=== PATIENT | male | born 1960 | race Two or more races ===

== ENCOUNTER 2024-04-27 11:46 | Outpatient (OUT) | payer SELFPAY ==
[2024-04-28 04:07] LABS: PSA, Free 1.15 ng/mL; Prostate Specific Ag 7.7 ng/mL (0.0-4.0)
== END 2024-04-27 11:47 | disposition home or self-care (01) ==
LOC: LAB 11:46
PROVIDERS: PCP Family Medicine; Visit Provider Urology
DX: Z80.42 Family history of malignant neoplasm of prostate (principal); R97.20 Elevated prostate specific antigen [PSA]
CPT/HCPCS: 36415; 84153; 84154

== ENCOUNTER 2024-08-06 12:58 | Outpatient (OUT) | payer BC, SELFPAY ==
[2024-08-07 08:13] LABS: PSA, Free 1.28 ng/mL; Prostate Specific Ag 9.7 ng/mL (0.0-4.0)
== END 2024-08-06 12:59 | disposition home or self-care (01) ==
PROVIDERS: PCP Family Medicine; Visit Provider Urology
DX: R97.20 Elevated prostate specific antigen [PSA] (principal)
CPT/HCPCS: 36415; 84153; 84154

== ENCOUNTER 2024-11-19 14:27 | Outpatient (OUT) | payer BC, SELFPAY ==
--- OUTSIDE RECORDS SUMMARY | 2024-11-19 14:45 | XMS_ITS | CCD ---
Author Organization [facility] Care Team Providers Care Buyer Grain Name Role Phone Bernardo Torrez Unavailable DO Bernardo Torrez Primary Care Provider ASHLEY Resendiz Emergency Provider DO Jose Carlos Torrez Attending Provider [phone] DO Bernardo Torrez Attending Provider [phone] BERNARDO TORREZ Primary Care Physician [phone] DO Bernardo Torrez Primary Care Provider MD Yousuf Zuñiga Attending Provider [phone] MD Yousuf Zuñiga Attending Provider DO Bernardo Torrez Primary Care Provider [phone] MD Néstor Dai Jr Emergency Provider DO Maikel Palacio Admit Provider DO Maikel Palacio Attending Provider MD Karlos Mauricio Attending Provider RILEY Jhonson Other Provider Unavailable MD Augustine Dias Other Provider MD Kyle Rodriguez Other Provider MD Michelle Pressley Other Provider Yousuf Zuñiga Attending Unavailable Bernardo Torrez Primary Care Unavailable Yousuf Zuñiga Admitting Unavailable Yousuf Zuñiga Attending Unavailable Yousuf Zuñiga Admitting Unavailable Maikel Palacio Admitting Unavailmauro Pepperer, Harini Consulting Unavailable Kuns, Bernardo Primary Care Unavailable Alaozzie, Karlos Attending Unavailable Larissa, Augustine Consulting Unavailable Kyle Rodriguez Consulting Unavai lable Huan, Michelle Consulting Unavailable Kiepert, Veronica A Admitting Unavailable Kiepert, Veronica A Attending Unavailable Kuns, Bernardo Primary Care Unavailable Uhan, Michelle Admitting Unavailable Huan, Michelle Attending Unavailable Kuns, Bernardo Primary Care Unavailable Kuns, Jose Carlos Admitting Unavailable Kuns, Jose Carlos Attending Unavailable Kuns, Bernardo Primary Care Unavailable Kuns, Bernardo Primary Care Unavailable Kuns, Bernardo Attending Unavailable Kuns, Bernardo Admitting Unavailable COOK, Yousuf P Attending Unavailable COOK, Yousuf P Attending Unavailable COOK, Yousuf P Attending Unavailable COOK, Yousuf P Attending Unavailable COOK, Yousuf P Attending Unavailable COOK, Yousuf P Attending Unavailable COOK, Yousuf P Attending Unavailable KUNS, BERNARDO Referring Unavailable COOK, Yousuf P Attending Unavailable Allergies Allergy Classification Reported Allergen(s) Allergy Type Date of Onset Reaction(s) Facility (17 sources) Aspirin; Translations: [aspirin] Drug Allergy 3 Stomach ache (finding) [facility] (1 source) Aspirin Drug Allergy 4 [facility] Repository Medications Current Medications Medication Drug Class(es) Dates Sig (Normalized) Sig (Original) allopurinol 300 mg oral tablet (1 source) Xanthine Oxidase Inhibitor Start: 10-09-2016 take 1 tablet by mouth every twenty-four hours Allopurinol 300 MG 1 tablet Orally Once a day for 90 prn Sep, Active amoxicillin 875 mg / clavulanate 125 mg oral tablet (2 sources) Penicillin-class Antibacterial Start: 07-09-2023 take 1 tablet by mouth every twelve hours Amoxicillin-Pot Clavulanate 875-125 MG 1 tablet Orally every 12 hrs for 10 day(s) Jun, Active Augmentin Tablets 875 MG (3 sources) Start: 07-08-2023 take 1 tablet by mouth every twelve hours Augmentin Tablets 875 MG 1 tablet orally BID for 10 days Jun, Active cephalexin 500 mg oral capsule (5 sources) Cephalosporin Antibacterial Start: 01-28-2024 cephalexin 500 mg Cap Refills(s) 0 Start Date: 01/28/24 Status: Ordered Start: 01-22-2024 take 500 mg by mouth three times daily Cephalexin Active 500 MG PO Three times daily 05 04January 22, 2024 12:00am Nexium (18 sources) Proton Pump Inhibitor Start: 10-01-2023 Nexium O ral, Daily, Refills(s) 0 Start Date: 10/01/23 Status: Ordered Start: 06-23-2023 take 1 capsule by [facility] once daily Esomeprazole Magnesium (Nexium) 40 mg Capsule,Delayed Release(Dr/Ec) Active 40 MG PO Daily June 23, 2023 12:00am Start: 04-05-2015 take 1 capsule by [facility] every twenty-four hours NexIUM 40 MG 1 capsule Orally Once a day OTC Mar, Active take 1 capsule by [facility] every twenty-four hours NexIUM 24HR 20 MG 1 capsule Orally Once a day Active febuxostat 40 mg oral tablet (2 sources) Xanthine Oxidase Inhibitor Start: 07-29-2023 take 1 tablet by mouth every twenty-four hours Febuxostat 40 MG 1 tablet Orally Once a day for 30 days Jul, Active Start: 11-20-2018 take 1 tablet by [facility] every twenty-four hours Uloric 40 MG 1 tablet Orally Once a day for 30 day(s) prn Nov, Active methylPREDNISolone 4 mg oral tablet (3 sources) Corticosteroid Start: 07-08-2023 methylPREDNISolone 4 MG as directed Orally as directed 1 pack Jun, Active 24 hr metoprolol succinate 25 mg extended release oral tablet (5 sources) beta-Adrenergic Zulma Start: 01-28-2024 take 1 mg by mouth once daily metoprolol 25 mg ER Tab mg tab(s), Oral, Daily, Refills(s) 0 Start Date: 01/28/24 Status: Ordered Start: 01-22-2024 take 75 mg by mouth twice rosa y Metoprolol Succinate Active 75 MG PO Twice daily 180 January 22, 2024 12:00am uricel (6 sources) Start: 10-01-2023 uricel uricel Start Date: 10/01/23 Status: Ordered Completed/Discontinued Medications Medication Drug Class(es) Dates Sig (Normalized) Sig (Original) acetaminophen 325 mg oral tablet (7 sources) Start: 07-27-2021 End: 07-31-2021 take 650 mg by mouth every six hours Acetaminophen Discontinued 650 MG PO Q6H 0 July 27, 2021 1:00am July 31, 2021 11:29am acetaminophen 325 mg / HYDROcodone bitartrate 5 mg oral tablet (7 sources) Opioid Agonist Start: 02-13-2018 End: 07-18-2021 take 1 tablet by mouth every four to six hours Hydrocodone-Acetam inophen ([facility]) 5-325 mg Tablet Discontinued 1 TAB PO EVERY 4-6 HOURS February 13, 2018 July 18, 2021 11:55pm [id number] 200 actuat albuterol 0.09 mg/actuat metered dose inhaler (7 sources) beta2-Adrenergic Agonist Start: 07-27-2021 End: 07-31-2021 take 1 puff(s) by inhalation every three hours Albuterol Sulfate (Ventolin Hfa) 90 mcg/actuation Hfa Aerosol Inhaler Discontinued 2 PUFF INHALATION Q3H 0 July 27, 2021 1:00am July 31, 2021 11:29am ALPRAZolam 0.5 mg oral tablet (7 sources) Benzodiazepine Start: 07-27-2021 End: 07-31-2021 take 0.5 mg by mouth every six hours Alprazolam Discontinued 0.5 MG PO Q6H 0 July 27, 2021 1:00am July 31, 2021 11:29am ANORO ELLIPTA 62.5 mcg/25 mcg (5 sources) Start: 09-06-2021 take 1 puff(s) by inhalation once daily ANORO ELLIPTA 62.5 mcg/25 mcg 1 PUFF INHALATION DAILY sample given Aug, Not-Taking Start: 09-06-2021 take 1 puff(s) by in halation once daily ANORO ELLIPTA 62.5 mcg/25 mcg 1 PUFF INHALATION DAILY sample given Aug, Active ascorbic acid 500 mg oral tablet (7 sources) Vitamin C Start: 07-27-2021 End: 07-31-2021 take 1 tablet by mouth once daily Ascorbic Acid (Vitamin C) (Vitamin C) 500 mg Tablet Discontinued 500 MG PO Daily 0 July 27, 2021 1:00am July 31, 2021 11:29am baricitinib 2 mg oral tablet (7 sources) Start: 07-27-2021 End: 07-31-2021 take 1 tablet by mouth once daily Baricitinib (Olumiant) 2 mg Tablet Discontinued 4 MG PO Daily 0 4 July 27, 2021 1:00am July 31, 2021 11:29am benzonatate 200 mg oral capsule (5 sources) Non-narcotic Antitussive Start: 09-06-2021 take 1 capsule by mouth three times daily as needed Benzonatate 200 MG 1 capsule Orally Three times a day PRN Aug, Not-Taking ciprofloxacin 500 mg oral tablet (3 sources) Quinolone Antimicrobial Start: 01-17-2024 End: 01-22-2024 take 500 mg by mouth twice daily Ciprofloxacin Hcl Discontinued 500 MG PO Twice daily January 17, 2024 12:00am January 22, 2024 11:40am Start: 11-15-2023 take 1 tablet by vincenzo th twice daily Cipro 500 mg Tab 500 mg = 1 tab(s), Oral, BID, start 3 days prior to procedure, # 14 tab(s), Refills(s) 0, Pharmacy: [facility], 179, cm, 10/01/23 9:12:00 EST, Height/Length Dosing, 104.1, kg, 10/01/23 9:03:00 EST, Weight Dosing Start Date: 11/15/23 Status: Ordered 0.4 ml enoxaparin sodium 100 mg/ml prefilled syringe (7 sources) Low Molecular Weight Heparin Start: 07-27-2021 End: 07-31-2021 Enoxaparin (Lovenox) 40 mg/0.4 mL Syringe Discontinued 40 MG SUBCUT Daily 0 July 27, 2021 1:00am July 31, 2021 11:29am folic acid 1 mg oral tablet (8 sources) Start: 07-31-2021 End: 06-23-2023 take 1 mg by mouth once daily Folic Acid Discontinued 1 MG PO Daily 0 July 31, 2021 1:00am June 23, 2023 4:02pm Ketorolac (4 sources) Nonsteroidal Anti-inflammatory Drug, Cyclooxygenase Inhibitor Start: 06-10-2018 Toradol per 15 mg 25 May, 2018 2 cc melatonin 3 mg oral tablet (7 sources) Start: 07-27-2021 End: 07-31-2021 take 3 mg by mouth once daily in the evening Melatonin Discontinued 3 MG PO Every evening 0 July 27, 2021 1:00am July 31, 2021 11:29am predniSONE 10 mg oral tablet (14 sources) Start: 06-23-2023 End: 01-17-2024 take 60 mg by mouth once daily Prednisone Discontinued 60 MG PO Daily 30 June 23, 2023 12:00am January 17, 2024 8:53pm Start: 02-13-2018 End: 07-18-2021 take 60 mg by mouth once daily at mealtime, then take 40 mg by mouth once daily, then take 20 mg by mouth once daily, then take 10 mg by mouth once daily Prednisone Discontinued 0 MG PO As Directed February 13, 2018 12:00am July 18, 2021 11:55pm 60mg daily x 3 days, 40 mg daily x 3 days, 20mg daily x 3 days, 10mg daily x 3 days administer with food or milk zinc sulfate 220 mg oral capsule (7 sources) Start: 07-27-2021 End: 07-31-2021 Zinc Sulfate (Orazinc) 50 mg zinc (220 mg) Capsule Discontinued 100 MG PO Daily 0 July 27, 2021 1:00am July 31, 2021 11:29am Problems Active Problems Problem Classification Problem Date Documented Date Episodic/Chronic Abdominal hernia (9 sources) Unilateral inguinal hernia, without obstruction or gangrene, not specified as recurrent; Translations: [Inguinal hernia] Onset: 09-06-2021 Resolved: 09-06-2021 Episodic Administrative/socia l admission (7 sources) Other reduced mobility; Translations: [Impaired mobility and activities of daily living] 07-27-2021 Episodic Aortic; peripheral; and visceral artery aneurysms (12 sources) Aortic aneurysm; Translations: [Aortic aneurysm of unspecified site, without rupture] Onset: 01-18-2024 10-29-2023 Chronic Cardiac dysrhythmias (4 sources) Paroxysmal atrial fibrillation; Translations: [Paroxysmal atrial fibrillation with rapid ventricular response] Onset: 01-18-2024 01-21-2024 Chronic Disorders of lipid metabolism (14 sources) Hyperlipidemia; Translations: [Hyperlipidemia, unspecified] Onset: 09-06-2021 Resolved: 09-06-2021 Chronic Esophageal disorders (13 sources) Gastroesophageal reflux disease; Translations: [Gastro-esophageal reflux disease without esophagitis] Onset: 01-18-2024 10-29-2023 Chronic Essential hypertension (6 sources) Hypertensive disorder 10-01-2023 Chronic Genitourinary congenital anomalies (9 sources) Congenital renal atrophy; Translations: [Renal hypoplasia, unspecified] Onset: 01-18-2024 07-19-2021 Chronic Genitourinary symptoms and ill-defined conditions (4 sources) Microscopic hematuria; Translations: [Other microscopic hematuria] Onset: 04-29-2024 Episodic Gout and other crystal arthropathies (20 sources) Gout; Translations: [Gout, unspecified] Onset: 09-06-2021 Resolved: 10-16-2021 Chronic Immunizations and screening for infectious disease (6 sources) Needs influenza immunization; Translations: [Encounter for immunization] Onset: 09-06-2021 Resolved: 09-06-2021 Episodic Nutritional deficiencies (11 sources) Iron deficiency; Translations: [Iron deficiency] Onset: 09-06-2021 Resolved: 09-06-2021 Episodic Other ear and sense organ disorders (1 source) Other specified disorders of right ear Episodic Other lower respiratory disease (1 source) Shortness of breath; Translations: [Shortness of breath] Onset: 01-18-2024 Episodic Other nutritional; endocrine; and metabolic disorders (1 source) Body mass index (BMI) 31.0-31.9, adult Chronic Other screening for suspected conditions (not mental disorders or infectious disease) (20 sources) Screening status; Translations: [Encounter for screening for malignant neoplasm of prostate] Onset: 09-06-2021 Resolved: 10-16-2021 Episodic Other upper respiratory disease (1 source) Nasal congestion Episodic Residual codes; unclassified (7 sources) Patient encounter status; Translations: [Encounter for prophylactic measures, unspecified] 07-27-2021 Episodic Residual codes; unclassified (1 source) Family history of malignant neoplasm of prostate Episodic Residual codes; unclassified (4 sources) Family history of cancer; Translations: [Family history of malignant neoplasm of prostate] Onset: 10-01-2023 Episodic Residual codes; unclassified (6 sources) Family history of prostate cancer 10-01-2023 Episodic Respiratory failure; insufficiency; arrest (adult) (7 sources) Acute respiratory failure; Translations: [Acute respiratory failure with hypoxia] 07-19-2021 Episodic Septicemia (except in labor) (5 sources) Sepsis; Translations: [Sepsis, unspecified organism] Onset: 01-18-2024 01-18-2024 Episodic Unclassified (7 sources) Lack of stamina; Translations: [Impaired endurance] 07-27-2021 Unclassified (1 source) Idiopathic chronic gout, left knee, without tophus (tophi); Translations: [Idiopathic chronic gout, left knee, without tophus (tophi)] Onset: 06-23-2023 Viral infection (14 sources) COVID-19; Translations: [Pneumonia due to COVID-19 virus] Onset: 06-16-2021 07-19-2021 Episodic Past or Other Problems Problem Classification Problem Date Documented Da te Episodic/Chronic Unclassified (2 sources) History of COVID-19 Z86.16 Onset: 08-07-2021 Resolved: 09-06-2021 Unclassified (1 source) Cough R05.9 Onset: 09-06-2021 Resolved: 09-06-2021 Results Test Name Value Interpretation Reference Range [facility] Patient Letter [facility] August 18, 2024 LARRY MCFARLANE [address] [place] [address] : 1960 Dear Larry Mcfarlane, We have been trying to reach you with no success. It is important that you return our call upon receiving this letter. Also, at the time of your call, please provide us with your current information. Thank you for your prompt attention to this matter. Sincerely, [facility] [address] [place] [address] [facility] Ambulatory Visit Summaryon 1 10-12-2023 Ambulatory Visit Summary Ambulatory Visit Summary LARRY MCFARLANE :1960 Visit Date:08/12/2024 Ambulatory Visit Instructions Your Diagnosis Elevated PSA Family history of prostate cancer Microscopic hematuria Your Care Team Attending Physician - MICHAEL ALFONSO, Yousuf Scott Primary Care Physician - BERNARDO TORREZ DO This Is Your Medications List Contact prescribing physician if questions or concerns Non-Formulary Medication (uricel) cephalexin (cephalexin 500 mg Cap) esomeprazole (Nexium) metoprolol (metoprolol 25 mg ER Tab) Procedures Performed Transrectal biopsy of prostate using ultrasound (US) guidance (01/16/2024), Open fracture of right wrist (2014), Colonoscopy (2013), Hip replacement. Discharge Vitals Heart Rate (Peripheral) 68 Respiratory Rate 19 Blood Pressure 159/97 Height 179 cm Height 70 in Weight 104 kg Weight 229.28 lb BMI 32.46 What to do next Scheduled Follow-Up Appointments Saturday. 2024 8:00 AM EDT With: Yousuf ZUÑIGA MD Where: [facility] [address], [address] [place] [address]- You Need to Schedule the Following Appointments Follow Up with Yousuf ZUÑIGA MD, URL When: Where: [address] [facility] [address] [place] [address]- Medications What How Much When Instructions Unchanged cephalexin (cephalexin 500 mg Cap) Contact prescribing physician if questions or concerns Unchanged esomeprazole (Nexium) Every day Contact prescribing physician if questions or concerns Unchanged metoprolol (metoprolol 25 mg ER Tab) Every day Contact prescribing physician if questions or concerns Unchanged Non-Formulary Medication (uricel) Contact prescribing physician if questions or concerns Medications and Immunizations Administered Given influenza, unspecified formulation, Allergies aspirin (Stomach upset) Problems Ongoing - Any problem that you are currently receiving treatment for. Elevated PSA Family history of prostate cancer Gout Hypertension Left inguinal hernia Microscopic hematuria Patient Survey You may receive a survey via text or e-mail asking about your office visit. Please share your experience with us by completing your survey. We appreciate your feedback and thank you for choosing us for your care. Education Materials Prostate Cancer Screening Prostate cancer screening is testing that is done to check for the presence of prostate cancer in men. The prostate gland is a walnut-sized gland that is located below the bladder and in front of the rectum in males. The function of the prostate is to add fluid to semen during ejaculation. Prostate cancer is one of the most common types of cancer in men. Who should have prostate cancer screening? Screening recommendations vary based on age and other risk factors, as well as between the professional organizations who make the recommendations. In general, screening is recommended if: ??? You are age 50 to 70 and have an average risk for prostate cancer. You should talk with your health care provider about your need for screening and how often screening should be done. Because most prostate cancers are slow growing and will not cause , screening in this age group is generally reserved for men who have a 10- to 15-year life expectancy. ??? You are younger than age 50, and you have these risk factors: ? Having a father, brother, or uncle who has been diagnosed with prostate cancer. The risk is higher if your family member's cancer occurred at an early age or if you have multiple family members with prostate cancer at an early age. ? Being a male who is Black or is of Claus or sub-Saharan descent. In general, screening is not recommended if: ??? You are younger than age 40. ??? You are between the ages of 40 and 49 and you have no risk factors. ??? You are 70 years of age or older. At this age, the risks that screening can cause are greater than the benefits that it may provide. If you are at high risk for prostate cancer, your health care provider may recommend that you have screenings more often or that you start screening at a younger age. How is screening for prostate cancer done? The recommended prostate cancer screening test is a blood test called the prostate-specific antigen (PSA) test. PSA is a protein that is made in the prostate. As you age, your prostate naturally produces more PSA. Abnormally high PSA levels may be caused by: ??? Prostate cancer. ??? An enlarged prostate that is not caused by cancer (benign prostatic hyperplasia, or BPH). This condition is very common in older men. ??? A prostate gland infection (prostatitis) or urinary tract infection. ??? Certain medicines such as male hormones (like testosterone) or other medicines that raise testosterone levels. A rectal exam may be done as part of (more content not included)... Normal [facility] Urology Office/Clinic Noteon 08-12-2024 Urology Office/Clinic Note Urology Office/Clinic Note Chief Complaint F/U with PSA HPI Staff 64 year old male here for 3 month with PSA. Previous DX: elevated PSA, family H/O prostate cancer and micro hematuria Prostate MRI 10/14/23 [facility] and TRUS/bx 01/16/24 PSA 07/15/23 - 7.39 07/16/23 - 7.33 & 16.9% 04/27/24 - 7.7 & 14.9 08/06/24 - 9.7 & 13.2% Dysuria: no Incomplete bladder emptying: no Hematuria: no Frequency: 3 hours or longer Urgency: occasionally Nocturia: no Stream: occasionally weak Post void dripping: no Wearing pads/ Depends: no Urge incontinence: no Stress incontinence: no Incontinence without Sensory Awareness: no Abdominal pain: no Flank pain: no History of Present Illness Tests reviewed: reviewed UA and PSA. I have reviewed the previous health record information and history for this patient from Dr. Zuñiga I have reviewed and verified the staff HPI to be accurate for this encounter. There have been no associated fever, chills, flank pain, or blood in the urine. Denies any urinary infections since last encounter. Review of Systems PHQ Score Initial Depression Screen Score: 0 SCORE ROS - Provider Constitutional: denies weight loss, denies hot flashes. Eyes: denies eye problems. Gastrointestinal: denies nausea, denies vomiting. Cardiovascular: denies chest pain or angina. Integumentary: no dryness Musculoskeletal: denies musculoskeletal symptoms. ENMT: denies otolaryngeal symptoms. Respiratory: no shortness of breath. Heme/Lymph: denies easy bleeding tendency, denies easy bruising tendency. Psychiatric: no confusion, no anxiety. Genitourinary: See HPI. Physical Exam Vitals & Measurements HR: 68(Peripheral) RR: 19 BP: 159/97 HT: 70 in HT: 179 cm WT: 104 kg WT: 229.28 lb BMI: 32.46 General Appearance: alert, no distress, well nourished, well developed male. Assessment/Plan VANDANA 23 Portions of this record may have been created with voice recognition artificial intelligence software, specifically [employer] and or [employer]. Substitutions may have occurred due to the inherent limitations of voice recognition and artificial intelligence software. 1. Elevated PSA (R97.20: Elevated prostate specific antigen [PSA]) PSA 10/11/12 - 1.52 02/21/16 - 1.65 09/04/21 - 4.38 09/27/21 - 5.58 & 34.0% 07/15/23 - 7.39 07/16/23 - 7.33 & 16.9% 04/27/24 - 7.7 & 14.9% 08/06/24 - 9.7 & 13.2% PSAD 0.13 IPSS 6 (7) MRI of prostate 10/14/23 [facility] - prostate volume 81 cc. Negative however limited study due to hip prosthesis. TRUS/bx 01/16/24 - Prostate volume 69.4 mL. BPH with mild atrophic changes. Minute foci of low-grade PIN in left mid medial. ~Pt states he became very sick after bx. states pt was septic. This was despite oral antibiotics leading up to the procedure and also intramuscular gentamicin immediately preoperatively, with continuation of antibiotics orally post op. Confirm MDX - 19% any cancer. 10% [place] 7. Asymptomatic of infection. Increase in PSA is concerning along with a low percent free. Repeating prostate biopsy is strongly recommended. Pt states he is very anxious about having sepsis again. Discussed proceeding with TRUS/bx with a rectal swab prior to ensure he is treated with appropriate ATB to avoid sepsis again. Also discussed transperineal approach which would require consulting with Dr. Saucedo first. We also discussed repeating PSA to confirm rise however this is recommended. -Will discuss case with Dr. Saucedo -F/up in 3 mos with PSAFT barring conversation with Dr. Saucedo 2. Family history of prostate cancer (Z80.42: Family history of malignant neoplasm of prostate) Father. Dx in mid to late 60's, brachytherapy. [1] 3. Microscopic hematuria (R31.29: Other microscopic hematuria) UA today negative for infection or blood. Denies gross hematuria. Pt to call with visible blood in urine. -Cont symptomatic monitoring \ Unfortunately the PSA level is increased by 2 points since last visit. As noted his biopsy was about 6 months ago, negative for malignancy antibiotic 70 g gland. He had a septic episode postoperatively despite antibiotic coverage. In essence his options are to monitor closely and we will schedule him for a 3-month follow-up with a repeat free and total PSA. The other option is to rebiopsy, perhaps in a transperineal approach. Will get Dr Saucedo's opinion on this as well. Follow-up With When Contact Information MICHAEL ALFONSO, Yousuf Scott, URL [address] [place] [id number]- Additional Instructions: 3 mos w/ PSAFT (pending conversation with Dr. Saucedo regarding transperineal prostate biopsy) Patient Education Prostate Cancer Screening IJennifer, personally scribed for Dr. Zuñiga on 08/12/2024 08:08:51. . Documentation recorded by the [email or web address] monson, accurately reflects the services(s) I performed a (more content not included)... Normal [facility] Comment on above: Result Comment: Elec tronically Signed By: Yousuf ZUÑIGA MD\.br\Date and Time Signed: 08/12/24 08:13 EST\.br\Electronically Co-Signed By: Jennifer Roth\.br\Date and Time Co-Signed: 08/12/24 08:09 EST Urology Office/Clinic Noteon 04-29-2024 Urology Office/Clinic Note Urology Office/Clinic Note Chief Complaint 3 month with PSA HPI Staff 64 yo male here for 3-4 mos f/up with PSA. Previous dx: elevated PSA & family hx of prostate CA. Confirm MDX - 19% any cancer. 10% [place] 7. PSA 09/04/21 - 4.38 09/27/21 - 5.58 & 34.0% 07/15/23 - 7.39 07/16/23 - 7.33 & 16.9% 04/27/24 - 7.7 & 14.9% Dysuria: no Incomplete bladder emptying: no Hematuria: no Frequency: 2-3x's a day Urgency: occasionally Nocturia: no Stream: occasionally weak Post void dripping: no Wearing pads/ Depends: no Urge incontinence: no Stress incontinence: no Incontinence without Sensory Awareness: no Abdominal pain: no Flank pain: no History of Present Illness Tests reviewed: reviewed UA and PSA. I have reviewed the previous health record information and history for this patient from Dr. Zuñiga. I have reviewed and verified the staff HPI to be accurate for this encounter. There have been no associated fever, chills, flank pain, or blood in the urine. Denies any urinary infections since last encounter. Review of Systems PHQ Score Initial Depression Screen Score: 0 SCORE ROS - Provider Constitutional: denies weight loss, denies hot flashes. Eyes: denies eye problems. Gastrointestinal: denies nausea, denies vomiting. Cardiovascular: denies chest pain or angina. Integumentary: no dryness Musculoskeletal: denies musculoskeletal symptoms. ENMT: denies otolaryngeal symptoms. Respiratory: no shortness of breath. Heme/Lymph: denies easy bleeding tendency, denies easy bruising tendency. Psychiatric: no confusion, no anxiety. Genitourinary: See HPI. Physical Exam Vitals & Measurements HT: 70 in HT: 179 cm WT: 104 kg WT: 228.8 lb BMI: 32.46 General Appearance: alert, no distress, well nourished, well developed male. Assessment/Plan Portions of this record may have been created with voice recognition artificial intelligence software, specifically [employer], [employer] and or [employer]. Substitutions may have occurred due to the inherent limitations of voice recognition and artificial intelligence software. 1. Elevated PSA (R97.20: Elevated prostate specific antigen [PSA]) PSA 10/11/12 - 1.52 02/21/16 - 1.65 09/04/21 - 4.38 09/27/21 - 5.58 & 34.0% 07/15/23 - 7.39 07/16/23 - 7.33 & 16.9% 04/27/24 - 7.7 & 14.9% I[place] 7. Prostate MRI 10/14/23 [facility] [place] Neg. Limited study due to hip prosthesis. TRUS/bx 01/16/24 - Prostate volume 69.4 mL. BPH with mild atrophic changes. Minute foci of low-grade PIN in left mid medial. ~Pt states he became very sick after bx. states pt was septic. This was despite oral antibiotics leading up to the procedure and also intramuscular gentamicin immediately preoperatively, with continuation of antibiotics orally post op. Confirm MDX - 19% any cancer. 10% [place] 7. 0.4 increase within 10 months. Will have pt repeat PSA in 3-4 mos to confirm rise. Consider cluster biopsy if PSA continues to rise. Consider transperineal given history. -PSA free & total in 3-4 mos -Consider cluster bx in the future if PSA would cont to rise. 2. Family history of prostate cancer (Z80.42: Family history of malignant neoplasm of prostate) Father. Dx in mid to late 60's, brachytherapy. [1] 3. Microscopic hematuria (R31.29: Other microscopic hematuria) UA today shows trace-intact blood. Denies gross hematuria. Pt to call with visible blood in urine. Follow-up With When Contact Information Yousuf ZUÑIGA MD, URL [address] [place] [id number]- Additional Instructions: 3-4 mos w/ PSA free & total Patient Education Prostate Cancer Screening I, Jennifer Roth, personally scribed for Dr. Zuñiga on 04/29/2024 15:55:18. . Documentation recorded by the scribe, Jennifer Roth, accurately reflects the services(s) I performed and decisions made by me. Authenticated by Dr. Zuñiga on 04/29/2024 16:36:14. Problem List/Past Medical History Ongoing Elevated PSA Family history of prostate cancer Gout Hypertension Left inguinal hernia Microscopic hematuria Historical No qualifying data Procedure/Surgical History Transrectal biopsy of prostate using ultrasound (US) guidance (01/16/2024), Open fracture of right wrist (2014), Colonoscopy (2013), Hip replacement. Medications cephalexin 500 mg Cap metoprolol 25 mg ER Tab, Oral, Daily Nexium, Oral, Daily uricel Allergies aspirin (Stomach upset) Social History Tobacco Never (less than 100 in lifetime) Tobacco Use:. Cigarettes, Household tobacco concerns: No., 04/29/2024 Family History Breast cancer: Mother. COPD: Mother. Cardiac pacemaker: Mother. Diabetes mellitus type 2: Mother. Heart disease: Mother and Father. Heart disease: Mother. High cholesterol: Father. Hypertension: Grandparent. Lung cancer: Mother and Father. Primary malignant neoplas (more content not included)... Normal [facility] Comment on above: Result Comment: Elec tronically Signed By: Yousuf ZUÑIGA MD\.br\Date and Time Signed: 04/29/24 16:37 EDT\.br\Electronically Co-Signed By: Jennifer Roth.br\Date and Time Co-Signed: 04/29/24 15:56 EDT Reminderson 02-19-2024 Reminders - From: Sravani Da Silva To: EU - Pending Results; Sent: 01/28/2024 09:41:05 EDT Show up: 02/14/2024 09:40:00 EDT Subject: Confirm MDX order Due Date/Time: 02/14/2024 09:40:00 EDT Reminder/Recall Order for Confirm MDX sent 01/28/24 Results are in chart. Message sent to [employer] pool to review. Normal [facility] Pathology Noteon 02-17-2024 Pathology Note [id number]. 00TIFF [facility] Pathology Noteon 02-13-2024 Pathology Note [id number]#1 .00TIFF [facility] Operative Reporton Operative Report [id number]#1 .00TIFF [facility] Lab Reportson 02-11-2024 Lab Reports [id number] .00TIFF [facility] Pathology Noteon 02-06-2024 Pathology Note [id number]. 00TIFF [facility] Physician Orderon 01-29-2024 Physician Order [id number]. 00TIFF [facility] Physician Order [id number]. 00TIFF [facility] Ambulatory Visit Summaryon 0 01-28-2024 Ambulatory Visit Summary LARRY MCFARLANE :1960 Visit Date:01/28/2024 Ambulatory Visit Instructions Your Diagnosis Elevated PSA Family history of prostate cancer Your Care Team Attending Physician - Yousuf ZUÑIGA MD Primary Care Physician - BERNARDO TORREZ DO This Is Your Medications List Contact prescribing physician if questions or concerns Non-Formulary Medication (uricel) cephalexin (cephalexin 500 mg Cap) esomeprazole (Nexium) metoprolol (metoprolol 25 mg ER Tab) Procedures Performed Transrectal biopsy of prostate using ultrasound (US) guidance (01/16/2024), Open fracture of right wrist (2014), Colonoscopy (2013), Hip replacement. Discharge Vitals Temperature (Temporal Artery) 36.9 ?C Heart Rate (Peripheral) 75 Respiratory Rate 16 Blood Pressure 133/87 Height 179 cm Height 70 in Weight 104 kg Weight 228.8 lb BMI 32.46 What to do next Scheduled Follow-Up Appointments Saturday 9:30 AM EDT With: Yousuf ZUÑIGA MD Where: [facility]PG ECG *OFFICE ONLY*on 01-14 FPG ECG *OFFICE ONLY* [facility] [place] [address] Electrocardiograph Report Signed Patient: Larry Mcfarlane MR#: [id number] : 1960 Acct:[id number] Age/Sex: 63 / M ADM Date: 01/28/24 Loc: [facility]KGCARDIO Room: Type: [facility] Attending Dr: Michelle Pressley MD Ordering Provider: Michelle Pressley MD Date of Service: 01/28/24 ECG/FPG ECG *OFFICE ONLY*: I48.91 - Unspecified atrial fibrillation Copies to: Test Reason : Blood Pressure : / mmHG Vent. Rate : 063 BPM Atrial Rate : 063 BPM P-R Int : 204 ms QRS Dur : 096 ms QT Int : 420 ms P-R-T Axes : 062 014 038 degrees QTc Int : 429 ms Normal sinus rhythm Normal ECG When compared with ECG of 21-JAN-2024 07:28, Sinus rhythm has replaced Atrial fibrillation Confirmed by Michelle Pressley ([id number]) on 02/03/2024 4:38:58 PM Referred By: Electronically Signed By:Michelle Pressley Transcribed By: SHANAE Signed By Michelle Pressley MD 4 [phone] Normal [facility] Patient Educationon 01-28-20 Patient Education Oncology Prostate Cancer Screening Prostate cancer screening is testing that is done to check for the presence of prostate cancer in men. The prostate gland is a walnut-sized gland that is located below the bladder and in front of the rectum in males. The function of the prostate is to add fluid to semen during ejaculation. Prostate cancer is one of the most common types of cancer in men. Who should have prostate cancer screening? Screening recommendations vary based on age and other risk factors, as well as between the professional organizations who make the recommendations. In general, screening is recommended if: ? You are age 50 to 70 and have an average risk for prostate cancer. You should talk with your health care provider about your need for screening and how often screening should be done. Because most prostate cancers are slow growing and will not cause , screening in this age group is generally reserved for men who have a 10- to 15-year life expectancy. ? You are younger than age 50, and you have these risk factors: ? Having a father, brother, or uncle who has been diagnosed with prostate cancer. The risk is higher if your family member's cancer occurred at an early age or if you have multiple family members with prostate cancer at an early age. ? Being a male who is Black or is of [place] or sub-Saharan descent. In general, screening is not recommended if: ? You are younger than age 40. ? You are between the ages of 40 and 49 and you have no risk factors. ? You are 70 years of age or older. At this age, the risks that screening can cause are greater than the benefits that it may provide. If you are at high risk for prostate cancer, your health care provider may recommend that you have screenings more often or that you start screening at a younger age. How is screening for prostate cancer done? The recommended prostate cancer screening test is a blood test called the prostate-specific antigen (PSA) test. PSA is a protein that is made in the prostate. As you age, your prostate naturally produces more PSA. Abnormally high PSA levels may be caused by: ? Prostate cancer. ? An enlarged prostate that is not caused by cancer (benign prostatic hyperplasia, or BPH). This condition is very common in older men. ? A prostate gland infection (prostatitis) or urinary tract infection. ? Certain medicines such as male hormones (like testosterone) or other medicines that raise testosterone levels. A rectal exam may be done as part of prostate cancer screening to help provide information about the size of your prostate gland. When a rectal exam is performed, it should be done after the PSA level is drawn to avoid any effect on the results. Depending on the PSA results, you may need more tests, such as: ? A physical exam to check the size of your prostate gland, if not done as part of screening. ? Blood and imaging tests. ? A procedure to remove tissue samples from your prostate gland for testing (biopsy). This is the only way to know for certain if you have prostate cancer. What are the benefits of prostate cancer screening? ? Screening can help to identify cancer at an early stage, before symptoms start and when the cancer can be treated more easily. ? There is a small chance that screening may lower your risk of dying from prostate cancer. The chance is small because prostate cancer is a slow-growing cancer, and most men with prostate cancer from a different cause. What are the risks of prostate cancer screening? The main risk of prostate cancer screening is diagnosing and treating prostate cancer that would never have caused any symptoms or problems. This is called overdiagnosisand overtreatment. PSA screening cannot tell you if your PSA is high due to cancer or a different cause. A prostate biopsy is the only procedure to diagnose prostate cancer. Even the results of a biopsy may not tell you if your cancer needs to be treated. Slow-growing prostate cancer may not need any treatment other than monitoring, so diagnosing and treating it may cause unnecessary stress or other side effects. Questions to ask your health care provider ? When should I start prostate cancer screening? ? What is my risk for prostate cancer? ? How often do I need screening? ? What type of screening tests do I need? ? How do I get my test results? ? What do my results mean? ? Do I need treatment? Where to find more information ? The [place] [employer]: www.cancer.org ? [place] [employer]: www.auanet.org Contact a health care provider if: ? You have difficulty urinating. ? You have pain when you urinate or ejaculate. ? You have blood in your urine or semen. ? You have pain in your back or in the area of your prostate. Summary ? Prostate cancer is a common type of cancer in men. The prostate gland is located below the bladder and in front of the rectum. This gland adds flu (more content not included)... Normal [facility] Urology Office/Clinic Noteon 01-28-2024 Urology Office/Clinic Note Chief Complaint elevated PSA, family hx of prostate cancer HPI Staff Here to review path report from TRUS/bx done 01/16/24. Previous dx: elevated PSA, fam hx of prostate ca, left inguinal hernia. Prostate MRI done 10/14/23 [facility] [place] neg but poor quality due to hip replacements. Pt was scheduled for a biopsy for better evaluation. Most recent PSA 07/16/23 - 7.33 & 16.9%. Dysuria: no Incomplete bladder emptying: no Hematuria: pt states that it has been a few days since he has seen any Frequency: no Urgency: no Nocturia: 0-1x Stream: no Leaking:no Post void dripping: no Wearing pads/ Depends: no Urge incontinence: no Stress incontinence: no Incontinence without Sensory Awareness: no Abdominal pain: no Flank pain: no Sexual complaints: no History of Present Illness Tests reviewed: reviewed path report I have reviewed the previous health record information and history for this patient from Dr. Zuñiga. I have reviewed and verified the staff HPI to be accurate for this encounter. Review of Systems PHQ Score Initial Depression Screen Score: 0 SCORE ROS - Provider Constitutional: denies weight loss, denies hot flashes. Eyes: denies eye problems. Gastrointestinal: denies nausea, denies vomiting. Cardiovascular: denies chest pain or angina. Integumentary: no dryness Musculoskeletal: denies musculoskeletal symptoms. ENMT: denies otolaryngeal symptoms. Respiratory: no shortness of breath. Heme/Lymph: denies easy bleeding tendency, denies easy bruising tendency. Psychiatric: no confusion, no anxiety. Genitourinary: See HPI. Physical Exam Vitals & Measurements T: 36.9 ?C(Temporal Artery) HR: 75(Peripheral) RR: 16 BP: 133/87 HT: 70 in HT: 179 cm WT: 104 kg WT: 228.8 lb BMI: 32.46 General Appearance: alert, no distress, well nourished, well developed male. Assessment/Plan 1. Elevated PSA (R97.20: Elevated prostate specific antigen [PSA]) PSA 10/11/12 - 1.52 02/21/16 - 1.65 09/04/21 - 4.38 09/27/21 - 5.58 & 34.0% 07/15/23 - 7.39 07/16/23 - 7.33 & 16.9% Prostate MRI 10/14/23 [facility] [place] Neg. S/p TRUS/bx 01/16/24 - Prostate volume 69.4 mL. BPH with mild atrophic changes. Minute foci of low-grade PIN in left mid medial. The pathology report was reviewed with the patient in detail today. There is no evidence of malignancy and no further evaluation of the tissue removed is planned. Discussed genetic testing of tissue to evaluate risk for prostate cancer. Advised pt PSA would be continued to be monitored closely. All questions were answered and the report discussed in terms that the patient could understand. -Pathologic tissue to be sent for Confirm MDX -PSA FT in 3 mos 2. Family history of prostate cancer (Z80.42: Family history of malignant neoplasm of prostate) Father, dx in mid to late 60's, brachytherapy. [1] The patient is quite happy to hear that his prostate biopsy is negative. Putting this all in perspective he has now had a negative MRI of the prostate as well as a -12 biopsy procedure demonstrated no evidence of malignancy or areas of suspicion. He does agree to proceed with a confirm MDX on the tissue obtained. This may help determine the aggressiveness of follow-up. At this point 3 to 4-month follow-up with a repeat free and total PSA. He agrees with the plan Portions of this record may have been created with voice recognition artificial intelligence software, specifically [employer], [employer] and or [employer]. Substitutions may have occurred due to the inherent limitations of voice recognition and artificial intelligence software. Follow-up With When Contact Information MICHAEL ALFONSO, Yousuf Scott, URL [facility] [email or web address] [address] [place] [id number]- Additional Instructions: 3 mos w/ PSA Patient Education Prostate Cancer Screening Beverly Conley, personally scribed for Dr. Zuñiga on 01/28/2024 09:01:16. . Documentation recorded by the Beverly cameron acurately reflects the services(s) I performed and decisions made by me. Authenticated by Dr. Zuñiga on 01/28/2024 09:03:43. Problem List/Past Medical History Ongoing Elevated PSA Family history of prostate cancer Gout Hypertension Left inguinal hernia Historical No qualifying data Procedure/Surgical History Transrectal biopsy of prostate using ultrasound (US) guidance (01/16/2024), Open fracture of right wrist (2015), Colonoscopy (2013), Hip replacement. Medications cephalexin 500 mg Cap metoprolol 25 mg ER Tab, Oral, Daily Nexium, Oral, Daily uricel Allergies aspirin (Stomach upset) Social History Tobacco Never (less than 100 in lifetime) Tobacco Use:. Cigarettes, Household tobacco concerns: No., 01/28/2024 Family History Breast cancer: Mother. COPD: Mother. Cardiac pacemaker: Mother. Diabetes mellitus type 2: Mother. Heart disease: Mother. Heart disease: Mother and Father. (more content not included)... Normal [facility] Comment on above: Result Comment: Elec tronically Signed By: Yousuf ZUÑIGA MD\.br\Date and Time Signed: 01/28/24 09:04 EDT\.br\Electronically Co-Signed By: Beverly Christianson\.br\Date and Time Co-Signed: 01/28/24 09:02 EDT Pathology Noteon 01-27-2024 Pathology Note [id number] .00TIFF Normal [facility] Basic Metabolic Panelon 05-0 Creatinine Clr Calc Pharmacy 66.58 Normal [facility] Comment on above: Result Comment: PERF ORMED BY: [place] [address] PATHOLOGIST CORRECTIONAL PROGRAM SPECIALIST RANDI SANTOS M.D. Performed By: #### B SUCTION DREDGE DUMPING SUPERVISOR #### [address] GFR/1.73 sq M.predicted MDRD (S/P/Bld) [Vol rate/Area] 58.325 mL/min/{1.73_m2} Normal [facility] Comment on above: Performed By: #### B SUCTION DREDGE DUMPING SUPERVISOR #### [address] [place] [address] [place] Calcium [Mass/volume] in Ser um or PlasmaOrdered By: Karlos Mauricio on 01-22-2024 Calcium [Mass/Vol] 9.3 mg/dL Normal 8.6-10.3 [facility] Comment on above: Performed By: #### B SUCTION DREDGE DUMPING SUPERVISOR #### [address] [address] [place] [address] [place] Carbon dioxide, total [Moles /volume] in Serum or PlasmaOrdered By: Karlos Mauricio on 01-22-2024 CO2 [Moles/Vol] 28.2 mmol/L Normal 21.0-31.0 [facility] Comment on above: Performed By: #### B SUCTION DREDGE DUMPING SUPERVISOR #### [place] [address] [place] Chloride [Moles/volume] in S katelyn or PlasmaOrdered By: Karlos Mauricio on 01-22-2024 Chloride [Moles/Vol] 102 mmol/L Normal 98-107 [facility] Comment on above: Performed By: #### B SUCTION DREDGE DUMPING SUPERVISOR #### [address] [place] [address] [place] Creatinine [Mass/volume] in Serum or PlasmaOrdered By: Karlos Mauricio on 01-22-2024 Creatinine [Mass/Vol] 1.37 mg/dL High 0.70-1.30 [facility] Comment on above: Performed By: #### B SUCTION DREDGE DUMPING SUPERVISOR #### [place] [address] [place] Glucose [Mass/volume] in Ser um or PlasmaOrdered By: Karlos Mauricio on 01-22-2024 Glucose [Mass/Vol] 106 mg/dL High 70-100 [facility] Comment on above: ADA recommended refe rence rangeRandom Glucose Reference Range is dependent on time and content of last meal. Glucose of more than 200 mg/dL in a nonstressed, ambulatory subject supports the diagnosis of Diabetes Mellitus. Result Comment: [place] om Glucose Reference Range is dependent on time and content of last meal. Glucose of more than 200 mg/dL in a nonstressed, ambulatory subject supports the diagnosis of Diabetes Mellitus. ADA recommended reference range Performed By: #### B SUCTION DREDGE DUMPING SUPERVISOR #### [address] No Panel InformationOrdered By: Karlos Mauricio on 01-22-2024 Estimated GFR (CKD-EPI) 58.325 mL/Min [facility] Creatinine Clearance (Chem 66.58 [facility] Potassium [Moles/volume] in Serum or PlasmaOrdered By: Karlos Mauricio on 01-22-2024 Potassium [Moles/Vol] 4.1 mmol/L Normal 3.5-5.1 [facility] Comment on above: Performed By: #### B SUCTION DREDGE DUMPING SUPERVISOR #### [address] Serum or plasma anion gap de terminationOrdered By: Karlos Mauricio on 01-22-2024 Anion gap [Moles/Vol] 11.9 mmol/L Normal 6.0-15.0 [facility] Comment on above: Performed By: #### B SUCTION DREDGE DUMPING SUPERVISOR #### [address] Sodium [Moles/volume] in Ser um or PlasmaOrdered By: Karlos Mauricio on 01-22-2024 Sodium [Moles/Vol] 138 mmol/L Normal 136-145 [facility] Comment on above: Performed By: #### B SUCTION DREDGE DUMPING SUPERVISOR #### [address] Urea nitrogen [Mass/volume] in Serum or PlasmaOrdered By: Karlos Mauricio on 01-22-2024 Urea nitrogen [Mass/Vol] 34 mg/dL High 7-25 [facility] Comment on above: Performed By: #### B SUCTION DREDGE DUMPING SUPERVISOR #### [address] Automated basophil %Ordered By: Maikel Palacio on 01-21-2024 Basophils/100 WBC (Bld) 0.9 % Normal . [facility] Comment on above: Performed By: #### B SUCTION DREDGE DUMPING SUPERVISOR #### [address] Automated basophil countOrde red By: Maikel Palacio on 01-21-2024 Basophils (Bld) [#/Vol] 0.0 10*3/uL Normal 0.0-0.2 [facility] Comment on above: Result Comment: PERF ORMED BY: [place] [address] PATHOLOGIST CORRECTIONAL PROGRAM SPECIALIST RANDI SANTOS M.D. Performed By: #### B SUCTION DREDGE DUMPING SUPERVISOR #### [address] Automated blood monocyte cou ntOrdered By: Maikel Palacio on 01-21-2024 Monocytes (Bld) [#/Vol] 1.0 10*3/uL High 0.0-0.8 [facility] Comment on above: Performed By: #### B SUCTION DREDGE DUMPING SUPERVISOR #### [address] Automated eosinophil %Ordere d By: Maikel Palacio on 01-21-2024 Eosinophils/100 WBC (Bld) 4.9 % Normal . [facility] Comment on above: Performed By: #### B SUCTION DREDGE DUMPING SUPERVISOR #### [address] Automated eosinophil countOr dered By: Maikel Palacio on 01-21-2024 Eosinophils (Bld) [#/Vol] 0.2 10*3/uL Normal 0.0-0.45 [facility] Comment on above: Performed By: #### B SUCTION DREDGE DUMPING SUPERVISOR #### [address] Automated monocyte %Ordered By: Maikel Palacio on 01-21-2024 Monocytes/100 WBC (Bld) 18.8 % Normal . [facility] Comment on above: Performed By: #### B SUCTION DREDGE DUMPING SUPERVISOR #### [address] Automated neutrophil %Ordere d By: Maikelamanda Braym on 01-21-2024 Neutrophils/100 WBC (Bld) 51.6 % Normal . [facility] Comment on above: Performed By: #### B SUCTION DREDGE DUMPING SUPERVISOR #### [address] Basic Metabolic Panelon 05-0 Anion gap [Moles/Vol] 17.5 mmol/L High 6.0-15.0 Th e [facility] Comment on above: Performed By: #### B SUCTION DREDGE DUMPING SUPERVISOR #### [address] Calcium [Mass/Vol] 9.0 mg/dL Normal 8.6-10.3 The [facility] Comment on above: Performed By: #### B SUCTION DREDGE DUMPING SUPERVISOR #### [address] Chloride [Moles/Vol] 102 mmol/L Normal 98-107 [facility] Comment on above: Performed By: #### B SUCTION DREDGE DUMPING SUPERVISOR #### [address] CO2 [Moles/Vol] 21.4 mmol/L Normal 21.0-31.0 The [facility] Comment on above: Performed By: #### B SUCTION DREDGE DUMPING SUPERVISOR #### [address] Creatinine [Mass/Vol] 1.19 mg/dL Normal 0.70-1.30 [facility] Comment on above: Performed By: #### B SUCTION DREDGE DUMPING SUPERVISOR #### [address] Creatinine Clr Calc Pharmacy 77.05 Normal [facility] Comment on above: Result Comment: PERF ORMED BY: [place] [address] PATHOLOGIST CORRECTIONAL PROGRAM SPECIALIST RANDI SANTOS M.D. Performed By: #### B SUCTION DREDGE DUMPING SUPERVISOR #### [address] GFR/1.73 sq M.predicted MDRD (S/P/Bld) [Vol rate/Area] mL/min/{1.73_m2} Normal [facility] Comment on above: Performed By: #### B SUCTION DREDGE DUMPING SUPERVISOR #### [place] [address] Glucose [Mass/Vol] 109 mg/dL High 70-100 The [facility] Comment on above: Result Comment: [facility] Glucose Reference Range is dependent on time and content of last meal. Glucose of more than 200 mg/dL in a nonstressed, ambulatory subject supports the diagnosis of Diabetes Mellitus. ADA recommended reference range Performed By: #### B SUCTION DREDGE DUMPING SUPERVISOR #### [address] Potassium [Moles/Vol] 3.9 mmol/L Normal 3.5-5.1 [facility] Comment on above: Performed By: #### B SUCTION DREDGE DUMPING SUPERVISOR #### [address] Sodium [Moles/Vol] 137 mmol/L Normal 136-145 [facility] Comment on above: Performed By: #### B SUCTION DREDGE DUMPING SUPERVISOR #### [address] Urea nitrogen [Mass/Vol] 29 mg/dL High 7-25 [facility] Comment on above: Performed By: #### B SUCTION DREDGE DUMPING SUPERVISOR #### [address] Blood Cultureon 01-21-2024 Bacteria identified Cx Nom (Bld) NO GROWTH 5 DAYS PERFORMED BY: [place] [address] PATHOLOGIST CORRECTIONAL PROGRAM SPECIALIST RANDI SANTOS M.D. Normal [facility] Comment on above: Performed By: #### B SUCTION DREDGE DUMPING SUPERVISOR #### [address] Bacteria identified Cx Nom (Bld) NO GROWTH 5 DAYS PERFORMED BY: [place] [address] PATHOLOGIST CORRECTIONAL PROGRAM SPECIALIST RANDI SANTOS M.D. Normal [facility] Comment on above: Performed By: #### B SUCTION DREDGE DUMPING SUPERVISOR #### [address] Complete Blood Count Auto Di ffon 01-21-2024 Mean Corpuscular HGB Conc 33.6 g/dL Normal 32.5-35.6 [facility] Comment on above: Performed By: #### B SUCTION DREDGE DUMPING SUPERVISOR #### [facility] [address] [place] [address] NRBC% 0.2 /100{WBC} Normal 0-0.[address] [facility] Comment on above: Performed By: #### B SUCTION DREDGE DUMPING SUPERVISOR #### [address] ECG 12 lead ECGon 01-21-2024 ECG 12 lead ECG [facility] [place] [address] Electrocardiograph Report Signed Patient: Larry Mcfarlane MR#: [id number] : 1960 Acct:[id number] Age/Sex: 63 / M ADM Date: 01/18/24 Loc: Room: [address] [place] [address] Type: ADM IN Attending Dr: Karlos Mauricio MD Ordering Provider: Maikel Palacio DO Date of Service: 01/21/2404/08/500 ECG/ECG 12 lead ECG: New A-Fib Copies to: Test Reason : Blood Pressure : / mmHG Vent. Rate : 112 BPM Atrial Rate : 129 BPM P-R Int : 000 ms QRS Dur : 098 ms QT Int : 364 ms P-R-T Axes : 000 -27 067 degrees QTc Int : 496 ms Atrial fibrillation with rapid ventricular response with premature ventricular or aberrantly conducted complexes Abnormal ECG When compared with ECG of 20-JAN-2024 07:51, No significant change was found Confirmed by TERESITA STRONG MD ([id number]) on 01/21/2024 11:43:59 AM Referred By: Electronically Signed By:TERESITA STRONG MD Transcribed By: MUS Signed By Teresita Strong MD 0 01/21/24 1144 Normal [facility] ECH echo transthoracicon [facility] echo transthoracic [facility] [place] [address] Echocardiogram Signed Patient: Larry Mcfarlane MR#: [id number] : 1960 Acct:[id number] Age/Sex: 63 / M ADM Date: 01/18/24 Loc: 4N Room: [id number] Type: ADM IN Attending Dr: Karlos Mauricio MD Ordering Provider: Maikel Palacio DO Date of Service: 01/20/2403/09/500 ECH/ECH echo transthoracic: new-afib Copies to: Darrin Vazquze MD, FACC Maikel Palacio, Height: 70 in Weight: 225 lb Performed By: PEPPER Albright BSA: 2.2 m2 BP: 122/77 mmHg HR: 110 Reason For Study: new-afib History: aorta aneurysm, covid-19 Interpretation Summary Mild concentric left ventricular hypertrophy. Ejection Fraction = 60-65%. The left atrium appears mildly dilated. Borderline aortic root dilatation. The patient was in atrial fibrillation through out the study. There is no prior echocardiogram noted for this patient. Procedure/Quality: A two-dimensional transthoracic echocardiogram with color flow and Doppler was performed. The study was technically good in quality. There is no prior echocardiogram noted for this patient. Left Ventricle: Mild concentric left ventricular hypertrophy. Left ventricular systolic function is normal. Ejection Fraction = 60-65%. Left Atrium: The left atrium appears mildly dilated. The atrial septum appears normal. Right Atrium: The right atrium appears normal in size. Right Ventricle: The right ventricular size, thickness and function are normal. Aortic Valve: The aortic valve is trileaflet. The aortic valve is mildly sclerotic. Trace aortic regurgitation. Mitral Valve: The mitral valve is normal. There is trace mitral regurgitation. Tricuspid Valve: The tricuspid valve is normal in structure. Pulmonic Valve: The pulmonic valve is not well seen, but is grossly normal. Arteries: Borderline aortic root dilatation. Pericardium/Pleura: No pericardial effusion seen. There is no pleural effusion. IVC/Hepatic Veins: The IVC is normal in size with an inspiratory collapse of greater then 50%, suggesting normal right atrial pressure. Miscellaneous: No thrombus, vegetation or mass is seen. The patient was in atrial fibrillation through out the study. Measurements with Normals IVSd: 1.5 cm (0.7-1.1 cm)LVIDd: 4.4 cm (3.7-5.4 cm) LVPWd: 1.3 cm (0.7-1.1 cm)LVIDs: 2.6 cm (2.3-3.6 cm) LA dimension: 4.8 cm (2.3-4.0 cm)Ao root diam: 3.7 cm(2.0-3.6 cm) asc Aorta Diam: 3.9 cm(2.1-3.4cm) Doppler with Normals LV V1 max: 79.9 cm/sec(0.7-1.7m/s)MV E max consuelo: 67.3 cm/sec(0.8-1.3m/s) MMode/2D Measurements Calculations RVDd: 3.2 cm FS: 39.7 % Ao root area: LVOT diam: 2.1 cm TAPSE: 2.4 cm EDV(Teich): 10.9 cm2 LVOT area: 3.5 cm2 86.9 ml ESV(Teich): 25.6 ml EF(Teich): 70.6 % __ LVLd ap4: 6.5 cm SV(MOD-sp4): LAV(MOD-sp4): LA A2 area: 18.3 cm2 EDV(MOD-sp4): 11.0 ml 58.8 ml 50.1 ml LAV(MOD-sp2): LA A4 area: 20.1 cm2 LVLs ap4: 6.5 cm 45.9 ml LA length (vol): ESV(MOD-sp4): 5.4 cm 39.1 ml LA vol: 57.4 ml EF(MOD-sp4): LA vol index: 22.0 % 26.1 ml/m2 Doppler Measurements Calculations MV dec time: MV dec slope: Ao V2 max: LV V1 max P.17 sec 127.6 cm/sec 2.6 mmHg 398.1 cm/sec2 Ao max P.5 mmHg LV V1 mean PG: Ao mean P.4 mmHg 4.2 mmHg LV V1 mean: Ao V2 mean: 56.7 cm/sec 98.5 cm/sec LV V1 VTI: 13.5 cm Ao V2 VTI: 21.9 cm PAMELA(I,D): 2.1 cm2 PAMELA(V,D): 2.2 cm2 Transcribed By: SCV Performed At: 01/21/24 1157 Signed By: Darrin Vazquez MD, [facility] 01/21/24 1434 Normal [facility] Erythrocyte distribution wid th [Ratio] by Automated countOrdered By: Maikel Palacio on 01-21-2024 Erythrocyte distribution width (RBC) [Ratio] 14.1 % Normal 12.0-14.8 [facility] Comment on above: Performed By: #### B SUCTION DREDGE DUMPING SUPERVISOR #### [address] Erythrocytes [#/volume] in B lood by Automated countOrdered By: Maikel Palacio on 01-21-2024 RBC (Bld) [#/Vol] 6.11 10*6/uL High 3.90-5.60 [facility] Comment on above: Performed By: #### B SUCTION DREDGE DUMPING SUPERVISOR #### [address] Hematocrit [Volume Fraction] of Blood by Automated countOrdered By: Maikel Palacio on 01-21-2024 Hematocrit (Bld) [Volume fraction] 46.9 % Normal 38.8-50.0 [facility] Comment on above: Performed By: #### B SUCTION DREDGE DUMPING SUPERVISOR #### [facility] [address] [place] [address] [place] Hemoglobin [Mass/volume] in BloodOrdered By: Maiekl Palacio on 01-21-2024 Hemoglobin (Bld) [Mass/Vol] 15.7 g/dL Normal 13.0-17.0 [facility] Comment on above: Performed By: #### B SUCTION DREDGE DUMPING SUPERVISOR #### [address] Leukocytes [#/volume] correc carmina for nucleated erythrocytes in Blood by Automated counOrdered By: Maikel Palacio on 01-21-2024 WBC corrected for nucl RBC Auto (Bld) [#/Vol] 5.1 10*3/uL 4.1-10.5 [facility] Leukocytes [#/volume] in Blo od by Automated countOrdered By: Maikel Palacio on 01-21-2024 WBC (Bld) [#/Vol] 5.1 10*3/uL Normal 4.1-10.5 [facility] Comment on above: Performed By: #### B SUCTION DREDGE DUMPING SUPERVISOR #### [facility] [address] [place] [address] Lymphocytes [#/volume] in Bl ood by Automated countOrdered By: Maikel Palacio on 01-21-2024 Lymphocytes (Bld) [#/Vol] 1.2 10*3/uL Normal 1.00-4.8 [facility] Comment on above: Performed By: #### B SUCTION DREDGE DUMPING SUPERVISOR #### [facility] [address] [place] [address] Lymphocytes/100 leukocytes i n Blood by Automated countOrdered By: Maikel Palacio on 01-21-2024 Lymphocytes/100 WBC (Bld) 23.8 % Normal . [facility] Comment on above: Performed By: #### B SUCTION DREDGE DUMPING SUPERVISOR #### [facility] [address] [place] [address] MCH [Entitic mass] by Automa carmina countOrdered By: Maikel Palacio on 01-21-2024 MCH (RBC) [Entitic mass] 25.7 pg Low 27.5-35.2 [facility] Comment on above: Performed By: #### B SUCTION DREDGE DUMPING SUPERVISOR #### [facility] [address] [place] [address] MCHC Auto (RBC) [Mass/Vol]Or dered By: Maikel Palacio on 01-21-2024 MCHC (RBC) [Mass/Vol] 33.6 g/dL 32.5-35.6 [facility] MCV [Entitic volume] by Auto mated countOrdered By: Maikel Palacio on 01-21-2024 MCV (RBC) [Entitic vol] 76.7 fL Low 83.5-101 F [facility] Comment on above: Performed By: #### B SUCTION DREDGE DUMPING SUPERVISOR #### [address] Neutrophils [#/volume] in Bl ood by Automated countOrdered By: Maikel Palacio on 01-21-2024 Neutrophils (Bld) [#/Vol] 2.6 10*3/uL Normal 1.8-7.7 [facility] Comment on above: Performed By: #### B SUCTION DREDGE DUMPING SUPERVISOR #### [address] Nucleated erythrocytes [Pres ence] in Blood by Automated countOrdered By: Maikel Palacio on 01-21-2024 Nucleated RBC Auto Ql (Bld) 0.2 /100{WBC} 0-0.5 [facility] Platelet mean volume [Entiti c volume] in Blood by Automated countOrdered By: Maikel Palacio on 01-21-2024 Platelet mean volume (Bld) [Entitic vol] 8.0 fL Normal 6.6-10.1 [facility] Comment on above: Performed By: #### B SUCTION DREDGE DUMPING SUPERVISOR #### [address] Platelets [#/volume] in Bloo d by Automated countOrdered By: Maikel Palacio on 01-21-2024 Platelets (Bld) [#/Vol] 140 10*3/uL Low 150-450 [facility] Comment on above: Performed By: #### B SUCTION DREDGE DUMPING SUPERVISOR #### [address] Basic Metabolic Panelon Anion gap [Moles/Vol] 10.6 mmol/L Normal 6.0-15.0 [facility] Comment on above: Performed By: #### B SUCTION DREDGE DUMPING SUPERVISOR #### [address] Calcium [Mass/Vol] 8.8 mg/dL Normal 8.6-10.3 [facility] Comment on above: Performed By: #### B SUCTION DREDGE DUMPING SUPERVISOR #### [address] Chloride [Moles/Vol] 101 mmol/L Normal 98-107 [facility] Comment on above: Performed By: #### B SUCTION DREDGE DUMPING SUPERVISOR #### [address] CO2 [Moles/Vol] 26.7 mmol/L Normal 21.0-31.0 [facility] Comment on above: Performed By: #### B SUCTION DREDGE DUMPING SUPERVISOR #### [address] Creatinine [Mass/Vol] 1.23 mg/dL Normal 0.70-1.30 [facility] Comment on above: Performed By: #### B SUCTION DREDGE DUMPING SUPERVISOR #### [address] Creatinine Clr Calc Pharmacy 73.74 Normal [facility] Comment on above: Performed By: #### B SUCTION DREDGE DUMPING SUPERVISOR #### [place] [address] [place] GFR/1.73 sq M.predicted MDRD (S/P/Bld) [Vol rate/Area] mL/min/{1.73_m2} Normal [facility] Comment on above: Performed By: #### B SUCTION DREDGE DUMPING SUPERVISOR #### [address] Glucose [Mass/Vol] 107 mg/dL High 70-100 [facility] Comment on above: Result Comment: [place] Glucose Reference Range is dependent on time and content of last meal. Glucose of more than 200 mg/dL in a nonstressed, ambulatory subject supports the diagnosis of Diabetes Mellitus. ADA recommended reference range Performed By: #### B SUCTION DREDGE DUMPING SUPERVISOR #### [address] Potassium [Moles/Vol] 4.3 mmol/L Normal 3.5-5.1 [facility] Comment on above: Performed By: #### B SUCTION DREDGE DUMPING SUPERVISOR #### [facility] [address] Sodium [Moles/Vol] 134 mmol/L Low 136-145 [facility] Comment on above: Performed By: #### B SUCTION DREDGE DUMPING SUPERVISOR #### [facility] [address] Urea nitrogen [Mass/Vol] 18 mg/dL Normal 7-25 [facility] Comment on above: Performed By: #### B SUCTION DREDGE DUMPING SUPERVISOR #### [address] angio chest PE protocolon 01-20-2024 CT angio chest PE protocol [facility] Main [place] [address] [place] [address] CT Scan Report Signed Patient: Larry Mcfarlane MR#: [id number] : 1960 Acct:[id number] Age/Sex: 63 / M ADM Date: 01/18/24 Loc: Room: [address] [place] [address] Type: ADM IN Attending Dr: Karlos Mauricio MD Copies to: MD Maikel Smith DO Ordering Provider: Maikel Palacio DO Date of Service: 01/19/24 CT/CT angio chest PE protocol: Acute dyspnea, hypoxia CTA Chest with PE protocol TECHNIQUE: Axial imaging with 2-D and 3-D reconstruction. 90cc of Isovue-[address] exam was performed using one or more the following dose reduction techniques: Automated exposure control, adjustment of the MA and/or Kv according to patient size, or use of the iterative reconstruction technique. History: Headache. Difficulty breathing. COMPARISON: None THYROID: Unremarkable TRACHEA AND BRONCHI: Patent ESOPHAGUS: Large hiatal hernia. HEART: Within normal limits PERICARDIAL EFFUSION: None CORONARY ARTERY CALCIFICATION: Present MEDIASTINUM: No adenopathy. No pneumoperitoneum. No mediastinal hematoma. PULMONARY LUIS ENRIQUE: No hilar mass or adenopathy is seen. THORACIC AORTA Unremarkable PULMONARY EMBOLUS: None LUNG NODULE None LUNGS: Linear densities identified in the posterior portion of the left upper lobe. This is inside or previous consolidation. Consider scarring or acute process. May represent residual pneumonia. PLEURAL EFFUSION: Trace bilateral pleural effusions PNEUMOTHORAX: No pneumothorax seen. CHEST WALL: No abnormality AXILLA: Unremarkable BONY STRUCTURES old vertebral body compression fractures, unchanged. No acute fracture. UPPER ABDOMEN: Images of the upper abdomen are noncontributory. CT/CT angio chest PE protocol IMPRESSION: No acute pulmonary embolus. Question acute left upper lobe infiltrate versus scarring. Trace bilateral pleural effusions. Large hiatal hernia. Impression dictated by: Nazario Vance M.D.01/20/2024 10:55 AM Dictation Location: [place] [address] Transcribed By: [facility] 01/20/24 1055 Dictated By: Nazario Vance DO 01/20/24 1040 Signed By: 01/20/24 1055 Normal [facility] Complete Blood Count Auto Di ffon 01-20-2024 Basophils (Bld) [#/Vol] 0.0 10*3/uL Normal 0.0-0.2 [facility] Comment on above: Result Comment: PERF ORMED BY: [place] [address] PATHOLOGIST CORRECTIONAL PROGRAM SPECIALIST RANDI SANTOS M.D. Performed By: #### B SUCTION DREDGE DUMPING SUPERVISOR #### [address] Basophils/100 WBC (Bld) 0.7 % Normal . [facility] Comment on above: Performed By: #### B SUCTION DREDGE DUMPING SUPERVISOR #### [place] [address] [place] Eosinophils (Bld) [#/Vol] 0.1 10*3/uL Normal 0.0-0.45 [facility] Comment on above: Performed By: #### B SUCTION DREDGE DUMPING SUPERVISOR #### [place] [address] [place] Eosinophils/100 WBC (Bld) 2.0 % Normal . [facility] Comment on above: Performed By: #### B SUCTION DREDGE DUMPING SUPERVISOR #### [address] Erythrocyte distribution width (RBC) [Ratio] 13.8 % Normal 12.0-14.8 [facility] Comment on above: Performed By: #### B SUCTION DREDGE DUMPING SUPERVISOR #### [address] Hematocrit (Bld) [Volume fraction] 42.2 % Normal 38.8-50.0 [facility] Comment on above: Performed By: #### B SUCTION DREDGE DUMPING SUPERVISOR #### [address] Hemoglobin (Bld) [Mass/Vol] 14.2 g/dL Normal 13.0-17.0 [facility] Comment on above: Performed By: #### B SUCTION DREDGE DUMPING SUPERVISOR #### [address] Lymphocytes (Bld) [#/Vol] 0.7 10*3/uL Low 1.00-4.8 [facility] Comment on above: Performed By: #### B SUCTION DREDGE DUMPING SUPERVISOR #### [address] Lymphocytes/100 WBC (Bld) 13.7 % Normal . [facility] Comment on above: Performed By: #### B SUCTION DREDGE DUMPING SUPERVISOR #### [address] MCH (RBC) [Entitic mass] 26.0 pg Low 27.5-35.2 [facility] Comment on above: Performed By: #### B SUCTION DREDGE DUMPING SUPERVISOR #### [address] MCV (RBC) [Entitic vol] 77.0 fL Low 83.5-101 T he [facility] Comment on above: Performed By: #### B SUCTION DREDGE DUMPING SUPERVISOR #### [address] Mean Corpuscular HGB Conc 33.8 g/dL Normal 32.5-35.6 [facility] Comment on above: Performed By: #### B SUCTION DREDGE DUMPING SUPERVISOR #### [address] Monocytes (Bld) [#/Vol] 0.5 10*3/uL Normal 0.0-0.8 [facility] Comment on above: Performed By: #### B SUCTION DREDGE DUMPING SUPERVISOR #### [address] [place] [address] [place] Monocytes/100 WBC (Bld) 11.3 % Normal . [facility] Comment on above: Performed By: #### B SUCTION DREDGE DUMPING SUPERVISOR #### [address] Neutrophils (Bld) [#/Vol] 3.5 10*3/uL Normal 1.8-7.7 [facility] Comment on above: Performed By: #### B SUCTION DREDGE DUMPING SUPERVISOR #### [address] Neutrophils/100 WBC (Bld) 72.3 % Normal . [facility] Comment on above: Performed By: #### B SUCTION DREDGE DUMPING SUPERVISOR #### [address] NRBC% 0.1 /100{WBC} Normal 0-0.[address] [facility] Comment on above: Performed By: #### B SUCTION DREDGE DUMPING SUPERVISOR #### [address] Platelet mean volume (Bld) [Entitic vol] 7.7 fL Normal 6.6-10.1 The [facility] Comment on above: Performed By: #### B SUCTION DREDGE DUMPING SUPERVISOR #### [address] Platelets (Bld) [#/Vol] 150 10*3/uL Normal 150-450 [facility] Comment on above: Performed By: #### B SUCTION DREDGE DUMPING SUPERVISOR #### [place] [address] [place] RBC (Bld) [#/Vol] 5.47 10*6/uL Normal 3.90-5.60 The [facility] Comment on above: Performed By: #### B SUCTION DREDGE DUMPING SUPERVISOR #### [place] [address] [place] WBC (Bld) [#/Vol] 4.8 10*3/uL Normal 4.1-10.5 [facility] Comment on above: Performed By: #### B SUCTION DREDGE DUMPING SUPERVISOR #### [address] ECG 12 lead ECGon 01-20-2024 ECG 12 lead ECG [facility] [place] [address] Electrocardiograph Report Signed Patient: Larry Mcfarlane MR#: [id number] : 1960 Acct:[id number] Age/Sex: 63 / M ADM Date: 01/18/24 Loc: Room: [address] [place] [address] Type: ADM IN Attending Dr: Karlos Mauricio MD Ordering Provider: Maikel Palacio DO Date of Service: 01/20/2403/09/500 ECG/ECG 12 lead ECG: New A-Fib Copies to: Test Reason : Blood Pressure : / mmHG Vent. Rate : 115 BPM Atrial Rate : 110 BPM P-R Int : 000 ms QRS Dur : 094 ms QT Int : 328 ms P-R-T Axes : 000 -36 057 degrees QTc Int : 453 ms Atrial fibrillation with rapid ventricular response Left axis deviation Abnormal ECG When compared with ECG of 19-JAN-2024 19:48, (Unconfirmed) No significant change was found Confirmed by TERESITA STRONG MD ([id number]) on 01/20/2024 3:46:53 PM Referred By: Electronically Signed By:TERESITA STRONG MD Transcribed By: MUS Signed By Teresita Strong MD 0 01/20/24 1546 Normal [facility] Magnesium [Mass/volume] in S katelyn or PlasmaOrdered By: Maikel Palacio on 01-20-2024 Magnesium [Mass/Vol] 1.9 mg/dL Normal 1.9-2.7 [facility] Comment on above: Result Comment: PERF ORMED BY: [place] [address] PATHOLOGIST CORRECTIONAL PROGRAM SPECIALIST RANDI SANTOS M.D. Performed By: #### B SUCTION DREDGE DUMPING SUPERVISOR #### [place] [address] [place] XR chest 1V portableon 01-19 XR chest 1V portable [facility] [place] [address] XRay Report Signed Patient: Larry Mcfarlane MR#: [id number] : 1960 Acct:[id number] Age/Sex: 63 / M ADM Date: 01/18/24 Loc: Room: [address] [place] [address] Type: ADM IN Attending Dr: Karlos Mauricio MD Copies to: MD Maikel Smith DO Ordering Provider: Maikel Palacio DO Date of Service: 01/19/24 XR/XR chest 1V portable: dyspnea Plain film chest Single view HISTORY: Sudden onset of shortness of breath. COMPARISON: 01/17/2024 FINDINGS: SUPPORT DEVICES: None POSTSURGICAL CHANGES: None HEART: Within normal limits PULMONARY LUIS ENRIQUE: Within normal limits MEDIASTINUM: Unremarkable LUNGS AND PLEURA: No acute lung process, pleural effusion or pneumothorax identified. BONY STRUCTURES: Old right rib fractures ADDITIONAL FINDINGS None XR/XR chest 1V portable IMPRESSION: No acute process. Impression dictated by: Nazario Vance M.D.01/20/2024 8:42 AM Dictation Location: [facility]--12 Transcribed By: [facility] 01/20/24 0842 Dictated By: Nazario Vance DO 01/20/24 0839 Signed By: 01/20/24 0842 Normal [facility] BNP ser/plasOrdered By: Florencio Palacio on 01-19-2024 Natriuretic peptide B (Bld) [Mass/Vol] 116.0 pg/mL High 5-100 [facility] Comment on above: Result Comment: PERF ORMED BY: [place] [address] PATHOLOGIST CORRECTIONAL PROGRAM SPECIALIST RANDI SANTOS M.D. Performed By: #### B SUCTION DREDGE DUMPING SUPERVISOR #### [address] Basic Metabolic Panelon 05-0 Anion gap [Moles/Vol] 9.7 mmol/L Normal 6.0-15.0 [facility] Comment on above: Performed By: #### T SH3, [id number], MG, BMP #### [facility] [address] Calcium [Mass/Vol] 8.2 mg/dL Low 8.6-10.3 [facility] Comment on above: Performed By: #### T SH3, [id number], MG, BMP #### [place] [address] [place] [address] [place] Chloride [Moles/Vol] 104 mmol/L Normal 98-107 [facility] Comment on above: Performed By: #### T SH3, [id number], MG, BMP #### [address] CO2 [Moles/Vol] 20.4 mmol/L Low 21.0-31.0 [facility] Comment on above: Performed By: #### T SH3, [id number], MG, BMP #### [address] Creatinine [Mass/Vol] 1.21 mg/dL Normal 0.70-1.30 [facility] Comment on above: Performed By: #### T SH3, [id number], MG, BMP #### [place] [address] [place] Creatinine Clr Calc Pharmacy 74.96 Normal [facility] Comment on above: Performed By: #### T SH3, [id number], MG, BMP #### [place] [address] [place] GFR/1.73 sq M.predicted MDRD (S/P/Bld) [Vol rate/Area] mL/min/{1.73_m2} Normal [facility] Comment on above: Performed By: #### T SH3, [id number], MG, BMP #### [address] Glucose [Mass/Vol] 115 mg/dL High 70-100 [facility] Comment on above: Result Comment: [place] Glucose Reference Range is dependent on time and content of last meal. Glucose of more than 200 mg/dL in a nonstressed, ambulatory subject supports the diagnosis of Diabetes Mellitus. ADA recommended reference range Performed By: #### T SH3, [id number], MG, BMP #### [address] Potassium [Moles/Vol] 4.1 mmol/L Normal 3.5-5.1 [facility] Comment on above: Performed By: #### T SH3, [id number], MG, BMP #### [address] Sodium [Moles/Vol] 130 mmol/L Low 136-145 [facility] Comment on above: Performed By: #### T SH3, [id number], MG, BMP #### [address] Urea nitrogen [Mass/Vol] 20 mg/dL Normal 7-25 [facility] Comment on above: Performed By: #### T SH3, [id number], MG, BMP #### [address] Anion gap [Moles/Vol] 5.7 mmol/L Low 6.0-15.0 [facility] Comment on above: Performed By: #### T SH3, [id number], MG, BMP #### [address] Calcium [Mass/Vol] 8.5 mg/dL Low 8.6-10.3 [facility] Comment on above: Performed By: #### T SH3, [id number], MG, BMP #### [address] Chloride [Moles/Vol] 105 mmol/L Normal 98-107 [facility] Comment on above: Performed By: #### T SH3, [id number], MG, BMP #### [address] CO2 [Moles/Vol] 25.4 mmol/L Normal 21.0-31.0 [facility] Comment on above: Performed By: #### T SH3, [id number], MG, BMP #### [place] [address] Creatinine [Mass/Vol] 1.31 mg/dL High 0.70-1.30 [facility] Comment on above: Performed By: #### T SH3, [id number], MG, BMP #### [address] Creatinine Clr Calc Pharmacy 69.23 Normal [facility] Comment on above: Result Comment: PERF ORMED BY: [place] [address] PATHOLOGIST CORRECTIONAL PROGRAM SPECIALIST RANDI SANTOS M.D. Performed By: #### T SH3, [id number], MG, BMP #### [address] GFR/1.73 sq M.predicted MDRD (S/P/Bld) [Vol rate/Area] mL/min/{1.73_m2} Normal [facility] Comment on above: Performed By: #### T SH3, [id number], MG, BMP #### [address] Glucose [Mass/Vol] 108 mg/dL High 70-100 [facility] Comment on above: Result Comment: [facility] Glucose Reference Range is dependent on time and content of last meal. Glucose of more than 200 mg/dL in a nonstressed, ambulatory subject supports the diagnosis of Diabetes Mellitus. ADA recommended reference range Performed By: #### T SH3, [id number], MG, BMP #### [address] Potassium [Moles/Vol] 4.1 mmol/L Normal 3.5-5.1 [facility] Comment on above: Performed By: #### T SH3, [id number], MG, BMP #### [address] Sodium [Moles/Vol] 132 mmol/L Low 136-145 [facility] Comment on above: Performed By: #### T SH3, [id number], MG, BMP #### [address] Urea nitrogen [Mass/Vol] 20 mg/dL Normal 7-25 [facility] Comment on above: Performed By: #### T SH3, [id number], MG, BMP #### [address] Complete Blood Count Auto Di ffon 01-19-2024 Basophils (Bld) [#/Vol] 0.0 10*3/uL Normal 0.0-0.2 [facility] Comment on above: Result Comment: PERF ORMED BY: [place] [address] PATHOLOGIST CORRECTIONAL PROGRAM SPECIALIST RANDI SANTOS M.D. Performed By: #### T SH3, [id number], MG, BMP #### [address] Basophils/100 WBC (Bld) 0.4 % Normal . T [facility] Comment on above: Performed By: #### T SH3, [id number], MG, BMP #### [address] Eosinophils (Bld) [#/Vol] 0.0 10*3/uL Normal 0.0-0.45 [facility] Comment on above: Performed By: #### T SH3, [id number], MG, BMP #### [address] Eosinophils/100 WBC (Bld) 0.6 % Normal . [facility] Comment on above: Performed By: #### T SH3, [id number], MG, BMP #### [address] Erythrocyte distribution width (RBC) [Ratio] 13.7 % Normal 12.0-14.8 [facility] Comment on above: Performed By: #### T SH3, [id number], MG, BMP #### [address] Hematocrit (Bld) [Volume fraction] 40.6 % Normal 38.8-50.0 [facility] Comment on above: Performed By: #### T SH3, [id number], MG, BMP #### [address] Hemoglobin (Bld) [Mass/Vol] 13.4 g/dL Normal 13.0-17.0 [facility] Comment on above: Performed By: #### T SH3, [id number], MG, BMP #### [address] Lymphocytes (Bld) [#/Vol] 0.5 10*3/uL Low 1.00-4.8 [facility] Comment on above: Performed By: #### T SH3, [id number], MG, BMP #### [address] Lymphocytes/100 WBC (Bld) 8.7 % Normal . [facility] Comment on above: Performed By: #### T SH3, [id number], MG, BMP #### [address] MCH (RBC) [Entitic mass] 25.9 pg Low 27.5-35.2 [facility] Comment on above: Performed By: #### T SH3, [id number], MG, BMP #### [address] MCV (RBC) [Entitic vol] 78.1 fL Low 83.5-101 [facility] Comment on above: Performed By: #### T SH3, [id number], MG, BMP #### [address] Mean Corpuscular HGB Conc 33.1 g/dL Normal 32.5-35.6 [facility] Comment on above: Performed By: #### T SH3, [id number], MG, BMP #### [address] Monocytes (Bld) [#/Vol] 0.4 10*3/uL Normal 0.0-0.8 [facility] Comment on above: Performed By: #### T SH3, [id number], MG, BMP #### [address] Monocytes/100 WBC (Bld) 7.4 % Normal . T [facility] Comment on above: Performed By: #### T SH3, [id number], MG, BMP #### [address] Neutrophils (Bld) [#/Vol] 4.6 10*3/uL Normal 1.8-7.7 [facility] Comment on above: Performed By: #### T SH3, [id number], MG, BMP #### [address] Neutrophils/100 WBC (Bld) 82.9 % Normal . [facility] Comment on above: Performed By: #### T SH3, [id number], MG, BMP #### [address] NRBC% 0.1 /100{WBC} Normal 0-0.[address] [facility] Comment on above: Performed By: #### T SH3, [id number], MG, BMP #### [address] Platelet mean volume (Bld) [Entitic vol] 7.4 fL Normal 6.6-10.1 [facility] Comment on above: Performed By: #### T SH3, [id number], MG, BMP #### [place] [address] [place] Platelets (Bld) [#/Vol] 112 10*3/uL Signific ant change down 150-450 [facility] Comment on above: Performed By: #### T SH3, [id number], MG, BMP #### [address] RBC (Bld) [#/Vol] 5.20 10*6/uL Normal 3.90-5.60 [facility] Comment on above: Performed By: #### T SH3, [id number], MG, BMP #### [address] WBC (Bld) [#/Vol] 5.6 10*3/uL Normal 4.1-10.5 [facility] Comment on above: Performed By: #### T SH3, [id number], MG, BMP #### [facility] [address] [place] [address] ECG 12 lead ECGon 01-19-2024 ECG 12 lead ECG [facility] Main [place] [address] [place] [address] Electrocardiograph Report Signed Patient: Larry Mcfarlane MR#: [id number] : 1960 Acct:[id number] Age/Sex: 63 / M ADM Date: 01/18/24 Loc: Room: [address] [place] [address] Type: ADM IN Attending Dr: Karlos Mauricio MD Ordering Provider: Maikel Palacio DO Date of Service: 01/19/2402/06/1930 ECG/ECG 12 lead ECG: SOB Copies to: Test Reason : Blood Pressure : / mmHG Vent. Rate : 102 BPM Atrial Rate : 131 BPM P-R Int : 000 ms QRS Dur : 092 ms QT Int : 320 ms P-R-T Axes : 000 -12 039 degrees QTc Int : 417 ms Atrial fibrillation with rapid ventricular response Abnormal ECG When compared with ECG of 17-JAN-2024 20:52, Atrial fibrillation has replaced Sinus rhythm Left anterior fascicular block is no longer present Confirmed by TERESITA STRONG MD ([id number]) on 01/20/2024 3:46:49 PM Referred By: Electronically Signed By:TERESITA STRONG MD Transcribed By: MUS Signed By Teresita Strong MD 0 01/20/24 1546 Normal [facility] Folate [Mass/volume] in Seru m or PlasmaOrdered By: Maikel Palacio on 01-19-2024 Folate [Mass/Vol] 8.6 ng/mL >5.9 [facility] Comment on above: Folate reference ran ge: >5.9 ng/mlThe WHO technical consultation on folate and vitamin [id number] has determined that folate concentrations lessthan 4 ng/ml are considered deficient. Magnesiumon 01-19-2024 Magnesium [Mass/Vol] 1.8 mg/dL Low 1.9-2.7 [facility] Comment on above: Performed By: #### T SH3, [id number], MG, BMP #### [address] Thyrotropin [Units/volume] i n Serum or PlasmaOrdered By: Maikel Palacio on 01-19-2024 TSH Qn 1.97 m[IU]/L Normal 0.45-5.33 [facility] Comment on above: Result Comment: PERF ORMED BY: [place] [address] PATHOLOGIST CORRECTIONAL PROGRAM SPECIALIST RANDI SANTOS M.D. Performed By: #### T SH3, [id number], MG, BMP #### [address] Vit. B12/Folate Profileon Folate 8.6 ng/mL Normal >5.9 [facility] Comment on above: Result Comment: [place] reference range: >5.9 ng/ml The WHO technical consultation on folate and vitamin b12 deficiencies has determined that folate concentrations less than 4 ng/ml are considered deficient. Performed By: #### T SH3, [id number], MG, BMP #### [address] Vitamin B12 ser/plasOrdered By: Maikel Palacio on 01-19-2024 Cobalamin (Vitamin B12) [Mass/Vol] 177 pg/mL Low 180-914 [facility] Comment on above: Performed By: #### T SH3, [id number], MG, BMP #### [address] Automated basophil %Ordered By: Maikel Palacio on 01-18-2024 Basophils/100 WBC (Bld) 0.4 % Normal . F [facility] Comment on above: Performed By: #### M G, URIC, BMP, CBC #### [address] Automated basophil countOrde red By: Maikel Palacio on 01-18-2024 Basophils (Bld) [#/Vol] 0.1 10*3/uL Normal 0.0-0.2 [facility] Comment on above: Result Comment: PERF ORMED BY: [place] [address] PATHOLOGIST CORRECTIONAL PROGRAM SPECIALIST RANDI SANTOS M.D. Performed By: #### M G, URIC, BMP, CBC #### [address] Automated blood monocyte cou ntOrdered By: Maikel Palacio on 01-18-2024 Monocytes (Bld) [#/Vol] 0.7 10*3/uL Normal 0.0-0.8 [facility] Comment on above: Performed By: #### M G, URIC, BMP, CBC #### [address] Automated eosinophil %Ordere d By: Maikel Palacio on 01-18-2024 Eosinophils/100 WBC (Bld) 0.3 % Normal . [facility] Comment on above: Performed By: #### M G, URIC, BMP, CBC #### [address] Automated eosinophil countOr dered By: Maikel Palacio on 01-18-2024 Eosinophils (Bld) [#/Vol] 0.0 10*3/uL Normal 0.0-0.45 [facility] Comment on above: Performed By: #### M G, URIC, BMP, CBC #### [address] Automated monocyte %Ordered By: Maikel Palacio on 01-18-2024 Monocytes/100 WBC (Bld) 5.6 % Normal . [facility] Comment on above: Performed By: #### M G, URIC, BMP, CBC #### [address] Automated neutrophil %Ordere d By: Maikel Palacio on 01-18-2024 Neutrophils/100 WBC (Bld) 88.0 % Normal . [facility] Comment on above: Performed By: #### M G, URIC, BMP, CBC #### [facility] [address] [place] [address] Basic Metabolic Panelon Creatinine Clr Calc Pharmacy 78.18 Normal [facility] Comment on above: Performed By: #### M G, URIC, BMP, CBC #### [address] GFR/1.73 sq M.predicted MDRD (S/P/Bld) [Vol rate/Area] mL/min/{1.73_m2} Normal [facility] Comment on above: Performed By: #### M G, URIC, BMP, CBC #### [facility] [address] [place] [address] CT abdomen pelvis w conon CT abdomen pelvis w con [facility] [place] [address] CT Scan Report Signed Patient: Larry Mcfarlane MR#: [id number] : 1960 Acct:[id number] Age/Sex: 63 / M ADM Date: 01/18/24 Loc: Room: [address] [place] [address] Type: ADM IN Attending Dr: Bhupinder Mcrae MD Copies to: MD Néstor Boyle Jr, MD Ordering Provider: Néstor Dai Jr, MD Date of Service: 01/17/24 CT/CT abdomen pelvis w con: s/p transrectal prost. bx; fever, chills, high wbc CT ABDOMEN AND PELVIS WITH CONTRAST COMPARISON: 09/26/2009 CLINICAL DATA: Low abdominal pain, nausea, vomiting and chills. Prostate biopsy yesterday. Spiral images were obtained through the abdomen and pelvis following 90 mL Isovue-300. This CT exam was performed using one or more following dose reduction techniques: Automated exposure control, adjustment of the mA and/or kV according to patient size, or use of iterative reconstruction technique. Limited cuts through the lung bases show granulomatous changes. There is a small to moderate sized hiatal hernia. No calcified gallstones are identified. A tiny cyst is visualized within the liver near the gallbladder fossa. The spleen, pancreas and adrenal glands show no acute findings. There is a markedly atrophic right kidney with a couple cysts. There is left nephrolithiasis with cortical and parapelvic cysts. No hydronephrosis is identified. No ureteral dilatation or stones are noted. There is mild atherosclerotic plaque at the aorta and iliac arteries. There are a few small lymph nodes. No ascites is identified. No free air is noted. A normal retrocecal appendix is present. The small bowel loops are normal caliber. There is mild stool along the colon. Dextroscoliotic curvature and degenerative changes are present at the spine. There is slight chronic wedge deformity at T10. Images through the pelvis are slightly limited by streak artifact from a left hip prosthesis. The small bowel loops are normal caliber. There is stool at the distal colon. There are several descending and sigmoid diverticula, without associated active inflammation. The prostate is enlarged. The bladder is is not well-distended and the wall appears thickened. Minimal presacral edema is seen. There is no ascites or obvious pelvic hematoma. There are patulous inguinal rings containing fat, larger on the left. Degenerative changes are noted at the right hip. CT/CT abdomen pelvis w con IMPRESSION: HIATAL HERNIA. MARKEDLY ATROPHIC RIGHT KIDNEY. BILATERAL RENAL CYSTS AND LEFT NEPHROLITHIASIS. NO BOWEL OR URINARY TRACT OBSTRUCTION. DIVERTICULOSIS. PROSTATE HYPERTROPHY. Impression dictated by: Lucinda Smart M.D.01/18/2024 9:55 AM Dictation Location: [place] [address] Transcribed By: [facility] 01/18/24 0955 Dictated By: Lucinda Smart MD 01/18/24 0949 Signed By: 01/18/24954 Normal [facility] Calcium [Mass/volume] in Ser um or PlasmaOrdered By: Maikel Palacio on 01-18-2024 Calcium [Mass/Vol] 8.9 mg/dL Normal 8.6-10.3 [facility] Comment on above: Performed By: #### M G, URIC, BMP, CBC #### [address] Carbon dioxide, total [Moles /volume] in Serum or PlasmaOrdered By: Maikel Palacio on 01-18-2024 CO2 [Moles/Vol] 22.7 mmol/L Normal 21.0-31.0 [facility] Comment on above: Performed By: #### M G, URIC, BMP, CBC #### [address] Chloride [Moles/volume] in S katelyn or PlasmaOrdered By: Maikel Palacio on 01-18-2024 Chloride [Moles/Vol] 104 mmol/L Normal 98-107 [facility] Comment on above: Performed By: #### M G, URIC, BMP, CBC #### [address] Complete Blood Count Auto Di ffon 01-18-2024 Mean Corpuscular HGB Conc 33.5 g/dL Normal 32.5-35.6 [facility] Comment on above: Performed By: #### M G, URIC, BMP, CBC #### [address] NRBC% 0.0 /100{WBC} Normal 0-0.[address] [facility] Comment on above: Performed By: #### M G, URIC, BMP, CBC #### [address] Creatinine [Mass/volume] in Serum or PlasmaOrdered By: Maikel Palacio on 01-18-2024 Creatinine [Mass/Vol] 1.16 mg/dL Normal 0.70-1.30 [facility] Comment on above: Performed By: #### M G, URIC, BMP, CBC #### [place] [address] Erythrocyte distribution wid th [Ratio] by Automated countOrdered By: Maikel Palacio on 01-18-2024 Erythrocyte distribution width (RBC) [Ratio] 13.7 % Normal 12.0-14.8 [facility] Comment on above: Performed By: #### M G, URIC, BMP, CBC #### [facility] [address] [place] [address] [place] Erythrocytes [#/volume] in B lood by Automated countOrdered By: Maikel Palacio on 01-18-2024 RBC (Bld) [#/Vol] 5.45 10*6/uL Normal 3.90-5.60 [facility] Comment on above: Performed By: #### M G, URIC, BMP, CBC #### [place] [address] [place] [address] [place] Glucose [Mass/volume] in Ser um or PlasmaOrdered By: Maikel Palacio on 01-18-2024 Glucose [Mass/Vol] 105 mg/dL High 70-100 [facility] Comment on above: ADA recommended refe rence rangeRandom Glucose Reference Range is dependent on time and content of last meal. Glucose of more than 200 mg/dL in a nonstressed, ambulatory subject supports the diagnosis of Diabetes Mellitus. Result Comment: [place] om Glucose Reference Range is dependent on time and content of last meal. Glucose of more than 200 mg/dL in a nonstressed, ambulatory subject supports the diagnosis of Diabetes Mellitus. ADA recommended reference range Performed By: #### M G, URIC, BMP, CBC #### [place] [address] [place] [id number] [place] Hematocrit [Volume Fraction] of Blood by Automated countOrdered By: Maikel Palacio on 01-18-2024 Hematocrit (Bld) [Volume fraction] 41.8 % Normal 38.8-50.0 [facility] Comment on above: Performed By: #### M G, URIC, BMP, CBC #### [place] [address] [place] [address] [place] Hemoglobin [Mass/volume] in BloodOrdered By: Maikel Palacio on 01-18-2024 Hemoglobin (Bld) [Mass/Vol] 14.0 g/dL Normal 13.0-17.0 [facility] Comment on above: Performed By: #### M G, URIC, BMP, CBC #### [place] [address] [place] Lactate [Moles/volume] in Se rum or PlasmaOrdered By: Maikel Palacio on 01-18-2024 Lactate [Moles/Vol] 1.2 mmol/L Normal 0.5-2.2 [facility] Comment on above: Result Comment: PERF ORMED BY: [place] [address] PATHOLOGIST CORRECTIONAL PROGRAM SPECIALIST RANDI SANTOS M.D. Performed By: #### L ACTIC #### [place] [address] [place] Leukocytes [#/volume] correc carmina for nucleated erythrocytes in Blood by Automated counOrdered By: Maikel Palacio on 01-18-2024 WBC corrected for nucl RBC Auto (Bld) [#/Vol] 13.5 10*3/uL 4.1-10.5 [facility] Leukocytes [#/volume] in Blo od by Automated countOrdered By: Maikel Palacio on 01-18-2024 WBC (Bld) [#/Vol] 13.5 10*3/uL High 4.1-10.5 [facility] Comment on above: Performed By: #### M G, URIC, BMP, CBC #### [facility] [address] [place] [address] [place] Lymphocytes [#/volume] in Bl ood by Automated countOrdered By: Maikel Palacio on 01-18-2024 Lymphocytes (Bld) [#/Vol] 0.8 10*3/uL Low 1.00-4.8 [facility] Comment on above: Performed By: #### M G, URIC, BMP, CBC #### [address] [place] [address] [place] Lymphocytes/100 leukocytes i n Blood by Automated countOrdered By: Maikel Palacio on 01-18-2024 Lymphocytes/100 WBC (Bld) 5.7 % Normal . [facility] Comment on above: Performed By: #### M G, URIC, BMP, CBC #### [address] MCH [Entitic mass] by Automa carmina countOrdered By: Maikel Palacio on 01-18-2024 MCH (RBC) [Entitic mass] 25.7 pg Low 27.5-35.2 [facility] Comment on above: Performed By: #### M G, URIC, BMP, CBC #### [address] MCHC Auto (RBC) [Mass/Vol]Or dered By: Maikel Palacio on 01-18-2024 MCHC (RBC) [Mass/Vol] 33.5 g/dL 32.5-35.6 [facility] MCV [Entitic volume] by Auto mated countOrdered By: Maikel Palacio on 01-18-2024 MCV (RBC) [Entitic vol] 76.8 fL Low 83.5-101 F [facility] Comment on above: Performed By: #### M G, URIC, BMP, CBC #### [facility] [address] [place] [address] Magnesium [Mass/volume] in S katelyn or PlasmaOrdered By: Maikel Palacio on 01-18-2024 Magnesium [Mass/Vol] 1.7 mg/dL Low 1.9-2.7 [facility] Comment on above: Performed By: #### M G, URIC, BMP, CBC #### [facility] [address] [place] [address] Neutrophils [#/volume] in Bl ood by Automated countOrdered By: Maikel Palacio on 01-18-2024 Neutrophils (Bld) [#/Vol] 11.9 10*3/uL High 1.8-7.7 [facility] Comment on above: Performed By: #### M G, URIC, BMP, CBC #### [facility] [address] [place] [address] No Panel InformationOrdered By: Maikel Palacio on 01-18-2024 Estimated GFR (CKD-EPI) > 60.0 mL/Min [facility] Creatinine Clearance (Chem 78.18 [facility] Nucleated erythrocytes [Pres ence] in Blood by Automated countOrdered By: Maikel Palacio on 01-18-2024 Nucleated RBC Auto Ql (Bld) 0.0 /100{WBC} 0-0.5 [facility] Platelet mean volume [Entiti c volume] in Blood by Automated countOrdered By: Maikel Palacio on 01-18-2024 Platelet mean volume (Bld) [Entitic vol] 7.2 fL Normal 6.6-10.1 [facility] Comment on above: Performed By: #### M G, URIC, BMP, CBC #### [facility] Ctr [address] [place] [address] Platelets [#/volume] in Bloo d by Automated countOrdered By: Maikel Palacio on 01-18-2024 Platelets (Bld) [#/Vol] 168 10*3/uL Normal 150-450 [facility] Comment on above: Performed By: #### M G, URIC, BMP, CBC #### [facility] [address] [place] [address] Potassium [Moles/volume] in Serum or PlasmaOrdered By: Maikel Palacio on 01-18-2024 Potassium [Moles/Vol] 4.2 mmol/L Normal 3.5-5.1 [facility] Comment on above: Performed By: #### M G, URIC, BMP, CBC #### [address] Serum or plasma anion gap de terminationOrdered By: Maikel Palacio on 01-18-2024 Anion gap [Moles/Vol] 12.5 mmol/L Normal 6.0-15.0 [facility] Comment on above: Performed By: #### M G, URIC, BMP, CBC #### [place] [address] [place] Sodium [Moles/volume] in Ser um or PlasmaOrdered By: Maikel Palacio on 01-18-2024 Sodium [Moles/Vol] 135 mmol/L Low 136-145 [facility] Comment on above: Performed By: #### M G, URIC, BMP, CBC #### [address] Urate [Mass/volume] in Serum or PlasmaOrdered By: Maikel Palacio on 01-18-2024 Urate [Mass/Vol] 9.0 mg/dL High 4.4-7.6 [facility] Comment on above: Result Comment: PERF ORMED BY: [place] [address] PATHOLOGIST CORRECTIONAL PROGRAM SPECIALIST RANDI SANTOS M.D. Performed By: #### M G, URIC, BMP, CBC #### [address] Urea nitrogen [Mass/volume] in Serum or PlasmaOrdered By: Maikel Palacio on 01-18-2024 Urea nitrogen [Mass/Vol] 17 mg/dL Normal 7-25 [facility] Comment on above: Performed By: #### M G, URIC, BMP, CBC #### [place] [address] [place] XR chest 1V portableon 01-17 XR chest 1V portable [facility] Main [place] [address] [place] [address] XRay Report Signed Patient: Larry Mcfarlane MR#: [id number] : 1960 Acct:[id number] Age/Sex: 63 / M ADM Date: 01/18/24 Loc: Room: [address] [place] [address] Type: ADM IN Attending Dr: Bhupinder Mcrae MD Copies to: MD Néstor Boyle Jr, MD Ordering Provider: Néstor Dai Jr, MD Date of Service: 01/17/24 XR/XR chest 1V portable: Nausea/Vomiting/Diarr hea PORTABLE AP ERECT CHEST 2328 hours CLINICAL HISTORY: Chills, body aches and shortness of breath after prostate biopsy yesterday COMPARISON: 08/05/2021 The heart is within normal limits. There is no vascular congestion. No consolidation is seen. There are granulomatous changes. There is no effusion or pneumothorax. There is an old right rib fracture. There is degenerative change at the spine. XR/XR chest 1V portable IMPRESSION: NO ACUTE FINDINGS Impression dictated by: Lucinda Smart M.D.01/18/2024 9:38 AM Dictation Location: [place] [address] Transcribed By: [facility] 01/18/24937 Dictated By: Lucinda Smart MD 01/18/2437 Signed By: 01/18/24937 Normal [facility] Alanine aminotransferase [En zymatic activity/volume] in Serum or PlasmaOrdered By: Néstor Dai on 01-17-2024 ALT [Catalytic activity/Vol] 13 U/L Normal 7-52 [facility] Comment on above: Performed By: #### T SH3, [id number], MG, BMP #### [address] Albumin [Mass/volume] in Ser um or Plasma by Bromocresol green (BCG) dye binding methoOrdered By: Néstor Dai on 01-17-2024 Albumin BCG dye [Mass/Vol] 4.7 g/dL 3.5-5.7 [facility] Alkaline phosphatase [Enzyma tic activity/volume] in Serum or PlasmaOrdered By: Néstor Dai on 01-17-2024 ALP [Catalytic activity/Vol] 62 U/L Normal 34-104 [facility] Comment on above: Performed By: #### T SH3, [id number], MG, BMP #### [facility] [address] [place] [address] Aspartate aminotransferase [ Enzymatic activity/volume] in Serum or PlasmaOrdered By: Néstor Dai on 01-17-2024 AST [Catalytic activity/Vol] 14 U/L Normal 13-39 [facility] Comment on above: Performed By: #### T SH3, [id number], MG, BMP #### [facility] [address] Automated erythrocytes count in urine sediment (number/area)Ordered By: Néstor Dai on 01-17-2024 RBC Auto (Urine sed) [#/Area] Innumerable [HPF] 0-4 [facility] Automated leukocytes count i n urine sediment (number/area)Ordered By: Néstor Dai on 01-17-2024 WBC Auto (Urine sed) [#/Area] 50-100 [HPF] 0-4 [facility] Automated urine color determ inationOrdered By: Néstor Dai on 01-17-2024 Color (U) [place] Critically abnormal Yellow [facility] Comment on above: Order Comment: Name Collection Type:: Voided Performed By: #### T SH3, [id number], MG, BMP #### [facility] [address] Bacterial blood cultureOrder ed By: Néstor Dai on 01-17-2024 Bacteria identified Cx Nom (Bld) Escherichia coli [facility] Bilirubin Test strip Ql (U)O rdered By: Néstor Dai on 01-17-2024 Bilirubin Ql (U) Negative Negative [facility] Bilirubin.total [Mass/volume ] in Serum or PlasmaOrdered By: Néstor Dai on 01-17-2024 Bilirubin [Mass/Vol] 2.2 mg/dL High 0.3-1.0 [facility] Comment on above: Samples from patient s who have taken Naproxen have shown spurious elevation in Total Bilirubin levels. A metabolite of Naproxen, O-desmethylnaproxen, has been shown to interfere with the Jendrassik-Grof method for measuring Total Bilirubin. Result Comment: Samp les from patients who have taken Naproxen have shown spurious elevation in Total Bilirubin levels. A metabolite of Naproxen, O-desmethylnaproxen, has been shown to interfere with the Jendrassik-Grof method for measuring Total Bilirubin. Performed By: #### T SH3, [id number], MG, BMP #### [place] [id number] [facility] Blood Cultureon 01-17-2024 Bacteria identified Cx Nom (Bld) BioFire BCID Panel results called at 1346 on 01/18/24 Gram Stain Gram Negative Bacilli ORGANISM: Escherichia coli (O:ESCCOL) Aerobic DILIP Charge (NMIC56) ---- SUSCEPTIBILITY --- ORGANISM: O:ESCCOL ANTIBIOTIC INTERPRETATION DILIP Amikacin S <16 Amoxacillin/K Clavulanate S <8 Ampicillin R >16 Ampicillin/Sulbactam I 1616/8 Aztreonam S <4 Cefazolin S <2 Cefepime S <2 Ceftazidime S <1 Ceftazidime/Avibactam S <4 Ceftolozane/Tazobacta m S <2 Ceftriaxone S <1 Cefuroxime S <4 Ciprofloxacin R >2 Ertapenem S <0.5 Gentamicin S <2 Levofloxacin R >4 Meropenem S <1 Meropenem/Vaborbactam S <2 Piperacillin/Tazobact am S <8 Tetracycline S <4 Tobramycin S <2 Trimethoprim/Sulfamet hoxazole S <0.5 [employer] BCID Panel results called at 1346 on 01/18/24 Staphylococcus aureus DNA [Presence] by VIJAY with non-probe detection in Positive blood culture Not detected Bacteroides fragilis DNA [Presence] by VIJAY with non-probe detection in Positive blood culture Not detected Ksenia auris DNA [Presence] by VIJAY with non-probe detection in Positive blood culture Not detected Ksenia albicans DNA [Presence] by VIJAY with non-probe detection in Positive blood culture Not detected Acinetobacter calcoaceticus-laureano ii complex DNA [Presence] by VIJAY with non-probe detection in Positive blood culture Not detected Cryptococcus neoformans or gattii 9002 Not detected Cephalosporin resistance blaCTX-M gene [Presence] by Molecular method Not detected Escherichia coli Detected Enterobacterales DNA [Presence] by VIJAY with non-probe detection in Positive blood culture Detected Enterobacter cloacae complex DNA [Presence] by VIJAY with non-probe detection in Positive blood culture Not detected Staphylococcus epidermidis DNA [Presence] by VIJAY with non-probe detection in Positive blood culture Not detected Enterococcus faecalis DNA [Presence] by VIJAY with non-probe detection in Positive blood culture Not detected Enterococcus faecium DNA [Presence] by VIJAY with non-probe detection in Positive blood culture Not detected Ksenia glabrata DNA [Presence] by VIJAY with non-probe detection in Positive blood culture Not detected Haemophilus influenzae (reported as H flu) Not detected Carbapenem resistance blaIMP gene [Presence] by Molecular method Not detected Klebsiella aerogenes DNA [Presence] by VIJAY with non-probe detection in Positive blood culture Not detected Klebsiella pneumoniae+Klebsiella variicola+Klebsiella quasipneumoniae DNA [Presence] by VIJAY with non-probe detection in Positive blood culture Not detected Klebsiella oxytoca DNA [Presence] by VIJAY with non-probe detection in Positive blood culture Not detected Carbapenem resistance blaKPC gene [Presence] by Molecular method Not detected Ksenia krusei DNA [Presence] by VIJAY with non-probe detection in Positive blood culture Not detected Listeria monocytogenes (reported as listeriosis) Not detected Staphylococcus lugdunensis DNA [Presence] by VIJAY with non-probe detection in Positive blood culture Not detected Methicillin resistance mecA+mecC genes+SCCmec+OrfX junction [Presence] by Molecular method Not Applicable Carbapenem resistance blaNDM gene [Presence] by Molecular method Not detected Neisseria meningitidis - reported as meningococcal disease Not detected Carbapenem resistance ilya OXA-48-like gene [Presence] by Molecular method Not detected Ksenia parapsilosis DNA [Presence] by VIJAY with non-probe detection in Positive blood culture Not detected Streptococcus pneumoniae - reported at [facility] Not detected Proteus sp DNA [Presence] by VIJAY with non-probe detection in Positive blood culture Not detected Pseudomonas aeruginosa DNA [Presence] by VIJAY with non-probe detection in Positive blood culture Not detected Salmonella sp DNA [Presence] by VIJAY with non-probe detection in Positive blood culture Not detected Serratia marcescens DNA [Presence] by VIJAY with non-probe detection in Positive blood culture Not detected Staphylococcus sp DNA [Presence] by VIJAY with non-probe detection in Positive blood culture Not detected Stenotrophomonas maltophilia DNA [Presence] by VIJAY with non-probe detection in Positive blood culture Not detected Group A (Streptococcus pyogenes) [id number] Not detected Group B Strep (Streptococcus agalactiae) Not detected Streptococcus sp DNA [Presence] by VIJAY with non-probe detection in Positive blood culture Not detected Ksenia tropicalis DNA [Presence] by VIJAY with non-probe detection in Positive blood culture Not detected Vancomycin resistance Donna + vanB genes [Presence] by Molecular method Not Applicable Carbapenem resistance blaVIM gene [Presence] by Molecular method Not detected Colistin resistance mcr-1 gene [Presence] by Molecular method Not detected Methicillin resistance mecA+mecC genes [Presence] in Isolate or Specimen by Molecular (more content not included)... Normal [facility] Comment on above: Performed By: #### T SH3, [id number], MG, BMP #### [address] Bacteria identified Cx Nom (Bld) BioFire BCID Panel results called at 1346 on 01/18/24 Gram Stain Gram Negative Bacilli ORGANISM: Escherichia coli (O:ESCCOL) Organism Comments For DILIP Refer to Final Report of Blood Culture Collected Date 01/17/24 PERFORMED BY: [place] [address] PATHOLOGIST CORRECTIONAL PROGRAM SPECIALIST RANDI SANTOS M.D. Normal [facility] Comment on above: Performed By: #### T SH3, [id number], MG, BMP #### [address] Complete Blood Count Auto Di ffon 01-17-2024 Basophils (Bld) [#/Vol] 0.0 10*3/uL Normal 0.0-0.2 [facility] Comment on above: Result Comment: PERF ORMED BY: [place] [address] PATHOLOGIST CORRECTIONAL PROGRAM SPECIALIST RANDI SANTOS M.D. Performed By: #### T SH3, [id number], MG, BMP #### [address] Basophils/100 WBC (Bld) 0.3 % Normal . [facility] Comment on above: Performed By: #### T SH3, [id number], MG, BMP #### [address] Eosinophils (Bld) [#/Vol] 0.0 10*3/uL Normal 0.0-0.45 [facility] Comment on above: Performed By: #### T SH3, [id number], MG, BMP #### [address] Eosinophils/100 WBC (Bld) 0.1 % Normal . [facility] Comment on above: Performed By: #### T SH3, [id number], MG, BMP #### [address] Erythrocyte distribution width (RBC) [Ratio] 13.7 % Normal 12.0-14.8 [facility] Comment on above: Performed By: #### T SH3, [id number], MG, BMP #### [address] Hematocrit (Bld) [Volume fraction] 46.8 % Normal 38.8-50.0 [facility] Comment on above: Performed By: #### T SH3, [id number], MG, BMP #### [address] Hemoglobin (Bld) [Mass/Vol] 15.5 g/dL Normal 13.0-17.0 [facility] Comment on above: Performed By: #### T SH3, [id number], MG, BMP #### [address] Lymphocytes (Bld) [#/Vol] 0.6 10*3/uL Low 1.00-4.8 [facility] Comment on above: Performed By: #### T SH3, [id number], MG, BMP #### [address] Lymphocytes/100 WBC (Bld) 3.7 % Normal . [facility] Comment on above: Performed By: #### T SH3, [id number], MG, BMP #### [address] MCH (RBC) [Entitic mass] 25.6 pg Low 27.5-35.2 [facility] Comment on above: Performed By: #### T SH3, [id number], MG, BMP #### [facility] [address] MCV (RBC) [Entitic vol] 77.1 fL Low 83.5-101 [facility] Comment on above: Performed By: #### T SH3, [id number], MG, BMP #### [facility] [address] [place] [address] Mean Corpuscular HGB Conc 33.2 g/dL Normal 32.5-35.6 [facility] Comment on above: Performed By: #### T SH3, [id number], MG, BMP #### [place] [address] [place] Monocytes (Bld) [#/Vol] 1.2 10*3/uL High 0.0-0.8 [facility] Comment on above: Performed By: #### T SH3, [id number], MG, BMP #### [place] [address] [place] Monocytes/100 WBC (Bld) 25.38 % High 0.00-20.00 [facility] Comment on above: Result Comment: For adults in ED, MDW > 20.0 may be associated with a higher risk of sepsis during the first 12 hrs of hospital admission Performed By: #### T SH3, [id number], MG, BMP #### [address] Monocytes/100 WBC (Bld) 7.7 % Normal . [facility] Comment on above: Performed By: #### T SH3, [id number], MG, BMP #### [facility] [address] [place] [address] [place] Neutrophils (Bld) [#/Vol] 13.4 10*3/uL High 1.8-7.7 [facility] Comment on above: Performed By: #### T SH3, [id number], MG, BMP #### [place] [address] [place] Neutrophils/100 WBC (Bld) 88.2 % Normal . [facility] Comment on above: Performed By: #### T SH3, [id number], MG, BMP #### [address] NRBC% 0.0 /100{WBC} Normal 0-0.[address] [facility] Comment on above: Performed By: #### T SH3, [id number], MG, BMP #### [address] Platelet mean volume (Bld) [Entitic vol] 7.4 fL Normal 6.6-10.1 [facility] Comment on above: Performed By: #### T SH3, [id number], MG, BMP #### [address] Platelets (Bld) [#/Vol] 177 10*3/uL Normal 150-450 [facility] Comment on above: Performed By: #### T SH3, [id number], MG, BMP #### [address] RBC (Bld) [#/Vol] 6.07 10*6/uL High 3.90-5.60 [facility] Comment on above: Performed By: #### T SH3, [id number], MG, BMP #### [address] WBC (Bld) [#/Vol] 15.1 10*3/uL High 4.1-10.5 [facility] Comment on above: Performed By: #### T SH3, [id number], MG, BMP #### [address] Comprehensive Metabolic Pane paresh 01-17-2024 Albumin [Mass/Vol] 4.7 g/dL Normal 3.5-5.7 [facility] Comment on above: Performed By: #### T SH3, [id number], MG, BMP #### [address] Anion gap [Moles/Vol] 13.6 mmol/L Normal 6.0-15.0 [facility] Comment on above: Performed By: #### T SH3, [id number], MG, BMP #### [address] Calcium [Mass/Vol] 9.9 mg/dL Normal 8.6-10.3 [facility] Comment on above: Performed By: #### T SH3, [id number], MG, BMP #### [address] Chloride [Moles/Vol] 106 mmol/L Normal 98-107 [facility] Comment on above: Performed By: #### T SH3, [id number], MG, BMP #### [address] CO2 [Moles/Vol] 21.4 mmol/L Normal 21.0-31.0 [facility] Comment on above: Performed By: #### T SH3, [id number], MG, BMP #### [address] Creatinine [Mass/Vol] 1.29 mg/dL Normal 0.70-1.30 [facility] Comment on above: Performed By: #### T SH3, [id number], MG, BMP #### [address] Creatinine Clr Calc Pharmacy 70.30 Normal [facility] Comment on above: Result Comment: PERF ORMED BY: [place] [address] PATHOLOGIST CORRECTIONAL PROGRAM SPECIALIST RANDI SANTOS M.D. Performed By: #### T SH3, [id number], MG, BMP #### [place] [address] [place] GFR/1.73 sq M.predicted MDRD (S/P/Bld) [Vol rate/Area] mL/min/{1.73_m2} Normal [facility] Comment on above: Performed By: #### T SH3, [id number], MG, BMP #### [facility] [address] [place] [address] Glucose [Mass/Vol] 124 mg/dL High 70-100 [facility] Comment on above: Result Comment: [facility] Glucose Reference Range is dependent on time and content of last meal. Glucose of more than 200 mg/dL in a nonstressed, ambulatory subject supports the diagnosis of Diabetes Mellitus. ADA recommended reference range Performed By: #### T SH3, [id number], MG, BMP #### [address] Potassium [Moles/Vol] 4.0 mmol/L Normal 3.5-5.1 [facility] Comment on above: Performed By: #### T SH3, [id number], MG, BMP #### [address] Sodium [Moles/Vol] 137 mmol/L Normal 136-145 [facility] Comment on above: Performed By: #### T SH3, [id number], MG, BMP #### [address] Urea nitrogen [Mass/Vol] 21 mg/dL Normal 7-25 [facility] Comment on above: Performed By: #### T SH3, [id number], MG, BMP #### [address] Dipstick and Microscopicon 0 01-17-2024 Appearance (U) Cloudy Critically abnormal Clear [facility] Comment on above: Order Comment: Name Collection Type:: Voided Performed By: #### T SH3, [id number], MG, BMP #### [address] Bacteria,Urine 4+ High None Seen [facility] Comment on above: Order Comment: Name Collection Type:: Voided Performed By: #### T SH3, [id number], MG, BMP #### [address] Bilirubin,Urine Negative Normal Negative [facility] Comment on above: Order Comment: Name Collection Type:: Voided Performed By: #### T SH3, [id number], MG, BMP #### [address] Glucose Ql (U) Normal Normal Normal [facility] Comment on above: Order Comment: Name Collection Type:: Voided Performed By: #### T SH3, [id number], MG, BMP #### [address] Hyaline Casts,Urine 0-8 Normal 0-8 [facility] Comment on above: Order Comment: Name Collection Type:: Voided Result Comment: PERF ORMED BY: [place] [address] PATHOLOGIST CORRECTIONAL PROGRAM SPECIALIST RANDI SANTOS M.D. Performed By: #### T SH3, [id number], MG, BMP #### [address] Ketones Ql (U) Trace High Negative [facility] Comment on above: Order Comment: Name Collection Type:: Voided Performed By: #### T SH3, [id number], MG, BMP #### [address] Leukocyte esterase Test strip Ql (U) 3+ High Negative [facility] Comment on above: Order Comment: Name Collection Type:: Voided Performed By: #### T SH3, [id number], MG, BMP #### [address] Nitrite,Urine Positive High Negative [facility] Comment on above: Order Comment: Name Collection Type:: Voided Performed By: #### T SH3, [id number], MG, BMP #### [address] Occult Blood,Urine 3+ High Negative [facility] Comment on above: Order Comment: Name Collection Type:: Voided Result Comment: PERF ORMED BY: [place] [address] PATHOLOGIST CORRECTIONAL PROGRAM SPECIALIST RANDI SANTOS M.D. Performed By: #### T SH3, [id number], MG, BMP #### [address] RBC,Urine Innumerable High 0-4 [facility] Comment on above: Order Comment: Name Collection Type:: Voided Performed By: #### T SH3, [id number], MG, BMP #### [address] Specificy [place],Urine 1.024 Normal 1.001-1.030 [facility] Comment on above: Order Comment: Name Collection Type:: Voided Performed By: #### T SH3, [id number], MG, BMP #### [address] Squamous Epithelial Cell,Urine None Seen Normal 0-2 [facility] Comment on above: Order Comment: Name Collection Type:: Voided Performed By: #### T SH3, [id number], MG, BMP #### [address] Urobilinogen,Urine Normal Normal Normal [facility] Comment on above: Order Comment: Name Collection Type:: Voided Performed By: #### T SH3, [id number], MG, BMP #### [address] WBC,Urine 50-100 High 0-4 [facility] Comment on above: Order Comment: Name Collection Type:: Voided Performed By: #### T SH3, [id number], MG, BMP #### [address] ECG 12 lead ECGon 01-17-2024 ECG 12 lead ECG [facility] [place] [address] [place] [address] Electrocardiograph Report Signed Patient: Larry Mcfarlane MR#: [id number] : 1960 Acct:[id number] Age/Sex: 63 / M ADM Date: 01/18/24 Loc: 4N Room: 2I2434-4 Type: ADM IN Attending Dr: Maikel Palacio DO Ordering Provider: Néstor Dai Jr, MD Date of Service: 01/17/2412/08/2223 ECG/ECG 12 lead ECG: Nausea/Vomiting/Diarr hea Copies to: Test Reason : Blood Pressure : 146/086 mmHG Vent. Rate : 136 BPM Atrial Rate : 136 BPM P-R Int : 128 ms QRS Dur : 086 ms QT Int : 312 ms P-R-T Axes : 052 -68 075 degrees QTc Int : 469 ms Sinus tachycardia with premature supraventricular complexes Pulmonary disease pattern Left anterior fascicular block Nonspecific ST abnormality Abnormal ECG When compared with ECG of 19-JUL-2021 08:17, Significant changes have occurred Confirmed by NÉSTOR DAI MD ([id number]) on 01/18/2024 5:30:13 AM Referred By: Electronically Signed By:NÉSTOR DAI MD Transcribed By: MUS Signed By Néstor Dai Jr, MD 0530 Normal [facility] Ketones Auto test strip (U) [Mass/Vol]Ordered By: Néstor Dai on 01-17-2024 Ketones (U) [Mass/Vol] Trace Negative [facility] - UrinalysisOrder ed By: Néstor Dai on 01-17-2024 Hyaline casts LM Ql (Urine sed) 0-8 [LPF] 0-8 [facility] Lactic Acidon 01-17-2024 Lactate [Moles/Vol] 1.6 mmol/L Normal 0.5-2.2 [facility] Comment on above: Result Comment: PERF ORMED BY: [place] [address] PATHOLOGIST CORRECTIONAL PROGRAM SPECIALIST RANDI SANTOS M.D. Performed By: #### T SH3, [id number], MG, BMP #### [address] Monocyte distribution width [Entitic volume] in Blood by AutomatedOrdered By: Néstor Dai on 01-17-2024 Monocyte distribution width Auto (Bld) [Entitic vol] 25.38 % 0.00-20.00 [facility] Comment on above: For adults in ED, MD W > 20.0 may be associated with a higher risk of sepsis during the first 12 hrs of hospital admission Nitrite Test strip Ql (U)Ord ered By: Néstor Dai on 01-17-2024 Nitrite Ql (U) Positive Negative [facility] No Panel InformationOrdered By: Néstor Dai on 01-17-2024 Escherichia coli Escherichia coli [facility] Operative Reporton 4 Operative Report [id number]# 1.00TIFF Normal [facility] Protein [Mass/volume] in Ser um or PlasmaOrdered By: Néstor Dai on 01-17-2024 Protein [Mass/Vol] 7.2 g/dL Normal 6.4-8.9 [facility] Comment on above: Performed By: #### T SH3, [id number], MG, BMP #### [facility] [address] [place] [address] Serum globulin measurement b y calculation (mass/volume)Ordered By: Néstor Dai on 01-17-2024 Globulin (S) [Mass/Vol] 2.5 g/dL Normal F [facility] Comment on above: Performed By: #### T SH3, [id number], MG, BMP #### [facility] [address] [place] [address] Serum or plasma albumin/glob ulin mass ratioOrdered By: Néstor Dai on 01-17-2024 Albumin/Globulin [Mass ratio] 1.9 {ratio} Normal [facility] Comment on above: Performed By: #### T SH3, [id number], MG, BMP #### [facility] [address] [place] [address] Specific gravity Auto test s trip (U) [Rel density]Ordered By: Néstor Dai on 01-17-2024 Specific gravity (U) [Rel density] 1.024 1.001-1.030 [facility] Squamous epithelial cells de tection in urine sediment by light microscopyOrdered By: Néstor Dai on 01-17-2024 Epithelial cells.squamous LM Ql (Urine sed) None seen [HPF] 0-2 [facility] Urine Cultureon 01-17-2024 Bacteria identified Cx Nom (U) ORGANISM: Escherichia coli (O:ESCCOL) [place] Count >100,000 Aerobic DILIP Charge (NMIC56) ---- SUSCEPTIBILITY --- ORGANISM: O:ESCCOL ANTIBIOTIC INTERPRETATION DILIP Amikacin S <16 Amoxacillin/K Clavulanate S <8 Ampicillin R >16 Ampicillin/Sulbactam I 1616/8 Aztreonam S <4 Cefazolin S <2 Cefepime S <2 Ceftazidime S <1 Ceftazidime/Avibactam S <4 Ceftolozane/Tazobacta m S <2 Ceftriaxone S <1 Cefuroxime S <4 Ciprofloxacin R >2 Ertapenem S <0.5 Gentamicin S <2 Levofloxacin R >4 Meropenem S <1 Meropenem/Vaborbactam S <2 Nitrofurantoin S <32 Piperacillin/Tazobact am S <8 Tetracycline S <4 Tigecycline S <2 Tobramycin S <2 Trimethoprim/Sulfamet hoxazole S <0.5 S = SUSCEPTIBLE I = INTERMEDIATE R = RESISTANT BLANK = DATA NOT AVAILABLE, OR DRUG NOT ADVISABLE OR TESTED R* = RESISTANCE DUE TO EXTENDED SPECTRUM BETA-LACTAMASES ESBL = EXTENDED SPECTRUM BETA-LACTAMASE TFG = THYMIDINE-DEPENDENT STRAIN OZ = BETA-LACTAMASE POSITIVE IB = INDUCIBLE BETA-LACTAMASE. APPEARS IN PLACE OF 'S' WITH SPECIES KNOWN TO POSSESS INDUCIBLE BETA-LACTAMASES. POTENTIALLY THEY MAY BECOME RESISTANT TO ALL B-LACTAM DRUGS. PERFORMED BY: [facility] [address] [place] [address] PATHOLOGIST CORRECTIONAL PROGRAM SPECIALIST RANDI SANTOS M.D. Normal [facility] Comment on above: Performed By: #### T SH3, [id number], MG, BMP #### [place] [address] Urine bacteria detection by automated methodOrdered By: Néstor Dai on 01-17-2024 Bacteria Auto Ql (U) 4+ [HPF] None Seen [facility] Urine clarity by refractomet ry automatedOrdered By: Néstor Dai on 01-17-2024 Clarity Refractometry automated (U) Cloudy Clear [facility] Urine culture routineOrdered By: Néstor Dai on 01-17-2024 Bacteria identified Cx Nom (U) Escherichia coli [facility] Urine glucose measurement by automated test strip (mass/volume)Ordered By: Néstor Dai on 01-17-2024 Glucose Auto test strip (U) [Mass/Vol] Normal mg/dL Normal [facility] Urine hemoglobin detection b y automated test stripOrdered By: Néstor Dai on 01-17-2024 Hemoglobin Auto test strip Ql (U) 3+ Negative [facility] Urine leukocyte esterase det ection by automated test stripOrdered By: Néstor Dai on 01-17-2024 Leukocyte esterase Auto test strip Ql (U) 3+ Negative [facility] Urine pH measurement by auto mated test stripOrdered By: Néstor Dai on 01-17-2024 pH (U) 5.0 [pH] Normal 5.0-9.0 [facility] Comment on above: Order Comment: Name Collection Type:: Voided Performed By: #### T SH3, [id number], MG, BMP #### [facility] [address] [place] [address] Urine protein measurement by automated test strip (mass/volume)Ordered By: Néstor Dai on 01-17-2024 Protein (U) [Mass/Vol] 30 mg/dL High Negative [facility] Comment on above: Order Comment: Name Collection Type:: Voided Performed By: #### T SH3, [id number], MG, BMP #### [facility] [address] Urobilinogen Auto test strip (U) [Mass/Vol]Ordered By: Néstor Dai on 01-17-2024 Urobilinogen (U) [Mass/Vol] Normal mg/dL Normal [facility] Paresh 01-16-2024 L Specimen: [id number] Received: 01/16/241235 Status: BHAKTI Dumont Num: [id number] Spec Type: Surgical Subm Dr: Yousuf Zuñiga MD Tissues: A Prostate - Needle Biopsy (LT BASE MEDIAL) B Prostate - Needle Biopsy (LT BASE LATERAL) C Prostate - Needle Biopsy (LT MID MEDIAL) D Prostate - Needle Biopsy (LT MID LATERAL) E Prostate - Needle Biopsy (LT APEX MEDIAL) F Prostate - Needle Biopsy (LT APEX LATERAL) G Prostate - Needle Biopsy (RT BASE MEDIAL) H Prostate - Needle Biopsy (RT BASE LATERAL) I Prostate - Needle Biopsy (RT MID MEDIAL) J Prostate - Needle Biopsy (RT MID LATERAL) K Prostate - Needle Biopsy (RT APEX MEDIAL) L Prostate - Needle Biopsy (RT APEX LATERAL) Procedures: HE/24, Gross/Micro L4/12, PIN Cocktail/4, IHC Multipl/4 Age/ Patient Sex Location Account Attending Physician Larry Mcfarlane 63/M [place] [id number] Yousuf Zuñiga MD SPEC NUM: [id number] RECD: 01/16/24 STATUS: BHAKTI DUMONT NUM: [id number] BAKARI: 01/16/24- SUBM DR: Yousuf Zuñiga MD ENTERED: 01/16/24 [facility] DR: Derrick Mederos [facility] SPEC TYPE: Surgical DEPT: S ORDERED: HE/24, Gross/Micro L4/12, PIN Cocktail/4, IHC Multipl/4 ORDERED: HE/24, Gross/Micro L4/12, PIN Cocktail/4, USS/20, IHC Multipl/4 Supplemental Report Addendum 1 Entered: 02/13/24 Supplemental for findings of Confirm MDX for prostate cancer: Patient result: DNA Methylation positive -Likelihood of prostate cancer on repeat biopsy: 29% -Likelihood of detecting [place] score <= 6 cancer 19% -Likelihood of detecting [place] score >= 7 cancer 10% -------- Specimen: [id number] Received: 01/16/24 Status: BHAKTI Dumont Num: [id number] Spec Type: Surgical Subm Dr: Yousuf Zuñiga MD Tissues: A Prostate - Needle Biopsy (LT BASE MEDIAL) B Prostate - Needle Biopsy (LT BASE LATERAL) C Prostate - Needle Biopsy (LT MID MEDIAL) D Prostate - Needle Biopsy (LT MID LATERAL) E Prostate - Needle Biopsy (LT APEX MEDIAL) F Prostate - Needle Biopsy (LT APEX LATERAL) G Prostate - Needle Biopsy (RT BASE MEDIAL) H Prostate - Needle Biopsy (RT BASE LATERAL) I Prostate - Needle Biopsy (RT MID MEDIAL) J Prostate - Needle Biopsy (RT MID LATERAL) K Prostate - Needle Biopsy (RT APEX MEDIAL) L Prostate - Needle Biopsy (RT APEX LATERAL) Procedures: HE/24, Gross/Micro L4/12, PIN Cocktail/4, IHC Multipl/4 -------- Patient: Larry Mcfarlane [id number] (Continued) -------- Specimen: [id number] Received: 01/16/24-1235 (Continued) Supplemental Report (Continued) Signed (signature on file) Sumaya Roque MD 01/21/24 1840 -------- Specimen: [id number] Received: 01/16/24 Status: BHAKTI Dumont Num: [id number] Spec Type: Surgical Subm Dr: Yousuf Zuñiga MD Tissues: A Prostate - Needle Biopsy (LT BASE MEDIAL) B Prostate - Needle Biopsy (LT BASE LATERAL) C Prostate - Needle Biopsy (LT MID MEDIAL) D Prostate - Needle Biopsy (LT MID LATERAL) E Prostate - Needle Biopsy (LT APEX MEDIAL) F Prostate - Needle Biopsy (LT APEX LATERAL) G Prostate - Needle Biopsy (RT BASE MEDIAL) H Prostate - Needle Biopsy (RT BASE LATERAL) I Prostate - Needle Biopsy (RT MID MEDIAL) J Prostate - Needle Biopsy (RT MID LATERAL) K Prostate - Needle Biopsy (RT APEX MEDIAL) L Prostate - Needle Biopsy (RT APEX LATERAL) Procedures: /, Gross/Micro L4/, PIN Cocktail/, IHC Multipl/4 -------- Patient: Larry Mcfarlane [id number] (Continued) -------- Specimen: [id number] Received: 01/16/24 (Continued) Supplemental Report (Continued) Addendum Signed (signature on file) Sumaya Roque MD 02/13/24 1057 -------- Pathological Diagnosis A, prostate biopsy, left base medial: -Benign prostate tissue with mild atrophic change B, prostate biopsy, left base lateral: -Benign prostate tissue with mild atrophic change C, prostate biopsy, left mid medial: -Benign prostate tissue with mild atrophic change, including partial atrophic pattern, and minute foci of low-grade PIN -PIN cocktail immunostain with provided control also showing findings supporting the above interpretation D, prostate biopsy, left mid lateral: -Benign prostate tissue with small focal partial atrophic pattern -PIN cocktail immunostain with provided control also showing findings (more content not included)... Normal [facility] Provider Letteron 11-11-2023 Provider Letter November 11, 2023 L[address]Y [address] [place] [address] : 1960 Dear Mr Mcfarlane , We have been trying to reach you with no success. Your mailbox is full. It is important that you return our call regarding scheduling your prostate biopsy upon receiving this letter. Also, at the time of your call, please provide us with your current information. Thank you for your prompt attention to this matter. Sincerely, CINDA Lassiter (Dr Zuñiga's technology director) Normal [facility] RAD - MRI Reporton RAD - MRI Report [id number]#1 .00TIFF Normal [facility] MR prostate wo/w conon 10-15 MR prostate wo/w con [facility] [address] [address] MRI Report Signed Patient: Larry Mcfarlane MR#: [id number] : 1960 Acct:[id number] Age/Sex: 63 / M ADM Date: 10/14/23 Loc: MR Room: Type: [facility] Attending Dr: Yousuf Zuñiga MD Copies to: Yousuf Zuñiga MD Ordering Provider: Yousuf Zuñiga MD Date of Service: 10/14/23 MR/MR prostate wo/w con: R97.20 Z80.42 EXAMINATION: MR prostate wo/w con HISTORY: Elevated PSA. COMPARISON: NONE TECHNIQUE: Multiparametric imaging of the prostate gland was performed with IV contrast. 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 Portions of the left aspect of the prostate gland are excluded from today's study. The diffusion- weighted imaging is nondiagnostic. Prostate Dimensions: 5.6 x 4.7 x 5.9 cm Prostate Volume: 81 mL Peripheral Zone: Heterogenous inT2 signal suggestive of prior prostatitis. No suspicious T2 or ADC map abnormality is identified to suggest prostate malignancy. Central/Transitional Zone: BPH changes. Seminal Vesicles: Unremarkable Neurovascular bundles: Unremarkable. Lymphadenopathy: No evidence of lymphadenopathy. Bladder: No focal lesion. Bowel: Diverticulosis. Peritoneal Cavity: Left-sided inguinal hernia containing presumed sigmoid colon. Bones: Heterogenous bone marrow signal without focal lesion. MR/MR prostate wo/w con IMPRESSION: Suboptimal evaluation due to blooming artifact from the patient's left hip prosthesis. No definitive MRI evidence of clinically significant prostate cancer. Impression dictated by: Mateo Guaman Jr., D.O.10/15/2023 2:06 PM Dictation Location: [place] [address] Transcribed By: [facility] 10/15/23 1406 Dictated By: Mateo Guaman Jr, DO 10/15/23 1401 Signed By: 10/15/23 1406 Normal [facility] ISTAT XRay CREon 10-14-2023 Creatinine [Mass/Vol] 1.3 mg/dL Normal 0.6-1.3 [facility] Comment on above: Result Comment: ER/E SD physician is notified/shown all ISTAT results. Critical values may be confirmed by laboratory testing if deemed necessary by ER attending doctor. Performed By: #### T SH3, [id number], MG, BMP #### [address] ISTAT GFR > 60.0 Normal [facility] Comment on above: Result Comment: PERF ORMED BY: [place] [address] PATHOLOGIST CORRECTIONAL PROGRAM SPECIALIST RANDI SANTOS M.D. Performed By: #### T SH3, [id number], MG, BMP #### [place] [address] [place] [id number] [facility] Pre-Certification Formon Pre-Certification Form [id number]#1. 00TIFF Normal [facility] Formson 10-02-2023 Forms [id number]#1 .00TIFF Normal [facility] Physician Referralon 024 Physician Referral [id number] #1.00TIFF Normal [facility] Screenson 10-02-2023 Screens [id number] #1.00TIFF [facility] Ambulatory Visit Summaryon 0 10-01-2023 Ambulatory Visit Summary LARRY MCFARLANE :1960 Visit Date:10/01/2023 Ambulatory Visit Instructions Your Diagnosis Elevated PSA Family history of prostate cancer Left inguinal hernia Tests Performed Urnls Dip Stick Auto w/o Microscopy POC 96488 MRI Pelvis (Soft Tissue) w/ + w/o contrast -- Results Pending -- Please visit your patient portal for your results or contact your primary care physician. Your Care Team Attending Physician - Yousuf ZUÑIGA MD Primary Care Physician - BERNARDO TORREZ DO Referring Physician - BERNARDO TORREZ DO This Is Your Medications List Contact prescribing physician if questions or concerns Non-Formulary Medication (uricel) esomeprazole (Nexium) Procedures Performed Open fracture of right wrist (2014), Colonoscopy (2013), Hip replacement. Discharge Vitals Heart Rate (Peripheral) 82 Blood Pressure 132/84 Height 179 cm Height 70 in Weight 104.1 kg Weight 229.02 lb BMI 32.49 What to do next You Need to Schedule the Following Appointments Follow Up with Yousuf ZUÑIGA MD, URL When: Comments: f/u pending MRI of prostate results Where: [address] [address]- Medications What How Much When Instructions Unchanged esomeprazole (Nexium) Every day Contact prescribing physician if questions or concerns Unchanged Non-Formulary Medication (uricel) Contact prescribing physician if questions or concerns Test Results Urnls Dip Stick Auto w/o Microscopy POC 39208 (10/01/2023) Bilirubin Urine Dipstick - Negative Blood Urine Dipstick - Negative Glucose Urine Dipstick - Negative Ketones Urine Dipstick - Negative Leukocytes Urine Dipstick - Negative Nitrite Urine Dipstick - Negative Protein Urine Dipstick - Negative Specific Apex Urine Dipstick - 1.020 Urine Appearance Urine Dipstick - Clear Urine Color Urine Dipstick - Light yellow Urobilinogen Urine Dipstick - Normal 0.2-1 EU/dl pH Urine Dipstick - 5.5 Allergies aspirin (Stomach upset) Problems Ongoing - Any problem that you are currently receiving treatment for. Elevated PSA Family history of prostate cancer Gout Hypertension Left inguinal hernia Patient Survey You may receive a survey via text or e-mail asking about your office visit. Please share your experience with us by completing your survey. We appreciate your feedback and thank you for choosing us for your care. Education Materials Prostate Cancer Screening Prostate cancer screening is testing that is done to check for the presence of prostate cancer in men. The prostate gland is a walnut-sized gland that is located below the bladder and in front of the rectum in males. The function of the prostate is to add fluid to semen during ejaculation. Prostate cancer is one of the most common types of cancer in men. Who should have prostate cancer screening? Screening recommendations vary based on age and other risk factors, as well as between the professional organizations who make the recommendations. In general, screening is recommended if: ? You are age 50 to 70 and have an average risk for prostate cancer. You should talk with your health care provider about your need for screening and how often screening should be done. Because most prostate cancers are slow growing and will not cause , screening in this age group is generally reserved for men who have a 10- to 15-year life expectancy. ? You are younger than age 50, and you have these risk factors: ? Having a father, brother, or uncle who has been diagnosed with prostate cancer. The risk is higher if your family member's cancer occurred at an early age or if you have multiple family members with prostate cancer at an early age. ? Being a male who is Black or is of [place] or sub-Saharan descent. In general, screening is not recommended if: ? You are younger than age 40. ? You are between the ages of 40 and 49 and you have no risk factors. ? You are 70 years of age or older. At this age, the risks that screening can cause are greater than the benefits that it may provide. If you are at high risk for prostate cancer, your health care provider may recommend that you have screenings more often or that you start screening at a younger age. How is screening for prostate cancer done? The recommended prostate cancer screening test is a blood test called the prostate-specific antigen (PSA) test. PSA is a protein that is made in the prostate. As you age, your prostate naturally produces more PSA. Abnormally high PSA levels may be caused by: ? Prostate cancer. ? An enlarged prostate that is not caused by cancer (benign prostatic hyperplasia, or BPH). This condition is very common in older men. ? A prostate gland infection (prostatitis) or urinary tract infection. ? Certain medicines such as male hormones (like testosterone) or other medicin (more content not included)... Normal [facility] Ambulatory Visit Summary LARRY MCFARLANE :1960 Visit Date:10/01/2023 Ambulatory Visit Instructions Your Diagnosis Elevated PSA Family history of prostate cancer Left inguinal hernia Tests Performed Urnls Dip Stick Auto w/o Microscopy POC 74755 MRI Pelvis (Soft Tissue) w/ + w/o contrast -- Results Pending -- Please visit your patient portal for your results or contact your primary care physician. Your Care Team Attending Physician - Yousuf ZUÑIGA MD Primary Care Physician - BERNARDO TORREZ DO Referring Physician - BERNARDO TORREZ DO This Is Your Medications List Contact prescribing physician if questions or concerns Non-Formulary Medication (uricel) esomeprazole (Nexium) Procedures Performed Open fracture of right wrist (2014), Colonoscopy (2013), Hip replacement. Discharge Vitals Heart Rate (Peripheral) 82 Blood Pressure 132/84 Height 179 cm Height 70 in Weight 104.1 kg Weight 229.02 lb BMI 32.49 What to do next You Need to Schedule the Following Appointments Follow Up with MICHAEL ALFONSO, CRISTY Mccallum When: Comments: f/u pending MRI of prostate results Where: [address] [address]- Medications What How Much When Instructions Unchanged esomeprazole (Nexium) Every day Contact prescribing physician if questions or concerns Unchanged Non-Formulary Medication (uricel) Contact prescribing physician if questions or concerns Test Results Urnls Dip Stick Auto w/o Microscopy POC 71967 (10/01/2023) Bilirubin Urine Dipstick - Negative Blood Urine Dipstick - Negative Glucose Urine Dipstick - Negative Ketones Urine Dipstick - Negative Leukocytes Urine Dipstick - Negative Nitrite Urine Dipstick - Negative Protein Urine Dipstick - Negative Specific Apex Urine Dipstick - 1.020 Urine Appearance Urine Dipstick - Clear Urine Color Urine Dipstick - Light yellow Urobilinogen Urine Dipstick - Normal 0.2-1 EU/dl pH Urine Dipstick - 5.5 Allergies aspirin (Stomach upset) Problems Ongoing - Any problem that you are currently receiving treatment for. Elevated PSA Family history of prostate cancer Gout Hypertension Left inguinal hernia Patient Survey You may receive a survey via text or e-mail asking about your office visit. Please share your experience with us by completing your survey. We appreciate your feedback and thank you for choosing us for your care. Education Materials Prostate Cancer Screening Prostate cancer screening is testing that is done to check for the presence of prostate cancer in men. The prostate gland is a walnut-sized gland that is located below the bladder and in front of the rectum in males. The function of the prostate is to add fluid to semen during ejaculation. Prostate cancer is one of the most common types of cancer in men. Who should have prostate cancer screening? Screening recommendations vary based on age and other risk factors, as well as between the professional organizations who make the recommendations. In general, screening is recommended if: ? You are age 50 to 70 and have an average risk for prostate cancer. You should talk with your health care provider about your need for screening and how often screening should be done. Because most prostate cancers are slow growing and will not cause , screening in this age group is generally reserved for men who have a 10- to 15-year life expectancy. ? You are younger than age 50, and you have these risk factors: ? Having a father, brother, or uncle who has been diagnosed with prostate cancer. The risk is higher if your family member's cancer occurred at an early age or if you have multiple family members with prostate cancer at an early age. ? Being a male who is Black or is of [place] or sub-Saharan descent. In general, screening is not recommended if: ? You are younger than age 40. ? You are between the ages of 40 and 49 and you have no risk factors. ? You are 70 years of age or older. At this age, the risks that screening can cause are greater than the benefits that it may provide. If you are at high risk for prostate cancer, your health care provider may recommend that you have screenings more often or that you start screening at a younger age. How is screening for prostate cancer done? The recommended prostate cancer screening test is a blood test called the prostate-specific antigen (PSA) test. PSA is a protein that is made in the prostate. As you age, your prostate naturally produces more PSA. Abnormally high PSA levels may be caused by: ? Prostate cancer. ? An enlarged prostate that is not caused by cancer (benign prostatic hyperplasia, or BPH). This condition is very common in older men. ? A prostate gland infection (prostatitis) or urinary tract infection. ? Certain medicines such as male hormones (like testosterone) or other medicin (more content not included)... Normal [facility] Patient Educationon 10-01-19 Patient Education Oncology Prostate Cancer Screening Prostate cancer screening is testing that is done to check for the presence of prostate cancer in men. The prostate gland is a walnut-sized gland that is located below the bladder and in front of the rectum in males. The function of the prostate is to add fluid to semen during ejaculation. Prostate cancer is one of the most common types of cancer in men. Who should have prostate cancer screening? Screening recommendations vary based on age and other risk factors, as well as between the professional organizations who make the recommendations. In general, screening is recommended if: ? You are age 50 to 70 and have an average risk for prostate cancer. You should talk with your health care provider about your need for screening and how often screening should be done. Because most prostate cancers are slow growing and will not cause , screening in this age group is generally reserved for men who have a 10- to 15-year life expectancy. ? You are younger than age 50, and you have these risk factors: ? Having a father, brother, or uncle who has been diagnosed with prostate cancer. The risk is higher if your family member's cancer occurred at an early age or if you have multiple family members with prostate cancer at an early age. ? Being a male who is Black or is of [place] or sub-Saharan descent. In general, screening is not recommended if: ? You are younger than age 40. ? You are between the ages of 40 and 49 and you have no risk factors. ? You are 70 years of age or older. At this age, the risks that screening can cause are greater than the benefits that it may provide. If you are at high risk for prostate cancer, your health care provider may recommend that you have screenings more often or that you start screening at a younger age. How is screening for prostate cancer done? The recommended prostate cancer screening test is a blood test called the prostate-specific antigen (PSA) test. PSA is a protein that is made in the prostate. As you age, your prostate naturally produces more PSA. Abnormally high PSA levels may be caused by: ? Prostate cancer. ? An enlarged prostate that is not caused by cancer (benign prostatic hyperplasia, or BPH). This condition is very common in older men. ? A prostate gland infection (prostatitis) or urinary tract infection. ? Certain medicines such as male hormones (like testosterone) or other medicines that raise testosterone levels. A rectal exam may be done as part of prostate cancer screening to help provide information about the size of your prostate gland. When a rectal exam is performed, it should be done after the PSA level is drawn to avoid any effect on the results. Depending on the PSA results, you may need more tests, such as: ? A physical exam to check the size of your prostate gland, if not done as part of screening. ? Blood and imaging tests. ? A procedure to remove tissue samples from your prostate gland for testing (biopsy). This is the only way to know for certain if you have prostate cancer. What are the benefits of prostate cancer screening? ? Screening can help to identify cancer at an early stage, before symptoms start and when the cancer can be treated more easily. ? There is a small chance that screening may lower your risk of dying from prostate cancer. The chance is small because prostate cancer is a slow-growing cancer, and most men with prostate cancer from a different cause. What are the risks of prostate cancer screening? The main risk of prostate cancer screening is diagnosing and treating prostate cancer that would never have caused any symptoms or problems. This is called overdiagnosisand overtreatment. PSA screening cannot tell you if your PSA is high due to cancer or a different cause. A prostate biopsy is the only procedure to diagnose prostate cancer. Even the results of a biopsy may not tell you if your cancer needs to be treated. Slow-growing prostate cancer may not need any treatment other than monitoring, so diagnosing and treating it may cause unnecessary stress or other side effects. Questions to ask your health care provider ? When should I start prostate cancer screening? ? What is my risk for prostate cancer? ? How often do I need screening? ? What type of screening tests do I need? ? How do I get my test results? ? What do my results mean? ? Do I need treatment? Where to find more information ? The [place] [employer]: www.cancer.org ? [employer] [employer]: www.auanet.org Contact a health care provider if: ? You have difficulty urinating. ? You have pain when you urinate or ejaculate. ? You have blood in your urine or semen. ? You have pain in your back or in the area of your prostate. Summary ? Prostate cancer is a common type of cancer in men. The prostate gland is located below the bladder and in front of the rectum. This gland adds flu (more content not included)... 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 Referral per Bernardo Torrez DO due to elevated PSA, Family HX of prostate cancer. PSA: 7.330 & 16.9%-07/16/23 7.390-07/15/23 5.580 & 34.0%-09/27/21 4.380-09/04/21 1.650-02/21/16 1.520-10/11/12 IPSS 7 Dysuria: _denies Incomplete bladder emptying: _denies Hematuria: denies visible blood Frequency: every 2-3 hours Urgency: _denies, he feels this is getting harder for him Nocturia: _once nightly Stream: denies hesitation, weaker stream Leaking: denies Post void dripping: denies Wearing pads/ Depends: denies Urge incontinence: denies Stress incontinence: denies Incontinence without Sensory Awareness: denies Abdominal pain: denies (but he does he have a hernia) Flank pain: denies Sexual complaints: denies History of Present Illness Tests reviewed: reviewed UA and External Records. I have reviewed the previous health record information and history for this patient from External Provider. I have reviewed and verified the staff HPI to be accurate for this encounter. There have been no associated fever, chills, flank pain, or blood in the urine. Denies any urinary infections since last encounter. Review of Systems PHQ Score Initial Depression Screen Score: 0 SCORE ROS - Provider Constitutional: denies weight loss, denies hot flashes. Eyes: denies eye problems. Gastrointestinal: denies nausea, denies vomiting. Cardiovascular: denies chest pain or angina. Integumentary: no dryness Musculoskeletal: denies musculoskeletal symptoms. ENMT: denies otolaryngeal symptoms. Respiratory: no shortness of breath. Heme/Lymph: denies easy bleeding tendency, denies easy bruising tendency. Psychiatric: no confusion, no anxiety. Genitourinary: See HPI. Physical Exam Vitals & Measurements HR: 82(Peripheral) BP: 132/84 HT: 70 in HT: 179 cm WT: 104.1 kg WT: 229.02 lb BMI: 32.49 General Appearance: alert, no distress, well nourished, well developed male. Head: normocephalic . Eyes: normal orbit and globe. ENMT: normal examination of external ears. Chest: Lungs CTA, respirations non labored. Cardiovascular: regular rate and rhythm. Abdomen: soft, non distended, no tenderness, no mass or organomegaly, no hernia. Genitourinary: normal scrotum, normal testes, normal urethra, normal epididymis, normal vas deferens/spermatic cord. Flank Pain: none. Bladder: nonpalpable. Penis: normal shaft, normal glans. Prostate: normal prostate, estimated weight 40 gms, no hard nodule observed. Lymph Nodes: unremarkable palpation of the cervical area. Skin: warm, dry, no bruising. Psychiatric: cooperative, affect appropriate for age, normal judgement, euthymic mood. Assessment/Plan IPSS 7, UA today shows no signs of infection or blood. 1. Elevated PSA (R97.20: Elevated prostate specific antigen [PSA]) PSA 10/11/12 - 1.52 02/21/16 - 1.65 09/04/21 - 4.38 09/27/21 - 5.58 & 34.0% 07/15/23 - 7.39 07/16/23 - 7.33 & 16.9% Concerning for prostate cancer. [place]TE: 40gms, no nodules He has an elevated PSA, which could indicate prostate cancer, prostate infection, prostate inflammation without infection, prostate manipulation, or benign prostate enlargement (BPH). The importance of the rate of PSA rise has also been discussed. The options for management have been discussed, including prostate biopsy versus close monitoring of the PSA over time. Advised pt that the next recommended step is to get a MRI of his prostate done. Advised pt that this could lead to a prostate bx. Pt does have a hip replacement, done in 2007 or 2008, is not sure if he can have an MRI or not. Advised pt that if he can have the MRI, he will get a MRI fusion bx, if he cannot get the MRI, will do a TRUS bx, perhaps under local or under anesthesia with a cluster biopsy. Follow up pending MRI of Prostate results. All questions/concerns were discussed. Pt to call the office if he encounters any issues prior. Pt acknowledges understanding. -Will order MRI of Prostate. May not be able to get it or image may not be good, due to hip replacement. Pt will get this done at [facility]. -Will schedule prostate bx pending MRI results. 2. Family history of prostate cancer (Z80.42: Family history of malignant neoplasm of prostate) Father, dx in mid to late 60's, brachytherapy. 3. Left inguinal hernia (K40.90: Unilateral inguinal hernia, without obstruction or gangrene, not specified as recurrent) Pt states that he will get this taken care of once he takes care of his elevated PSA. Overall the patient has the progressive increase in the PSA level. The free percent is not worrisome but the overall pattern certainly is. This combined with his positive family history leads to the recommendation for an MRI of the prostate which could lead to the fusion biopsy as explained above. He does have a hip prosthesis which could change the MRI accuracy and or ability to get the study in the first place. Will see if (more content not included)... Normal [facility] Comment on above: Result Comment: Elec tronically Signed By: MICHAEL ALFONSO, Yousuf P\.br\Date and Time Signed: 10/01/23 09:47 EST\.br\Electronically Co-Signed By: Brenda Tabares\.br\Date and Time Co-Signed: 10/01/23 09:41 EST PSA Diagnostic (Total Free)o n 07-16-2023 Prostate Spec Ag, Free 1.240 ng/mL Normal T [facility] Comment on above: Order Comment: Reaso n for Exam Elevated PSA Performed By: #### T SH3, [id number], MG, BMP #### [address] PSA Total (Not a Screen) 7.330 ng/mL High 0.000-4.000 [facility] Comment on above: Order Comment: Reaso n for Exam Elevated PSA Performed By: #### T SH3, [id number], MG, BMP #### [address] PSA,FREE% 16.9 % Normal [facility] Comment on above: Order Comment: Reaso n for Exam Elevated PSA Result Comment: Base d on the work of Alesha et al.WALT. 279(19):1542:47.1998 the percent free PSA may be used to determine the relative risk of prostate cancer in individual men.The percent probability of prostate cancer by patient age for men with non-suspicious [place] results and total PSa between 4 and 10 ng/ml is as follows: % Free PSA 50 - 64 yrs. 65 - 75 yrs. 0 - 10 56% 55% 10 - 15 24% 35% 15 - 20 17% 23% 20 - 25 10% 20% >25 5% 9% PERFORMED BY: [place] [address] PATHOLOGIST CORRECTIONAL PROGRAM SPECIALIST RANDI SANTOS M.D. Performed By: #### T SH3, [id number], MG, BMP #### [address] Prostate Specific Ag Free [M ass/volume] in Serum or PlasmaOrdered By: Bernardo Torrez on 07-16-2023 Free PSA [Mass/Vol] 1.240 ng/mL [facility] Prostate specific Ag [Mass/v olume] in Serum or PlasmaOrdered By: Bernardo Torrez on 07-16-2023 Prostate specific Ag [Mass/Vol] 7.330 ng/mL 0.000-4.000 [facility] Serum or plasma free prostat e specific antigen (PSA)/total PSA ratioOrdered By: Bernardo Torrez on 07-16-2023 Free PSA/Total PSA [Mass fraction] 16.9 % [facility] Comment on above: Based on the work of Alesha et al.WALT. 279(19):1542:47.1998 the percent free PSA may be used to determine the relative risk of prostate cancer in individual men.The percent probability of prostate cancer by patient age for men with non-suspicious [place] results and total PSa between 4 and 10 ng/ml is as follows:% Free PSA 50 - 64 yrs. 65 - 75 yrs. 0 - 10 56% 55% 10 - 15 24% 35% 15 - 20 17% 23% 20 - 25 10% 20% >25 5% 9% Urate [Mass/volume] in Serum or PlasmaOrdered By: Bernardo Torrez on 07-16-2023 Urate [Mass/Vol] 9.6 mg/dL High 4.4-7.6 [facility] Comment on above: Order Comment: Reaso n for Exam Gout Result Comment: PERF ORMED BY: [place] [address] PATHOLOGIST CORRECTIONAL PROGRAM SPECIALIST RANDI SANTOS M.D. Performed By: #### T SH3, [id number], MG, BMP #### [facility] [address] Alanine aminotransferase [En zymatic activity/volume] in Serum or PlasmaOrdered By: Jose Carlos Torrez on 07-15-2023 ALT [Catalytic activity/Vol] 12 U/L Normal 7-52 [facility] Comment on above: Performed By: #### T SH3, [id number], MG, BMP #### [facility] [address] Albumin [Mass/volume] in Ser um or Plasma by Bromocresol green (BCG) dye binding methoOrdered By: Jose Carlos Torrez on 07-15-2023 Albumin BCG dye [Mass/Vol] 4.5 g/dL 3.5-5.7 [facility] Alkaline phosphatase [Enzyma tic activity/volume] in Serum or PlasmaOrdered By: Jose Carlos Torrez on 07-15-2023 ALP [Catalytic activity/Vol] 62 U/L Normal 34-104 [facility] Comment on above: Performed By: #### T SH3, [id number], MG, BMP #### [address] Aspartate aminotransferase [ Enzymatic activity/volume] in Serum or PlasmaOrdered By: Jose Carlos Torrez on 07-15-2023 AST [Catalytic activity/Vol] 14 U/L Normal 13-39 [facility] Comment on above: Performed By: #### T SH3, [id number], MG, BMP #### [address] Automated basophil %Ordered By: Jose Carlos Torrez on 07-15-2023 Basophils/100 WBC (Bld) 0.8 % Normal . [facility] Comment on above: Performed By: #### T SH3, [id number], MG, BMP #### [address] Automated basophil countOrde red By: Jose Carlos Torrez on 07-15-2023 Basophils (Bld) [#/Vol] 0.1 10*3/uL Normal 0.0-0.2 [facility] Comment on above: Result Comment: PERF ORMED BY: [place] [address] PATHOLOGIST CORRECTIONAL PROGRAM SPECIALIST RANDI SANTOS M.D. Performed By: #### T SH3, [id number], MG, BMP #### [address] Automated blood monocyte cou ntOrdered By: Jose Carlos Torrez on 07-15-2023 Monocytes (Bld) [#/Vol] 0.4 10*3/uL Normal 0.0-0.8 [facility] Comment on above: Performed By: #### T SH3, [id number], MG, BMP #### [address] Automated eosinophil %Ordere d By: Jose Carlos Torrez on 07-15-2023 Eosinophils/100 WBC (Bld) 2.4 % Normal . [facility] Comment on above: Performed By: #### T SH3, [id number], MG, BMP #### [address] Automated eosinophil countOr dered By: Jose Carlos Torrez on 07-15-2023 Eosinophils (Bld) [#/Vol] 0.2 10*3/uL Normal 0.0-0.45 [facility] Comment on above: Performed By: #### T SH3, [id number], MG, BMP #### [address] Automated monocyte %Ordered By: Jose Carlos Torrez on 07-15-2023 Monocytes/100 WBC (Bld) 5.8 % Normal . [facility] Comment on above: Performed By: #### T SH3, [id number], MG, BMP #### [address] Automated neutrophil %Ordere d By: Jose Carlos Torrez on 07-15-2023 Neutrophils/100 WBC (Bld) 70.9 % Normal . [facility] Comment on above: Performed By: #### T SH3, [id number], MG, BMP #### [address] Bilirubin.total [Mass/volume ] in Serum or PlasmaOrdered By: Jose Carlos Torrez on 07-15-2023 Bilirubin [Mass/Vol] 0.9 mg/dL Normal 0.3-1.0 [facility] Comment on above: Performed By: #### T SH3, [id number], MG, BMP #### [address] Calcium [Mass/volume] in Ser um or PlasmaOrdered By: Jose Carlos Torrez on 07-15-2023 Calcium [Mass/Vol] 9.8 mg/dL Normal 8.6-10.3 [facility] Comment on above: Performed By: #### T SH3, [id number], MG, BMP #### [facility] [address] [place] [address] [place] Carbon dioxide, total [Moles /volume] in Serum or PlasmaOrdered By: Jose Carlos Torrez on 07-15-2023 CO2 [Moles/Vol] 30.3 mmol/L Normal 21.0-31.0 [facility] Comment on above: Performed By: #### T SH3, [id number], MG, BMP #### [facility] [address] [place] [address] [place] Chloride [Moles/volume] in S katelyn or PlasmaOrdered By: Jose Carlos Torrez on 07-15-2023 Chloride [Moles/Vol] 104 mmol/L Normal 98-107 [facility] Comment on above: Performed By: #### T SH3, [id number], MG, BMP #### [facility] [address] [place] [address] [place] Cholesterol [Mass/volume] in Serum or PlasmaOrdered By: Jose Carlos Torrez on 07-15-2023 Cholesterol [Mass/Vol] 147 mg/dL Normal 140-200 [facility] Comment on above: Chol less than 200 m g/dl low riskChol 201-239 mg/dl borderline riskChol 240 mg/dl and greater high risk Result Comment: Chol less than 200 mg/dl low risk Chol 201-239 mg/dl borderline risk Chol 240 mg/dl and greater high risk Performed By: #### T SH3, [id number], MG, BMP #### [facility] [address] [place] [address] [place] Cholesterol in LDL Calc [Mas s/Vol]Ordered By: Jose Carlos Torrez on 07-15-2023 Cholesterol in LDL [Mass/Vol] 82 mg/dL 0-100 [facility] Comment on above: LDL ATP III CLASSIFI CATIONLDL less than 100 mg/dL OptimalLDL 100-129 mg/dL Near or above optimalLDL 130-159 mg/dL Borderline highLDL 160-189 mg/dL HighLDL greater than 189 mg/dL Very high Cholesterol in VLDL Calc [Ma ss/Vol]Ordered By: Jose Carlos Torrez on 07-15-2023 Cholesterol in VLDL [Mass/Vol] 28 mg/dL [facility] Creatinine [Mass/volume] in Serum or PlasmaOrdered By: Jose Carlos Torrez on 07-15-2023 Creatinine [Mass/Vol] 1.11 mg/dL Normal 0.70-1.30 [facility] Comment on above: Performed By: #### T SH3, [id number], MG, BMP #### [address] Employee Comp Metabolic Pane paresh 07-15-2023 Albumin [Mass/Vol] 4.5 g/dL Normal 3.5-5.7 [facility] Comment on above: Performed By: #### T SH3, [id number], MG, BMP #### [address] GFR/1.73 sq M.predicted MDRD (S/P/Bld) [Vol rate/Area] mL/min/{1.73_m2} Normal [facility] Comment on above: Performed By: #### T SH3, [id number], MG, BMP #### [address] Employee Complete Blood Coun ton 07-15-2023 Mean Corpuscular HGB Conc 32.8 g/dL Normal 32.5-35.6 [facility] Comment on above: Performed By: #### T SH3, [id number], MG, BMP #### [address] NRBC% 0.1 /100{WBC} Normal 0-0.[address] [facility] Comment on above: Performed By: #### T SH3, [id number], MG, BMP #### [address] Employee Lipid Profileon LDL Cholesterol,Calculated 82 mg/dL Normal 0-100 [facility] Comment on above: Result Comment: LDL ATP III CLASSIFICATION LDL less than 100 mg/dL Optimal LDL 100-129 mg/dL Near or above optimal LDL 130-159 mg/dL Borderline high LDL 160-189 mg/dL High LDL greater than 189 mg/dL Very high Performed By: #### T SH3, [id number], MG, BMP #### [address] Triglyceride w/Reflex 141 mg/dL Normal 0-149 [facility] Comment on above: Result Comment: TRIG ATP III CLASSIFICATION TRIG less than 150 mg/dL Normal TRIG 150-199 mg/dL Borderline high TRIG 200-500 mg/dL High TRIG greater than 500 mg/dL Very high Standard traceable to the Center for Disease Conrtrol and Prevention (CDC) test method. Performed By: #### T SH3, [id number], MG, BMP #### [address] VLDL CHOLESTEROL 28 mg/dL Normal [facility] Comment on above: Performed By: #### T SH3, [id number], MG, BMP #### [address] Employee PSA Totalon 023 PSA Total ([facility] Orders) 7.390 ng/mL High 0.000-4.000 [facility] Comment on above: Result Comment: PERF ORMED BY: [place] [address] PATHOLOGIST CORRECTIONAL PROGRAM SPECIALIST RANDI SANTOS M.D. Performed By: #### T SH3, [id number], MG, BMP #### [facility] [address] [place] [address] Employee Thyroid Stim Hormon miguel 07-15-2023 Employee Thyroid Stim Hormone 0.92 u[iU]/mL Normal 0.45-5.33 [facility] Comment on above: Result Comment: PERF ORMED BY: [place] [address] PATHOLOGIST CORRECTIONAL PROGRAM SPECIALIST RANDI SANTOS M.D. Performed By: #### T SH3, [id number], MG, BMP #### [address] Erythrocyte distribution wid th [Ratio] by Automated countOrdered By: Jose Carlos Torrez on 07-15-2023 Erythrocyte distribution width (RBC) [Ratio] 14.4 % Normal 12.0-14.8 [facility] Comment on above: Performed By: #### T SH3, [id number], MG, BMP #### [address] Erythrocytes [#/volume] in B lood by Automated countOrdered By: Jose Carlos Torrez on 07-15-2023 RBC (Bld) [#/Vol] 5.87 10*6/uL High 3.90-5.60 [facility] Comment on above: Performed By: #### T SH3, [id number], MG, BMP #### [address] Glucose [Mass/volume] in Ser um or PlasmaOrdered By: Jose Carlos Torrez on 07-15-2023 Glucose [Mass/Vol] 87 mg/dL Normal 70-100 [facility] Comment on above: Performed By: #### T SH3, [id number], MG, BMP #### [address] Hematocrit [Volume Fraction] of Blood by Automated countOrdered By: Jose Carlos Torrez on 07-15-2023 Hematocrit (Bld) [Volume fraction] 45.8 % Normal 38.8-50.0 [facility] Comment on above: Performed By: #### T SH3, [id number], MG, BMP #### [address] Hemoglobin [Mass/volume] in BloodOrdered By: Jose Carlos Torrez on 07-15-2023 Hemoglobin (Bld) [Mass/Vol] 15.0 g/dL Normal 13.0-17.0 [facility] Comment on above: Performed By: #### T SH3, [id number], MG, BMP #### [facility] [address] [place] [address] Leukocytes [#/volume] correc carmina for nucleated erythrocytes in Blood by Automated counOrdered By: Jose Carlos Torrez on 07-15-2023 WBC corrected for nucl RBC Auto (Bld) [#/Vol] 7.6 10*3/uL 4.1-10.5 [facility] Leukocytes [#/volume] in Blo od by Automated countOrdered By: Jose Carlos Torrez on 07-15-2023 WBC (Bld) [#/Vol] 7.6 10*3/uL Normal 4.1-10.5 [facility] Comment on above: Performed By: #### T SH3, [id number], MG, BMP #### [address] Lymphocytes [#/volume] in Bl ood by Automated countOrdered By: Jose Carlos Torrez on 07-15-2023 Lymphocytes (Bld) [#/Vol] 1.5 10*3/uL Normal 1.00-4.8 [facility] Comment on above: Performed By: #### T SH3, [id number], MG, BMP #### [address] Lymphocytes/100 leukocytes i n Blood by Automated countOrdered By: Jose Carlos Torrez on 07-15-2023 Lymphocytes/100 WBC (Bld) 20.1 % Normal . [facility] Comment on above: Performed By: #### T SH3, [id number], MG, BMP #### [address] MCH [Entitic mass] by Automa carmina countOrdered By: Jose Carlos Torrez on 07-15-2023 MCH (RBC) [Entitic mass] 25.6 pg Low 27.5-35.2 [facility] Comment on above: Performed By: #### T SH3, [id number], MG, BMP #### [address] MCHC Auto (RBC) [Mass/Vol]Or dered By: Jose Carlos Torrez on 07-15-2023 MCHC (RBC) [Mass/Vol] 32.8 g/dL 32.5-35.6 [facility] MCV [Entitic volume] by Auto mated countOrdered By: Jose Carlos Torrez on 07-15-2023 MCV (RBC) [Entitic vol] 78.0 fL Low 83.5-101 [facility] Comment on above: Performed By: #### T SH3, [id number], MG, BMP #### [facility] [address] [place] [address] Neutrophils [#/volume] in Bl ood by Automated countOrdered By: Jose Carlos Torrez on 07-15-2023 Neutrophils (Bld) [#/Vol] 5.4 10*3/uL Normal 1.8-7.7 [facility] Comment on above: Performed By: #### T SH3, [id number], MG, BMP #### [facility] [address] [place] [address] Nicotine Metabolite, Qualon 07-15-2023 Nicotine Metabolite Negative Normal Cutoff=25 [facility] Comment on above: Result Comment: Perf ormed at: - [facility] [id number] Test Eng: Dyan Camacho MD, Phone: [phone] PERFORMED BY: [place] [address] PATHOLOGIST CORRECTIONAL PROGRAM SPECIALIST RANDI SANTOS M.D. Performed By: #### T SH3, [id number], MG, BMP #### [facility] [address] [place] [address] No Panel InformationOrdered By: Jose Carlos Torrez on 07-15-2023 Estimated GFR (CKD-EPI) > 60.0 mL/Min [facility] Creatinine Clearance (Chem N/A [facility] Nucleated erythrocytes [Pres ence] in Blood by Automated countOrdered By: Jose Carlos Torrez on 07-15-2023 Nucleated RBC Auto Ql (Bld) 0.1 /100{WBC} 0-0.5 [facility] Platelet mean volume [Entiti c volume] in Blood by Automated countOrdered By: Jose Carlos Torrez on 07-15-2023 Platelet mean volume (Bld) [Entitic vol] 7.3 fL Normal 6.6-10.1 [facility] Comment on above: Performed By: #### T SH3, [id number], MG, BMP #### [facility] [address] [place] [address] Platelets [#/volume] in Bloo d by Automated countOrdered By: Jose Carlos Torrez on 07-15-2023 Platelets (Bld) [#/Vol] 256 10*3/uL Normal 150-450 [facility] Comment on above: Performed By: #### T SH3, [id number], MG, BMP #### [address] Potassium [Moles/volume] in Serum or PlasmaOrdered By: Jose Carlos Torrez on 07-15-2023 Potassium [Moles/Vol] 4.4 mmol/L Normal 3.5-5.1 [facility] Comment on above: Performed By: #### T SH3, [id number], MG, BMP #### [facility] [address] [place] [address] Prostate specific Ag [Mass/v olume] in Serum or PlasmaOrdered By: Jose Carlos Torrez on 07-15-2023 Prostate specific Ag [Mass/Vol] 7.390 ng/mL 0.000-4.000 [facility] Protein [Mass/volume] in Ser um or PlasmaOrdered By: Jose Carlos Torrez on 07-15-2023 Protein [Mass/Vol] 7.0 g/dL Normal 6.4-8.9 [facility] Comment on above: Performed By: #### T SH3, [id number], MG, BMP #### [address] Serum globulin measurement b y calculation (mass/volume)Ordered By: Jose Carlos Torrez on 07-15-2023 Globulin (S) [Mass/Vol] 2.5 g/dL Normal [facility] Comment on above: Performed By: #### T SH3, [id number], MG, BMP #### [facility] [address] [place] [address] Serum or plasma albumin/glob ulin mass ratioOrdered By: Jose Carlos Torrez on 07-15-2023 Albumin/Globulin [Mass ratio] 1.8 {ratio} Normal [facility] Comment on above: Performed By: #### T SH3, [id number], MG, BMP #### [facility] [address] [place] [address] Serum or plasma anion gap de terminationOrdered By: Jose Carlos Torrez on 07-15-2023 Anion gap [Moles/Vol] 9.1 mmol/L Normal 6.0-15.0 [facility] Comment on above: Performed By: #### T SH3, [id number], MG, BMP #### [facility] [address] [place] [address] Serum or plasma high density lipoprotein (HDL) cholesterol measurementOrdered By: Jose Carlos Torrez on 07-15-2023 Cholesterol in HDL [Mass/Vol] 37 mg/dL Normal 23-92 [facility] Comment on above: HDL CHOL ATP-III CLA SSIFICATION Cardiovascular RiskHDL > or equal to 60 mg/dL LOWHDL < 40 mg/dL HIGH Result Comment: HDL CHOL ATP-III CLASSIFICATION Cardiovascular Risk HDL > or equal to 60 mg/dL LOW HDL < 40 mg/dL HIGH Performed By: #### T SH3, [id number], MG, BMP #### [facility] [address] [place] [address] Serum or plasma total choles terol/high density lipoprotein (HDL) cholesterol mass ratOrdered By: Jose Carlos Torrez on 07-15-2023 Cholesterol.total/Vita sterol in HDL [Mass ratio] 4.0 {ratio} Normal <5.0 [facility] Comment on above: Performed By: #### T SH3, [id number], MG, BMP #### [facility] [address] [place] [address] Sodium [Moles/volume] in Ser um or PlasmaOrdered By: Jose Carlos Torrez on 07-15-2023 Sodium [Moles/Vol] 139 mmol/L Normal 136-145 [facility] Comment on above: Performed By: #### T SH3, [id number], MG, BMP #### [place] [address] Thyrotropin [Units/volume] i n Serum or PlasmaOrdered By: Jose Carlos Torrez on 07-15-2023 TSH Qn 0.92 m[IU]/L 0.45-5.33 [facility] Triglyceride [Mass/volume] i n Serum or PlasmaOrdered By: Jose Carlos Torrez on 07-15-2023 Triglyceride [Mass/Vol] 141 mg/dL 0-149 [facility] Comment on above: TRIG ATP III CLASSIF ICATIONTRIG less than 150 mg/dL NormalTRIG 150-199 mg/dL Borderline highTRIG 200-500 mg/dL High TRIG greater than 500 mg/dL Very highStandard traceable to the Center for Disease Conrtrol and Prevention (CDC) test method. Urea nitrogen [Mass/volume] in Serum or PlasmaOrdered By: Jose Carlos Torrez on 07-15-2023 Urea nitrogen [Mass/Vol] 16 mg/dL Normal 7-25 [facility] Comment on above: Performed By: #### T SH3, [id number], MG, BMP #### [place] [address] COVID + FLU [facility] 07-08-2023 SARS-CoV-2 (COVID-19) RNA VIJAY+probe Ql (Unsp spec) Negative [facility] Other COVID + FLU Quick Testing Negative [facility] Other Urine 10 SGon 09-06-2021 Albumin DL <= 20 mg/L (U) [Mass/Vol] Negative [facility] Other pH (U) 6.5 [pH] [facility] Other Urine 10 SG Negative [facility] Other Urine 10 SG 1.030 [facility] Other Urine 10 SG 0.2 [facility] Other Vital Signs Date Time Vital Sign Value Performing Clinician Facility 08-12-2024 07:41-0500 Blood Pressure Location [facility] 08-12-2024 07:41-0500 Diastolic blood pressure 97 mm[Hg] [facility] 08-12-2024 07:41-0500 Heart rate 68 /min [facility] 08-12-2024 07:41-0500 Respiratory rate 19 /min [facility] 08-12-2024 07:41-0500 Systolic blood pressure 159 mm[Hg] [facility] 01-28-2024 08:24-0400 Blood Pressure Location [facility] 01-28-2024 08:24-0400 Body temperature 98.42 [degF] [facility] 01-28-2024 08:24-0400 Diastolic blood pressure 87 mm[Hg] [facility] 01-28-2024 08:24-0400 Heart rate 75 /min [facility] 01-28-2024 08:24-0400 Respiratory rate 16 /min [facility] 01-28-2024 08:24-0400 Systolic blood pressure 133 mm[Hg] Yousuf ZUÑIGA [facility] 01-22-2024 11:44-0400 Body temperature 97.8 [degF] DO Bernardo Kuns Work Phone: [facility] 01-22-2024 11:44-0400 Diastolic blood pressure 83 mm[Hg] DO Bernardo Kuns Work Phone: [facility] 01-22-2024 11:44-0400 Heart rate 85 /min DO Bernardo Kuns Work Phone: [facility] 01-22-2024 11:44-0400 Respiratory rate 18 /min DO Bernardo Kuns Work Phone: [facility] 01-22-2024 11:44-0400 SaO2% (BldA) [Mass fraction] 97 % DO Bernardo Kuns Work Phone: [facility] 01-22-2024 11:44-0400 Systolic blood pressure 120 mm[Hg] DO Bernardo Kuns Work Phone: [facility] 01-22-2024 05:11-0400 Body weight 101 kg DO Bernardo Kuns Work Phone: [facility] 01-20-2024 11:15-0400 Body height 177.8 cm DO Bernardo Kuns Work Phone: [facility] 01-20-2024 08:31-0400 Inhaled oxygen flow rate 2 L/min DO Bernardo Kuns Work Phone: [facility] 01-18-2024 05:53-0400 Body temperature 101.1 [degF] DO Bernardo Kuns Work Phone: [facility] 01-18-2024 05:53-0400 Diastolic blood pressure 72 mm[Hg] DO Bernardo Kuns Work Phone: [facility] 01-18-2024 05:53-0400 Heart rate 89 /min DO Bernardo Kuns Work Phone: [facility] 01-18-2024 05:53-0400 Respiratory rate 16 /min DO Bernardo Kuns Work Phone: [facility] 01-18-2024 05:53-0400 SaO2% (BldA) [Mass fraction] 95 % DO Bernardo Kuns Work Phone: [facility] 01-18-2024 05:53-0400 Systolic blood pressure 143 mm[Hg] DO Bernardo Kuns Work Phone: [facility] 01-17-2024 20:54-0400 Body height 177.8 cm DO Bernardo Kuns Work Phone: [facility] 01-17-2024 20:54-0400 Body weight 99.79 kg DO Bernardo Kuns Work Phone: [facility] 10-01-2023 08:57-0500 Blood Pressure Location [facility] 10-01-2023 08:57-0500 Diastolic blood pressure 84 mm[Hg] [facility]uf [facility] 10-01-2023 08:57-0500 Heart rate 82 /min [facility]uf [facility] 10-01-2023 08:57-0500 Systolic blood pressure 132 mm[Hg] Yousuf [facility] 07-29-2023 08:30-0500 Body height 177.8 cm [employer] Other [facility] Other 07-29-2023 08:30-0500 Body mass index (BMI) [Ratio] 31.99 kg/m2 [employer] Other [facility] Other 07-29-2023 08:30-0500 Body weight 101.15 kg Bernardo Kuns Other [facility] Other 07-29-2023 08:30-0500 Diastolic blood pressure 80 mm[Hg] Bernardo Kuns Other [facility] Other 07-29-2023 08:30-0500 Respiratory rate 18 /min Bernardo Kuns Other [facility] Other 07-29-2023 08:30-0500 SaO2% (BldA) [Mass fraction] 98 % Bernardo Kuns Other [facility] Other 07-29-2023 08:30-0500 Systolic blood pressure 134 mm[Hg] Bernardo Kuns Other [facility] Other 07-08-2023 10:30-0400 Body height 177.8 cm Bernardo Kuns Other [facility] Other 07-08-2023 10:30-0400 Body mass index (BMI) [Ratio] 31.56 kg/m2 Bernardo Kuns Other [facility] Other 07-08-2023 10:30-0400 Body weight 99.79 kg Bernardo Kuns Other [facility] Other 07-08-2023 10:30-0400 Diastolic blood pressure 90 mm[Hg] Bernardo Kuns Other [facility] Other 07-08-2023 10:30-0400 Respiratory rate 16 /min Bernardo Kuns Other [employer] Other 07-08-2023 10:30-0400 SaO2% (BldA) [Mass fraction] 96 % Bernardo Kuns Other [facility] Other 07-08-2023 10:30-0400 Systolic blood pressure 142 mm[Hg] Bernardo Kuns Other [facility] Other 06-23-2023 16:13-0400 Body height 179.07 cm DO Bernardo Kuns Work Phone: [facility] 06-23-2023 16:13-0400 Body temperature 98.3 [degF] DO Bernardo Kuns Work Phone: [facility] 06-23-2023 16:13-0400 Body weight 104.5 kg DO Bernardo Kuns Work Phone: [facility] 06-23-2023 16:13-0400 Diastolic blood pressure 96 mm[Hg] DO Bernardo Kuns Work Phone: [facility] 06-23-2023 16:13-0400 Heart rate 97 /min DO Bernardo Kuns Work Phone: [facility] 06-23-2023 16:13-0400 Respiratory rate 18 /min DO Bernardo Kuns Work Phone: [facility] 06-23-2023 16:13-0400 SaO2% (BldA) [Mass fraction] 97 % DO Bernardo Kuns Work Phone: [facility] 06-23-2023 16:13-0400 Systolic blood pressure 143 mm[Hg] DO Bernardo Kuns Work Phone: [facility] 10-16-2021 10:45-0500 Body height 177.8 cm Bernardo Kuns Other [facility] Other 10-16-2021 10:45-0500 Body mass index (BMI) [Ratio] 27.98 kg/m2 Bernardo Kuns Other [facility] Other 10-16-2021 10:45-0500 Body weight 88.45 kg Bernardo Kuns Other [facility] Other 10-16-2021 10:45-0500 Diastolic blood pressure 70 mm[Hg] Bernardo Kuns Other [facility] Other 10-16-2021 10:45-0500 Respiratory rate 16 /min Bernardo Kuns Other [facility] Other 10-16-2021 10:45-0500 SaO2% (BldA) [Mass fraction] 99 % Bernardo Kuns Other [facility] Other 10-16-2021 10:45-0500 Systolic blood pressure 110 mm[Hg] Bernardo Kuns Other [facility] Other 09-06-2021 13:30-0500 Body height 177.8 cm Bernardo Kuns Other [facility] Other 09-06-2021 13:30-0500 Body mass index (BMI) [Ratio] 27.69 kg/m2 Bernardo Kuns Other [facility] Other 09-06-2021 13:30-0500 Body weight 87.54 kg Bernardo Kuns Other [facility] Other 09-06-2021 13:30-0500 Diastolic blood pressure 82 mm[Hg] Bernardo Kuns Other [facility] Other 09-06-2021 13:30-0500 Respiratory rate 16 /min Bernardo Kuns Other [facility] Other 09-06-2021 13:30-0500 SaO2% (BldA) [Mass fraction] 97 % Bernardo Kuns Other [facility] Other 09-06-2021 13:30-0500 Systolic blood pressure 130 mm[Hg] Bernardo Kuns Other [facility] Other 08-07-2021 11:15-0500 Body height 177.8 cm Bernardo Kuns Other [facility] Other 08-07-2021 11:15-0500 Body mass index (BMI) [Ratio] 27.52 kg/m2 Bernardo Kuns Other [facility] Other 08-07-2021 11:15-0500 Body weight 87 kg Bernardo Kuns Other [facility] Other 08-07-2021 11:15-0500 Diastolic blood pressure 78 mm[Hg] Bernardo Kuns Other [facility] Other 08-07-2021 11:15-0500 Respiratory rate 16 /min Bernardo Kuns Other [facility] Other 08-07-2021 11:15-0500 SaO2% (BldA) [Mass fraction] 91 % Bernardo Kuns Other [facility] Other 08-07-2021 11:15-0500 Systolic blood pressure 124 mm[Hg] Bernardo Kuns Other [facility] Other Encounters Encounter Date Encounter Type Care Provider Facility Start: 11-25-2024 ambulatory Yousuf ZUÑIGA Facility :[facility] [place] Start: 08-12-2024 End: 08-12-2024 ambulatory Yousuf ZUÑIGA Facility:[facility] [place] Start: 08-12-2024 End: 08-12-2024 Patient encounter procedure Yousuf ZUÑIG[facility] [place] Start: 04-29-2024 End: 04-29-2024 ambulatory Yousuf ZUÑIGA Facility:[facility] [place] Start: 04-29-2024 End: 04-29-2024 Patient encounter procedure Yousuf ZUÑIGA [facility] [place] Start: 04-28-2024 End: 04-28-2024 ambulatory Yousuf ZUÑIGA Facility:[facility] [place] Start: 04-28-2024 End: 04-28-2024 Patient encounter procedure Yousuf ZUÑIGA [facility] [place] Start: 01-28-2024 End: 01-28-2024 ambulatory Michelle Huan Facility:[facility] Start: 01-28-2024 End: 01-28-2024 ambulatory Yousuf ZUÑIGA Facility: [place] Start: 01-28-2024 End: 01-28-2024 Patient encounter procedure Yousuf ZUÑIGA [facility] [place] Start: 01-21-2024 Non-patient / Non-visit DO Ally tt Kuns Work Phone: [facility] Cardiology Work Phone: Start: 01-18-2024 End: 01-22-2024 Evaluation and management of inpatient DO Bernardo Kuns Work Phone: [facility] Work Phone: Start: 01-16-2024 End: 01-16-2024 ambulatory Yousuf Zuñiga [facility] Work Phone: Start: 01-16-2024 End: 01-16-2024 Departed Referred MD Yousuf Zuñiga Work Phone: [facility] [place] Work Phone: Start: 01-16-2024 End: 01-16-2024 ambulatory Yousuf ZUÑIGA Facility:[id number] Start: 01-14-2024 End: 01-14-2024 ambulatory Yousuf ZUÑIGA Facility:[facility] [place] Start: 01-14-2024 End: 01-14-2024 Patient encounter procedure Yousuf ZUÑIGA [facility] [place] Start: 10-14-2023 End: 10-14-2023 Patient encounter procedure DO Bernardo Torrez Work Phone: [facility] [place] Work Phone: Start: 10-14-2023 End: 10-14-2023 ambulatory DO Bernardo Torrez Work Phone: [place] Work Phone: Start: 10-01-2023 End: 10-01-2023 ambulatory BERNARDO TORREZ Facility:[facility] [place] Start: 10-01-2023 End: 10-01-2023 Patient encounter procedure Yousuf ZUÑIGA [facility] [place] Start: 07-29-2023 End: 07-29-2023 ambulatory Bernardo Torrez Other [facility] Other Start: 07-29-2023 Encounter for genera l adult medical examination without abnormal findings Bernardo Torrez [facility] [place] Start: 07-29-2023 Office outpatient vi sit 15 minutes Bernardo Kuns [facility] [place] Start: 07-29-2023 End: 07-29-2023 Patient encounter procedure DO Bernardo Kuns Work Phone: [facility] [place] Work Phone: Start: 07-16-2023 Telephone encounter Bernardo Kuns [facility] Start: 07-16-2023 End: 07-16-2023 Patient encounter procedure DO Bernardo Kuns Work Phone: [facility] Start: 07-16-2023 End: 07-16-2023 ambulatory DO Bernardo Kuns Work Phone: [employer] Other Start: 07-15-2023 End: 07-15-2023 Departed Referred DO Bernardo Kuns Work Phone: [place] Start: 07-15-2023 End: 07-15-2023 ambulatory DO Bernardo Kuns Work Phone: [place] Work Phone: Start: 07-09-2023 End: 07-09-2023 ambulatory Bernardo Kuns Other [facility] Other Start: 07-09-2023 Telephone encounter Bernardo Kuns [facility] Start: 07-08-2023 End: 07-08-2023 ambulatory Bernardo Kuns Other [facility] Other Start: 07-08-2023 Office outpatient vi sit 15 minutes Bernardo Kuns [facility] [place] Start: 06-23-2023 End: 06-23-2023 Emergency department patient visit DO Bernardo Kuns Work Phone: [place]Emergency Room Work Phone: Start: 10-16-2021 End: 10-16-2021 ambulatory Bernardo Kuns Other [facility] Other Start: 10-16-2021 Office outpatient vi sit 15 minutes Bernardooziel Lucios [facility] Start: 09-06-2021 End: 09-06-2021 ambulatory Bernardooziel Torrez Other [facility] Other Start: 09-06-2021 Encounter for genera l adult medical examination without abnormal findings Bernardooziel Torrez [facility] Start: 09-06-2021 Patient encounter status Bernardo Torrez Other [facility] Other Start: 09-06-2021 Periodic preventive med est patient 40-64yrs Bernardo Torrez [facility] Start: 08-07-2021 End: 08-07-2021 ambulatory Bernardo Torrez Other [facility] Other Start: 08-07-2021 Office outpatient vi sit 15 minutes Bernardo Torrez [facility] Procedures Date Procedure Procedure Detail Performing Clinician Start: 01-19-2024 CT angiography of thorax DO [employer] Work Phone: Start: 01-19-2024 Plain chest X-ray DO Br [facility] [employer] Work Phone: Start: 01-17-2024 Computed tomography of abdomen and pelvis with contrast DO [employer] Work Phone: Start: 01-17-2024 Plain chest X-ray DO Br ett Kuns Work Phone: Start: 01-17-2024 Bacterial ID (NA Mul tiplex Assay) DO [employer] Work Phone: Start: 01-17-2024 Blood culture for bacteria, including anaerobic screen DO [employer] Work Phone: Start: 01-17-2024 Urine culture DO [employer] Work Phone: Start: 01-16-2024 Transrectal biopsy o f prostate using ultrasound guidance Yousuf ZUÑIGA Start: 09-16-2014 Open fracture of rig ht wrist (disorder) Yousuf ZUÑIGA Start: 09-16-2013 Colonoscopy Yousuf KAREN YE Insertion of hip prosthesis Yousuf ZUÑIGA Screening for malign ant neoplasm of colon Bernardo Torrez Other Plan of Treatment Date Care Activity Detail Author Start: 01-22-2024 [facility] Start: 01-21-2024 Blood culture for bacteria, including anaerobic screen Blood Culture [facility] Start: 01-21-2024 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 [facility] Start: 01-21-2024 [facility] Start: 01-20-2024 [facility] Start: 01-19-2024 End: 01-20-2024 [facility] Start: 01-18-2024 Hospital admission [facility] Start: 01-18-2024 [facility] Start: 01-17-2024 Computed tomography of abdomen and pelvis with contrast CT abdomen pelvis w con [facility] Start: 01-17-2024 CT Abdomen and Pelvi s W contrast IV [facility] Start: 01-17-2024 Plain chest X-ray XR chest 1V portab le [facility] Start: 01-17-2024 XR Chest Single view [facility] Start: 01-17-2024 Bacteria identified in Blood by Culture Blood Culture [facility] Start: 01-17-2024 Bacteria identified in Urine by Culture Urine Culture [facility] Start: 10-14-2023 MR Prostate WO and W contrast IV [facility] Start: 10-14-2023 MR prostate wo/w con MR prostate wo/ w con [facility] Start: 07-15-2023 [facility] Patient Education [facility] Work Phone: Patient referral [facility] Work Phone: Immunizations Immunization Date Immunization Notes Care Provider Anat diallo 07-16-2023 influenza virus vaccine, unspecified formulation Yousuf ZUÑIGA [facility] 07-16-2023 influenza, unspecifi ed formulation Yousuf ZUÑIGA [facility] 09-06-2021 influenza, injectabl e, quadrivalent, contains preservative Bernardo Torrez Other [facility] Other 09-06-2021 influenza virus vaccine, unspecified formulation Yousuf ZUÑIGA [facility] 09-06-2021 influenza, injectabl e, quadrivalent, preservative free Yousuf Michael Work Phone: [facility] Payers Date Payer Category Payer Unknown [id number] 2023 Self-pay [id number] 2021 Unknown [id number] 2. [id number] 1961 Unknown [id number] 2.16.8 [id number]. 1961 Unknown [id number] 2.16.8 40.1.298718.3.579.2. 1961 Unknown [id number] 2.16.8 [id number] 1961 Unknown [id number] 2.16.8 40.1.497232.3.579.2. 1961 Unknown [id number] 2.16.8 40.1.940605.3.579.2.72 1961 Unknown [id number] 2.16.8 40.1.885578.3.579.2 1961 Unknown [id number] 2.16.8 [id number] 1961 Unknown [id number] 2.16.8 40.1.481973.3.579.2.727 Medicaid [employer] [id number] Unknown [id number] Unknown [id number] 2.16.8 [id number] Unknown [id number] 2.16.8 40.1.143607.3.579.2.531 Unknown [id number] 2.16.8 40.1.164966.3.579.2.531 Unknown [id number] 2.16.8 40.1.263076.3.579.2.531 Unknown [id number] 2.16.8 40.1.266132.3.579.2.531 Unknown [id number] 2.16.8 40.1.255278.3.579.2.531 Unknown [id number] 2.16.8 [id number] Social History Date Type Detail Facility Unknown if ever smoked [facility] Other Sex Assigned At [facility] Start: 06-23-2023 End: 08-12-2024 Tobacco smoking status UTIS Never smoked tobacco (finding) [facility] Start: 1960 Sex Assigned At Male F [facility] Goals Date Patient Goal Desired Activity /State Functional Status Date Assessment Result Facility 08-12-2024 Functional Status N/A [facility] 04-29-2024 Functional Status N/A [facility] 01-28-2024 Functional Status N/A [facility] 01-22-2024 Functional status Patient at Baseline [facility] Work Phone: 01-18-2024 Functional status Patient at Baseline [facility] Work Phone: 10-01-2023 Functional Status N/A [facility] [place] Mental Status Date Assessment Result Facility 01-22-2024 Cognitive function Cognitive Sta tus Patient at Baseline [place] Work Phone: 01-18-2024 Cognitive function Cognitive Sta tus Patient at Baseline [place] Work Phone: Clinical Notes 04-16-2014 to 08-12-2024 Note Date & Type Note Facility 08-12-2024 Hospital Discharge instructions Patient Education 08/12/2024 08:07:12 Prostate Cancer Screening Prostate Cancer Screening Prostate cancer screening is testing that is done to check for the presence of prostate cancer in men. The prostate gland is a walnut-sized gland that is located below the bladder and in front of the rectum in males. The function of the prostate is to add fluid to semen during ejaculation. Prostate cancer is one of the most common types of cancer in men. Who should have prostate cancer screening? Screening recommendations vary based on age and other risk factors, as well as between the professional organizations who make the recommendations. In general, screening is recommended if: You are age 50 to 70 and have an average risk for prostate cancer. You should talk with your health care provider about your need for screening and how often screening should be done. Because most prostate cancers are slow growing and will not cause , screening in this age group is generally reserved for men who have a 10- to 15-year life expectancy. You are younger than age 50, and you have these risk factors: ?Having a father, brother, or uncle who has been diagnosed with prostate cancer. The risk is higher if your family member's cancer occurred at an early age or if you have multiple family members with prostate cancer at an early age. ?Being a male who is Black or is of [place] or sub-Saharan descent. In general, screening is not recommended if: You are younger than age 40. You are between the ages of 40 and 49 and you have no risk factors. You are 70 years of age or older. At this age, the risks that screening can cause are greater than the benefits that it may provide. If you are at high risk for prostate cancer, your health care provider may recommend that you have screenings more often or that you start screening at a younger age. How is screening for prostate cancer done? The recommended prostate cancer screening test is a blood test called the prostate-specific antigen (PSA) test. PSA is a protein that is made in the prostate. As you age, your prostate naturally produces more PSA. Abnormally high PSA levels may be caused by: Prostate cancer. An enlarged prostate that is not caused by cancer (benign prostatic hyperplasia, or BPH). This condition is very common in older men. A prostate gland infection (prostatitis) or urinary tract infection. Certain medicines such as male hormones (like testosterone) or other medicines that raise testosterone levels. A rectal exam may be done as part of prostate cancer screening to help provide information about the size of your prostate gland. When a rectal exam is performed, it should be done after the PSA level is drawn to avoid any effect on the results. Depending on the PSA results, you may need more tests, such as: A physical exam to check the size of your prostate gland, if not done as part of screening. Blood and imaging tests. A procedure to remove tissue samples from your prostate gland for testing (biopsy). This is the only way to know for certain if you have prostate cancer. What are the benefits of prostate cancer screening? Screening can help to identify cancer at an early stage, before symptoms start and when the cancer can be treated more easily. There is a small chance that screening may lower your risk of dying from prostate cancer. The chance is small because prostate cancer is a slow-growing cancer, and most men with prostate cancer from a different cause. What are the risks of prostate cancer screening? The main risk of prostate cancer screening is diagnosing and treating prostate cancer that would never have caused any symptoms or problems. This is called overdiagnosisand overtreatment. PSA screening cannot tell you if your PSA is high due to cancer or a different cause. A prostate biopsy is the only procedure to diagnose prostate cancer. Even the results of a biopsy may not tell you if your cancer needs to be treated. Slow-growing prostate cancer may not need any treatment other than monitoring, so diagnosing and treating it may cause unnecessary stress or other side effects. Questions to ask your health care provider When should I start prostate cancer screening? What is my risk for prostate cancer? How often do I need screening? What type of screening tests do I need? How do I get my test results? What do my results mean? Do I need treatment? Where to find more information The [place] [employer]: www.cancer.org [place] [employer]: www.auanet.org Contact a health care provider if: You have difficulty urinating. You have pain when you urinate or ejaculate. You have blood in your urine or semen. You have pain in your back or in the area of your prostate. Summary Prostate cancer is a common type of cancer in men. The prostate gland is located below the bladder and in front of the rectum. This gland adds fluid to semen during ejaculation. Prostate cancer screening may identify cancer at an early stage, when the cancer can be treated more easily and is less likely to have spread to other areas of the body. The prostate-specific antigen (PSA) test is the recommended screening test for prostate cancer, but it has associated risks. Discuss the risks and benefits of prostate cancer screening with your health care provider. If you are age 70 or older, the risks that screening can cause are greater than the benefits that it may provide. This information is not intended to replace advice given to you by your health care provider. Make sure you discuss any questions you have with your health care provider. Document Revised: 02/26/2022 Document Reviewed: 02/26/2022 [employer] Patient Education 2023 [employer]. Follow Up Care 04/29/2024 16:02:50 With:MICHAEL ALFONSO, Yousuf Scott, URL Address: [address] [place], [place] [id number]- When: Unknown [facility] 08-12-2024 Note Patient Education Oncology Prostate Cancer Screening Prostate cancer screening is testing that is done to check for the presence of prostate cancer in men. The prostate gland is a walnut-sized gland that is located below the bladder and in front of the rectum in males. The function of the prostate is to add fluid to semen during ejaculation. Prostate cancer is one of the most common types of cancer in men. Who should have prostate cancer screening? Screening recommendations vary based on age and other risk factors, as well as between the professional organizations who make the recommendations. In general, screening is recommended if: ??? You are age 50 to 70 and have an average risk for prostate cancer. You should talk with your health care provider about your need for screening and how often screening should be done. Because most prostate cancers are slow growing and will not cause , screening in this age group is generally reserved for men who have a 10- to 15-year life expectancy. ??? You are younger than age 50, and you have these risk factors: ? Having a father, brother, or uncle who has been diagnosed with prostate cancer. The risk is higher if your family member's cancer occurred at an early age or if you have multiple family members with prostate cancer at an early age. ? Being a male who is Black or is of [place] or sub-Saharan descent. In general, screening is not recommended if: ??? You are younger than age 40. ??? You are between the ages of 40 and 49 and you have no risk factors. ??? You are 70 years of age or older. At this age, the risks that screening can cause are greater than the benefits that it may provide. If you are at high risk for prostate cancer, your health care provider may recommend that you have screenings more often or that you start screening at a younger age. How is screening for prostate cancer done? The recommended prostate cancer screening test is a blood test called the prostate-specific antigen (PSA) test. PSA is a protein that is made in the prostate. As you age, your prostate naturally produces more PSA. Abnormally high PSA levels may be caused by: ??? Prostate cancer. ??? An enlarged prostate that is not caused by cancer (benign prostatic hyperplasia, or BPH). This condition is very common in older men. ??? A prostate gland infection (prostatitis) or urinary tract infection. ??? Certain medicines such as male hormones (like testosterone) or other medicines that raise testosterone levels. A rectal exam may be done as part of prostate cancer screening to help provide information about the size of your prostate gland. When a rectal exam is performed, it should be done after the PSA level is drawn to avoid any effect on the results. Depending on the PSA results, you may need more tests, such as: ??? A physical exam to check the size of your prostate gland, if not done as part of screening. ??? Blood and imaging tests. ??? A procedure to remove tissue samples from your prostate gland for testing (biopsy). This is the only way to know for certain if you have prostate cancer. What are the benefits of prostate cancer screening? Screening can help to identify cancer at an early stage, before symptoms start and when the cancer can be treated more easily. ??? There is a small chance that screening may lower your risk of dying from prostate cancer. The chance is small because prostate cancer is a slow-growing cancer, and most men with prostate cancer from a different cause. What are the risks of prostate cancer screening? The main risk of prostate cancer screening is diagnosing and treating prostate cancer that would never have caused any symptoms or problems. This is called overdiagnosisand overtreatment. PSA screening cannot tell you if your PSA is high due to cancer or a different cause. A prostate biopsy is the only procedure to diagnose prostate cancer. Even the results of a biopsy may not tell you if your cancer needs to be treated. Slow-growing prostate cancer may not need any treatment other than monitoring, so diagnosing and treating it may cause unnecessary stress or other side effects. Questions to ask your health care provider ??? When should I start prostate cancer screening? What is my risk for prostate cancer? How often do I need screening? What type of screening tests do I need? How do I get my test results? What do my results mean? Do I need treatment? Where to find more information ??? The [place] [employer]: www.cancer.org ??? [place] [employer]: www.auanet.org Contact a health care provider if: ??? You have difficulty urinating. ??? You have pain when you urinate or ejaculate. ??? You have blood in your urine or semen. ??? You have pain in your back or in the area of your prostate. Summary ??? Prostate cancer is a common type of cancer in men. The prostate gland (more content not included)... [facility] 04-29-2024 Hospital Discharge instructions Patient Education 04/29/2024 15:48:15 Prostate Cancer Screening Prostate Cancer Screening Prostate cancer screening is testing that is done to check for the presence of prostate cancer in men. The prostate gland is a walnut-sized gland that is located below the bladder and in front of the rectum in males. The function of the prostate is to add fluid to semen during ejaculation. Prostate cancer is one of the most common types of cancer in men. Who should have prostate cancer screening? Screening recommendations vary based on age and other risk factors, as well as between the professional organizations who make the recommendations. In general, screening is recommended if: You are age 50 to 70 and have an average risk for prostate cancer. You should talk with your health care provider about your need for screening and how often screening should be done. Because most prostate cancers are slow growing and will not cause , screening in this age group is generally reserved for men who have a 10- to 15-year life expectancy. You are younger than age 50, and you have these risk factors: ?Having a father, brother, or uncle who has been diagnosed with prostate cancer. The risk is higher if your family member's cancer occurred at an early age or if you have multiple family members with prostate cancer at an early age. ?Being a male who is Black or is of [place] or sub-Saharan descent. In general, screening is not recommended if: You are younger than age 40. You are between the ages of 40 and 49 and you have no risk factors. You are 70 years of age or older. At this age, the risks that screening can cause are greater than the benefits that it may provide. If you are at high risk for prostate cancer, your health care provider may recommend that you have screenings more often or that you start screening at a younger age. How is screening for prostate cancer done? The recommended prostate cancer screening test is a blood test called the prostate-specific antigen (PSA) test. PSA is a protein that is made in the prostate. As you age, your prostate naturally produces more PSA. Abnormally high PSA levels may be caused by: Prostate cancer. An enlarged prostate that is not caused by cancer (benign prostatic hyperplasia, or BPH). This condition is very common in older men. A prostate gland infection (prostatitis) or urinary tract infection. Certain medicines such as male hormones (like testosterone) or other medicines that raise testosterone levels. A rectal exam may be done as part of prostate cancer screening to help provide information about the size of your prostate gland. When a rectal exam is performed, it should be done after the PSA level is drawn to avoid any effect on the results. Depending on the PSA results, you may need more tests, such as: A physical exam to check the size of your prostate gland, if not done as part of screening. Blood and imaging tests. A procedure to remove tissue samples from your prostate gland for testing (biopsy). This is the only way to know for certain if you have prostate cancer. What are the benefits of prostate cancer screening? Screening can help to identify cancer at an early stage, before symptoms start and when the cancer can be treated more easily. There is a small chance that screening may lower your risk of dying from prostate cancer. The chance is small because prostate cancer is a slow-growing cancer, and most men with prostate cancer from a different cause. What are the risks of prostate cancer screening? The main risk of prostate cancer screening is diagnosing and treating prostate cancer that would never have caused any symptoms or problems. This is called overdiagnosisand overtreatment. PSA screening cannot tell you if your PSA is high due to cancer or a different cause. A prostate biopsy is the only procedure to diagnose prostate cancer. Even the results of a biopsy may not tell you if your cancer needs to be treated. Slow-growing prostate cancer may not need any treatment other than monitoring, so diagnosing and treating it may cause unnecessary stress or other side effects. Questions to ask your health care provider When should I start prostate cancer screening? What is my risk for prostate cancer? How often do I need screening? What type of screening tests do I need? How do I get my test results? What do my results mean? Do I need treatment? Where to find more information The [place] [employer]: www.cancer.org [employer]: www.auanet.org Contact a health care provider if: You have difficulty urinating. You have pain when you urinate or ejaculate. You have blood in your urine or semen. You have pain in your back or in the area of your prostate. Summary Prostate cancer is a common type of cancer in men. The prostate gland is located below the bladder and in front of the rectum. This gland adds fluid to semen during ejaculation. Prostate cancer screening may identify cancer at an early stage, when the cancer can be treated more easily and is less likely to have spread to other areas of the body. The prostate-specific antigen (PSA) test is the recommended screening test for prostate cancer, but it has associated risks. Discuss the risks and benefits of prostate cancer screening with your health care provider. If you are age 70 or older, the risks that screening can cause are greater than the benefits that it may provide. This information is not intended to replace advice given to you by your health care provider. Make sure you discuss any questions you have with your health care provider. Document Revised: 02/26/2022 Document Reviewed: 02/26/2022 [employer] Patient Education 2022 [employer]. Follow Up Care 04/24/2024 11:54:36 With:MICHAEL ALFONSO, Yousuf Scott, URL Address: [facility] [employer] [address] [place] [id number]- When: Unknown [facility] 04-29-2024 Note Patient Education Oncology Prostate Cancer Screening Prostate cancer screening is testing that is done to check for the presence of prostate cancer in men. The prostate gland is a walnut-sized gland that is located below the bladder and in front of the rectum in males. The function of the prostate is to add fluid to semen during ejaculation. Prostate cancer is one of the most common types of cancer in men. Who should have prostate cancer screening? Screening recommendations vary based on age and other risk factors, as well as between the professional organizations who make the recommendations. In general, screening is recommended if: ? You are age 50 to 70 and have an average risk for prostate cancer. You should talk with your health care provider about your need for screening and how often screening should be done. Because most prostate cancers are slow growing and will not cause , screening in this age group is generally reserved for men who have a 10- to 15-year life expectancy. ? You are younger than age 50, and you have these risk factors: ? Having a father, brother, or uncle who has been diagnosed with prostate cancer. The risk is higher if your family member's cancer occurred at an early age or if you have multiple family members with prostate cancer at an early age. ? Being a male who is Black or is of [place] or sub-Saharan descent. In general, screening is not recommended if: ? You are younger than age 40. ? You are between the ages of 40 and 49 and you have no risk factors. ? You are 70 years of age or older. At this age, the risks that screening can cause are greater than the benefits that it may provide. If you are at high risk for prostate cancer, your health care provider may recommend that you have screenings more often or that you start screening at a younger age. How is screening for prostate cancer done? The recommended prostate cancer screening test is a blood test called the prostate-specific antigen (PSA) test. PSA is a protein that is made in the prostate. As you age, your prostate naturally produces more PSA. Abnormally high PSA levels may be caused by: ? Prostate cancer. ? An enlarged prostate that is not caused by cancer (benign prostatic hyperplasia, or BPH). This condition is very common in older men. ? A prostate gland infection (prostatitis) or urinary tract infection. ? Certain medicines such as male hormones (like testosterone) or other medicines that raise testosterone levels. A rectal exam may be done as part of prostate cancer screening to help provide information about the size of your prostate gland. When a rectal exam is performed, it should be done after the PSA level is drawn to avoid any effect on the results. Depending on the PSA results, you may need more tests, such as: ? A physical exam to check the size of your prostate gland, if not done as part of screening. ? Blood and imaging tests. ? A procedure to remove tissue samples from your prostate gland for testing (biopsy). This is the only way to know for certain if you have prostate cancer. What are the benefits of prostate cancer screening? ? Screening can help to identify cancer at an early stage, before symptoms start and when the cancer can be treated more easily. ? There is a small chance that screening may lower your risk of dying from prostate cancer. The chance is small because prostate cancer is a slow-growing cancer, and most men with prostate cancer from a different cause. What are the risks of prostate cancer screening? The main risk of prostate cancer screening is diagnosing and treating prostate cancer that would never have caused any symptoms or problems. This is called overdiagnosisand overtreatment. PSA screening cannot tell you if your PSA is high due to cancer or a different cause. A prostate biopsy is the only procedure to diagnose prostate cancer. Even the results of a biopsy may not tell you if your cancer needs to be treated. Slow-growing prostate cancer may not need any treatment other than monitoring, so diagnosing and treating it may cause unnecessary stress or other side effects. Questions to ask your health care provider ? When should I start prostate cancer screening? ? What is my risk for prostate cancer? ? How often do I need screening? ? What type of screening tests do I need? ? How do I get my test results? ? What do my results mean? ? Do I need treatment? Where to find more information ? The [place] [employer]: www.cancer.org ? [employer] [employer]: www.auanet.org Contact a health care provider if: ? You have difficulty urinating. ? You have pain when you urinate or ejaculate. ? You have blood in your urine or semen. ? You have pain in your back or in the area of your prostate. Summary ? Prostate cancer is a common type of cancer in men. The prostate gland is located below the bladder and in front of the rectum. (more content not included)... [facility] 01-28-2024 Hospital Discharge instructions Patient Education 01/28/2024 08:59:52 Prostate Cancer Screening Prostate Cancer Screening Prostate cancer screening is testing that is done to check for the presence of prostate cancer in men. The prostate gland is a walnut-sized gland that is located below the bladder and in front of the rectum in males. The function of the prostate is to add fluid to semen during ejaculation. Prostate cancer is one of the most common types of cancer in men. Who should have prostate cancer screening? Screening recommendations vary based on age and other risk factors, as well as between the professional organizations who make the recommendations. In general, screening is recommended if: You are age 50 to 70 and have an average risk for prostate cancer. You should talk with your health care provider about your need for screening and how often screening should be done. Because most prostate cancers are slow growing and will not cause , screening in this age group is generally reserved for men who have a 10- to 15-year life expectancy. You are younger than age 50, and you have these risk factors: ?Having a father, brother, or uncle who has been diagnosed with prostate cancer. The risk is higher if your family member's cancer occurred at an early age or if you have multiple family members with prostate cancer at an early age. ?Being a male who is Black or is of [place] or sub-Saharan descent. In general, screening is not recommended if: You are younger than age 40. You are between the ages of 40 and 49 and you have no risk factors. You are 70 years of age or older. At this age, the risks that screening can cause are greater than the benefits that it may provide. If you are at high risk for prostate cancer, your health care provider may recommend that you have screenings more often or that you start screening at a younger age. How is screening for prostate cancer done? The recommended prostate cancer screening test is a blood test called the prostate-specific antigen (PSA) test. PSA is a protein that is made in the prostate. As you age, your prostate naturally produces more PSA. Abnormally high PSA levels may be caused by: Prostate cancer. An enlarged prostate that is not caused by cancer (benign prostatic hyperplasia, or BPH). This condition is very common in older men. A prostate gland infection (prostatitis) or urinary tract infection. Certain medicines such as male hormones (like testosterone) or other medicines that raise testosterone levels. A rectal exam may be done as part of prostate cancer screening to help provide information about the size of your prostate gland. When a rectal exam is performed, it should be done after the PSA level is drawn to avoid any effect on the results. Depending on the PSA results, you may need more tests, such as: A physical exam to check the size of your prostate gland, if not done as part of screening. Blood and imaging tests. A procedure to remove tissue samples from your prostate gland for testing (biopsy). This is the only way to know for certain if you have prostate cancer. What are the benefits of prostate cancer screening? Screening can help to identify cancer at an early stage, before symptoms start and when the cancer can be treated more easily. There is a small chance that screening may lower your risk of dying from prostate cancer. The chance is small because prostate cancer is a slow-growing cancer, and most men with prostate cancer from a different cause. What are the risks of prostate cancer screening? The main risk of prostate cancer screening is diagnosing and treating prostate cancer that would never have caused any symptoms or problems. This is called overdiagnosisand overtreatment. PSA screening cannot tell you if your PSA is high due to cancer or a different cause. A prostate biopsy is the only procedure to diagnose prostate cancer. Even the results of a biopsy may not tell you if your cancer needs to be treated. Slow-growing prostate cancer may not need any treatment other than monitoring, so diagnosing and treating it may cause unnecessary stress or other side effects. Questions to ask your health care provider When should I start prostate cancer screening? What is my risk for prostate cancer? How often do I need screening? What type of screening tests do I need? How do I get my test results? What do my results mean? Do I need treatment? Where to find more information [employer]: www.cancer.org [employer]: www.auanet.org Contact a health care provider if: You have difficulty urinating. You have pain when you urinate or ejaculate. You have blood in your urine or semen. You have pain in your back or in the area of your prostate. Summary Prostate cancer is a common type of cancer in men. The prostate gland is located below the bladder and in front of the rectum. This gland adds fluid to semen during ejaculation. Prostate cancer screening may identify cancer at an early stage, when the cancer can be treated more easily and is less likely to have spread to other areas of the body. The prostate-specific antigen (PSA) test is the recommended screening test for prostate cancer, but it has associated risks. Discuss the risks and benefits of prostate cancer screening with your health care provider. If you are age 70 or older, the risks that screening can cause are greater than the benefits that it may provide. This information is not intended to replace advice given to you by your health care provider. Make sure you discuss any questions you have with your health care provider. Document Revised: 02/26/2022 Document Reviewed: 02/26/2022 [employer] Patient Education 2022 [employer]. Follow Up Care 11/15/2023 11:05:51 With:MICHAEL ALFONSO, Yousuf Scott, URL Address: [address] [place] [address]- When: Unknown [facility] 01-27-2024 Note [id number] [facility] 01-22-2024 Progress note Note Date/Time January 22, 2024 12:25p m [facility] [address] [place], [place] [id number] Cardiology Progress Note Signed Patient: Larry Mcfaralne#: [id number] : 1960 Acct:[id number] Age/Sex: 63 / M Adm Date: 4 Loc: 4N Room: [id number] Type: ADM IN Attending Dr: Karlos Mauricio MD Copies to: ~ Date of Service: 01/22/2024 Subjective Interval history: Mr. Mcfarlane is a 63 year old male with PMH noted below who presented on 01/17 with chills and hematuria after prostate biopsy and was found to have Ecoli septicemia secondary to UTI/Acute prostatitis. He was started on Rocephin and was doing relatively well until yesterday-01/19 when he was noted to go into Afib with RVR on telemetry. Pt denies chest pain, dyspnea, palpitations, light headedness or syncope. He was started on BB and HR is better controlled but remains in Afib. Pt does describe having a history of Afib in his 20s that was transient and did not need medication or ablation. He has not had any recurrences since. He does report possible JARROD but has never had a sleep study. TSH wnl ECHO shows EF of 60-65% with borderline aortic root dilatation; mildly dilated left atrium and mild concentric LVH. Pt was in Afib throughout the study. Interim evaluation 01/22/2024: Review of telemetry shows runs of RVR this am up [id number]. He denies palpitations, chest pain, light headedness or shortness of breath. He would like to be discharged today as he is back to work tomorrow. Exam Physical Exam Vital Signs: Temp Pulse Resp BP Pulse Ox O2 Del Method O2 Flow Rate 97.8 F 85 18 120/83 97 Room Air 2 01/22/24 11:44 01/22/24 11:44 01/22/24 11:44 01/22/24 11:44 01/22/24 11:44 01/22/24 11:44 01/20/24 08:31 Narrative: GEN: AAOx3. No acute distress. Neck: No JVD. Lungs: Clear to auscultation bilaterally Heart: Irregularly irregular. Tachycardic; Normal S1 and S2. No murmurs or rubsappreciated. Abdomen: Soft, nontender, nondistended, bowel sounds present. Extremities: No BLE edema. Neuro: AAOx3. No focal deficits. Objective Labs 01/21/24 06:20 01/22/24 06:37 Labs: Laboratory Results - last 24 hr 01/22/24 06:37 PHA Creatinine Clear 66.58 Sodium 138 Potassium 4.1 Chloride 102 Carbon Dioxide 28.2 Anion Gap 11.9 BUN 34 H Creatinine 1.37 H Est GFR (CKD-EPI) 58.325 Glucose 106 H Calcium 9.3 A&P - Cardiology (1) Paroxysmal atrial fibrillation with rapid ventricular response: Code(s): I48.0 - Paroxysmal atrial fibrillation (2) Hyperlipemia: Code(s): E78.5 - Hyperlipidemia, unspecified (3) Sepsis: Code(s): A41.9 - Sepsis, unspecified organism (4) Aorta aneurysm: Code(s): I71.9 - Aortic aneurysm of unspecified site, without rupture (5) Congenital small kidney: Code(s): Q60.5 - Renal hypoplasia, unspecified Plan Mr. Mcfarlane is a 63 year old male with PMH noted above who presented on 01/17 with chills and hematuria after prostate biopsy and was found to have Ecoli septicemia secondary to UTI/Acute prostatitis. He was started on Rocephin and was doing relatively well until yesterday-01/19 when he was noted to go into Afib with RVR on telemetry. ECHO shows EF of 60-65% with borderline aortic root dilatation; mildly dilated left atrium and mild concentric LVH. Pt was in Afib throughout the study. Assessment: Paroxysmal Atrial fibrillation- CHADSVASc=0 Ecoli septicemia HLD Recommendations: - Pt has intermittent episodes of RVR with HRs up to 170bpm - Will uptitrate Toprol to 75mg BID. - Continue rate control strategy in the setting of sepsis. If remains in Afib once sepsis treatment is completed, will plan for outpatient DCCV. - No indication for anticoagulation - Sleep study referral as outpatient to r/o JARROD. - Will arrange for 2 week follow up with [facility] cardiology. Documented By: Michelle Pressley MD 01/22/24 1229 Signed By: <Electronically signed by Michelle Pressley MD> 01/22/24 [address] [place] Work Phone: 1(690) 731-604605-08-2024 Discharge summary Author Karlos Mauricio [facility] January 24, 2024 12:56pm Note Date/Time January 22, 2024 11:45a m [facility] [address] [place] [address] Discharge Summary Signed with Addenda Patient: Larry Mcfarlane#: [id number] : 1960 Acct:[id number] Age/Sex: 63 / M Adm Date: 4 Loc: 4 Room: 9F6350-[address]: Karlos Mauricio MD Copies to: MD Bernardo Smith,DO~ ADDENDUM1 Acute diastolic CHF Addendum Documented By: Karlos Mauricio MD 01/24/24 1256 Addendum Signed By: <Electronically signed by Karlos Mauricio MD> 01/24/24 1256 Providers Date of Discharge: 01/22/24 Discharging Provider: Karlos Mauricio Primary Care Provider: Bernardo Torrez Consults: 01/21/24 11:00 Consult to Cardiology Routine Comment: Sent from on charge phone Consulting Provider: [facility] - Cardiology Reason For Exam: afib Has Provider Been Notified: Yes Date of Notification: 01/21/24 Time of Notification: 11:19 Discharge Diagnosis (1) Paroxysmal atrial fibrillation with rapid ventricular response: (2) Hyperlipemia: (3) Sepsis: (4) Aorta aneurysm: (5) Congenital small kidney: Final Diagnosis Final Discharge Diagnosis: as above Summary Hospital Course Hospital course: This is a 63-year-old man who had a prostate biopsy done a little bit more than 24 hours before he presented to emergency room on . He woke up during the daytime and was having a moderate amount of hematuria which she was told to expect. He had been taking his perioperative ciprofloxacin pills at home. He began having episodes of severe shaking and chills. With this he did have nausea and vomiting. He said that his entire body hurts because it was shaking so hard. He says this is one of the most painful things that he is ever experienced. He was buried under blankets and could not warm up. His found him to be soaked with diaphoretic sweat. He felt lightheaded and dizzy with this. When his decided to bring him to the hospital he felt so weak and so sore from all of this that he could barely make it out of bed. In the emergency room his white blood count was found to be high at 15.1 and hisneutrophil count high at 13.4 in the monocyte distribution with elevated at 25.38. His heart rate when he came in was about 135 bpm. That heart rate did improve after IV fluids were given. He did get a CT scan of the abdomen and pelvis and the overnight read is pending. Urinalysis demonstrates white blood cells and leukocyte esterase and positive nitrite and innumerable red blood cells which is anticipated after the prostate biopsy. He had blood cultures x 2taken was given 2 L of IV fluid and IV vancomycin as well as IV meropenem. When I see the patient emergency room he is feeling much better. He is no longer having chills or fevers. He he is ready to try to eat a little bit. He no longer has as much nausea and does not feel like he is going to vomit. He says that he is having a lot of increased heartburn. Assessment and plan E. coli septicemia secondary to UTI/Acute prostatitis Acute prostatitis UTI E. coli Seen and examined Clinically better No headache No fever No Leukocytosis Blood cultures grew Ecoli Urine culture grew Ecoli Rocephin 2g IV daily Discharged on Keflex 500 mg 3 times daily for 7 days Headache: Resolved Acute renal failure: Resolved Acute CHF : waiting echocardiogram Afib: Lopressor BID Echocardiogram Mild concentric left ventricular hypertrophy. Ejection Fraction = 60-65%. The left atrium appears mildly dilated. Borderline aortic root dilatation. The patient was in atrial fibrillation through out the study. There is no prior echocardiogram noted for this patient. Cardiology seen him Toprol-XL 25 p.o. twice No indication for anticoagulation at this time Consider cardioversion as outpatient DC planning : home tomorrow On keflex PO for another 7 days Time Spent with Patient Time spent providing/coordinating discharge services (# min): 35 Discharge Plan Discharge Plan Patient Disposition: Home Activity: No Activity Restriction Diet: Regular Instructions: Sepsis in adults, Bacterial prostatitis, Urinary Tract Infection,Adult ED Stand Alone Forms: Work/School Release Form Prescriptions: New metoprolol succinate 25 mg Tablet Extended Release 24 Hr 25 mg PO BID Qty: 60 1RF cephalexin 500 mg capsule 500 mg PO TID 7 Days Qty: 21 0RF Continued esomeprazole magnesium [Nexium] 40 mg Capsule,Delayed Release(Dr/Ec) 40 mg PO DAILY PRN (Reason: gerd) Discontinued ciprofloxacin HCl 500 mg tablet 500 mg PO BID Follow Up: Bernardo Torrez DO [Primary Care Provider] - (The office is aware of your hospital stay and need for follow up, the office will call you to schedule. Please call the office if you have not heard from them by the next business day.) Exam Physical Exam Vital Signs: Temp Pulse Resp BP Pulse Ox O2 Del Method O2 Flow Rate 97.7 F 49 L 12 120/79 99 Room Air 2 01/22/24 08:07 01/22/24 08:07 01/22/24 04:00 01/22/24 08:07 01/22/24 08:07 01/22/24 08:07 01/20/24 08:31 Narrative: General patient laying in bed in no acute distress alert awake oriented x3 HEENT PERRLA Neck supple no JVD no carotid bruit CVS S1-S2 regular rate and rhythm no murmur no gallop Chest clear to auscultation percussion Abdomen soft bowel sounds normoactive no rebound no guarding Extremities no stenosis no clubbing no edema Musculoskeletal exam normal no joint effusion Neurologic exam oriented x3 alert awake no focal left Psychiatry: Normal insight and judgment Skin: no rash or lesions Diagnostic Studies Completed and Pending Studies Pending studies at discharge: 01/21/24 11:33 Blood Culture Stat Preliminary micro results at discharge 01/21/24 11:33 Blood Culture - Pending Blood - Right Hand 01/21/24 11:28 Blood Culture - Pending Blood - Left Hand Labs on day of discharge: 01/22/24 06:37: PHA Creatinine Clear 66.58, Sodium 138, Potassium 4.1, Chloride 102, Carbon Dioxide 28.2, Anion Gap 11.9, BUN 34 H, Creatinine 1.37 H, Est GFR (CKD- EPI) 58.325, Glucose 106 H, Calcium 9.3 Documented By: Karlos Mauricio MD 01/22/24 114 Signed By: <Electronically signed by Karlos Mauricio MD> 01/22/24 [address] [place] Work Phone: 1(477) 700-122605-07-2024 Consult note Author Michelle Pressley [facility] January 21, 2024 5:05pm Note Date/Time January 21, 2024 4:49pm [facility] [address] [place] [address] Cardiology Consult Note Signed Patient: Larry Mcfarlane#: [id number] : 1960 Acct:[id number] Age/Sex: 63 / M Adm Date: 4 Loc: 4N Room: [address] [place] [address] Type: ADM IN Attending Dr: Karlos Mauricio MD Copies to: MD Bernardo Smith DO Linda Njoroge, MD~ Cardiology HPI History of Present Illness Consult Date: 01/21/24 Reason for Consult: Atrial fibrillation HPI: Mr. Mcfarlane is a 63 year old male with PMH noted below who presented on 01/17 with chills and hematuria after prostate biopsy and was found to have Ecoli septicemia secondary to UTI/Acute prostatitis. He was started on Rocephin and was doing relatively well until yesterday-01/19 when he was noted to go into Afib with RVR on telemetry. Pt denies chest pain, dyspnea, palpitations, light headedness or syncope. He was started on BB and HR is better controlled but remains in Afib. Pt does describe having a history of Afib in his 20s that was transient and did not need medication or ablation. He has not had any recurrences since. He does report possible JARROD but has never had a sleep study. TSH wnl ECHO shows EF of 60-65% with borderline aortic root dilatation; mildly dilated left atrium and mild concentric LVH. Pt was in Afib throughout the study. Review of Systems Review of Systems All other systems reviewed & are negative unless noted below or in HPI [facility] Medical History Colonoscopy refused 04/2014 Elevated PSA Aorta aneurysm Congenital small kidney Gout COVID-19 (~07/11/21) Surgical History H/O prostate biopsy (01/2024) History of surgery on wrist History of left hip replacement Family History Mother COPD (chronic obstructive pulmonary disease) Breast cancer History of heart surgery Father History of heart surgery Prostate cancer Father Cancer Legacy FamHx Problem: Diagnosed with Cancer Mother Cancer Legacy FamHx Problem: Diagnosed with Cancer Heart disease Social History Smoking Status: Never smoker Substance Use Type: None Social History Comments: Patient lives with his two sons, one has Autism, one has Aspergers. Both have had COVID within the last month. Meds Medications and Allergies Allergies aspirin Allergy (Unknown, Verified 01/17/24 20:51) Headache, stomache upset Home Medications esomeprazole magnesium 40 mg capsule,delayed release (Nexium) 40 mg PO DAILY PRNgerd 06/23/23 [History Confirmed 01/17/24] ciprofloxacin HCl 500 mg tablet 500 mg PO BID 01/17/24 [History Confirmed 01/17/24] Exam Physical Exam Vital Signs: Temp Pulse Resp BP Pulse Ox O2 Del Method O2 Flow Rate 97.3 F L 72 18 132/79 97 Room Air 2 01/21/24 16:39 01/21/24 16:39 01/21/24 16:39 01/21/24 16:39 01/21/24 16:39 01/21/24 16:00 01/20/24 08:31 Narrative: GEN: AAOx3. No acute distress. Neck: No JVD. Lungs: Clear to auscultation bilaterally Heart: Irregularly irregular. Normal S1 and S2. No murmurs or rubs appreciated. Abdomen: Soft, nontender, nondistended, bowel sounds present. Extremities: No BLE edema. Neuro: AAOx3. No focal deficits. Results - Cardiology Labs 01/21/24 06:20 01/21/24 06:20 Lab results: CBC 01/21/24 Range/Units 06:20 RBC 6.11 H (3.90-5.60) X10E6/uL Hgb 15.7 (13.0-17.0) g/dL Hct 46.9 (38.8-50.0) % Plt Count 140 L (150-450) x10E3/uL Neut # (Auto) 2.6 (1.8-7.7) x10E3/uL Lymph # (Auto) 1.2 (1.00-4.8) x10E3/uL [place] # (Auto) 1.0 H (0.0-0.8) x10E3/uL Eos # (Auto) 0.2 (0.0-0.45) x10E3/uL Baso # (Auto) 0.0 (0.0-0.2) x10E3/uL Comprehensive Metabolic Panel 01/21/24 Range/Units 06:20 Sodium 137 (136-145) mmol/L Potassium 3.9 (3.5-5.1) mmol/L Chloride 102 (98-107) mmol/L Carbon Dioxide 21.4 (21.0-31.0) mmol/L BUN 29 H (7-25) mg/dL Creatinine 1.19 (0.70-1.30) mg/dL Glucose 109 H (70-100) mg/dL Calcium 9.0 (8.6-10.3) mg/dL Intake and Output 01/21/24 01/21/24 01/21/24 07:59 15:59 23:59 Intake Total 300 / 900 600 / 900 Output Total 700 / 1775 1075 / 1775 Balance -400 / -875 -475 / -875 Intake: Oral 300 / 900 600 / 900 Output: Urine 700 / 1775 1075 / 1775 Other: # Unmeasured Voids 1 # Bowel Movements 1 Weight 102.1 kg Date of Last Bowel Movement 01/17/24 Patient Weight 01/21/24 23:59 Weight 102.1 kg A&P - Cardiology (1) Paroxysmal atrial fibrillation with rapid ventricular response: Code(s): I48.0 - Paroxysmal atrial fibrillation (2) Hyperlipemia: Code(s): E78.5 - Hyperlipidemia, unspecified (3) Sepsis: Code(s): A41.9 - Sepsis, unspecified organism (4) Aorta aneurysm: Code(s): I71.9 - Aortic aneurysm of unspecified site, without rupture (5) Congenital small kidney: Code(s): Q60.5 - Renal hypoplasia, unspecified Plan Mr. Mcfarlane is a 63 year old male with PMH noted above who presented on 01/17 with chills and hematuria after prostate biopsy and was found to have Ecoli septicemia secondary to UTI/Acute prostatitis. He was started on Rocephin and was doing relatively well until yesterday-01/19 when he was noted to go into Afib with RVR on telemetry. ECHO shows EF of 60-65% with borderline aortic root dilatation; mildly dilated left atrium and mild concentric LVH. Pt was in Afib throughout the study. Assessment: Paroxysmal Atrial fibrillation- CHADSVASc=0 Ecoli septicemia HLD Recommendations: Afib likely triggered by Ecoli septicemia. Will pursue rate control strategy fornow and if remains in Afib once sepsis has resolved, will consider DCCV as outpatient - Switch to Toprol 25mg BID and uptitrate as needed for HR goal <20 - No indication for anticoagulation - Sleep study referral as outpatient to r/o JARROD. - Will follow Documented By: Michelle Pressley MD 01/21/24 0349 Signed By: <Electronically signed by Michelle Pressley MD> 01/21/24 [address] [facility] Work Phone: [phone]) 917-464305-07-2024 Progress note Author Karlos Mauricio [facility] January 21, 2024 11:44am Note Date/Time January 21, 2024 11:03a m [facility] [address] [place] [address] Hospitalist Progress Note Signed Patient: Larry Mcfarlane R#: [id number] : 1960 Acct:[id number] Age/Sex: 63 / M Adm Date: 4 Loc: 4N Room: [address] [place] [address] Type: ADM IN Attending Dr: Karlos Mauricio MD Copies to: ~ Date of Service: 01/21/2024 Subjective Subjective Narrative: Seen and examined Clinically better today No headache No nausea or vomiting No fever Still afib with better HR control Exam Physical Exam Vital Signs: Temp Pulse Resp BP Pulse Ox O2 Del Method O2 Flow Rate 98.0 F 70 19 101/73 97 Room Air 2 01/21/24 07:42 01/21/24 07:42 01/21/24 07:42 01/21/24 07:42 01/21/24 07:42 01/21/24 08:13 01/20/24 08:31 Narrative: General patient laying in bed in no acute distress alert awake oriented x3 HEENT PERRLA Neck supple no JVD no carotid bruit CVS S1-S2 regular rate and rhythm no murmur no gallop Chest clear to auscultation percussion Abdomen soft bowel sounds normoactive no rebound no guarding Extremities no stenosis no clubbing no edema Musculoskeletal exam normal no joint effusion Neurologic exam oriented x3 alert awake no focal left Psychiatry: Normal insight and judgment Skin: no rash or lesions Objective Lab Results 01/21/24 06:20 01/21/24 06:20 Microbiology Results Microbiology 01/17/24 22:37 Blood - Right Antecubital Blood Culture - Final Escherichia coli 01/17/24 23:23 Blood - Left Antecubital Blood Culture - Final Escherichia coli 01/17/24 23:23 Blood - Left Antecubital Bacterial ID (NA Multiplex Assay) - Final 01/17/24 23:50 Urine - Voided Urine Culture - Final Escherichia coli Meds Allergies and Active Meds Allergies aspirin Allergy (Unknown, Verified 01/17/24 20:51) Headache, stomache upset Active Meds: Active Medications Generic Name Dose Route Start Last Admin Trade Name Freq PRN Reason Stop Dose Admin Acetaminophen 1,000 mg 01/18/24 09:54 01/20/24 21:01 Acetaminophen 500 Mg Tablet PO 01/17/25 00:53 1,000 mg Q6H PRN Administration Pain or fever Al Hydrox/Mg Hydrox/Simethicone 30 ml 01/18/24 00:54 Mag Hydrox/Al Hydrox/Simeth 30 Ml Udc PO 01/17/25 00:53 Q4H PRN heartburn Ascorbic Acid 1,000 mg 01/18/24 09:00 01/21/24 08:22 Ascorbic Acid 500 Mg Tablet PO 01/17/25 08:59 1,000 mg DAILY CHEIKH Administration Furosemide 40 mg 01/20/24 08:00 01/21/24 08:21 Furosemide 40 Mg/4 Ml Vial IV-PUSH 01/19/25 07:59 40 mg BID@0800,1600 CHEIKH Administration Hydroxyzine Pamoate 25 mg 01/18/24 04:11 01/20/24 21:01 Hydroxyzine Pamoate 25 Mg Capsule PO 01/17/25 04:10 25 mg Q4H PRN Administration muscle spasm Ceftriaxone Sodium 2 gm in 50 mls @ 100 mls/hr 01/19/24 08:00 01/21/24 08:21 Rocephin IV 100 mls/hr Q24H CHEIKH Administration Metoprolol Tartrate 25 mg 01/20/24 18:00 01/21/24 08:22 Metoprolol Tartrate 25 Mg Tablet PO 01/19/25 17:59 25 mg BID CHEIKH Administration Morphine Sulfate 2 mg 01/18/24 04:11 01/20/24 00:58 Morphine Sulfate 2 Mg/Ml Vial IV-PUSH 2 mg Q2H PRN Administration Breakthrough Pain Naproxen 500 mg 01/18/24 09:51 Naproxen 500 Mg Tablet PO 01/17/25 09:50 BID.WITH.MEALS PRN Pain Ondansetron HCl 4 mg 01/18/24 04:38 01/18/24 04:57 Ondansetron 4 Mg/2 Ml Vial IV-PUSH 01/17/25 04:37 4 mg Q4H PRN Administration Nausea OR Vomiting Pantoprazole Sodium 40 mg 01/20/24 09:00 01/21/24 08:21 Pantoprazole 40 Mg Vial IV-PUSH 01/19/25 08:59 40 mg DAILY CHEIKH Administration Rivaroxaban 10 mg 01/20/24 09:00 01/21/24 08:22 Rivaroxaban 10 Mg Tablet PO 01/19/25 08:59 Not Given DAILY CHEIKH Sodium Chloride 0 ml 01/17/24 20:51 01/19/24 08:40 Sodium Chloride 0.9 % 10 Ml Syringe IV-PUSH 01/16/25 20:50 10 ml PRN PRN Administration Flush Sodium Chloride 10 ml 01/18/24 00:27 01/18/24 04:57 Sodium Chloride 0.9 % 10 Ml Syringe IV-PUSH 01/17/25 00:26 10 ml PRN PRN Administration Flush Sodium Chloride 10 ml 01/18/24 00:54 01/19/24 08:40 Sodium Chloride 0.9 % 10 Ml Vial.Pf INJECTION 01/17/25 00:53 10 ml PRN PRN Administration Dilution Sodium Chloride 10 ml 01/18/24 00:54 Sodium Chloride 0.9 % 10 Ml Syringe IV-PUSH 01/17/25 00:53 PRN PRN Flush Sodium Chloride 0 ml 01/18/24 06:00 01/21/24 05:26 Sodium Chloride 0.9 % 10 Ml Syringe IV-PUSH 01/17/25 05:59 Not Given QSHIFT [facility] A&P - Hospitalist Assessment/Plan (1) Sepsis: (2) GERD (gastroesophageal reflux disease): Plan This is a 63-year-old man who had a prostate biopsy done a little bit more than 24 hours before he presented to emergency room on . He woke up during the daytime and was having a moderate amount of hematuria which she was told to expect. He had been taking his perioperative ciprofloxacin pills at home. He began having episodes of severe shaking and chills. With this he did have nausea and vomiting. He said that his entire body hurts because it was shaking so hard. He says this is one of the most painful things that he is ever experienced. He was buried under blankets and could not warm up. His found him to be soaked with diaphoretic sweat. He felt lightheaded and dizzy with this. When his decided to bring him to the hospital he felt so weak and so sore from all of this that he could barely make it out of bed. In the emergency room his white blood count was found to be high at 15.1 and hisneutrophil count high at 13.4 in the monocyte distribution with elevated at 25.38. His heart rate when he came in was about 135 bpm. That heart rate did improve after IV fluids were given. He did get a CT scan of the abdomen and pelvis and the overnight read is pending. Urinalysis demonstrates white blood cells and leukocyte esterase and positive nitrite and innumerable red blood cells which is anticipated after the prostate biopsy. He had blood cultures x 2taken was given 2 L of IV fluid and IV vancomycin as well as IV meropenem. When I see the patient emergency room he is feeling much better. He is no longer having chills or fevers. He he is ready to try to eat a little bit. He no longer has as much nausea and does not feel like he is going to vomit. He says that he is having a lot of increased heartburn. Assessment and plan E. coli septicemia secondary to UTI/Acute prostatitis Acute prostatitis UTI E. coli Seen and examined Clinically better No headache No fever No Leukocytosis Blood cultures grew Ecoli Urine culture grew Ecoli Rocephin 2g IV daily Repeat blood cultures Headache: Resolved Acute renal failure: Resolved Acute CHF : waiting echocardiogram Afib: Lopressor BID Echocardiogram Cardiology consult DC planning : home tomorrow On keflex PO for another 7 days Documented By: Karlos Mauricio MD 01/21/24 1101 Signed By: <Electronically signed by Karlos Mauricio MD> 01/21/24 1144 [facility] Work Phone: [phone] Progress note Author Karlos Mauricio [facility] January 20, 2024 10:58am Note Date/Time January 20, 2024 10:58a m [facility] [address] [place] [address] Hospitalist Progress Note Signed Patient: Larry Mcfarlane R#: [id number] : 1960 Acct:[id number] Age/Sex: 63 / M Adm Date: 4 Loc: 4N Room: [address] [place] [address] Type: ADM IN Attending Dr: Karlos Mauricio MD Copies to: ~ Date of Service: 01/20/2024 Subjective Subjective Narrative: Seen and examined Clinically stable Complain of left temporal headache since yesterday with mild nausea No fever Exam Physical Exam Vital Signs: Temp Pulse Resp BP Pulse Ox O2 Del Method O2 Flow Rate 98.2 F 80 23 131/79 98 Nasal Cannula 2 01/20/24 07:58 01/20/24 07:58 01/20/24 07:58 01/20/24 07:58 01/20/24 07:58 01/20/24 08:31 01/20/24 08:31 Narrative: General patient laying in bed in no acute distress alert awake oriented x3 HEENT PERRLA Neck supple no JVD no carotid bruit CVS S1-S2 regular rate and rhythm no murmur no gallop Chest clear to auscultation percussion Abdomen soft bowel sounds normoactive no rebound no guarding Extremities no stenosis no clubbing no edema Musculoskeletal exam normal no joint effusion Neurologic exam oriented x3 alert awake no focal left Psychiatry: Normal insight and judgment Skin: no rash or lesions Objective Lab Results 01/20/24 06:40 01/20/24 06:41 Microbiology Results Microbiology 01/17/24 22:37 Blood - Right Antecubital Blood Culture - Preliminary Escherichia coli 01/17/24 23:23 Blood - Left Antecubital Blood Culture - Preliminary Escherichia coli 01/17/24 23:23 Blood - Left Antecubital Bacterial ID (NA Multiplex Assay) - Final 01/17/24 23:50 Urine - Voided Urine Culture - Final Escherichia coli Meds Allergies and Active Meds Allergies aspirin Allergy (Unknown, Verified 01/17/24 20:51) Headache, stomache upset Active Meds: Active Medications Generic Name Dose Route Start Last Admin Trade Name Freq PRN Reason Stop Dose Admin Acetaminophen 1,000 mg 01/18/24 09:54 01/19/24 19:23 Acetaminophen 500 Mg Tablet PO 01/17/25 00:53 1,000 mg Q6H PRN Administration Pain or fever Al Hydrox/Mg Hydrox/Simethicone 30 ml 01/18/24 00:54 Mag Hydrox/Al Hydrox/Simeth 30 Ml Udc PO 01/17/25 00:53 Q4H PRN heartburn Ascorbic Acid 1,000 mg 01/18/24 09:00 01/20/24 08:06 Ascorbic Acid 500 Mg Tablet PO 01/17/25 08:59 1,000 mg DAILY CHEIKH Administration Furosemide 40 mg 01/20/24 08:00 01/20/24 08:06 Furosemide 40 Mg/4 Ml Vial IV-PUSH 01/19/25 07:59 40 mg BID@0800,1600 CHEIKH Administration Hydroxyzine Pamoate 25 mg 01/18/24 04:11 01/19/24 03:51 Hydroxyzine Pamoate 25 Mg Capsule PO 01/17/25 04:10 25 mg Q4H PRN Administration muscle spasm Ceftriaxone Sodium 2 gm in 50 mls @ 100 mls/hr 01/19/24 08:00 01/20/24 08:20 Rocephin IV 100 mls/hr Q24H CHEIKH Administration Morphine Sulfate 2 mg 01/18/24 04:11 01/20/24 00:58 Morphine Sulfate 2 Mg/Ml Vial IV-PUSH 2 mg Q2H PRN Administration Breakthrough Pain Naproxen 500 mg 01/18/24 09:51 Naproxen 500 Mg Tablet PO 01/17/25 09:50 BID.WITH.MEALS PRN Pain Ondansetron HCl 4 mg 01/18/24 04:38 01/18/24 04:57 Ondansetron 4 Mg/2 Ml Vial IV-PUSH 01/17/25 04:37 4 mg Q4H PRN Administration Nausea OR Vomiting Pantoprazole Sodium 40 mg 01/20/24 09:00 01/20/24 08:06 Pantoprazole 40 Mg Vial IV-PUSH 01/19/25 08:59 40 mg DAILY CHEIKH Administration Rivaroxaban 10 mg 01/20/24 09:00 01/20/24 10:20 Rivaroxaban 10 Mg Tablet PO 01/19/25 08:59 Not Given DAILY CHEIKH Sodium Chloride 0 ml 01/17/24 20:51 01/19/24 08:40 Sodium Chloride 0.9 % 10 Ml Syringe IV-PUSH 01/16/25 20:50 10 ml PRN PRN Administration Flush Sodium Chloride 10 ml 01/18/24 00:27 01/18/24 04:57 Sodium Chloride 0.9 % 10 Ml Syringe IV-PUSH 01/17/25 00:26 10 ml PRN PRN Administration Flush Sodium Chloride 10 ml 01/18/24 00:54 01/19/24 08:40 Sodium Chloride 0.9 % 10 Ml Vial.Pf INJECTION 01/17/25 00:53 10 ml PRN PRN Administration Dilution Sodium Chloride 10 ml 01/18/24 00:54 Sodium Chloride 0.9 % 10 Ml Syringe IV-PUSH 01/17/25 00:53 PRN PRN Flush Sodium Chloride 0 ml 01/18/24 06:00 01/20/24 07:40 Sodium Chloride 0.9 % 10 Ml Syringe IV-PUSH 01/17/25 05:59 Not Given QSHIFT CHEIKH A&P - Hospitalist Assessment/Plan (1) Sepsis: (2) GERD (gastroesophageal reflux disease): Plan This is a 63-year-old man who had a prostate biopsy done a little bit more than 24 hours before he presented to emergency room on . He woke up during the daytime and was having a moderate amount of hematuria which she was told to expect. He had been taking his perioperative ciprofloxacin pills at home. He began having episodes of severe shaking and chills. With this he did have nausea and vomiting. He said that his entire body hurts because it was shaking so hard. He says this is one of the most painful things that he is ever experienced. He was buried under blankets and could not warm up. His found him to be soaked with diaphoretic sweat. He felt lightheaded and dizzy with this. When his decided to bring him to the hospital he felt so weak and so sore from all of this that he could barely make it out of bed. In the emergency room his white blood count was found to be high at 15.1 and hisneutrophil count high at 13.4 in the monocyte distribution with elevated at 25.38. His heart rate when he came in was about 135 bpm. That heart rate did improve after IV fluids were given. He did get a CT scan of the abdomen and pelvis and the overnight read is pending. Urinalysis demonstrates white blood cells and leukocyte esterase and positive nitrite and innumerable red blood cells which is anticipated after the prostate biopsy. He had blood cultures x 2taken was given 2 L of IV fluid and IV vancomycin as well as IV meropenem. When I see the patient emergency room he is feeling much better. He is no longer having chills or fevers. He he is ready to try to eat a little bit. He no longer has as much nausea and does not feel like he is going to vomit. He says that he is having a lot of increased heartburn. Assessment and plan E. coli septicemia Acute prostatitis UTI E. coli Headache Acute renal failure: Resolved Plan Seen and examined Clinically stable Complain of headache in the left temporal area Toradol 30 mg IV one-time Magnesium IV 2 g 1 to Blood cultures grew E. coli Urine culture grew E. coli Rocephin 2 g daily CBC with differential daily BMP daily Documented By: Karlos Mauricio MD 01/20/24 1050 Signed By: <Electronically signed by Karlos Mauricio MD> 01/20/24 1050 [facility] Work Phone: 1([phone] 523-977705-06-2024 Progress note Author Maikel Palacio [facility] January 20, 2024 6:27am Note Date/Time January 19, 2024 7:54pm [facility] [address] [place] [address] Event Note Signed Patient: Larry Mcfarlane Lopez#: [id number] : 1960 Acct:[id number] Age/Sex: 63 / M Adm Date: 4 Loc: 4N Room: [address] [place] [address] Type: ADM IN Attending Dr: Bhupinder Mcrae MD Copies to: MD Brenardo Boyle DO Kristopher L Lindbloom, DO Rebecca Howard, MD, RES~ Status Event Note Event Note DATE OF EVENT: 01/20/24 TIME OF EVENT: 19:48 EVENT DETAILS: RN reported pt has been feeling poorly, endorsing headache, anxiety, and difficulty breathing. Pt evaluated. He states he has to concentrate on his breathing but is able to get full breaths. Sudden onset about 1 hour prior to evaluation, accompanied by new, dry cough. Denies chest pain or tightness. Endorses localized left temporal headache. Denies palpitations. Focused exam: General: appears fatigued, grimaces from headache CV: regular rate, irregularly irregular rhythm Pulm: labored, deep breathing, CTA Extrem: no calf tenderness, no edema EKG performed and shows new AFib with RVR (rate 102) CXR does appear consistent with possible fluid overload Plan: -Start telemetry -Trial supplemental O2 -stat labs -Lasix 40mg -Hold IV fluids -CTA to rule out PE ++ I personally examined the patient on this day of the encounter. I reviewed the relevant history, performed the murray elements of the physical examination, and coordinated the plan of care and I confirmed the resident's medical documentation as written. - - - Maikel Palacio DO. Internal Medicine + Hospitalist attending physician. TIME W/PATIENT (# MINS): 15 Documented By: Maikel Palacio DO 1944 Signed By: <Electronically signed by Maikel Palacio DO> 01/20/24626 <Electronically signed by MD CORBIN Dinh> 01/19/24 2143 [facility] Work Phone: [phone]) 937-214705-05-2024 Progress note Author Bhupinder Mcrae [facility] January 19, 2024 12:24pm Note Date/Time January 19, 2024 12:24p [facility] [address] [place] [address] Hospitalist Progress Note Signed Patient: Laryr Mcfarlane#: [id number] : 1960 Acct:[id number] Age/Sex: 63 / M Adm Date: 4 Loc: 4N Room: 6L6492-6 Type: ADM IN Attending Dr: Bhupinder Mcrae MD Copies to: ~ Date of Service: 01/19/2024 Subjective Subjective Narrative: Patient is feeling overall better today, although he still 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 Heart is regular Lungs are clear Abdomen soft benign Neurological nonfocal Assessment and plan 1. Prostatitis, sepsis, E. coli bacteremia post prostate biopsy. Continue antimicrobial therapy day #3. Antibiotics narrowed from meropenem to ceftriaxone. Awaiting sensitivities today. Continue IV fluids Continue symptomatic regimen 2. Mild increase in creatinine today. Continue with IV fluids, monitor daily. If he continues to improve and no further chills reported, plan to discharge home tomorrow with oral antimicrobial therapy. SCDs for DVT prophylaxis today, initiate pharmacoprophylaxis with Xarelto tomorrow Exam Physical Exam Vital Signs: Temp Pulse Resp BP Pulse Ox O2 Del Method 98.2 F 76 18 120/70 96 Room Air 01/19/24 08:00 01/19/24 08:00 01/19/24 08:00 01/19/24 08:00 01/19/24 08:00 01/19/24 08:00 Objective Lab Results 01/19/24 03:45 01/19/24 03:45 Microbiology Results Microbiology 01/17/24 23:50 Urine - Voided Urine Culture - Preliminary Gram Negative Bacilli 01/17/24 22:37 Blood - Right Antecubital Blood Culture - Preliminary Escherichia coli 01/17/24 23:23 Blood - Left Antecubital Blood Culture - Preliminary Escherichia coli 01/17/24 23:23 Blood - Left Antecubital Bacterial ID (NA Multiplex Assay) - Final Meds Allergies and Active Meds Allergies aspirin Allergy (Unknown, Verified 01/17/24 20:51) Headache, stomache upset Active Meds: Active Medications Generic Name Dose Route Start Last Admin Trade Name Freq PRN Reason Stop Dose Admin Acetaminophen 1,000 mg 01/18/24 09:54 01/19/24 10:35 Acetaminophen 500 Mg Tablet PO 01/17/25 00:53 1,000 mg Q6H PRN Administration Pain or fever Al Hydrox/Mg Hydrox/Simethicone 30 ml 01/18/24 00:54 Mag Hydrox/Al Hydrox/Simeth 30 Ml Udc PO 01/17/25 00:53 Q4H PRN heartburn Ascorbic Acid 1,000 mg 01/18/24 09:00 01/19/24 08:39 Ascorbic Acid 500 Mg Tablet PO 01/17/25 08:59 1,000 mg DAILY CHEIKH Administration Hydroxyzine Pamoate 25 mg 01/18/24 04:11 01/19/24 03:51 Hydroxyzine Pamoate 25 Mg Capsule PO 01/17/25 04:10 25 mg Q4H PRN Administration muscle spasm Parenteral Electrolytes 1,000 mls @ 100 mls/hr 01/18/24 10:00 01/19/24 07:33 Plasma-Lyte A Ph 7.4 IV 01/17/25 09:59 100 mls/hr .Q10H CHEIKH Infusion Ceftriaxone Sodium 2 gm in 50 mls @ 100 mls/hr 01/19/24 08:00 01/19/24 07:42 Rocephin IV 100 mls/hr Q24H CHEIKH Administration Morphine Sulfate 2 mg 01/18/24 04:11 01/19/24 03:49 Morphine Sulfate 2 Mg/Ml Vial IV-PUSH 2 mg Q2H PRN Administration Breakthrough Pain Naproxen 500 mg 01/18/24 09:51 Naproxen 500 Mg Tablet PO 01/17/25 09:50 BID.WITH.MEALS PRN Pain Ondansetron HCl 4 mg 01/18/24 04:38 01/18/24 04:57 Ondansetron 4 Mg/2 Ml Vial IV-PUSH 01/17/25 04:37 4 mg Q4H PRN Administration Nausea OR Vomiting Pantoprazole Sodium 40 mg 01/20/24 09:00 Pantoprazole 40 Mg Vial IV-PUSH 01/19/25 08:59 DAILY CHEIKH Rivaroxaban 10 mg 01/20/24 09:00 Rivaroxaban 10 Mg Tablet PO 01/19/25 08:59 DAILY CHEIKH Sodium Chloride 0 ml 01/17/24 20:51 01/19/24 08:40 Sodium Chloride 0.9 % 10 Ml Syringe IV-PUSH 01/16/25 20:50 10 ml PRN PRN Administration Flush Sodium Chloride 10 ml 01/18/24 00:27 01/18/24 04:57 Sodium Chloride 0.9 % 10 Ml Syringe IV-PUSH 01/17/25 00:26 10 ml PRN PRN Administration Flush Sodium Chloride 10 ml 01/18/24 00:54 01/19/24 08:40 Sodium Chloride 0.9 % 10 Ml Vial.Pf INJECTION 01/17/25 00:53 10 ml PRN PRN Administration Dilution Sodium Chloride 10 ml 01/18/24 00:54 Sodium Chloride 0.9 % 10 Ml Syringe IV-PUSH 01/17/25 00:53 PRN PRN Flush Sodium Chloride 0 ml 01/18/24 06:00 01/19/24 07:25 Sodium Chloride 0.9 % 10 Ml Syringe IV-PUSH 01/17/25 05:59 Not Given QSHIFT CHEIKH A&P - Hospitalist Assessment/Plan (1) Sepsis: (2) GERD (gastroesophageal reflux disease): Plan \ Documented By: Bhupinder Mcrae MD 01/19/241221 Signed By: <Electronically signed by Bhupinder Mcrae MD> 01/19/24 1224 [place] Work Phone: [phone]) [phone] Progress note Author Bhupinder Mcrae [facility] January 18, 2024 12:05pm Note Date/Time January 18, 2024 11:29a m [facility] [address] [place] [address] Hospitalist Progress Note Signed Patient: Larry Mcfarlane R#: [id number] : 1960 Acct:[id number] Age/Sex: 63 / M Adm Date: 4 Loc: Room: [address] [place] [address] Type: ADM IN Attending Dr: Bhupinder Mcrae MD Copies to: ~ Date of Service: 01/18/2024 Subjective Subjective Narrative: Attending note: I saw the patient personally on the day of encounter. I reviewed the relevant history, and performed the murray elements of the physical examination. I reviewedthe relevant laboratory workup, radiological studies and the current treatment plan. 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 Patient evaluated at bedside. Reported having a few episodes of severe sweats and chills. Recorded temperature of 101.1 this morning. Denies nausea, abdominal pain, chest pain or shortness of breath. History of chronic right hippain with an acute exacerbation and a new left hip pain last night. Pain had subsided some during the evaluation. CT abdomen pelvis was acquired this morning significant for atrophic right kidney, bilateral renal cysts, left nephrolithiasis, and prostate hypertrophy. General: ANO x3, cooperative, appears ill Cardiovascular: Regular rate and rhythm, no rubs murmurs or gallops, Respiratory: Clear to auscultation bilaterally, no rhonchi or wheezing, Abdomen: Soft, nondistended, nontender to palpation Extremities: No edema, no hip joint effusion or acute tenderness to palpation Exam Physical Exam Vital Signs: Temp Pulse Resp BP Pulse Ox O2 Del Method 99.6 F H 85 16 134/70 94 L Room Air 01/18/24 08:43 01/18/24 08:43 01/18/24 05:53 01/18/24 08:43 01/18/24 08:43 01/18/24 08:43 Objective Lab Results 01/18/24 05:17 01/18/24 05:17 Meds Allergies and Active Meds Allergies aspirin Allergy (Unknown, Verified 01/17/24 20:51) Headache, stomache upset Active Meds: Active Medications Generic Name Dose Route Start Last Admin Trade Name Freq PRN Reason Stop Dose Admin Acetaminophen 1,000 mg 01/18/24 09:54 Acetaminophen 500 Mg Tablet PO 01/17/25 00:53 Q6H PRN Pain or fever Al Hydrox/Mg Hydrox/Simethicone 30 ml 01/18/24 00:54 Mag Hydrox/Al Hydrox/Simeth 30 Ml Udc PO 01/17/25 00:53 Q4H PRN heartburn Ascorbic Acid 1,000 mg 01/18/24 09:00 01/18/24 08:40 Ascorbic Acid 500 Mg Tablet PO 01/17/25 08:59 1,000 mg DAILY CHEIKH Administration Hydroxyzine Pamoate 25 mg 01/18/24 04:11 01/18/24 10:58 Hydroxyzine Pamoate 25 Mg Capsule PO 01/17/25 04:10 25 mg Q4H PRN Administration muscle spasm Meropenem 1 gm in 100 mls @ 200 mls/hr 01/18/24 08:30 01/18/24 08:40 Merrem IV 200 mls/hr Q8H CHEIKH Administration Parenteral Electrolytes 1,000 mls @ 75 mls/hr 01/18/24 10:00 01/18/24 10:18 Plasma-Lyte A Ph 7.4 IV 01/17/25 09:59 75 mls/hr .[id number] CHEIKH Administration Morphine Sulfate 2 mg 01/18/24 04:11 01/18/24 10:58 Morphine Sulfate 2 Mg/Ml Vial IV-PUSH 2 mg Q2H PRN Administration Breakthrough Pain Naproxen 500 mg 01/18/24 09:51 Naproxen 500 Mg Tablet PO 01/17/25 09:50 BID.WITH.MEALS PRN Pain Ondansetron HCl 4 mg 01/18/24 04:38 01/18/24 04:57 Ondansetron 4 Mg/2 Ml Vial IV-PUSH 01/17/25 04:37 4 mg Q4H PRN Administration Nausea OR Vomiting Pantoprazole Sodium 40 mg 01/18/24 09:00 01/18/24 09:16 Pantoprazole 40 Mg Vial IV-PUSH 01/17/25 08:59 40 mg BID CHEIKH Administration Rivaroxaban 10 mg 01/19/24 09:00 Rivaroxaban 10 Mg Tablet PO 01/18/25 08:59 DAILY CHEIKH Sodium Chloride 0 ml 01/17/24 20:51 01/18/24 09:17 Sodium Chloride 0.9 % 10 Ml Syringe IV-PUSH 01/16/25 20:50 10 ml PRN PRN Administration Flush Sodium Chloride 10 ml 01/18/24 00:27 01/18/24 04:57 Sodium Chloride 0.9 % 10 Ml Syringe IV-PUSH 01/17/25 00:26 10 ml PRN PRN Administration Flush Sodium Chloride 10 ml 01/18/24 00:54 01/18/24 09:16 Sodium Chloride 0.9 % 10 Ml Vial.Pf INJECTION 01/17/25 00:53 10 ml PRN PRN Administration Dilution Sodium Chloride 10 ml 01/18/24 00:54 Sodium Chloride 0.9 % 10 Ml Syringe IV-PUSH 01/17/25 00:53 PRN PRN Flush Sodium Chloride 0 ml 01/18/24 06:00 01/18/24 05:22 Sodium Chloride 0.9 % 10 Ml Syringe IV-PUSH 01/17/25 05:59 10 ml QSHIFT CHEIKH Administration A&P - Hospitalist Assessment/Plan (1) Sepsis: (2) GERD (gastroesophageal reflux disease): Plan Assessment: Sepsis, with a urinary tract infection, after a prostate biopsy. High likelihood bacteremia, with the possibility of resistant organisms because he was already taking perioperative ciprofloxacin. History of GERD, which seems to be exacerbated by the shaking chills and rigors today. Plan: Hospital admission, inpatient status. Continue IV meropenem, will stop IV Vanco due to unlikelihood of MRSA Await reports from the blood cultures and urine culture. Continue gentle hydration Use IV Protonix and oral Mylanta to reduce his GERD. Hold NSAIDs and anticoagulation per urology recommendation for 5 days status post biopsy Continue acetaminophen as needed for fever and chills Morphine as needed for pain Documented By: Bhupinder Mcrae MD 01/18/24 1119 Signed By: <Electronically signed by Bhupinder Mcrae MD> 01/18/24 1205 <Electronically signed by DO CORBIN Andrew> 01/18/24 1129 [place] Work Phone: [phone]) [phone] History and physical note Author Maikel Palacio [facility] January 18, 2024 6:29am Note Date/Time January 18, 2024 1:03am [facility] [address] [place] [address] Hospitalist H&P Signed with Addenda Patient: Larry Mcfarlane Lopez#: [id number] : 1960 Acct:[id number] Age/Sex: 63 / M Adm Date: 4 Loc: 4N Room: [address] [place] [address] Type: ADM IN Attending Dr: Maikel Palacio DO Copies to: DO Yousuf Venegas MD Kristopher L Lindbloom, ~ ADDENDUM1 Adding an addendum so I can forward this to Dr. Zuñiga's our records for the patient's chart. Addendum Documented By: Maikel Palacio DO 01/18/24628 Addendum Signed By: <Electronically signed by Maikel Palacio DO> 01/18/24 0629 HPI DATE OF EXAMINATION: 01/18/24 CHIEF COMPLAINT: Shaking chills, hematuria, after prostate biopsy. HISTORY OF PRESENT ILLNESS: This is a 63-year-old man who had a prostate biopsy done a little bit more than 24 hours before he presented to emergency room on . He woke up during the daytime and was having a moderate amount of hematuria which she was told to expect. He had been taking his perioperative ciprofloxacin pills at home. He began having episodes of severe shaking and chills. With this he did have nausea and vomiting. He said that his entire body hurts because it was shaking so hard. He says this is one of the most painful things that he is ever experienced. He was buried under blankets and could not warm up. His found him to be soaked with diaphoretic sweat. He felt lightheaded and dizzy with this. When his decided to bring him to the hospital he felt so weak and so sore from all of this that he could barely make it out of bed. In the emergency room his white blood count was found to be high at 15.1 and hisneutrophil count high at 13.4 in the monocyte distribution with elevated at 25.38. His heart rate when he came in was about 135 bpm. That heart rate did improve after IV fluids were given. He did get a CT scan of the abdomen and pelvis and the overnight read is pending. Urinalysis demonstrates white blood cells and leukocyte esterase and positive nitrite and innumerable red blood cells which is anticipated after the prostate biopsy. He had blood cultures x 2taken was given 2 L of IV fluid and IV vancomycin as well as IV meropenem. When I see the patient emergency room he is feeling much better. He is no longer having chills or fevers. He he is ready to try to eat a little bit. He no longer has as much nausea and does not feel like he is going to vomit. He says that he is having a lot of increased heartburn. Review of Systems Review of Systems Review of systems: 10 systems are reviewed and are negative except as mentioned elsewhere in the documentation. [facility] Medical History Colonoscopy refused 04/2014 Elevated PSA Aorta aneurysm Congenital small kidney Gout COVID-19 (~07/11/21) Surgical History H/O prostate biopsy (01/2024) History of surgery on wrist History of left hip replacement Family History Mother COPD (chronic obstructive pulmonary disease) Breast cancer History of heart surgery Father History of heart surgery Prostate cancer Father Cancer Legacy FamHx Problem: Diagnosed with Cancer Mother Cancer Legacy FamHx Problem: Diagnosed with Cancer Heart disease Social History Smoking Status: Never smoker Substance Use Type: None Social History Comments: Patient lives with his two sons, one has Autism, one has Aspergers. Both have had COVID within the last month. Meds Medications and Allergies Allergies aspirin Allergy (Unknown, Verified 01/17/24 20:51) Headache, stomache upset Home Medications esomeprazole magnesium 40 mg capsule,delayed release (Nexium) 40 mg PO DAILY PRNgerd 06/23/23 [History Confirmed 01/17/24] ciprofloxacin HCl 500 mg tablet 500 mg PO BID 01/17/24 [History Confirmed 01/17/24] Exam Physical Exam Vital Signs: Temp Pulse Resp BP Pulse Ox O2 Del Method 98.8 F 90 18 126/64 99 Room Air 01/17/24 20:54 01/18/24 00:28 01/18/24 00:28 01/18/24 00:28 01/18/24 00:28 01/18/24 00:28 Narrative: GEN: Awake, alert, oriented x 3. Head: Normal Cephalic, Atraumatic. Eyes: Conjunctiva and sclera clear bilaterally. Nose: External nose and nares normal bilaterally. Mouth: Lips and tongue normal. Neck: No JVD. No thyromegaly. No lymphadenopathy. Lungs: Clear to auscultation bilaterally, no wheezing, no crackles. Heart: Regular rate and rhythm, no murmurs, rubs, or gallops. Abdomen: Soft, normal bowel sounds, no rigidity, guarding, or acute peritoneal signs. Extremities: No swelling or cords in the calves bilaterally, no edema in the ankles bilaterally. Skin: No systemic rashes or lesions. Psychiatric: Calm. Conversant. Cooperative. Neuro: Awake, Alert, and Oriented x 3. No focal or lateralizing deficits. Results - Hospitalist H&P Lab Results Labs: Laboratory Last Values Corrected WBC 15.1 X10E3/uL (4.1-10.5) H 01/17/24 22:37 Uncorrected WBC Count 15.1 x10E3/uL (4.1-10.5) H 01/17/24 22:37 RBC 6.07 X10E6/uL (3.90-5.60) H 01/17/24 22:37 Hgb 15.5 g/dL (13.0-17.0) 01/17/24 22:37 Hct 46.8 % (38.8-50.0) 01/17/24 22:37 MCV 77.1 fl (83.5-101) L 01/17/24 22:37 MCH 25.6 pg (27.5-35.2) L 01/17/24 22:37 MCHC 33.2 g/dL (32.5-35.6) 01/17/24 22:37 RDW 13.7 % (12.0-14.8) 01/17/24 22:37 Plt Count 177 x10E3/uL (150-450) 01/17/24 22:37 MPV 7.4 fl (6.6-10.1) 01/17/24 22:37 Neut % (Auto) 88.2 % (.) 01/17/24 22:37 Lymph % (Auto) 3.7 % (.) 01/17/24 22:37 [place] % (Auto) 7.7 % (.) 01/17/24 22:37 Eos % (Auto) 0.1 % (.) 01/17/24 22:37 Baso % (Auto) 0.3 % (.) 01/17/24 22:37 Nucleat RBC Rel Count 0.0 /100 WBC (0-0.5) 01/17/24 22:37 Neut # (Auto) 13.4 x10E3/uL (1.8-7.7) H 01/17/24 22:37 Lymph # (Auto) 0.6 x10E3/uL (1.00-4.8) L 01/17/24 22:37 [place] # (Auto) 1.2 x10E3/uL (0.0-0.8) H 01/17/24 22:37 Eos # (Auto) 0.0 x10E3/uL (0.0-0.45) 01/17/24 22:37 Baso # (Auto) 0.0 x10E3/uL (0.0-0.2) 01/17/24 22:37 Monocyte Dist Width 25.38 % (0.00-20.00) H 01/17/24 22:37 PHA Creatinine Clear 70.30 01/17/24 22:37 Sodium 137 mmol/L (136-145) 01/17/24 22:37 Potassium 4.0 mmol/L (3.5-5.1) 01/17/24 22:37 Chloride 106 mmol/L (98-107) 01/17/24 22:37 Carbon Dioxide 21.4 mmol/L (21.0-31.0) 01/17/24 22:37 Anion Gap 13.6 mEq/L (6.0-15.0) 01/17/24 22:37 BUN 21 mg/dL (7-25) 01/17/24 22:37 Creatinine 1.29 mg/dL (0.70-1.30) 01/17/24 22:37 Est GFR (CKD-EPI) > 60.0 mL/Min 01/17/24 22:37 Glucose 124 mg/dL (70-100) H 01/17/24 22:37 Lactic Acid 1.6 mmol/L (0.5-2.2) 01/17/24 22:37 Calcium 9.9 mg/dL (8.6-10.3) 01/17/24 22:37 Total Bilirubin 2.2 mg/dl (0.3-1.0) H 01/17/24 22:37 AST 14 U/L (13-39) 01/17/24 22:37 ALT 13 U/L (7-52) 01/17/24 22:37 Alkaline Phosphatase 62 U/L (34-104) 01/17/24 22:37 Total Protein 7.2 gm/dL (6.4-8.9) 01/17/24 22:37 Albumin 4.7 gm/dL (3.5-5.7) 01/17/24 22:37 Globulin 2.5 gm/dL 01/17/24 22:37 Albumin/Globulin Ratio 1.9 01/17/24 22:37 Urine Color [place] (Yellow) A 01/17/24 23:50 Urine Appearance Cloudy (Clear) A 01/17/24 23:50 Urine pH 5.0 (5.0-9.0) 01/17/24 23:50 Ur Specific [place] 1.024 (1.001-1.030) 01/17/24 23:50 Urine Protein 30 mg/dL (Negative) H 01/17/24 23:50 Urine Glucose (UA) Normal mg/dL (Normal) 01/17/24 23:50 Urine Ketones Trace (Negative) H 01/17/24 23:50 Urine Occult Blood 3+ (Negative) H 01/17/24 23:50 Urine Nitrite Positive (Negative) H 01/17/24 23:50 Urine Bilirubin Negative (Negative) 01/17/24 23:50 Urine Urobilinogen Normal mg/dL (Normal) 01/17/24 23:50 Ur Leukocyte Esterase 3+ (Negative) H 01/17/24 23:50 Urine RBC Innumerable /HPF (0-4) H 01/17/24 23:50 Urine WBC 50-100 /HPF (0-4) H 01/17/24 23:50 Ur Squamous Epith Cells None seen /HPF (0-2) 01/17/24 23:50 Urine Bacteria 4+ /HPF (None Seen) H 01/17/24 23:50 Hyaline Casts 0-8 /LPF (0-8) 01/17/24 23:50 Assessment & Plan Assessment/Plan (1) Sepsis: (2) GERD (gastroesophageal reflux disease): Plan Assessment: Sepsis, with a urinary tract infection, after a prostate biopsy. High likelihood bacteremia, with the possibility of resistant organisms because he was already taking perioperative ciprofloxacin. History of GERD, which seems to be exacerbated by the shaking chills and rigors today. Plan: Hospital admission, inpatient status. Continue IV vancomycin and IV meropenem. Await reports from the blood cultures and urine culture. Use IV Protonix and oral Mylanta to reduce his GERD. IP vs OBS Justification Based on differential dx, clinical care plan, and risk of adverse events, if untreated, in my clinical judgement this patient requires an acute care setting as: INPATIENT because of an expectation of an over 2 midnight stay. Estimated length of stay (# of days): 3 Quality Measures SEPSIS Tissue perfusion reassessment (select if applicable): Tissue perfusion reassessed after bolus given FOCUSED EXAM Capillary refill: Capillary refill < 3 seconds Peripheral pulses: Pulses present bilaterally Skin color/condition: Skin normal for ethnicity Urinary output: Increased output Documented By: Maikel Palacio DO [id number] Signed By: <Electronically signed by Maikel Palacio DO> 01/18/24 0[address] [place] Work Phone: [phone]) 169-315705-04-2024 History and physical note Author Maikel Palacio [facility] January 18, 2024 6:29am Note Date/Time January 18, 2024 1:03am [facility] [address] [place] [address] Hospitalist H&P Signed with Addenda Patient: Larry Mcfarlane#: [id number] : 1960 Acct:[id number] Age/Sex: 63 / M Adm Date: 4 Loc: Room: [address] [place] [address] Type: ADM IN Attending Dr: Maikel Palacio DO Copies to: DO Yousuf Venegas MD Kristopher L Lindbloom, ~ ADDENDUM1 Adding an addendum so I can forward this to Dr. Zuñiga's our records for the patient's chart. Addendum Documented By: Maikel Palacio DO 01/18/24628 Addendum Signed By: <Electronically signed by Maikel Palacio DO> 01/18/24 06 HPI DATE OF EXAMINATION: 01/18/24 CHIEF COMPLAINT: Shaking chills, hematuria, after prostate biopsy. HISTORY OF PRESENT ILLNESS: This is a 63-year-old man who had a prostate biopsy done a little bit more than 24 hours before he presented to emergency room on . He woke up during the daytime and was having a moderate amount of hematuria which she was told to expect. He had been taking his perioperative ciprofloxacin pills at home. He began having episodes of severe shaking and chills. With this he did have nausea and vomiting. He said that his entire body hurts because it was shaking so hard. He says this is one of the most painful things that he is ever experienced. He was buried under blankets and could not warm up. His found him to be soaked with diaphoretic sweat. He felt lightheaded and dizzy with this. When his decided to bring him to the hospital he felt so weak and so sore from all of this that he could barely make it out of bed. In the emergency room his white blood count was found to be high at 15.1 and hisneutrophil count high at 13.4 in the monocyte distribution with elevated at 25.38. His heart rate when he came in was about 135 bpm. That heart rate did improve after IV fluids were given. He did get a CT scan of the abdomen and pelvis and the overnight read is pending. Urinalysis demonstrates white blood cells and leukocyte esterase and positive nitrite and innumerable red blood cells which is anticipated after the prostate biopsy. He had blood cultures x 2taken was given 2 L of IV fluid and IV vancomycin as well as IV meropenem. When I see the patient emergency room he is feeling much better. He is no longer having chills or fevers. He he is ready to try to eat a little bit. He no longer has as much nausea and does not feel like he is going to vomit. He says that he is having a lot of increased heartburn. Review of Systems Review of Systems Review of systems: 10 systems are reviewed and are negative except as mentioned elsewhere in the documentation. [facility] Medical History Colonoscopy refused 04/2014 Elevated PSA Aorta aneurysm Congenital small kidney Gout COVID-19 (~07/11/21) Surgical History H/O prostate biopsy (01/2024) History of surgery on wrist History of left hip replacement Family History Mother COPD (chronic obstructive pulmonary disease) Breast cancer History of heart surgery Father History of heart surgery Prostate cancer Father Cancer Legacy FamHx Problem: Diagnosed with Cancer Mother Cancer Legacy FamHx Problem: Diagnosed with Cancer Heart disease Social History Smoking Status: Never smoker Substance Use Type: None Social History Comments: Patient lives with his two sons, one has Autism, one has Aspergers. Both have had COVID within the last month. Meds Medications and Allergies Allergies aspirin Allergy (Unknown, Verified 01/17/24 20:51) Headache, stomache upset Home Medications esomeprazole magnesium 40 mg capsule,delayed release (Nexium) 40 mg PO DAILY PRNgerd 06/23/23 [History Confirmed 01/17/24] ciprofloxacin HCl 500 mg tablet 500 mg PO BID 01/17/24 [History Confirmed 01/17/24] Exam Physical Exam Vital Signs: Temp Pulse Resp BP Pulse Ox O2 Del Method 98.8 F 90 18 126/64 99 Room Air 01/17/24 20:54 01/18/24 00:28 01/18/24 00:28 01/18/24 00:28 01/18/24 00:28 01/18/24 00:28 Narrative: GEN: Awake, alert, oriented x 3. Head: Normal Cephalic, Atraumatic. Eyes: Conjunctiva and sclera clear bilaterally. Nose: External nose and nares normal bilaterally. Mouth: Lips and tongue normal. Neck: No JVD. No thyromegaly. No lymphadenopathy. Lungs: Clear to auscultation bilaterally, no wheezing, no crackles. Heart: Regular rate and rhythm, no murmurs, rubs, or gallops. Abdomen: Soft, normal bowel sounds, no rigidity, guarding, or acute peritoneal signs. Extremities: No swelling or cords in the calves bilaterally, no edema in the ankles bilaterally. Skin: No systemic rashes or lesions. Psychiatric: Calm. Conversant. Cooperative. Neuro: Awake, Alert, and Oriented x 3. No focal or lateralizing deficits. Results - Hospitalist H&P Lab Results Labs: Laboratory Last Values Corrected WBC 15.1 X10E3/uL (4.1-10.5) H 01/17/24 22:37 Uncorrected WBC Count 15.1 x10E3/uL (4.1-10.5) H 01/17/24 22:37 RBC 6.07 X10E6/uL (3.90-5.60) H 01/17/24 22:37 Hgb 15.5 g/dL (13.0-17.0) 01/17/24 22:37 Hct 46.8 % (38.8-50.0) 01/17/24 22:37 MCV 77.1 fl (83.5-101) L 01/17/24 22:37 MCH 25.6 pg (27.5-35.2) L 01/17/24 22:37 MCHC 33.2 g/dL (32.5-35.6) 01/17/24 22:37 RDW 13.7 % (12.0-14.8) 01/17/24 22:37 Plt Count 177 x10E3/uL (150-450) 01/17/24 22:37 MPV 7.4 fl (6.6-10.1) 01/17/24 22:37 Neut % (Auto) 88.2 % (.) 01/17/24 22:37 Lymph % (Auto) 3.7 % (.) 01/17/24 22:37 [place] % (Auto) 7.7 % (.) 01/17/24 22:37 Eos % (Auto) 0.1 % (.) 01/17/24 22:37 Baso % (Auto) 0.3 % (.) 01/17/24 22:37 Nucleat RBC Rel Count 0.0 /100 WBC (0-0.5) 01/17/24 22:37 Neut # (Auto) 13.4 x10E3/uL (1.8-7.7) H 01/17/24 22:37 Lymph # (Auto) 0.6 x10E3/uL (1.00-4.8) L 01/17/24 22:37 [place] # (Auto) 1.2 x10E3/uL (0.0-0.8) H 01/17/24 22:37 Eos # (Auto) 0.0 x10E3/uL (0.0-0.45) 01/17/24 22:37 Baso # (Auto) 0.0 x10E3/uL (0.0-0.2) 01/17/24 22:37 Monocyte Dist Width 25.38 % (0.00-20.00) H 01/17/24 22:37 PHA Creatinine Clear 70.30 01/17/24 22:37 Sodium 137 mmol/L (136-145) 01/17/24 22:37 Potassium 4.0 mmol/L (3.5-5.1) 01/17/24 22:37 Chloride 106 mmol/L (98-107) 01/17/24 22:37 Carbon Dioxide 21.4 mmol/L (21.0-31.0) 01/17/24 22:37 Anion Gap 13.6 mEq/L (6.0-15.0) 01/17/24 22:37 BUN 21 mg/dL (7-25) 01/17/24 22:37 Creatinine 1.29 mg/dL (0.70-1.30) 01/17/24 22:37 Est GFR (CKD-EPI) > 60.0 mL/Min 01/17/24 22:37 Glucose 124 mg/dL (70-100) H 01/17/24 22:37 Lactic Acid 1.6 mmol/L (0.5-2.2) 01/17/24 22:37 Calcium 9.9 mg/dL (8.6-10.3) 01/17/24 22:37 Total Bilirubin 2.2 mg/dl (0.3-1.0) H 01/17/24 22:37 AST 14 U/L (13-39) 01/17/24 22:37 ALT 13 U/L (7-52) 01/17/24 22:37 Alkaline Phosphatase 62 U/L (34-104) 01/17/24 22:37 Total Protein 7.2 gm/dL (6.4-8.9) 01/17/24 22:37 Albumin 4.7 gm/dL (3.5-5.7) 01/17/24 22:37 Globulin 2.5 gm/dL 01/17/24 22:37 Albumin/Globulin Ratio 1.9 01/17/24 22:37 Urine Color [place] (Yellow) A 01/17/24 23:50 Urine Appearance Cloudy (Clear) A 01/17/24 23:50 Urine pH 5.0 (5.0-9.0) 01/17/24 23:50 Ur Specific [place] 1.024 (1.001-1.030) 01/17/24 23:50 Urine Protein 30 mg/dL (Negative) H 01/17/24 23:50 Urine Glucose (UA) Normal mg/dL (Normal) 01/17/24 23:50 Urine Ketones Trace (Negative) H 01/17/24 23:50 Urine Occult Blood 3+ (Negative) H 01/17/24 23:50 Urine Nitrite Positive (Negative) H 01/17/24 23:50 Urine Bilirubin Negative (Negative) 01/17/24 23:50 Urine Urobilinogen Normal mg/dL (Normal) 01/17/24 23:50 Ur Leukocyte Esterase 3+ (Negative) H 01/17/24 23:50 Urine RBC Innumerable /HPF (0-4) H 01/17/24 23:50 Urine WBC 50-100 /HPF (0-4) H 01/17/24 23:50 Ur Squamous Epith Cells None seen /HPF (0-2) 01/17/24 23:50 Urine Bacteria 4+ /HPF (None Seen) H 01/17/24 23:50 Hyaline Casts 0-8 /LPF (0-8) 01/17/24 23:50 Assessment & Plan Assessment/Plan (1) Sepsis: (2) GERD (gastroesophageal reflux disease): Plan Assessment: Sepsis, with a urinary tract infection, after a prostate biopsy. High likelihood bacteremia, with the possibility of resistant organisms because he was already taking perioperative ciprofloxacin. History of GERD, which seems to be exacerbated by the shaking chills and rigors today. Plan: Hospital admission, inpatient status. Continue IV vancomycin and IV meropenem. Await reports from the blood cultures and urine culture. Use IV Protonix and oral Mylanta to reduce his GERD. IP vs OBS Justification Based on differential dx, clinical care plan, and risk of adverse events, if untreated, in my clinical judgement this patient requires an acute care setting as: INPATIENT because of an expectation of an over 2 midnight stay. Estimated length of stay (# of days): 3 Quality Measures SEPSIS Tissue perfusion reassessment (select if applicable): Tissue perfusion reassessed after bolus given FOCUSED EXAM Capillary refill: Capillary refill < 3 seconds Peripheral pulses: Pulses present bilaterally Skin color/condition: Skin normal for ethnicity Urinary output: Increased output Documented By: Maikel Palacio DO 0058 Signed By: <Electronically signed by Maikel Palacio, DO> 01/18/24 0[address] [place] Work Phone: [phone]) 926-718703-01-2024 Hospital Discharge instructions Follow Up Care 11/15/2023 10:56:52 With:MICHAEL ALFONSO, Yousuf Scott, URL Address: [facility] [address] [place], [place] [id number]- When: Unknown [facility] [id number] Hospital Discharge instructions Patient Education 10/01/2023 09:28:23 Prostate Cancer Screening Prostate Cancer Screening Prostate cancer screening is testing that is done to check for the presence of prostate cancer in men. The prostate gland is a walnut-sized gland that is located below the bladder and in front of therectum in males. The function of the prostate is to add fluid to semen during ejaculation. Prostatecancer is one of the most common types of cancer in men. Who should have prostate cancer screening? Screening recommendations vary based on age and other risk factors, as well as between the professional organizations who make the recommendations. In general, screening is recommended if: You are age 50 to 70 and have an average risk for prostate cancer. You should talk with your healthcare provider about your need for screening and how often screening should be done. Because most prostate cancers are slow growing and will not cause , screening in this age group is generally reserved for men who have a 10- to 15-year life expectancy. You are younger than age 50, and you have these risk factors: ?Having a father, brother, or uncle who has been diagnosed with prostate cancer. The risk is higherif your family member's cancer occurred at an early age or if you have multiple family members withprostate cancer at an early age. ?Being a male who is Black or is of [place] or sub-Saharan descent. In general, screening is not recommended if: You are younger than age 40. You are between the ages of 40 and 49 and you have no risk factors. You are 70 years of age or older. At this age, the risks that screening can cause are greater than the benefits that it may provide. If you are at high risk for prostate cancer, your health care provider may recommend that you have screenings more often or that you start screening at a younger age. How is screening for prostate cancer done? The recommended prostate cancer screening test is a blood test called the prostate-specific antigen(PSA) test. PSA is a protein that is made in the prostate. As you age, your prostate naturally produces more PSA. Abnormally high PSA levels may be caused by: Prostate cancer. An enlarged prostate that is not caused by cancer (benign prostatic hyperplasia, or BPH). This condition is very common in older men. A prostate gland infection (prostatitis) or urinary tract infection. Certain medicines such as male hormones (like testosterone) or other medicines that raise testosterone levels. A rectal exam may be done as part of prostate cancer screening to help provide information about the size of your prostate gland. When a rectal exam is performed, it should be done after the PSA level is drawn to avoid any effect on the results. Depending on the PSA results, you may need more tests, such as: A physical exam to check the size of your prostate gland, if not done as part of screening. Blood and imaging tests. A procedure to remove tissue samples from your prostate gland for testing (biopsy). This is the only way to know for certain if you have prostate cancer. What are the benefits of prostate cancer screening? Screening can help to identify cancer at an early stage, before symptoms start and when the cancer can be treated more easily. There is a small chance that screening may lower your risk of dying from prostate cancer. The chance is small because prostate cancer is a slow-growing cancer, and most men with prostate cancer from a different cause. What are the risks of prostate cancer screening? The main risk of prostate cancer screening is diagnosing and treating prostate cancer that would never have caused any symptoms or problems. This is called overdiagnosisand overtreatment. PSA screening cannot tell you if your PSA is high due to cancer or a different cause. A prostate biopsy is the only procedure to diagnose prostate cancer. Even the results of a biopsy may not tell you if your cancer needs to be treated. Slow-growing prostate cancer may not need any treatment other than monitoring, so diagnosing and treating it may cause unnecessary stress or other side effects. Questions to ask your health care provider When should I start prostate cancer screening? What is my risk for prostate cancer? How often do I need screening? What type of screening tests do I need? How do I get my test results? What do my results mean? Do I need treatment? Where to find more information The [place] [employer]: www.cancer.org [place] [employer]: www.auanet.org Contact a health care provider if: You have difficulty urinating. You have pain when you urinate or ejaculate. You have blood in your urine or semen. You have pain in your back or in the area of your prostate. Summary Prostate cancer is a common type of cancer in men. The prostate gland is located below the bladder and in front of the rectum. This gland adds fluid to semen during ejaculation. Prostate cancer screening may identify cancer at an early stage, when the cancer can be treated more easily and is less likely to have spread to other areas of the body. The prostate-specific antigen (PSA) test is the recommended screening test for prostate cancer, butit has associated risks. Discuss the risks and benefits of prostate cancer screening with your health care provider. If you are age 70 or older, the risks that screening can cause are greater than the benefits that it may provide. This information is not intended to replace advice given to you by your health care provider. Make sure you discuss any questions you have with your health care provider. Document Revised: 02/26/2022 Document Reviewed: 02/26/2022 [employer] Patient Education 2022 [employer]. Follow Up Care 08/06/2023 15:24:06 With:MICHAEL ALFONSO, Yousuf Scott, URL Address: [address] [place], [place] [id number]- When: Unknown Comments:f/u pending MRI of prostate results [facility] [place] [phone] Evaluation note* Encounter Date Diagnosis Assessment Notes Treatment Notes Treatment Clinical Notes Jul, Wellness examination (ICD-10 - Z00.00) Patient is a [employer] [facility] [employer] employee, pillars reviewed with the patient. Patient passed all measurments of the pillars all besides the BMI. I did fill out the pillar form and myself and patient signed. We will fax over to [employer]. Jul, Left inguinal hernia (ICD-10 - K40.90) We did discuss a referral to one of the general surgeons but I advised the patient we will hold off for now as the urology referral has greater importance will due to the elevated PSA. Patient verbally understood. We will continue to monitor. Jul, BMI 31.0-31.9,adult (ICD-10 - Z68.31) Encouraged to watch diet and increase exercise regimen; we will continue to monitor. Jul, Elevated PSA (ICD-10 - R97.20) RS was elevated upon review of blood work results. Therefore I did dicuss with the patient a referral to urology as he may need a biopsy to rule out prostate cancer. Patient is understanding a agreeable to the referral. Jul, Gout (ICD-10 - M10.9) Uric acid is elevated upon check in. I did prescribe the above medication. Patient is to call the office if he will require the higher dose. We will continue to monitor. Jul,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 Date/Time January 19, 2024 12:24p m [facility] [address] [place] [address] Hospitalist Progress Note Signed Patient: Larry Mcfarlane#: [id number] : 1960 Acct:[id number] Age/Sex: 63 / M Adm Date: 4 Loc: 4N Room: [address] [place] [address] Type: ADM IN Attending Dr: Bhupinder Mcrae MD Copies to: ~ Date of Service: 01/19/2024 Subjective Subjective Narrative: Patient is feeling overall better today, although he still 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 Heart is regular Lungs are clear Abdomen soft benign Neurological nonfocal Assessment and plan 1. Prostatitis, sepsis, E. coli bacteremia post prostate biopsy. Continue antimicrobial therapy day #3. Antibiotics narrowed from meropenem to ceftriaxone. Awaiting sensitivities today. Continue IV fluids Continue symptomatic regimen 2. Mild increase in creatinine today. Continue with IV fluids, monitor daily. If he continues to improve and no further chills reported, plan to discharge home tomorrow with oral antimicrobial therapy. SCDs for DVT prophylaxis today, initiate pharmacoprophylaxis with Xarelto tomorrow Exam Physical Exam Vital Signs: Temp Pulse Resp BP Pulse Ox O2 Del Method 98.2 F 76 18 120/70 96 Room Air 01/19/24 08:00 01/19/24 08:00 01/19/24 08:00 01/19/24 08:00 01/19/24 08:00 01/19/24 08:00 Objective Lab Results 01/19/24 03:45 01/19/24 03:45 Microbiology Results Microbiology 01/17/24 23:50 Urine - Voided Urine Culture - Preliminary Gram Negative Bacilli 01/17/24 22:37 Blood - Right Antecubital Blood Culture - Preliminary Escherichia coli 01/17/24 23:23 Blood - Left Antecubital Blood Culture - Preliminary Escherichia coli 01/17/24 23:23 Blood - Left Antecubital Bacterial ID (NA Multiplex Assay) - Final Meds Allergies and Active Meds Allergies aspirin Allergy (Unknown, Verified 01/17/24 20:51) Headache, stomache upset Active Meds: Active Medications Generic Name Dose Route Start Last Admin Trade Name Freq PRN Reason Stop Dose Admin Acetaminophen 1,000 mg 01/18/24 09:54 01/19/24 10:35 Acetaminophen 500 Mg Tablet PO 01/17/25 00:53 1,000 mg Q6H PRN Administration Pain or fever Al Hydrox/Mg Hydrox/Simethicone 30 ml 01/18/24 00:54 Mag Hydrox/Al Hydrox/Simeth 30 Ml Udc PO 01/17/25 00:53 Q4H PRN heartburn Ascorbic Acid 1,000 mg 01/18/24 09:00 01/19/24 08:39 Ascorbic Acid 500 Mg Tablet PO 01/17/25 08:59 1,000 mg DAILY CHEIKH Administration Hydroxyzine Pamoate 25 mg 01/18/24 04:11 01/19/24 03:51 Hydroxyzine Pamoate 25 Mg Capsule PO 01/17/25 04:10 25 mg Q4H PRN Administration muscle spasm Parenteral Electrolytes 1,000 mls @ 100 mls/hr 01/18/24 10:00 01/19/24 07:33 Plasma-Lyte A Ph 7.4 IV 01/17/25 09:59 100 mls/hr .Q10H CHEIKH Infusion Ceftriaxone Sodium 2 gm in 50 mls @ 100 mls/hr 01/19/24 08:00 01/19/24 07:42 Rocephin IV 100 mls/hr Q24H CHEIKH Administration Morphine Sulfate 2 mg 01/18/24 04:11 01/19/24 03:49 Morphine Sulfate 2 Mg/Ml Vial IV-PUSH 2 mg Q2H PRN Administration Breakthrough Pain Naproxen 500 mg 01/18/24 09:51 Naproxen 500 Mg Tablet PO 01/17/25 09:50 BID.WITH.MEALS PRN Pain Ondansetron HCl 4 mg 01/18/24 04:38 01/18/24 04:57 Ondansetron 4 Mg/2 Ml Vial IV-PUSH 01/17/25 04:37 4 mg Q4H PRN Administration Nausea OR Vomiting Pantoprazole Sodium 40 mg 01/20/24 09:00 Pantoprazole 40 Mg Vial IV-PUSH 01/19/25 08:59 DAILY CHEIKH Rivaroxaban 10 mg 01/20/24 09:00 Rivaroxaban 10 Mg Tablet PO 01/19/25 08:59 DAILY CHEIKH Sodium Chloride 0 ml 01/17/24 20:51 01/19/24 08:40 Sodium Chloride 0.9 % 10 Ml Syringe IV-PUSH 01/16/25 20:50 10 ml PRN PRN Administration Flush Sodium Chloride 10 ml 01/18/24 00:27 01/18/24 04:57 Sodium Chloride 0.9 % 10 Ml Syringe IV-PUSH 01/17/25 00:26 10 ml PRN PRN Administration Flush Sodium Chloride 10 ml 01/18/24 00:54 01/19/24 08:40 Sodium Chloride 0.9 % 10 Ml Vial.Pf INJECTION 01/17/25 00:53 10 ml PRN PRN Administration Dilution Sodium Chloride 10 ml 01/18/24 00:54 Sodium Chloride 0.9 % 10 Ml Syringe IV-PUSH 01/17/25 00:53 PRN PRN Flush Sodium Chloride 0 ml 01/18/24 06:00 01/19/24 07:25 Sodium Chloride 0.9 % 10 Ml Syringe IV-PUSH 01/17/25 05:59 Not Given QSHIFT CHEIKH A&P - Hospitalist Assessment/Plan (1) Sepsis: (2) GERD (gastroesophageal reflux disease): Plan \ Documented By: Bhupinder Mcrae MD 01/19/241221 Signed By: <Electronically signed by Bhupinder Mcrae MD> 01/19/24 1224 [place] Work Phone: Progress note Author Maikel Palacio [facility] January 20, 2024 6:27am Note Date/Time January 19, 2024 7:54pm [facility] [address] [place] [address] Event Note Signed Patient: Larry Mcfarlane Lopez#: [id number] : 1960 Acct:[id number] Age/Sex: 63 / M Adm Date: 4 Loc: 4N Room: [address] [place] [address] Type: ADM IN Attending Dr: Bhupinder Mcrae MD Copies to: MD Bernardo Boyle,DO Maikel Palacio, DO Dana Dinh MD, RES~ Status Event Note Event Note DATE OF EVENT: 01/20/24 TIME OF EVENT: 19:48 EVENT DETAILS: RN reported pt has been feeling poorly, endorsing headache, anxiety, and difficulty breathing. Pt evaluated. He states he has to concentrate on his breathing but is able to get full breaths. Sudden onset about 1 hour prior to evaluation, accompanied by new, dry cough. Denies chest pain or tightness. Endorses localized left temporal headache. Denies palpitations. Focused exam: General: appears fatigued, grimaces from headache CV: regular rate, irregularly irregular rhythm Pulm: labored, deep breathing, CTA Extrem: no calf tenderness, no edema EKG performed and shows new AFib with RVR (rate 102) CXR does appear consistent with possible fluid overload Plan: -Start telemetry -Trial supplemental O2 -stat labs -Lasix 40mg -Hold IV fluids -CTA to rule out PE ++ I personally examined the patient on this day of the encounter. I reviewed the relevant history, performed the murray elements of the physical examination, and coordinated the plan of care and I confirmed the resident's medical documentation as written. - - - Maikel Palacio DO. Internal Medicine + Hospitalist attending physician. TIME W/PATIENT (# MINS): 15 Documented By: Maikel Palacio DO 194 Signed By: <Electronically signed by Maikel Palacio DO> 01/20/24626 <Electronically signed by MD CORBIN Dinh> 01/19/24 1106 [facility] Work Phone: Progress note Author Karlos Mauricio [facility] January 20, 2024 10:58am Note Date/Time January 20, 2024 10:58a m [facility] [address] [place] [address] Hospitalist Progress Note Signed Patient: Larry Mcfarlane Lopez#: [id number] : 1960 Acct:[id number] Age/Sex: 63 / M Adm Date: 4 Loc: Room: [address] [place] [address] Type: ADM IN Attending Dr: Karlos Mauricio MD Copies to: ~ Date of Service: 01/20/2024 Subjective Subjective Narrative: Seen and examined Clinically stable Complain of left temporal headache since yesterday with mild nausea No fever Exam Physical Exam Vital Signs: Temp Pulse Resp BP Pulse Ox O2 Del Method O2 Flow Rate 98.2 F 80 23 131/79 98 Nasal Cannula 2 01/20/24 07:58 01/20/24 07:58 01/20/24 07:58 01/20/24 07:58 01/20/24 07:58 01/20/24 08:31 01/20/24 08:31 Narrative: General patient laying in bed in no acute distress alert awake oriented x3 HEENT PERRLA Neck supple no JVD no carotid bruit CVS S1-S2 regular rate and rhythm no murmur no gallop Chest clear to auscultation percussion Abdomen soft bowel sounds normoactive no rebound no guarding Extremities no stenosis no clubbing no edema Musculoskeletal exam normal no joint effusion Neurologic exam oriented x3 alert awake no focal left Psychiatry: Normal insight and judgment Skin: no rash or lesions Objective Lab Results 01/20/24 06:40 01/20/24 06:41 Microbiology Results Microbiology 01/17/24 22:37 Blood - Right Antecubital Blood Culture - Preliminary Escherichia coli 01/17/24 23:23 Blood - Left Antecubital Blood Culture - Preliminary Escherichia coli 01/17/24 23:23 Blood - Left Antecubital Bacterial ID (NA Multiplex Assay) - Final 01/17/24 23:50 Urine - Voided Urine Culture - Final Escherichia coli Meds Allergies and Active Meds Allergies aspirin Allergy (Unknown, Verified 01/17/24 20:51) Headache, stomache upset Active Meds: Active Medications Generic Name Dose Route Start Last Admin Trade Name Mikayla PRN Reason Stop Dose Admin Acetaminophen 1,000 mg 01/18/24 09:54 01/19/24 19:23 Acetaminophen 500 Mg Tablet PO 01/17/25 00:53 1,000 mg Q6H PRN Administration Pain or fever Al Hydrox/Mg Hydrox/Simethicone 30 ml 01/18/24 00:54 Mag Hydrox/Al Hydrox/Simeth 30 Ml Udc PO 01/17/25 00:53 Q4H PRN heartburn Ascorbic Acid 1,000 mg 01/18/24 09:00 01/20/24 08:06 Ascorbic Acid 500 Mg Tablet PO 01/17/25 08:59 1,000 mg DAILY CHEIKH Administration Furosemide 40 mg 01/20/24 08:00 01/20/24 08:06 Furosemide 40 Mg/4 Ml Vial IV-PUSH 01/19/25 07:59 40 mg BID@0800,1600 CHEIKH Administration Hydroxyzine Pamoate 25 mg 01/18/24 04:11 01/19/24 03:51 Hydroxyzine Pamoate 25 Mg Capsule PO 01/17/25 04:10 25 mg Q4H PRN Administration muscle spasm Ceftriaxone Sodium 2 gm in 50 mls @ 100 mls/hr 01/19/24 08:00 01/20/24 08:20 Rocephin IV 100 mls/hr Q24H CHEIKH Administration Morphine Sulfate 2 mg 01/18/24 04:11 01/20/24 00:58 Morphine Sulfate 2 Mg/Ml Vial IV-PUSH 2 mg Q2H PRN Administration Breakthrough Pain Naproxen 500 mg 01/18/24 09:51 Naproxen 500 Mg Tablet PO 01/17/25 09:50 BID.WITH.MEALS PRN Pain Ondansetron HCl 4 mg 01/18/24 04:38 01/18/24 04:57 Ondansetron 4 Mg/2 Ml Vial IV-PUSH 01/17/25 04:37 4 mg Q4H PRN Administration Nausea OR Vomiting Pantoprazole Sodium 40 mg 01/20/24 09:00 01/20/24 08:06 Pantoprazole 40 Mg Vial IV-PUSH 01/19/25 08:59 40 mg DAILY CHEIKH Administration Rivaroxaban 10 mg 01/20/24 09:00 01/20/24 10:20 Rivaroxaban 10 Mg Tablet PO 01/19/25 08:59 Not Given DAILY CHEIKH Sodium Chloride 0 ml 01/17/24 20:51 01/19/24 08:40 Sodium Chloride 0.9 % 10 Ml Syringe IV-PUSH 01/16/25 20:50 10 ml PRN PRN Administration Flush Sodium Chloride 10 ml 01/18/24 00:27 01/18/24 04:57 Sodium Chloride 0.9 % 10 Ml Syringe IV-PUSH 01/17/25 00:26 10 ml PRN PRN Administration Flush Sodium Chloride 10 ml 01/18/24 00:54 01/19/24 08:40 Sodium Chloride 0.9 % 10 Ml Vial.Pf INJECTION 01/17/25 00:53 10 ml PRN PRN Administration Dilution Sodium Chloride 10 ml 01/18/24 00:54 Sodium Chloride 0.9 % 10 Ml Syringe IV-PUSH 01/17/25 00:53 PRN PRN Flush Sodium Chloride 0 ml 01/18/24 06:00 01/20/24 07:40 Sodium Chloride 0.9 % 10 Ml Syringe IV-PUSH 01/17/25 05:59 Not Given QSHIFT [facility] A&P - Hospitalist Assessment/Plan (1) Sepsis: (2) GERD (gastroesophageal reflux disease): Plan This is a 63-year-old man who had a prostate biopsy done a little bit more than 24 hours before he presented to emergency room on . He woke up during the daytime and was having a moderate amount of hematuria which she was told to expect. He had been taking his perioperative ciprofloxacin pills at home. He began having episodes of severe shaking and chills. With this he did have nausea and vomiting. He said that his entire body hurts because it was shaking so hard. He says this is one of the most painful things that he is ever experienced. He was buried under blankets and could not warm up. His found him to be soaked with diaphoretic sweat. He felt lightheaded and dizzy with this. When his decided to bring him to the hospital he felt so weak and so sore from all of this that he could barely make it out of bed. In the emergency room his white blood count was found to be high at 15.1 and hisneutrophil count high at 13.4 in the monocyte distribution with elevated at 25.38. His heart rate when he came in was about 135 bpm. That heart rate did improve after IV fluids were given. He did get a CT scan of the abdomen and pelvis and the overnight read is pending. Urinalysis demonstrates white blood cells and leukocyte esterase and positive nitrite and innumerable red blood cells which is anticipated after the prostate biopsy. He had blood cultures x 2taken was given 2 L of IV fluid and IV vancomycin as well as IV meropenem. When I see the patient emergency room he is feeling much better. He is no longer having chills or fevers. He he is ready to try to eat a little bit. He no longer has as much nausea and does not feel like he is going to vomit. He says that he is having a lot of increased heartburn. Assessment and plan E. coli septicemia Acute prostatitis UTI E. coli Headache Acute renal failure: Resolved Plan Seen and examined Clinically stable Complain of headache in the left temporal area Toradol 30 mg IV one-time Magnesium IV 2 g 1 to Blood cultures grew E. coli Urine culture grew E. coli Rocephin 2 g daily CBC with differential daily BMP daily Documented By: Karlos Mauricio MD 01/20/24 1050 Signed By: <Electronically signed by Karlos Mauricio MD> 01/20/24 1058 [facility] Work Phone: Progress note Author Karlos Mauricio [facility] January 21, 2024 11:44am Note Date/Time January 21, 2024 11:03a m [facility] [address] [place] [address] Hospitalist Progress Note Signed Patient: Larry Mcfarlane R#: [id number] : 1960 Acct:[id number] Age/Sex: 63 / M Adm Date: 4 Loc: 4N Room: [address] [place] [address] Type: ADM IN Attending Dr: Karlos Mauricio MD Copies to: ~ Date of Service: 01/21/2024 Subjective Subjective Narrative: Seen and examined Clinically better today No headache No nausea or vomiting No fever Still afib with better HR control Exam Physical Exam Vital Signs: Temp Pulse Resp BP Pulse Ox O2 Del Method O2 Flow Rate 98.0 F 70 19 101/73 97 Room Air 2 01/21/24 07:42 01/21/24 07:42 01/21/24 07:42 01/21/24 07:42 01/21/24 07:42 01/21/24 08:13 01/20/24 08:31 Narrative: General patient laying in bed in no acute distress alert awake oriented x3 HEENT PERRLA Neck supple no JVD no carotid bruit CVS S1-S2 regular rate and rhythm no murmur no gallop Chest clear to auscultation percussion Abdomen soft bowel sounds normoactive no rebound no guarding Extremities no stenosis no clubbing no edema Musculoskeletal exam normal no joint effusion Neurologic exam oriented x3 alert awake no focal left Psychiatry: Normal insight and judgment Skin: no rash or lesions Objective Lab Results 01/21/24 06:20 01/21/24 06:20 Microbiology Results Microbiology 01/17/24 22:37 Blood - Right Antecubital Blood Culture - Final Escherichia coli 01/17/24 23:23 Blood - Left Antecubital Blood Culture - Final Escherichia coli 01/17/24 23:23 Blood - Left Antecubital Bacterial ID (NA Multiplex Assay) - Final 01/17/24 23:50 Urine - Voided Urine Culture - Final Escherichia coli Meds Allergies and Active Meds Allergies aspirin Allergy (Unknown, Verified 01/17/24 20:51) Headache, stomache upset Active Meds: Active Medications Generic Name Dose Route Start Last Admin Trade Name Freq PRN Reason Stop Dose Admin Acetaminophen 1,000 mg 01/18/24 09:54 01/20/24 21:01 Acetaminophen 500 Mg Tablet PO 01/17/25 00:53 1,000 mg Q6H PRN Administration Pain or fever Al Hydrox/Mg Hydrox/Simethicone 30 ml 01/18/24 00:54 Mag Hydrox/Al Hydrox/Simeth 30 Ml Udc PO 01/17/25 00:53 Q4H PRN heartburn Ascorbic Acid 1,000 mg 01/18/24 09:00 01/21/24 08:22 Ascorbic Acid 500 Mg Tablet PO 01/17/25 08:59 1,000 mg DAILY CHEIKH Administration Furosemide 40 mg 01/20/24 08:00 01/21/24 08:21 Furosemide 40 Mg/4 Ml Vial IV-PUSH 01/19/25 07:59 40 mg BID@0800,1600 CHEIKH Administration Hydroxyzine Pamoate 25 mg 01/18/24 04:11 01/20/24 21:01 Hydroxyzine Pamoate 25 Mg Capsule PO 01/17/25 04:10 25 mg Q4H PRN Administration muscle spasm Ceftriaxone Sodium 2 gm in 50 mls @ 100 mls/hr 01/19/24 08:00 01/21/24 08:21 Rocephin IV 100 mls/hr Q24H CHEIKH Administration Metoprolol Tartrate 25 mg 01/20/24 18:00 01/21/24 08:22 Metoprolol Tartrate 25 Mg Tablet PO 01/19/25 17:59 25 mg BID CHEIKH Administration Morphine Sulfate 2 mg 01/18/24 04:11 01/20/24 00:58 Morphine Sulfate 2 Mg/Ml Vial IV-PUSH 2 mg Q2H PRN Administration Breakthrough Pain Naproxen 500 mg 01/18/24 09:51 Naproxen 500 Mg Tablet PO 01/17/25 09:50 BID.WITH.MEALS PRN Pain Ondansetron HCl 4 mg 01/18/24 04:38 01/18/24 04:57 Ondansetron 4 Mg/2 Ml Vial IV-PUSH 01/17/25 04:37 4 mg Q4H PRN Administration Nausea OR Vomiting Pantoprazole Sodium 40 mg 01/20/24 09:00 01/21/24 08:21 Pantoprazole 40 Mg Vial IV-PUSH 01/19/25 08:59 40 mg DAILY CHEIKH Administration Rivaroxaban 10 mg 01/20/24 09:00 01/21/24 08:22 Rivaroxaban 10 Mg Tablet PO 01/19/25 08:59 Not Given DAILY CHEIKH Sodium Chloride 0 ml 01/17/24 20:51 01/19/24 08:40 Sodium Chloride 0.9 % 10 Ml Syringe IV-PUSH 01/16/25 20:50 10 ml PRN PRN Administration Flush Sodium Chloride 10 ml 01/18/24 00:27 01/18/24 04:57 Sodium Chloride 0.9 % 10 Ml Syringe IV-PUSH 01/17/25 00:26 10 ml PRN PRN Administration Flush Sodium Chloride 10 ml 01/18/24 00:54 01/19/24 08:40 Sodium Chloride 0.9 % 10 Ml Vial.Pf INJECTION 01/17/25 00:53 10 ml PRN PRN Administration Dilution Sodium Chloride 10 ml 01/18/24 00:54 Sodium Chloride 0.9 % 10 Ml Syringe IV-PUSH 01/17/25 00:53 PRN PRN Flush Sodium Chloride 0 ml 01/18/24 06:00 01/21/24 05:26 Sodium Chloride 0.9 % 10 Ml Syringe IV-PUSH 01/17/25 05:59 Not Given QSHIFT [facility] A&P - Hospitalist Assessment/Plan (1) Sepsis: (2) GERD (gastroesophageal reflux disease): Plan This is a 63-year-old man who had a prostate biopsy done a little bit more than 24 hours before he presented to emergency room on . He woke up during the daytime and was having a moderate amount of hematuria which she was told to expect. He had been taking his perioperative ciprofloxacin pills at home. He began having episodes of severe shaking and chills. With this he did have nausea and vomiting. He said that his entire body hurts because it was shaking so hard. He says this is one of the most painful things that he is ever experienced. He was buried under blankets and could not warm up. His found him to be soaked with diaphoretic sweat. He felt lightheaded and dizzy with this. When his decided to bring him to the hospital he felt so weak and so sore from all of this that he could barely make it out of bed. In the emergency room his white blood count was found to be high at 15.1 and hisneutrophil count high at 13.4 in the monocyte distribution with elevated at 25.38. His heart rate when he came in was about 135 bpm. That heart rate did improve after IV fluids were given. He did get a CT scan of the abdomen and pelvis and the overnight read is pending. Urinalysis demonstrates white blood cells and leukocyte esterase and positive nitrite and innumerable red blood cells which is anticipated after the prostate biopsy. He had blood cultures x 2taken was given 2 L of IV fluid and IV vancomycin as well as IV meropenem. When I see the patient emergency room he is feeling much better. He is no longer having chills or fevers. He he is ready to try to eat a little bit. He no longer has as much nausea and does not feel like he is going to vomit. He says that he is having a lot of increased heartburn. Assessment and plan E. coli septicemia secondary to UTI/Acute prostatitis Acute prostatitis UTI E. coli Seen and examined Clinically better No headache No fever No Leukocytosis Blood cultures grew Ecoli Urine culture grew Ecoli Rocephin 2g IV daily Repeat blood cultures Headache: Resolved Acute renal failure: Resolved Acute CHF : waiting echocardiogram Afib: Lopressor BID Echocardiogram Cardiology consult DC planning : home tomorrow On keflex PO for another 7 days Documented By: Karlos Mauricio MD 01/21/24 1101 Signed By: <Electronically signed by Karlos Mauricio MD> 01/21/24 114 [place] Work Phone: Progress note Author Michelle Pressley [facility] January 22, 2024 12:47pm Note Date/Time January 22, 2024 12:25p m [facility] [address] [place] [address] Cardiology Progress Note Signed Patient: Larry Mcfarlane R#: [id number] : 1960 Acct:[id number] Age/Sex: 63 / M Adm Date: 4 Loc: 4N Room: 0Z5135-3 Type: ADM IN Attending Dr: Karlos Mauricio MD Copies to: ~ Date of Service: 01/22/2024 Subjective Interval history: Mr. Mcfarlane is a 63 year old male with PMH noted below who presented on 01/17 with chills and hematuria after prostate biopsy and was found to have Ecoli septicemia secondary to UTI/Acute prostatitis. He was started on Rocephin and was doing relatively well until yesterday-01/19 when he was noted to go into Afib with RVR on telemetry. Pt denies chest pain, dyspnea, palpitations, light headedness or syncope. He was started on BB and HR is better controlled but remains in Afib. Pt does describe having a history of Afib in his 20s that was transient and did not need medication or ablation. He has not had any recurrences since. He does report possible JARROD but has never had a sleep study. TSH wnl ECHO shows EF of 60-65% with borderline aortic root dilatation; mildly dilated left atrium and mild concentric LVH. Pt was in Afib throughout the study. Interim evaluation 01/22/2024: Review of telemetry shows runs of RVR this am up [id number]. He denies palpitations, chest pain, light headedness or shortness of breath. He would like to be discharged today as he is back to work tomorrow. Exam Physical Exam Vital Signs: Temp Pulse Resp BP Pulse Ox O2 Del Method O2 Flow Rate 97.8 F 85 18 120/83 97 Room Air 2 01/22/24 11:44 01/22/24 11:44 01/22/24 11:44 01/22/24 11:44 01/22/24 11:44 01/22/24 11:44 01/20/24 08:31 Narrative: GEN: AAOx3. No acute distress. Neck: No JVD. Lungs: Clear to auscultation bilaterally Heart: Irregularly irregular. Tachycardic; Normal S1 and S2. No murmurs or rubsappreciated. Abdomen: Soft, nontender, nondistended, bowel sounds present. Extremities: No BLE edema. Neuro: AAOx3. No focal deficits. Objective Labs 01/21/24 06:20 01/22/24 06:37 Labs: Laboratory Results - last 24 hr 01/22/24 06:37 PHA Creatinine Clear 66.58 Sodium 138 Potassium 4.1 Chloride 102 Carbon Dioxide 28.2 Anion Gap 11.9 BUN 34 H Creatinine 1.37 H Est GFR (CKD-EPI) 58.325 Glucose 106 H Calcium 9.3 A&P - Cardiology (1) Paroxysmal atrial fibrillation with rapid ventricular response: Code(s): I48.0 - Paroxysmal atrial fibrillation (2) Hyperlipemia: Code(s): E78.5 - Hyperlipidemia, unspecified (3) Sepsis: Code(s): A41.9 - Sepsis, unspecified organism (4) Aorta aneurysm: Code(s): I71.9 - Aortic aneurysm of unspecified site, without rupture (5) Congenital small kidney: Code(s): Q60.5 - Renal hypoplasia, unspecified Plan Mr. Mcfarlane is a 63 year old male with PMH noted above who presented on 01/17 with chills and hematuria after prostate biopsy and was found to have Ecoli septicemia secondary to UTI/Acute prostatitis. He was started on Rocephin and was doing relatively well until yesterday-01/19 when he was noted to go into Afib with RVR on telemetry. ECHO shows EF of 60-65% with borderline aortic root dilatation; mildly dilated left atrium and mild concentric LVH. Pt was in Afib throughout the study. Assessment: Paroxysmal Atrial fibrillation- CHADSVASc=0 Ecoli septicemia HLD Recommendations: - Pt has intermittent episodes of RVR with HRs up to 170bpm - Will uptitrate Toprol to 75mg BID. - Continue rate control strategy in the setting of sepsis. If remains in Afib once sepsis treatment is completed, will plan for outpatient DCCV. - No indication for anticoagulation - Sleep study referral as outpatient to r/o JARROD. - Will arrange for 2 week follow up with [facility] cardiology. Documented By: Michelle Pressley MD 01/22/24 1223 Signed By: <Electronically signed by Michelle Pressley MD> 01/22/24 1247 [place] Work Phone: Chief Complaint and Reason for Visit Chief Complaint left knee pain-hx go ut Chief Complaint left knee pain-hx go ut Pillars Chief Complaint left knee pain-hx go ut Pillars M10.9 R97.20 Chief Complaint Pillars z80.42 r97.20 Chief Complaint diff breathing, stom ach pain Reason for Visit GERD (gastroesophage al reflux disease) Sepsis Chief Complaint R97.20 diff breathing, stomach pain diff breathing, stomach pain Reason for Visit Aorta aneurysm Congenital small kidney GERD (gastroesophageal reflux disease) Hyperlipemia Paroxysmal atrial fibrillation with rapid ventricular response Sepsis Family History No Family History Records Found Relationship Condition Age at Onset Recorded Date/T tristan Not Specified Chronic obstructive pulmonary disease Un known Malignant neoplasm of breast Unknown History of heart surgery Unknown father History of heart surgery Unknown Malignant neoplasm of prostate Unknown Relationship Condition Age at Onset Recorded Date/T tristan Not Specified Chronic obstructive pulmonary disease Un known Malignant neoplasm of breast Unknown History of heart surgery Unknown father History of heart surgery Unknown Malignant neoplasm of prostate Unknown father Malignant neoplasm Unknown Not Specified Malignant neoplasm Unknown Heart disease Unknown Advance Directives No Advanced Directives Records Found Advance Directive Response Recorded Date/ Time Advance Directives Yes July 11:29am Advance Directive Response Recorded Date/ Time Advance Directives Yes October 04, 2023 1:27pm Advance Directive Response Recorded Date/ Time Advance Directives Yes October 04, 2023 2:27pm Reason for Referral Reason consult and nolan at Diagnosis 1 Family history of pr ostate cancer in father (Z80.42) Referral Organization [facility] Referring Provider First Name Bernardo Referring Provider Last Name Gopal Referring Provider Specialty Family Prac nahum Referred Organization [facility] Referred Address [address],[place],[address] Referred Provider Specialty Urology Referral Priority Routine General Notes Fore, Sofia M 023 02:50:13 PM >Received today and waiting for office notes to be locked before sending referral Summary Purpose Additional Source Comments REASON FOR VISIT (unrecogniz ed section and content) clearance to return to workw ayaka/review labs/wants flu shot1 month f/[facility] ER follow up April [facility] Care Teams (unrecognized sec tion and content) Team Status: Active Member Role Status Peyton Torrez DO Primary Care Provider Active Team Status: Inactive Member Role Status Dates Bernardo Torrez , Primary Care Provider Active Veronica Resendiz , ASHLEY Emergency Provider Active Team Status: Inactive Member Role Status Peyton Torrez , Primary Care Provider Active Jose Carlos Torrez DO Attending Provider Active Team Status: Inactive Member Role Status Peyton Torrez , Primary Care Provider, Attending Provi atul Active Team Status: Inactive Member Role Status Peyton Torrez , Attending Provider Active Start: July 29, 2023 End: July 29, 2023 Team Status: Inactive Member Role Status Peyton Torrez DO Primary Care Provider Active Sta rt: October 14, 2023 End: October 14, 2023 Yousuf Zuñiga MD Attending Provider Active St art: October 14, 2023 End: October 14, 2023 Team Status: Inactive Member Role Status Peyton Zuñiga MD Attending Provider Active St art: January 16, 2024 End: January 16, 2024 Team Status: Active Member Role Status Peyton Torrez DO Primary Care Provider Active Sta rt: January 18, 2024 Néstor Dai Jr, MD Emergency Provider Active Start: January 18, 2024 Maikel Palacio DO Admit Provider , Attending Provider Active Start: January 18, 2024 Team Status: Inactive Member Role Status Peyton Torrez DO Primary Care Provider Active Sta rt: January 18, 2024 End: January 22, 2024 Néstor Dai Jr, MD Emergency Provider Active Start: January 18, 2024 End: January 22, 2024 Maikel Palacio DO Admit Provider Active Start: January 18, 2024 End: January 22, 2024 Karlos Mauricio MD Attending Provider Active Star t: January 18, 2024 End: January 22, 2024 Harini Johnson RN Other Provider Active Star t: January 18, 2024 End: January 22, 2024 Augustine Dias MD Other Provider Active Start: Sergey keenan 2023 End: January 22, 2024 Kyle Rodriguez MD Other Provider Active Start: January 18, 2024 End: January 22, 2024 Michelle Pressley MD Other Provider Active Start: January 18, 2024 End: January 22, 2024 Team Status: Active Member Role Status Dates Bernardo Torrez DO Primary Care Provider Active Sta rt: January 21, 2024 Néstor Dai Jr, MD Emergency Provider Active Start: January 21, 2024 Maikel Palacio DO Admit Provider Active Start: January 21, 2024 Karlos Mauricio MD Other Provider Active Start: M ay 2023 Harini Johnson RN Other Provider Active Star t: January 21, 2024 Augustine Dias MD Other Provider Active Start: M shlomo 2023 Kyle Rodriguez MD Other Provider Active Start: January 21, 2024 Michelle Pressley MD Attending Provider, Other Provider Active Start: January 21, 2024 Goals (unrecognized section and content) Goals may be documented in a n alternate section (unrecognized sect ion and content) No Status Records FoundNo Status Records Found INFORMATION SOURCE (unrecogn ized section and content) DATE CREATED AUTHOR 03/10/2024 [facility] DATE CREATED AUTHOR AUTHOR'S ORGANIZ ATION 08/20/2024 [facility] FOR RECORDS PERTAINING TO PATIENTS WHO ARE OR HAVE BEEN ENROLLED IN A CHEMICAL DEPENDENCY/SUBSTANCEABUSE PROGRAM, SOME INFORMATION MAY BE OMITTED. This clinical summary was aggregated from multiple sources. Caution should be exercised in using it in the provision of clinical care. This summary normalizes information from multiple sources, and as a consequence, information in this document may materially change the coding, format and clinical context of patient data. In addition, data may be omitted in some cases. CLINICAL DECISIONS SHOULD BE BASED ON THE PRIMARY CLINICAL RECORDS. [employer] [facility]. provides no warranty or guarantee of the accuracy or completeness of information in this document.
[2024-11-20 08:08] LABS: PSA, Free 1.18 ng/mL; Prostate Specific Ag 6.5 ng/mL (0.0-4.0)
== END 2024-11-19 14:28 | disposition home or self-care (01) ==
LOC: LAB 14:28
PROVIDERS: PCP Family Medicine; Visit Provider Urology
DX: R97.20 Elevated prostate specific antigen [PSA] (principal)
CPT/HCPCS: 36415; 84153; 84154

== ENCOUNTER 2025-05-31 09:01 | Outpatient (OUT) | payer BC, SELFPAY ==
--- OUTSIDE RECORDS SUMMARY | 2025-05-31 09:08 | XMS_ITS | CCD ---
Author Organization [facility] Care Team Providers Care Supervisor [employer] Name Role Phone Bernardo Torrez Unavailable DO Bernardo Torrez Primary Care Provider ASHLEY Resendiz Emergency Provider DO Jose Carlos Torrez Attending Provider DO Bernardo Torrez Attending Provider BERNARDO TORREZ Primary Care Physician DO Bernardo Torrez Primary Care Provider MD Yousuf Zuñiga Attending Provider [phone] MD Yousuf Zuñiga Attending Provider DO Bernardo Torrez Primary Care Provider MD Néstor Dai Jr Emergency Provider DO Maikel Palacio Admit Provider DO Maikel Palacio Attending Provider MD Karlos Mauricio Attending Provider RILEY Johnson Other Provider Unavailable MD Augustine Dias Other Provider MD Kyle Rodriguez Other Provider MD Michelle Pressley Other Provider Yousuf Zuñiga Attending Unavailable Bernardo Torrez Primary Care Unavailable Yousuf Zuñiga Admitting Unavailable Yousuf Zuñiga Attending Unavailable Yousuf Zuñiga Admitting Unavailable Maikel Palacio Admitting Unavailmauro Johnson, Harini Consulting Unavailable Kuns, Bernardo Primary Care Unavailable Alaozzie, Karlos Attending Unavailable Larissa, Augustine Consulting Unavailable Kyle Rodriguez Consulting Unavai lable Huan, Michelle Consulting Unavailable Kiepert, Veronica A Admitting Unavailable Kiepert, Veronica A Attending Unavailable Kuns, Bernardo Primary Care Unavailable Huan, Michelle Admitting Unavailable Huan, Michelle Attending Unavailable [...] Attending Unavailable COOK, Yousuf P Attending Unavailable Allergies Allergy Classification Reported Allergen(s) Allergy Type Date of Onset Reaction(s) Facility (17 sources) Aspirin; Translations: [aspirin] Drug Allergy 3 Stomach ache (finding) [facility] (1 source) Aspirin Drug Allergy [address] [facility] Repository Medications Current Medications Medication Drug Class(es) [...] Active 500 MG PO Three times daily 21 January 22, 2024 12:00am Nexium (18 sources) Proton Pump Inhibitor Start: 10-01-2023 Nexium O ral, Daily, Refills(s) 0 Start Date: 10/01/23 Status: Ordered Start: 06-23-2023 take 1 capsule by mo [facility] once daily Esomeprazole Magnesium (Nexium) 40 mg Capsule,Delayed Release(Dr/Ec) Active 40 MG PO Daily June 23, 2023 12:00am Start: 04-05-2015 take 1 capsule by [facility] every twenty-four hours NexIUM 40 MG 1 capsule Orally Once a day OTC Mar, Active take 1 capsule by mo [facility] every twenty-four hours NexIUM 24HR 20 MG 1 capsule Orally Once a day Active febuxostat 40 mg oral tablet (2 sources) Xanthine Oxidase Inhibitor Start: 07-29-2023 take 1 tablet by mouth every twenty-four hours Febuxostat 40 MG 1 tablet Orally Once a day for 30 days Jul, Active Start: 11-20-2018 take 1 tablet by [facility] every twenty-four hours Uloric 40 MG [...] every four to six hours Hydrocodone-Acetam inophen ([facility]) 5-325 mg Tablet Discontinued 1 TAB PO EVERY 4-6 HOURS February 13, 2018 July 18, 2021 11:55pm [id number] 200 actuat albuterol 0.09 mg/actuat metered dose [...] procedure, # 14 tab(s), Refills(s) 0, Pharmacy: [facility], 179, cm, 10/01/23 9:12:00 EST, Height/Length Dosing, [...] failure; Translations: [Acute respiratory failure with hypoxia] 11-03-2021 Episodic Septicemia (except in labor) (5 sources) [...] Test Name Value Interpretation Reference Range Facility Ambulatory Visit Summaryon 0 11-25-2024 Ambulatory Visit Summary Ambulatory Visit Summary LARRY MCFARLANE :1960 Visit Date:11/25/2024 Ambulatory Visit Instructions Your Diagnosis Elevated PSA Family history of prostate cancer Microscopic hematuria Your Care Team Attending Physician - Yousuf [...] (2014), Colonoscopy (2013), Hip replacement. Discharge Vitals Height 179 cm Height 70 in Weight 104 kg Weight 229.28 lb BMI 32.46 What to do next You Need to Schedule the Following Appointments Follow Up with Yousuf ZUÑIGA MD, URKailee When: Where: [address] [facility] [address] [address] [place] [address]- Medications What How Much When Instructions Unchanged cephalexin (cephalexin 500 mg Cap) Contact prescribing physician if questions or concerns Unchanged esomeprazole (Nexium) Every day Contact prescribing physician if questions or concerns Unchanged metoprolol (metoprolol 25 mg ER Tab) Every day Contact prescribing physician if questions or concerns Unchanged Non-Formulary Medication (uricel) Contact prescribing physician if questions or concerns Allergies aspirin (Dizzy) Problems Ongoing - Any problem that you are currently receiving treatment for. Elevated PSA Family history of prostate cancer Gout Hypertension Left inguinal hernia Microscopic hematuria Sciatica Sepsis Patient Survey You may receive a survey [...] not done as part of screening. ??? Bloo (more content not included)... Normal [facility] Urology Office/Clinic Noteon 11-25-2024 Urology Office/Clinic Note Urology Office/Clinic Note Chief Complaint 3 month with PSA HPI Staff 64 year old male here for 3 month follow up with psa Previous Dx: Elevated psa, Family hx of prostate cancer, micro hematuria Our office attempted to contact patient several times and sent a letter in regards to having an appointment with Dr. Saucedo to discuss transperineal bx. PSA 10/11/12 - 1.52 02/21/16 - 1.65 09/04/21 - 4.38 09/27/21 - 5.58 & 34.0% 07/15/23 - 7.39 07/16/23 - 7.33 & 16.9% 04/27/24 - 7.7 & 14.9% 08/06/24 - 9.7 & 13.2% PSAD 0.13 11/19/24 - 6.5 IPSS 4 no pain or blood in the urine History of Present Illness Tests reviewed: reviewed UA & PSA. I have reviewed the previous health [...] distress, well nourished, well developed male. Assessment/Plan Prior Portions of this record may have been created with voice recognition artificial intelligence software, specifically Wibiya, GeoDigital and or Rainbow. Substitutions may have occurred due to the inherent limitations of voice recognition and artificial intelligence software. 1. Elevated PSA (R97.20: Elevated prostate specific antigen [PSA]) PSA 10/11/12 - 1.52 02/21/16 - 1.65 09/04/21 - 4.38 09/27/21 - 5.58 & 34.0% 07/15/23 - 7.39 07/16/23 - 7.33 & 16.9% 04/27/24 - 7.7 & 14.9% 08/06/24 - 9.7 & 13.2% PSAD 0.13 11/19/24 - 6.5 & 18.2% IPSS 4 (6) Pt states recently he was up 4x during the night, unusual for him. MRI of prostate 10/14/23 [facility] - prostate volume 81 cc. Negative however limited study due to hip prosthesis. S/p TRUS/bx 01/16/24 - Prostate volume 69.4 [...] Confirm MDX - 19% any cancer. 10% [place] 7. Transperineal biopsy discussed with Dr. Saucedo due to pt worried about another infection post biopsy. We attempted multiple times to reach pt to see if pt would be interested in scheduling a consultation with Dr. Saucedo to discuss TP prostate biopsy. We mailed letter to pt. PSA remains elevated overall however decrease is favorable. Likely due to inflammation. No further biopsy is warranted at this point. Will cont to closely monitor PSA. He agrees with the plan. -PSAFT in 6 months 2. Family history of prostate cancer (Z80.42: Family history of malignant neoplasm of prostate) Father. Dx in mid to late 60's, brachytherapy. [1] 3. Microscopic hematuria (R31.29: Other microscopic hematuria) UA today negative for infection or blood. Denies gross hematuria. Pt knows to call with visible blood in urine. -Cont symptomatic monitoring and routine UAs Overall patient is voiding well. No changes in urinary pattern. He is doing well sexually. PSA level fluctuation is as documented. He agrees with a 6-month follow-up with repeat free and total PSA. He agrees with that plan Follow-up With When Contact Information ZARA ALFONSO, Yousuf Scott, URL [address] [facility] [address] [place] [address]- Additional Instructions: 6 mos w/ PSAFT Patient Education Prostate Cancer Screening IJennifer, personally scribed for Dr. Zuñiga on 11/25/2024 08:45:43. . Documentation recorded by the scribeJennifer, accurately reflects the services(s) I performed and decisions made by me. Authenticated by Dr. Zuñiga on 11/25/2024 08:51:32. Problem List/Past Medical History Ongoing Elevated PSA Family history of prostate cancer Gout Hypertension Left inguinal hernia Microscopic hematuria Sciatica Sepsis Historical No qualifying data Procedure/Surgical History Transrectal biopsy of prostate using ultrasound (US) guidance (01/16/2024), Open fracture of right wrist (20 (more content not included)... Normal [facility] Comment on above: Result Comment: Elec tronically Signed By: Yousuf ZUÑIGA MD\.br\Date and Time Signed: 11/25/24 08:52 EDT\.br\Electronically Co-Signed By: Jennifer Roth\.br\Date and Time Co-Signed: 11/25/24 08:46 EDT\.br\Electronically Co-Signed By: Jennifer Roth\.br\Date and Time Co-Signed: 11/25/24 08:46 EDT Patient Letter FTon 2023 Patient Letter [facility] Patient Letter [facility] August 18, 2024 LARRY MCFARLANE [address] [place] [address] : 1960 Dear Larry Mcfarlane, We have been trying to reach you with no success. It is important that you return our call upon receiving this letter. Also, at the time of your call, please provide us with your current information. Thank you for your prompt attention to this matter. Sincerely, [facility] [address] [address] [facility] Ambulatory Visit Summaryon 1 10-12-2023 Ambulatory Visit Summary Ambulatory Visit Summary LARRY MCFARLANE :1960 Visit Date:08/12/2024 Ambulatory Visit Instructions Your Diagnosis Elevated PSA Family history of prostate cancer Microscopic hematuria Your Care Team Attending Physician - Yousuf [...] to do next Scheduled Follow-Up Appointments Saturday 8:00 AM EDT With: Yousuf ZUÑIGA MD Where: [facility] [address], [address] [place] [address]- You Need to Schedule the Following Appointments Follow Up with Yousuf ZUÑIGA MD, URL When: Where: [address] [facility] [address] [place] [address]- Medications What How Much When Instructions Unchanged [...] part of (more content not included)... Normal [facility] Urology Office/Clinic Noteon 08-12-2024 Urology Office/Clinic Note Urology Office/Clinic Note Chief Complaint F/U with PSA HPI Staff 64 year old male here for 3 month with PSA. Previous DX: elevated PSA, family H/O prostate cancer and micro hematuria Prostate MRI 10/14/23 [facility] and TRUS/bx 01/16/24 PSA 07/15/23 - 7.39 [...] with voice recognition artificial intelligence software, specifically Wibiya, GeoDigital and or Rainbow. Substitutions may have occurred due to the [...] IPSS 6 (7) MRI of prostate 10/14/23 [facility] - prostate volume 81 cc. Negative however [...] Confirm MDX - 19% any cancer. 10% Josefa 7. Asymptomatic of infection. Increase in PSA [...] as well. Follow-up With When Contact Information ZARA ALFONSO, Yousuf Scott, URL [address] [address]- Additional Instructions: 3 mos w/ PSAFT (pending conversation with Dr. Saucedo regarding transperineal prostate biopsy) Patient Education Prostate Cancer Screening I, Jennifer Roth, personally scribed for Dr. Zuñiga on 08/12/2024 08:08:51. . Documentation recorded by the Jennifer cameron, accurately reflects the services(s) I performed a (more content not included)... Normal [facility] Comment on above: Result Comment: Elec tronically [...] Confirm MDX - 19% any cancer. 10% Josefa 7. PSA 09/04/21 - 4.38 09/27/21 - [...] with voice recognition artificial intelligence software, specifically Wibiya, GeoDigital and or Rainbow. Substitutions may have occurred due to the inherent limitations of voice recognition and artificial intelligence software. 1. Elevated PSA (R97.20: Elevated prostate specific antigen [PSA]) PSA 10/11/12 - 1.52 02/21/16 - 1.65 09/04/21 - 4.38 09/27/21 - 5.58 & 34.0% 07/15/23 - 7.39 07/16/23 - 7.33 & 16.9% 04/27/24 - 7.7 & 14.9% IPSS 7. Prostate MRI 10/14/23 [facility] - Neg. Limited study due to hip [...] Confirm MDX - 19% any cancer. 10% Josefa 7. 0.4 increase within 10 months. Will [...] in urine. Follow-up With When Contact Information AZRA ALFONSO, Yousuf Scott, URL [address] [place] [address]- Additional Instructions: 3-4 mos w/ PSA free [...] malignant neoplas (more content not included)... Normal [facility] Comment on above: Result Comment: Elec tronically [...] Results are in chart. Message sent to ANGEL LUIS/FullStory message pool to review. Normal [facility] Pathology Noteon 02-17-2024 Pathology Note [id number]#1. 00TIFF Normal [facility] Pathology Noteon 02-13-2024 Pathology Note [id number]#1 .00TIFF [facility] Operative Reporton Operative Report [id number]#1 .00TIFF [facility] Lab Reportson 02-11-2024 Lab Reports [id number]#1 .00TIFF [facility] Pathology Noteon 02-06-2024 Pathology Note [id number]#1. 00TIFF [facility] Physician Orderon 01-29-2024 Physician Order [id number]#1. 00TIFF [facility] Physician Order [id number]#1. 00TIFF [facility] Ambulatory Visit Summaryon 0 01-28-2024 Ambulatory Visit Summary DIVYA MCFARLANECHRIS Dugan :1960 Visit Date:01/28/2024 Ambulatory Visit Instructions Your Diagnosis Elevated PSA Family history of prostate cancer Your Care Team Attending Physician - ZARA ALFONSO, Yousuf Scott Primary Care Physician - [...] Yousuf ZUÑIGA MD Where: [facility] FPG ECG *OFFICE ONLY*on 01-14 FPG ECG *OFFICE ONLY* [facility] [place] [address] [place] [address] Electrocardiograph Report Signed Patient: Larry Mcfarlane MR#: [id number] : 1960 Acct:[id number] Age/Sex: 63 / M ADM Date: 01/28/24 Loc: EKGCARDIO Room: Type: [facility] Attending Dr: Michelle Pressley MD Ordering Provider: [...] replaced Atrial fibrillation Confirmed by Michelle Pressley ([id number]) on 02/03/2024 4:38:58 PM Referred By: Electronically Signed By:Michelle Pressley Transcribed By: MUS Signed By Michelle Pressley MD 4 8129 Normal [facility] Patient Educationon 01-28-20 Patient Education [...] Where to find more information ? The [place] [employer]: www.cancer.org ? [place] [employer]: www.auanet.org Contact a health care [...] adds flu (more content not included)... Normal [facility] Urology Office/Clinic Noteon 01-28-2024 Urology Office/Clinic Note Chief Complaint elevated PSA, family hx of prostate cancer HPI Staff Here to review path report from TRUS/bx done 01/16/24. Previous dx: elevated PSA, fam hx of prostate ca, left inguinal hernia. Prostate MRI done 10/14/23 [facility] was neg but poor quality due to [...] and history for this patient from Dr. Zuñgia. I have reviewed and verified the staff [...] - 7.33 & 16.9% Prostate MRI 10/14/23 [facility] - Neg. S/p TRUS/bx 01/16/24 - Prostate [...] with voice recognition artificial intelligence software, specifically Wibiya, GeoDigital and or Rainbow. Substitutions may have occurred due to the inherent limitations of voice recognition and artificial intelligence software. Follow-up With When Contact Information ZARA ALFONSO, Yousuf Scott, URL [facility] [employer] [address] [facility] [employer] [address] [address]- Additional Instructions: 3 mos w/ PSA [...] and Father. (more content not included)... Normal [facility] Comment on above: Result Comment: Elec tronically Signed By: Yousuf ZUÑIGA MD\.br\Date and Time Signed: 01/28/24 09:04 EDT\.br\Electronically Co-Signed By: Beverly Christianson\.br\Date and Time Co-Signed: 01/28/24 09:02 EDT Pathology Noteon 01-27-2024 Pathology Note [id number] .00TIFF Normal [facility] Basic Metabolic Panelon Creatinine Clr Calc Pharmacy 66.58 Normal [facility] Comment on above: Result Comment: PERF ORMED BY: [place] [address] PATHOLOGIST CELLULAR TOWER CLIMBER RANDI SANTOS M.D. Performed By: #### B TRACTOR CRANE OPERATOR #### [place] [address] [place] GFR/1.73 sq M.predicted MDRD (S/P/Bld) [Vol rate/Area] 58.325 mL/min/{1.73_m2} Normal [facility] Comment on above: Performed By: #### B TRACTOR CRANE OPERATOR #### [place] [address] [place] Calcium [Mass/volume] in Ser um or PlasmaOrdered By: Karlos Mauricio on 01-22-2024 Calcium [Mass/Vol] 9.3 mg/dL Normal 8.6-10.3 [facility] Comment on above: Performed By: #### B TRACTOR CRANE OPERATOR #### [place] [address] [place] Carbon dioxide, total [Moles /volume] in Serum or PlasmaOrdered By: Karlos Mauricio on 01-22-2024 CO2 [Moles/Vol] 28.2 mmol/L Normal 21.0-31.0 [facility] Comment on above: Performed By: #### B TRACTOR CRANE OPERATOR #### [facility] [address] [place] [address] [place] Chloride [Moles/volume] in S katelyn or PlasmaOrdered By: Karlos Mauricio on 01-22-2024 Chloride [Moles/Vol] 102 mmol/L Normal 98-107 [facility] Comment on above: Performed By: #### B TRACTOR CRANE OPERATOR #### [facility] [address] Creatinine [Mass/volume] in Serum or PlasmaOrdered By: Karlos Mauricio on 01-22-2024 Creatinine [Mass/Vol] 1.37 mg/dL High 0.70-1.30 [facility] Comment on above: Performed By: #### B TRACTOR CRANE OPERATOR #### [facility] [address] Glucose [Mass/volume] in Ser um or PlasmaOrdered By: Karlos Mauricio on 01-22-2024 Glucose [Mass/Vol] 106 mg/dL High 70-100 [facility] Comment on above: ADA recommended refe rence rangeRandom Glucose Reference Range is dependent on time and content of last meal. Glucose of more than 200 mg/dL in a nonstressed, ambulatory subject supports the diagnosis of Diabetes Mellitus. Result Comment: [place] om Glucose Reference Range is dependent on time and content of last meal. Glucose of more than 200 mg/dL in a nonstressed, ambulatory subject supports the diagnosis of Diabetes Mellitus. ADA recommended reference range Performed By: #### B TRACTOR CRANE OPERATOR #### [address] No Panel InformationOrdered By: Karlos Mauricio on 01-22-2024 Estimated GFR (CKD-EPI) 58.325 mL/Min [facility] Creatinine Clearance (Chem 66.[address] [facility] Potassium [Moles/volume] in Serum or PlasmaOrdered By: Karlos Mauricio on 01-22-2024 Potassium [Moles/Vol] 4.1 mmol/L Normal 3.5-5.1 [facility] Comment on above: Performed By: #### B TRACTOR CRANE OPERATOR #### [address] Serum or plasma anion gap de terminationOrdered By: Karlos Mauricio on 01-22-2024 Anion gap [Moles/Vol] 11.9 mmol/L Normal 6.0-15.0 [facility] Comment on above: Performed By: #### B TRACTOR CRANE OPERATOR #### [address] Sodium [Moles/volume] in Ser um or PlasmaOrdered By: Karlos Mauricio on 01-22-2024 Sodium [Moles/Vol] 138 mmol/L Normal 136-145 [facility] Comment on above: Performed By: #### B TRACTOR CRANE OPERATOR #### [address] Urea nitrogen [Mass/volume] in Serum or PlasmaOrdered By: Karlos Mauriico on 01-22-2024 Urea nitrogen [Mass/Vol] 34 mg/dL High 7-[address] [facility] Comment on above: Performed By: #### B TRACTOR CRANE OPERATOR #### [address] Automated basophil %Ordered By: Maikel Palacio on 01-21-2024 Basophils/100 WBC (Bld) 0.9 % Normal . [facility] Comment on above: Performed By: #### B TRACTOR CRANE OPERATOR #### [address] Automated basophil countOrde red By: Maikel Palacio on 01-21-2024 Basophils (Bld) [#/Vol] 0.0 10*3/uL Normal 0.0-0.[address] [facility] Comment on above: Result Comment: PERF ORMED BY: [place] [address] PATHOLOGIST CELLULAR TOWER CLIMBER RANDI SANTOS M.D. Performed By: #### B TRACTOR CRANE OPERATOR #### [address] Automated blood monocyte cou ntOrdered By: Maikel Palacio on 01-21-2024 Monocytes (Bld) [#/Vol] 1.0 10*3/uL High 0.0-0.[address] [facility] Comment on above: Performed By: #### B TRACTOR CRANE OPERATOR #### [address] Automated eosinophil %Ordere d By: Maikel Palacio on 01-21-2024 Eosinophils/100 WBC (Bld) 4.9 % Normal . [facility] Comment on above: Performed By: #### B TRACTOR CRANE OPERATOR #### [address] Automated eosinophil countOr dered By: Maikel Palacio on 01-21-2024 Eosinophils (Bld) [#/Vol] 0.2 10*3/uL Normal 0.0-0.[address] [facility] Comment on above: Performed By: #### B TRACTOR CRANE OPERATOR #### [address] Automated monocyte %Ordered By: Maikel Palacio on 01-21-2024 Monocytes/100 WBC (Bld) 18.8 % Normal . [facility] Comment on above: Performed By: #### B TRACTOR CRANE OPERATOR #### [address] Automated neutrophil %Ordere d By: Maikel Palacio on 01-21-2024 Neutrophils/100 WBC (Bld) 51.6 % Normal . [facility] Comment on above: Performed By: #### B TRACTOR CRANE OPERATOR #### [address] Basic Metabolic Panelon Anion gap [Moles/Vol] 17.5 mmol/L High 6.0-15.0 [facility] Comment on above: Performed By: #### B TRACTOR CRANE OPERATOR #### [address] Calcium [Mass/Vol] 9.0 mg/dL Normal 8.6-10.3 [facility] Comment on above: Performed By: #### B TRACTOR CRANE OPERATOR #### [address] Chloride [Moles/Vol] 102 mmol/L Normal 98-107 [facility] Comment on above: Performed By: #### B TRACTOR CRANE OPERATOR #### [address] CO2 [Moles/Vol] 21.4 mmol/L Normal 21.0-31.0 [facility] Comment on above: Performed By: #### B TRACTOR CRANE OPERATOR #### [address] Creatinine [Mass/Vol] 1.19 mg/dL Normal 0.70-1.30 [facility] Comment on above: Performed By: #### B TRACTOR CRANE OPERATOR #### [address] Creatinine Clr Calc Pharmacy 77.05 Normal [facility] Comment on above: Result Comment: PERF ORMED BY: [place] [address] PATHOLOGIST CELLULAR TOWER CLIMBER RANDI SANTOS M.D. Performed By: #### B TRACTOR CRANE OPERATOR #### [place] [address] [place] GFR/1.73 sq M.predicted MDRD (S/P/Bld) [Vol rate/Area] mL/min/{1.73_m2} Normal [facility] Comment on above: Performed By: #### B TRACTOR CRANE OPERATOR #### [address] Glucose [Mass/Vol] 109 mg/dL High 70-100 [facility] Comment on above: Result Comment: [place] Glucose Reference Range is dependent on time and content of last meal. Glucose of more than 200 mg/dL in a nonstressed, ambulatory subject supports the diagnosis of Diabetes Mellitus. ADA recommended reference range Performed By: #### B TRACTOR CRANE OPERATOR #### [place] [address] [place] Potassium [Moles/Vol] 3.9 mmol/L Normal 3.5-5.1 [facility] Comment on above: Performed By: #### B TRACTOR CRANE OPERATOR #### [address] Sodium [Moles/Vol] 137 mmol/L Normal 136-145 [facility] Comment on above: Performed By: #### B TRACTOR CRANE OPERATOR #### [address] [address] Urea nitrogen [Mass/Vol] 29 mg/dL High 7-25 [facility] Comment on above: Performed By: #### B TRACTOR CRANE OPERATOR #### [address] Blood Cultureon 01-21-2024 Bacteria identified Cx Nom (Bld) NO GROWTH 5 DAYS PERFORMED BY: [place] [address] PATHOLOGIST CELLULAR TOWER CLIMBER RANDI SANTOS M.D. Normal [facility] Comment on above: Performed By: #### B TRACTOR CRANE OPERATOR #### [address] Bacteria identified Cx Nom (Bld) NO GROWTH 5 DAYS PERFORMED BY: [place] [address] PATHOLOGIST CELLULAR TOWER CLIMBER RANDI SANTOS M.D. Normal [facility] Comment on above: Performed By: #### B TRACTOR CRANE OPERATOR #### [address] Complete Blood Count Auto Di ffon 01-21-2024 Mean Corpuscular HGB Conc 33.6 g/dL Normal 32.5-35.6 [facility] Comment on above: Performed By: #### B TRACTOR CRANE OPERATOR #### [address] NRBC% 0.2 /100{WBC} Normal 0-0.5 [facility] Comment on above: Performed By: #### B TRACTOR CRANE OPERATOR #### [address] ECG 12 lead ECGon 01-21-2024 ECG 12 lead ECG [facility] Main [place] [id number] Electrocardiograph Report Signed Patient: Larry Mcfarlane MR#: [id number] : 1960 Acct:[id number] Age/Sex: 63 / M ADM Date: 01/18/24 Loc: 4N Room: [address] [place] [address] Type: ADM IN Attending Dr: Karlos Mauricio MD Ordering Provider: Maikel Palacio, DO Date of Service: 01/21/2404/08/500 ECG/ECG 12 [...] Strong MD 0 01/21/24 1144 Normal [facility] ECH echo transthoracicon ECH echo transthoracic [facility] Main [place] [id number] Echocardiogram Signed Patient: Larry Mcfarlane MR#: [id number] : 1960 Acct:[id number] Age/Sex: 63 / M ADM Date: 01/18/24 Loc: 4N Room: [address] [place] [address] Type: ADM IN Attending Dr: Karlos Mauricio MD Ordering Provider: Maikel Palacio, DO Date of Service: 01/20/2403/09/500 ECH/ECH echo transthoracic: new-afib Copies to: Darrin Vazquez MD, [facility] Maikel BraymelissaDO Height: 70 in Weight: 225 lb Performed [...] 01/21/24 1157 Signed By: Darrin Vazquez MD, [facility] 01/21/24 1434 Normal [facility] Erythrocyte distribution wid th [Ratio] by Automated countOrdered By: Maikel Palacio on 01-21-2024 Erythrocyte distribution width (RBC) [Ratio] 14.1 % Normal 12.0-14.[address] [facility] Comment on above: Performed By: #### B TRACTOR CRANE OPERATOR #### [address] Erythrocytes [#/volume] in B lood by Automated countOrdered By: Maikel Palacio on 01-21-2024 RBC (Bld) [#/Vol] 6.11 10*6/uL High 3.90-5.60 [facility] Comment on above: Performed By: #### B TRACTOR CRANE OPERATOR #### [address] Hematocrit [Volume Fraction] of Blood by Automated countOrdered By: Maikel Palacio on 01-21-2024 Hematocrit (Bld) [Volume fraction] 46.9 % Normal 38.8-50.[address] [facility] Comment on above: Performed By: #### B TRACTOR CRANE OPERATOR #### [address] Hemoglobin [Mass/volume] in BloodOrdered By: Maikel Palacio on 01-21-2024 Hemoglobin (Bld) [Mass/Vol] 15.7 g/dL Normal 13.0-17.[address] [facility] Comment on above: Performed By: #### B TRACTOR CRANE OPERATOR #### [address] Leukocytes [#/volume] correc carmina for nucleated erythrocytes in Blood by Automated counOrdered By: Maikel Palacio on 01-21-2024 WBC corrected for nucl RBC Auto (Bld) [#/Vol] 5.1 10*3/uL 4.1-10.[address] [facility] Leukocytes [#/volume] in Blo od by Automated countOrdered By: Maikel Palacio on 01-21-2024 WBC (Bld) [#/Vol] 5.1 10*3/uL Normal 4.1-10.5 [facility] Comment on above: Performed By: #### B TRACTOR CRANE OPERATOR #### [address] Lymphocytes [#/volume] in Bl ood by Automated countOrdered By: Maikel Palacio on 01-21-2024 Lymphocytes (Bld) [#/Vol] 1.2 10*3/uL Normal 1.00-4.[address] [facility] Comment on above: Performed By: #### B TRACTOR CRANE OPERATOR #### [address] Lymphocytes/100 leukocytes i n Blood by Automated countOrdered By: Maikel Palacio on 01-21-2024 Lymphocytes/100 WBC (Bld) 23.8 % Normal . [facility] Comment on above: Performed By: #### B TRACTOR CRANE OPERATOR #### [address] MCH [Entitic mass] by Automa carmina countOrdered By: Maikel Palacio on 01-21-2024 MCH (RBC) [Entitic mass] 25.7 pg Low 27.5-35.[address] [facility] Comment on above: Performed By: #### B TRACTOR CRANE OPERATOR #### [address] MCHC Auto (RBC) [Mass/Vol]Or dered By: Maikel Palacio on 01-21-2024 MCHC (RBC) [Mass/Vol] 33.6 g/dL 32.5-35.6 [facility] MCV [Entitic volume] by Auto mated countOrdered By: Maikel Palacio on 01-21-2024 MCV (RBC) [Entitic vol] 76.7 fL Low 83.5-101 F [facility] Comment on above: Performed By: #### B TRACTOR CRANE OPERATOR #### [address] Neutrophils [#/volume] in Bl ood by Automated countOrdered By: Maikel Palacio on 01-21-2024 Neutrophils (Bld) [#/Vol] 2.6 10*3/uL Normal 1.8-7.[address] [facility] Comment on above: Performed By: #### B TRACTOR CRANE OPERATOR #### [address] Nucleated erythrocytes [Pres ence] in Blood by Automated countOrdered By: Maikel Palacio on 01-21-2024 Nucleated RBC Auto Ql (Bld) 0.2 /100{WBC} 0-0.[address] [facility] Platelet mean volume [Entiti c volume] in Blood by Automated countOrdered By: Maikel Palacio on 01-21-2024 Platelet mean volume (Bld) [Entitic vol] 8.0 fL Normal 6.6-10.[address] [facility] Comment on above: Performed By: #### B TRACTOR CRANE OPERATOR #### [address] Platelets [#/volume] in Bloo d by Automated countOrdered By: Maikel Palacio on 01-21-2024 Platelets (Bld) [#/Vol] 140 10*3/uL Low 150-[address] [facility] Comment on above: Performed By: #### B TRACTOR CRANE OPERATOR #### [address] Basic Metabolic Panelon 05 Anion gap [Moles/Vol] 10.6 mmol/L Normal 6.0-15.0 [facility] Comment on above: Performed By: #### B TRACTOR CRANE OPERATOR #### [address] Calcium [Mass/Vol] 8.8 mg/dL Normal 8.6-10.3 [facility] Comment on above: Performed By: #### B TRACTOR CRANE OPERATOR #### [address] Chloride [Moles/Vol] 101 mmol/L Normal 98-107 [facility] Comment on above: Performed By: #### B TRACTOR CRANE OPERATOR #### [address] CO2 [Moles/Vol] 26.7 mmol/L Normal 21.0-31.0 [facility] Comment on above: Performed By: #### B TRACTOR CRANE OPERATOR #### [facility] [address] Creatinine [Mass/Vol] 1.23 mg/dL Normal 0.70-1.30 [facility] Comment on above: Performed By: #### B TRACTOR CRANE OPERATOR #### [facility] [address] [place] [address] [place] Creatinine Clr Calc Pharmacy 73.74 Normal [facility] Comment on above: Performed By: #### B TRACTOR CRANE OPERATOR #### [place] [address] [place] GFR/1.73 sq M.predicted MDRD (S/P/Bld) [Vol rate/Area] mL/min/{1.73_m2} Normal [facility] Comment on above: Performed By: #### B TRACTOR CRANE OPERATOR #### [address] Glucose [Mass/Vol] 107 mg/dL High 70-100 [facility] Comment on above: Result Comment: [facility] Glucose Reference Range is dependent on time and content of last meal. Glucose of more than 200 mg/dL in a nonstressed, ambulatory subject supports the diagnosis of Diabetes Mellitus. ADA recommended reference range Performed By: #### B TRACTOR CRANE OPERATOR #### [address] Potassium [Moles/Vol] 4.3 mmol/L Normal 3.5-5.1 [facility] Comment on above: Performed By: #### B TRACTOR CRANE OPERATOR #### [facility] [address] [place] [address] [place] Sodium [Moles/Vol] 134 mmol/L Low 136-145 [facility] Comment on above: Performed By: #### B TRACTOR CRANE OPERATOR #### [address] Urea nitrogen [Mass/Vol] 18 mg/dL Normal 7-25 [facility] Comment on above: Performed By: #### B TRACTOR CRANE OPERATOR #### [facility] [address] [place] [address] [facility] CT angio chest PE protocolon 01-20-2024 CT angio chest PE protocol [facility] Main [place] [address] [place] [id number] [address] Scan Report Signed Patient: Larry Mcfarlane MR#: [id number] : 1960 Acct:[id number] Age/Sex: 63 / M ADM Date: 01/18/24 Loc: Room: [address] [place] [address] Type: ADM IN Attending Dr: Karlos Mauricio [...] Nazario Vance M.D.01/20/2024 10:55 AM Dictation Location: [place] [address] Transcribed By: [facility] 01/20/24 1055 Dictated By: Nazario Vance DO 01/20/24 1040 Signed By: 01/20/24 1055 Normal [facility] Complete Blood Count Auto Di ffon 01-20-2024 Basophils (Bld) [#/Vol] 0.0 10*3/uL Normal 0.0-0.2 [facility] Comment on above: Result Comment: PERF ORMED BY: [place] [address] PATHOLOGIST CELLULAR TOWER CLIMBER RANDI SANTOS M.D. Performed By: #### B TRACTOR CRANE OPERATOR #### [address] Basophils/100 WBC (Bld) 0.7 % Normal . [facility] Comment on above: Performed By: #### B TRACTOR CRANE OPERATOR #### [address] Eosinophils (Bld) [#/Vol] 0.1 10*3/uL Normal 0.0-0.45 [facility] Comment on above: Performed By: #### B TRACTOR CRANE OPERATOR #### [address] Eosinophils/100 WBC (Bld) 2.0 % Normal . [facility] Comment on above: Performed By: #### B TRACTOR CRANE OPERATOR #### [address] Erythrocyte distribution width (RBC) [Ratio] 13.8 % Normal 12.0-14.8 [facility] Comment on above: Performed By: #### B TRACTOR CRANE OPERATOR #### [address] Hematocrit (Bld) [Volume fraction] 42.2 % Normal 38.8-50.0 [facility] Comment on above: Performed By: #### B TRACTOR CRANE OPERATOR #### [address] Hemoglobin (Bld) [Mass/Vol] 14.2 g/dL Normal 13.0-17.0 [facility] Comment on above: Performed By: #### B TRACTOR CRANE OPERATOR #### [address] Lymphocytes (Bld) [#/Vol] 0.7 10*3/uL Low 1.00-4.8 [facility] Comment on above: Performed By: #### B TRACTOR CRANE OPERATOR #### [address] Lymphocytes/100 WBC (Bld) 13.7 % Normal . [facility] Comment on above: Performed By: #### B TRACTOR CRANE OPERATOR #### [address] MCH (RBC) [Entitic mass] 26.0 pg Low 27.5-35.2 [facility] Comment on above: Performed By: #### B TRACTOR CRANE OPERATOR #### [address] MCV (RBC) [Entitic vol] 77.0 fL Low 83.5-101 [facility] Comment on above: Performed By: #### B TRACTOR CRANE OPERATOR #### [address] Mean Corpuscular HGB Conc 33.8 g/dL Normal 32.5-35.6 [facility] Comment on above: Performed By: #### B TRACTOR CRANE OPERATOR #### [address] Monocytes (Bld) [#/Vol] 0.5 10*3/uL Normal 0.0-0.8 [facility] Comment on above: Performed By: #### B TRACTOR CRANE OPERATOR #### [address] Monocytes/100 WBC (Bld) 11.3 % Normal . [facility] Comment on above: Performed By: #### B TRACTOR CRANE OPERATOR #### [address] Neutrophils (Bld) [#/Vol] 3.5 10*3/uL Normal 1.8-7.7 [facility] Comment on above: Performed By: #### B TRACTOR CRANE OPERATOR #### [address] Neutrophils/100 WBC (Bld) 72.3 % Normal . [facility] Comment on above: Performed By: #### B TRACTOR CRANE OPERATOR #### [address] NRBC% 0.1 /100{WBC} Normal 0-0.5 [facility] Comment on above: Performed By: #### B TRACTOR CRANE OPERATOR #### [address] Platelet mean volume (Bld) [Entitic vol] 7.7 fL Normal 6.6-10.1 [facility] Comment on above: Performed By: #### B TRACTOR CRANE OPERATOR #### [address] Platelets (Bld) [#/Vol] 150 10*3/uL Normal 150-450 [facility] Comment on above: Performed By: #### B TRACTOR CRANE OPERATOR #### [address] RBC (Bld) [#/Vol] 5.47 10*6/uL Normal 3.90-5.60 [facility] Comment on above: Performed By: #### B TRACTOR CRANE OPERATOR #### [address] WBC (Bld) [#/Vol] 4.8 10*3/uL Normal 4.1-10.5 [facility] Comment on above: Performed By: #### B TRACTOR CRANE OPERATOR #### [address] ECG 12 lead ECGon 01-20-2024 ECG 12 lead ECG [facility] Main [place] [address] [place] [address] Electrocardiograph Report Signed Patient: Larry Mcfarlane MR#: [id number] : 1960 Acct:[id number] Age/Sex: 63 / M ADM Date: 01/18/24 Loc: Room: [address] [place] [address] Type: ADM IN Attending Dr: Karlos Mauricio [...] Strong MD 0 01/20/24 1546 Normal [facility] Magnesium [Mass/volume] in S katelyn or PlasmaOrdered By: Maikel Palacio on 01-20-2024 Magnesium [Mass/Vol] 1.9 mg/dL Normal 1.9-2.7 [facility] Comment on above: Result Comment: PERF ORMED BY: [place] [address] PATHOLOGIST CELLULAR TOWER CLIMBER RANDI SANTOS M.D. Performed By: #### B TRACTOR CRANE OPERATOR #### [address] XR chest 1V portableon 01-19 XR chest 1V portable [place] [address] XRay Report Signed Patient: Larry Mcfarlane MR#: [id number] : 1960 Acct:[id number] Age/Sex: 63 / M ADM Date: 01/18/24 Loc: Room: [address] [place] [address] Type: ADM IN Attending Dr: Karlos Mauricio [...] Nazario Vance M.D.01/20/2024 8:42 AM Dictation Location: [facility]12 Transcribed By: [facility] 01/20/24 0842 Dictated By: Nazario Vance DO 01/20/24 0839 Signed By: 01/20/24 0842 Normal [facility] BNP ser/plasOrdered By: Florencio Palacio on 01-19-2024 Natriuretic peptide B (Bld) [Mass/Vol] 116.0 pg/mL High 5-[address] [facility] Comment on above: Result Comment: PERF ORMED BY: [place] [address] PATHOLOGIST CELLULAR TOWER CLIMBER RANDI SANTOS M.D. Performed By: #### B TRACTOR CRANE OPERATOR #### [address] Basic Metabolic Panelon 05-0 Anion gap [Moles/Vol] 9.7 mmol/L Normal 6.0-15.0 [facility] Comment on above: Performed By: #### T SH3, [id number], MG, BMP #### [facility] [address] [place] [address] [place] Calcium [Mass/Vol] 8.2 mg/dL Low 8.6-10.3 [facility] Comment on above: Performed By: #### T SH3, [id number], MG, BMP #### [facility] [address] [place] [address] [place] Chloride [Moles/Vol] 104 mmol/L Normal 98-107 [facility] Comment on above: Performed By: #### T SH3, [id number], MG, BMP #### [address] CO2 [Moles/Vol] 20.4 mmol/L Low 21.0-31.0 [facility] Comment on above: Performed By: #### T SH3, [id number], MG, BMP #### [address] Creatinine [Mass/Vol] 1.21 mg/dL Normal 0.70-1.30 [facility] Comment on above: Performed By: #### T SH3, [id number], MG, BMP #### [address] Creatinine Clr Calc Pharmacy 74.96 Normal [facility] Comment on above: Performed By: #### T SH3, [id number], MG, BMP #### [address] GFR/1.73 sq M.predicted MDRD (S/P/Bld) [Vol rate/Area] mL/min/{1.73_m2} Normal [facility] Comment on above: Performed By: #### T SH3, [id number], MG, BMP #### [address] Glucose [Mass/Vol] 115 mg/dL High 70-100 [facility] Comment on above: Result Comment: [place] Glucose Reference Range is dependent on time and content of last meal. Glucose of more than 200 mg/dL in a nonstressed, ambulatory subject supports the diagnosis of Diabetes Mellitus. ADA recommended reference range Performed By: #### T SH3, [id number], MG, BMP #### [address] Potassium [Moles/Vol] 4.1 mmol/L Normal 3.5-5.1 [facility] Comment on above: Performed By: #### T SH3, [id number], MG, BMP #### [address] [place] [address] [place] Sodium [Moles/Vol] 130 mmol/L Low 136-145 [facility] Comment on above: Performed By: #### T SH3, [id number], MG, BMP #### [address] Urea nitrogen [Mass/Vol] 20 mg/dL Normal 7-25 [facility] Comment on above: Performed By: #### T SH3, [id number], MG, BMP #### [address] Anion gap [Moles/Vol] 5.7 mmol/L Low 6.0-15.0 [facility] Comment on above: Performed By: #### T SH3, [id number], MG, BMP #### [address] Calcium [Mass/Vol] 8.5 mg/dL Low 8.6-10.3 [facility] Comment on above: Performed By: #### T SH3, [id number], MG, BMP #### [address] Chloride [Moles/Vol] 105 mmol/L Normal 98-107 [facility] Comment on above: Performed By: #### T SH3, [id number], MG, BMP #### [address] CO2 [Moles/Vol] 25.4 mmol/L Normal 21.0-31.0 [facility] Comment on above: Performed By: #### T SH3, [id number], MG, BMP #### [address] Creatinine [Mass/Vol] 1.31 mg/dL High 0.70-1.30 [facility] Comment on above: Performed By: #### T SH3, [id number], MG, BMP #### [address] Creatinine Clr Calc Pharmacy 69.23 Normal [facility] Comment on above: Result Comment: PERF ORMED BY: [place] [address] PATHOLOGIST CELLULAR TOWER CLIMBER RANDI SANTOS M.D. Performed By: #### T SH3, [id number], MG, BMP #### [place] [address] [place] GFR/1.73 sq M.predicted MDRD (S/P/Bld) [Vol rate/Area] mL/min/{1.73_m2} Normal [facility] Comment on above: Performed By: #### T SH3, [id number], MG, BMP #### [address] Glucose [Mass/Vol] 108 mg/dL High 70-100 [facility] Comment on above: Result Comment: [place] Glucose Reference Range is dependent on time and content of last meal. Glucose of more than 200 mg/dL in a nonstressed, ambulatory subject supports the diagnosis of Diabetes Mellitus. ADA recommended reference range Performed By: #### T SH3, [id number], MG, BMP #### [address] Potassium [Moles/Vol] 4.1 mmol/L Normal 3.5-5.1 [facility] Comment on above: Performed By: #### T SH3, [id number], MG, BMP #### [place] [address] [place] Sodium [Moles/Vol] 132 mmol/L Low 136-145 [facility] Comment on above: Performed By: #### T SH3, [id number], MG, BMP #### [place] [address] [place] Urea nitrogen [Mass/Vol] 20 mg/dL Normal 7-25 [facility] Comment on above: Performed By: #### T SH3, [id number], MG, BMP #### [address] Complete Blood Count Auto Di ffon 05-05-2024 Basophils (Bld) [#/Vol] 0.0 10*3/uL Normal 0.0-0.2 [facility] Comment on above: Result Comment: PERF ORMED BY: [place] [address] PATHOLOGIST CELLULAR TOWER CLIMBER RANID SANTOS M.D. Performed By: #### T SH3, [id number], MG, BMP #### [address] Basophils/100 WBC (Bld) 0.4 % Normal . [facility] Comment on above: Performed By: #### T SH3, [id number], MG, BMP #### [address] Eosinophils (Bld) [#/Vol] 0.0 10*3/uL Normal 0.0-0.45 [facility] Comment on above: Performed By: #### T SH3, [id number], MG, BMP #### [address] Eosinophils/100 WBC (Bld) 0.6 % Normal . [facility] Comment on above: Performed By: #### T SH3, [id number], MG, BMP #### [address] Erythrocyte distribution width (RBC) [Ratio] 13.7 % Normal 12.0-14.8 [facility] Comment on above: Performed By: #### T SH3, [id number], MG, BMP #### [address] Hematocrit (Bld) [Volume fraction] 40.6 % Normal 38.8-50.0 [facility] Comment on above: Performed By: #### T SH3, [id number], MG, BMP #### [address] Hemoglobin (Bld) [Mass/Vol] 13.4 g/dL Normal 13.0-17.0 [facility] Comment on above: Performed By: #### T SH3, [id number], MG, BMP #### [address] Lymphocytes (Bld) [#/Vol] 0.5 10*3/uL Low 1.00-4.8 [facility] Comment on above: Performed By: #### T SH3, [id number], MG, BMP #### [address] Lymphocytes/100 WBC (Bld) 8.7 % Normal . [facility] Comment on above: Performed By: #### T SH3, [id number], MG, BMP #### [address] MCH (RBC) [Entitic mass] 25.9 pg Low 27.5-35.2 [facility] Comment on above: Performed By: #### T SH3, [id number], MG, BMP #### [address] MCV (RBC) [Entitic vol] 78.1 fL Low 83.5-101 [facility] Comment on above: Performed By: #### T SH3, [id number], MG, BMP #### [address] Mean Corpuscular HGB Conc 33.1 g/dL Normal 32.5-35.6 [facility] Comment on above: Performed By: #### T SH3, [id number], MG, BMP #### [address] Monocytes (Bld) [#/Vol] 0.4 10*3/uL Normal 0.0-0.8 [facility] Comment on above: Performed By: #### T SH3, [id number], MG, BMP #### [address] Monocytes/100 WBC (Bld) 7.4 % Normal . [facility] Comment on above: Performed By: #### T SH3, [id number], MG, BMP #### [facility] [address] [place] [address] Neutrophils (Bld) [#/Vol] 4.6 10*3/uL Normal 1.8-7.7 [facility] Comment on above: Performed By: #### T SH3, [id number], MG, BMP #### [address] Neutrophils/100 WBC (Bld) 82.9 % Normal . [facility] Comment on above: Performed By: #### T SH3, [id number], MG, BMP #### [facility] [address] [place] [address] NRBC% 0.1 /100{WBC} Normal 0-0.5 [facility] Comment on above: Performed By: #### T SH3, [id number], MG, BMP #### [address] Platelet mean volume (Bld) [Entitic vol] 7.4 fL Normal 6.6-10.1 [facility] Comment on above: Performed By: #### T SH3, [id number], MG, BMP #### [place] [address] [place] Platelets (Bld) [#/Vol] 112 10*3/uL Signific ant change down 150-450 [facility] Comment on above: Performed By: #### T SH3, [id number], MG, BMP #### [address] RBC (Bld) [#/Vol] 5.20 10*6/uL Normal 3.90-5.60 [facility] Comment on above: Performed By: #### T SH3, [id number], MG, BMP #### [address] WBC (Bld) [#/Vol] 5.6 10*3/uL Normal 4.1-10.5 [facility] Comment on above: Performed By: #### T SH3, [id number], MG, BMP #### [facility] [address] [place] [id number] [facility] ECG 12 lead ECGon 01-19-2024 ECG 12 lead ECG [facility] Main [place] [address] [place] [address] Electrocardiograph Report Signed Patient: Larry Mcfarlane MR#: [id number] : 1960 Acct:[id number] Age/Sex: 63 / M ADM Date: 01/18/24 Loc: Room: [address] [place] [address] Type: ADM IN Attending Dr: Karlos Mauricio [...] Strong MD 0 01/20/24 1546 Normal [facility] Folate [Mass/volume] in Seru m or PlasmaOrdered By: Maikel Palacio on 01-19-2024 Folate [Mass/Vol] 8.6 ng/mL >5.9 [facility] Comment on above: Folate reference ran ge: >5.9 ng/mlThe WHO technical consultation on folate and vitamin [id number] has determined that folate concentrations lessthan 4 ng/ml are considered deficient. Magnesiumon 01-19-2024 Magnesium [Mass/Vol] 1.8 mg/dL Low 1.9-2.7 [facility] Comment on above: Performed By: #### T SH3, [id number], MG, BMP #### [address] Thyrotropin [Units/volume] i n Serum or PlasmaOrdered By: Maikel Palacio on 01-19-2024 TSH Qn 1.97 m[IU]/L Normal 0.45-5.[address] [facility] Comment on above: Result Comment: PERF ORMED BY: [place] [address] PATHOLOGIST CELLULAR [employer]OWER CLIMBER RANDI SANTOS M.D. Performed By: #### T SH3, [id number], MG, BMP #### [address] Vit. B12/Folate Profileon Folate 8.6 ng/mL Normal >5.9 [facility] Comment on above: Result Comment: Crystal te reference range: >5.9 ng/ml The WHO technical consultation on folate and vitamin b12 deficiencies has determined that folate concentrations less than 4 ng/ml are considered deficient. Performed By: #### T SH3, [id number], MG, BMP #### [address] Vitamin B12 ser/plasOrdered By: Maikel Palacio on 01-19-2024 Cobalamin (Vitamin B12) [Mass/Vol] 177 pg/mL Low 180-[address] [facility] Comment on above: Performed By: #### T SH3, [id number], MG, BMP #### [address] Automated basophil %Ordered By: Maikel Palacio on 01-18-2024 Basophils/100 WBC (Bld) 0.4 % Normal . [facility] Comment on above: Performed By: #### M G, URIC, BMP, CBC #### [address] Automated basophil countOrde red By: Maikel Palacio on 01-18-2024 Basophils (Bld) [#/Vol] 0.1 10*3/uL Normal 0.0-0.[address] [facility] Comment on above: Result Comment: PERF ORMED BY: [place] [address] PATHOLOGIST CELLULAR [employer]OWER [employer]IMBER RANDI SANTOS M.D. Performed By: #### M G, URIC, BMP, CBC #### [facility] [address] [place] [address] Automated blood monocyte cou ntOrdered By: Maikel Palacio on 01-18-2024 Monocytes (Bld) [#/Vol] 0.7 10*3/uL Normal 0.0-0.[address] [facility] Comment on above: Performed By: #### M G, URIC, BMP, CBC #### [address] Automated eosinophil %Ordere d By: Maikel Palacio on 01-18-2024 Eosinophils/100 WBC (Bld) 0.3 % Normal . [facility] Comment on above: Performed By: #### M G, URIC, BMP, CBC #### [facility] [address] [place] [address] Automated eosinophil countOr dered By: Maikel Palacio on 01-18-2024 Eosinophils (Bld) [#/Vol] 0.0 10*3/uL Normal 0.0-0.[address] [facility] Comment on above: Performed By: #### M G, URIC, BMP, CBC #### [facility] [address] [place] [address] Automated monocyte %Ordered By: Maikel Palacio on 01-18-2024 Monocytes/100 WBC (Bld) 5.6 % Normal . [facility] Comment on above: Performed By: #### M G, URIC, BMP, CBC #### [facility] [address] [place] [address] Automated neutrophil %Ordere d By: Maikel Palacio on 01-18-2024 Neutrophils/100 WBC (Bld) 88.0 % Normal . [facility] Comment on above: Performed By: #### M G, URIC, BMP, CBC #### [facility] [address] Basic Metabolic Panelon 050 Creatinine Clr Calc Pharmacy 78.18 Normal [facility] Comment on above: Performed By: #### M G, URIC, BMP, CBC #### [facility] [address] GFR/1.73 sq M.predicted MDRD (S/P/Bld) [Vol rate/Area] mL/min/{1.73_m2} Normal [facility] Comment on above: Performed By: #### M G, URIC, BMP, CBC #### [facility] [address] abdomen pelvis w conon CT abdomen pelvis w con [facility] Main [place] [address] [place] [address] CT Scan Report Signed Patient: Larry Mcfarlane MR#: [id number] : 1960 Acct:[id number] Age/Sex: 63 / M ADM Date: 01/18/24 Loc: Room: [address] [place] [address] Type: ADM IN Attending Dr: Bhupinder Mcrae MD Copies to: MD Nsétor Boyle Jr, MD Ordering Provider: Néstor Dai [...] Lucinda Smart M.D.01/18/2024 9:55 AM Dictation Location: [place] [address] Transcribed By: SMILEY 01/18/24 0955 Dictated By: Lucinda Smart MD 01/18/24 0949 Signed By: 01/18/24 0955 Normal [facility] Calcium [Mass/volume] in Ser um or PlasmaOrdered By: Maikel Palacio on 01-18-2024 Calcium [Mass/Vol] 8.9 mg/dL Normal 8.6-10.3 [facility] Comment on above: Performed By: #### M G, URIC, BMP, CBC #### [address] Carbon dioxide, total [Moles /volume] in Serum or PlasmaOrdered By: Maikel Palacio on 01-18-2024 CO2 [Moles/Vol] 22.7 mmol/L Normal 21.0-31.0 [facility] Comment on above: Performed By: #### M G, URIC, BMP, CBC #### [address] Chloride [Moles/volume] in S katelyn or PlasmaOrdered By: Maikel Palacio on 01-18-2024 Chloride [Moles/Vol] 104 mmol/L Normal 98-107 [facility] Comment on above: Performed By: #### M G, URIC, BMP, CBC #### [address] Complete Blood Count Auto Di ffon 01-18-2024 Mean Corpuscular HGB Conc 33.5 g/dL Normal 32.5-35.6 [facility] Comment on above: Performed By: #### M G, URIC, BMP, CBC #### [address] NRBC% 0.0 /100{WBC} Normal 0-0.5 [facility] Comment on above: Performed By: #### M G, URIC, BMP, CBC #### [address] Creatinine [Mass/volume] in Serum or PlasmaOrdered By: Maikel Palacio on 01-18-2024 Creatinine [Mass/Vol] 1.16 mg/dL Normal 0.70-1.30 [facility] Comment on above: Performed By: #### M G, URIC, BMP, CBC #### [address] Erythrocyte distribution wid th [Ratio] by Automated countOrdered By: Maikel Palacio on 01-18-2024 Erythrocyte distribution width (RBC) [Ratio] 13.7 % Normal 12.0-14.[address] [facility] Comment on above: Performed By: #### M G, URIC, BMP, CBC #### [facility] [address] [place] [address] [place] Erythrocytes [#/volume] in B lood by Automated countOrdered By: Maikel Palacio on 01-18-2024 RBC (Bld) [#/Vol] 5.45 10*6/uL Normal 3.90-5.60 [facility] Comment on above: Performed By: #### M G, URIC, BMP, CBC #### [facility] [address] [place] [id number] [place] Glucose [Mass/volume] in Ser um or PlasmaOrdered By: Maikel Palacio on 01-18-2024 Glucose [Mass/Vol] 105 mg/dL High 70-100 [facility] Comment on above: ADA recommended refe rence rangeRandom Glucose Reference Range is dependent on time and content of last meal. Glucose of more than 200 mg/dL in a nonstressed, ambulatory subject supports the diagnosis of Diabetes Mellitus. Result Comment: [place] om Glucose Reference Range is dependent on time and content of last meal. Glucose of more than 200 mg/dL in a nonstressed, ambulatory subject supports the diagnosis of Diabetes Mellitus. ADA recommended reference range Performed By: #### M G, URIC, BMP, CBC #### [facility] [address] [place] [address] [place] Hematocrit [Volume Fraction] of Blood by Automated countOrdered By: Maikel Palacio on 01-18-2024 Hematocrit (Bld) [Volume fraction] 41.8 % Normal 38.8-50.[address] [facility] Comment on above: Performed By: #### M G, URIC, BMP, CBC #### [facility] [address] [place] [id number] [place] Hemoglobin [Mass/volume] in BloodOrdered By: Maikel Palacio on 01-18-2024 Hemoglobin (Bld) [Mass/Vol] 14.0 g/dL Normal 13.0-17.[address] [facility] Comment on above: Performed By: #### M G, URIC, BMP, CBC #### [facility] [address] [place] [address] [place] Lactate [Moles/volume] in Se rum or PlasmaOrdered By: Maikel Palacio on 01-18-2024 Lactate [Moles/Vol] 1.2 mmol/L Normal 0.5-2.2 [facility] Comment on above: Result Comment: PERF ORMED BY: [place] [address] PATHOLOGIST CELLULAR [employer]IMBER RANDI SANTOS M.D. Performed By: #### L ACTIC #### [facility] [address] [place] [address] Leukocytes [#/volume] correc carmina for nucleated erythrocytes in Blood by Automated counOrdered By: Maikel Palacio on 01-18-2024 WBC corrected for nucl RBC Auto (Bld) [#/Vol] 13.5 10*3/uL 4.1-10.[address] [facility] Leukocytes [#/volume] in Blo od by Automated countOrdered By: Maikel Palacio on 01-18-2024 WBC (Bld) [#/Vol] 13.5 10*3/uL High 4.1-10.5 [facility] Comment on above: Performed By: #### M G, URIC, BMP, CBC #### [facility] [address] [place] [address] [place] Lymphocytes [#/volume] in Bl ood by Automated countOrdered By: Maikel Palacio on 01-18-2024 Lymphocytes (Bld) [#/Vol] 0.8 10*3/uL Low 1.00-4.[address] [facility] Comment on above: Performed By: #### M G, URIC, BMP, CBC #### [facility] [address] [place] [address] [place] Lymphocytes/100 leukocytes i n Blood by Automated countOrdered By: Maikel Palacio on 01-18-2024 Lymphocytes/100 WBC (Bld) 5.7 % Normal . [facility] Comment on above: Performed By: #### M G, URIC, BMP, CBC #### [facility] [address] [place] [address] [place] MCH [Entitic mass] by Automa carmina countOrdered By: Maikel Palacio on 01-18-2024 MCH (RBC) [Entitic mass] 25.7 pg Low 27.5-35.[address] [facility] Comment on above: Performed By: #### M G, URIC, BMP, CBC #### [address] MCHC Auto (RBC) [Mass/Vol]Or dered By: Maikel Palacio on 01-18-2024 MCHC (RBC) [Mass/Vol] 33.5 g/dL 32.5-35.6 [facility] MCV [Entitic volume] by Auto mated countOrdered By: Maikel Palacio on 01-18-2024 MCV (RBC) [Entitic vol] 76.8 fL Low 83.5-101 F [facility] Comment on above: Performed By: #### M G, URIC, BMP, CBC #### [facility] [address] [place] [address] Magnesium [Mass/volume] in S katelyn or PlasmaOrdered By: Maikel Palacio on 01-18-2024 Magnesium [Mass/Vol] 1.7 mg/dL Low 1.9-2.7 [facility] Comment on above: Performed By: #### M G, URIC, BMP, CBC #### [facility] [address] [place] [address] Neutrophils [#/volume] in Bl ood by Automated countOrdered By: Maikel Palacio on 01-18-2024 Neutrophils (Bld) [#/Vol] 11.9 10*3/uL High 1.8-7.[address] [facility] Comment on above: Performed By: #### M G, URIC, BMP, CBC #### [facility] [address] [place] [address] No Panel InformationOrdered By: Maikel Palacio on 01-18-2024 Estimated GFR (CKD-EPI) > 60.0 mL/Min [facility] Creatinine Clearance (Chem 78.[address] [facility] Nucleated erythrocytes [Pres ence] in Blood by Automated countOrdered By: Maikel Palacio on 01-18-2024 Nucleated RBC Auto Ql (Bld) 0.0 /100{WBC} 0-0.[address] [facility] Platelet mean volume [Entiti c volume] in Blood by Automated countOrdered By: Maikel Palacio on 01-18-2024 Platelet mean volume (Bld) [Entitic vol] 7.2 fL Normal 6.6-10.[address] [facility] Comment on above: Performed By: #### M G, URIC, BMP, CBC #### [facility] [address] Platelets [#/volume] in Bloo d by Automated countOrdered By: Maikel Palacio on 01-18-2024 Platelets (Bld) [#/Vol] 168 10*3/uL Normal 150-[address] [facility] Comment on above: Performed By: #### M G, URIC, BMP, CBC #### [facility] [address] [place] [address] [place] Potassium [Moles/volume] in Serum or PlasmaOrdered By: Maikel Palacio on 01-18-2024 Potassium [Moles/Vol] 4.2 mmol/L Normal 3.5-5.1 [facility] Comment on above: Performed By: #### M G, URIC, BMP, CBC #### [facility] [address] [place] [address] Serum or plasma anion gap de terminationOrdered By: Maikel Palacio on 01-18-2024 Anion gap [Moles/Vol] 12.5 mmol/L Normal 6.0-15.0 [facility] Comment on above: Performed By: #### M G, URIC, BMP, CBC #### [facility] [address] [place] [address] [place] Sodium [Moles/volume] in Ser um or PlasmaOrdered By: Maikel Palacio on 01-18-2024 Sodium [Moles/Vol] 135 mmol/L Low 136-145 [facility] Comment on above: Performed By: #### M G, URIC, BMP, CBC #### [facility] [address] [place] [address] Urate [Mass/volume] in Serum or PlasmaOrdered By: Maikel Palacio on 01-18-2024 Urate [Mass/Vol] 9.0 mg/dL High 4.4-7.6 [facility] Comment on above: Result Comment: PERF ORMED BY: [place] [address] PATHOLOGIST CELLULAR [employer]OWER CLIMBER RANDI SANTOS M.D. Performed By: #### M G, URIC, BMP, CBC #### [facility] [address] [place] [address] Urea nitrogen [Mass/volume] in Serum or PlasmaOrdered By: Maikel Palacio on 01-18-2024 Urea nitrogen [Mass/Vol] 17 mg/dL Normal 7-[address] [facility] Comment on above: Performed By: #### M G, URIC, BMP, CBC #### [place] [id number] [facility] XR chest 1V portableon 01-17 XR chest 1V portable [facility] Main [place] [address] [place] [address] XRay Report Signed Patient: Larry Mcfarlane MR#: [id number] : 1960 Acct:[id number] Age/Sex: 63 / M ADM Date: 01/18/24 Loc: Room: [address] [place] [address] Type: ADM IN Attending Dr: Bhupinder Mcrae [...] Lucinda Smart M.D.01/18/2024 9:38 AM Dictation Location: [place] [address] Transcribed By: SMILEY 01/18/24937 Dictated By: Lucinda Smart MD 01/18/2437 Signed By: 01/18/24937 Normal [facility] Alanine aminotransferase [En zymatic activity/volume] in Serum or PlasmaOrdered By: Néstor Dai on 01-17-2024 ALT [Catalytic activity/Vol] 13 U/L Normal 7-[address] [facility] Comment on above: Performed By: #### T SH3, [id number], MG, BMP #### [facility] [address] [place] [address] [place] Albumin [Mass/volume] in Ser um or Plasma by Bromocresol green (BCG) dye binding methoOrdered By: Néstor Dai on 01-17-2024 Albumin BCG dye [Mass/Vol] 4.7 g/dL 3.5-5.[address] [facility] Alkaline phosphatase [Enzyma tic activity/volume] in Serum or PlasmaOrdered By: Néstor Dai on 01-17-2024 ALP [Catalytic activity/Vol] 62 U/L Normal 34-[address] [facility] Comment on above: Performed By: #### T SH3, [id number], MG, BMP #### [facility] [address] [place] [address] [place] Aspartate aminotransferase [ Enzymatic activity/volume] in Serum or PlasmaOrdered By: Néstor Dai on 01-17-2024 AST [Catalytic activity/Vol] 14 U/L Normal 13-[address] [facility] Comment on above: Performed By: #### T SH3, [id number], MG, BMP #### [facility] [address] [place] [address] [place] Automated erythrocytes count in urine sediment (number/area)Ordered By: Néstor Dai on 01-17-2024 RBC Auto (Urine sed) [#/Area] Innumerable [HPF] 0-[address] [facility] Automated leukocytes count i n urine sediment (number/area)Ordered By: Néstor Dai on 01-17-2024 WBC Auto (Urine sed) [#/Area] 50-100 [HPF] 0-[address] [facility] Automated urine color determ inationOrdered By: Néstor Dai on 01-17-2024 Color (U) [place] Critically abnormal Yellow [facility] Comment on above: Order Comment: Name Collection Type:: Voided Performed By: #### T SH3, [id number], MG, BMP #### [facility] [address] Bacterial blood cultureOrder ed By: Néstor Dai on 01-17-2024 Bacteria identified Cx Nom (Bld) Escherichia coli [facility] Bilirubin Test strip Ql (U)O rdered By: Néstor Dai on 01-17-2024 Bilirubin Ql (U) Negative Negative [facility] Bilirubin.total [Mass/volume ] in Serum or PlasmaOrdered By: Néstor Dai on 01-17-2024 Bilirubin [Mass/Vol] 2.2 mg/dL High 0.3-1.0 [facility] Comment on above: Samples from patient s [...] Total Bilirubin. Performed By: #### T SH3, [id number], MG, BMP #### [facility] [address] [place] [id number] [facility] Blood Cultureon 01-17-2024 Bacteria identified Cx Nom [...] Not detected Streptococcus pneumoniae - reported at ISP Not detected Proteus sp DNA [Presence] by [...] culture Not detected Group A (Streptococcus pyogenes) [id number] Not detected Group B Strep (Streptococcus agalactiae) [...] Molecular (more content not included)... Normal [facility] Comment on above: Performed By: #### T SH3, [id number], MG, BMP #### [address] Bacteria identified Cx Nom (Bld) [employer] BCID Panel results called at 1346 on 01/18/24 Gram Stain Gram Negative Bacilli ORGANISM: Escherichia coli (O:ESCCOL) Organism Comments For DILIP Refer to Final Report of Blood Culture Collected Date 01/17/24 PERFORMED BY: [place] [address] PATHOLOGIST CELLULAR [employer] CLIMBER RANDI SANTOS M.D. Normal [facility] Comment on above: Performed By: #### T SH3, [id number], MG, BMP #### [address] Complete Blood Count Auto Di ffon 01-17-2024 Basophils (Bld) [#/Vol] 0.0 10*3/uL Normal 0.0-0.2 [facility] Comment on above: Result Comment: PERF ORMED BY: [place] [address] PATHOLOGIST CELLULAR [employer]OWER CLIMBER RANDI SANTOS M.D. Performed By: #### T SH3, [id number], MG, BMP #### [address] Basophils/100 WBC (Bld) 0.3 % Normal . [facility] Comment on above: Performed By: #### T SH3, [id number], MG, BMP #### [address] Eosinophils (Bld) [#/Vol] 0.0 10*3/uL Normal 0.0-0.45 [facility] Comment on above: Performed By: #### T SH3, [id number], MG, BMP #### [address] Eosinophils/100 WBC (Bld) 0.1 % Normal . [facility] Comment on above: Performed By: #### T SH3, [id number], MG, BMP #### [address] Erythrocyte distribution width (RBC) [Ratio] 13.7 % Normal 12.0-14.8 [facility] Comment on above: Performed By: #### T SH3, [id number], MG, BMP #### [address] Hematocrit (Bld) [Volume fraction] 46.8 % Normal 38.8-50.0 [facility] Comment on above: Performed By: #### T SH3, [id number], MG, BMP #### [address] Hemoglobin (Bld) [Mass/Vol] 15.5 g/dL Normal 13.0-17.0 [facility] Comment on above: Performed By: #### T SH3, [id number], MG, BMP #### [address] Lymphocytes (Bld) [#/Vol] 0.6 10*3/uL Low 1.00-4.8 [facility] Comment on above: Performed By: #### T SH3, [id number], MG, BMP #### [address] Lymphocytes/100 WBC (Bld) 3.7 % Normal . [facility] Comment on above: Performed By: #### T SH3, [id number], MG, BMP #### [address] MCH (RBC) [Entitic mass] 25.6 pg Low 27.5-35.2 [facility] Comment on above: Performed By: #### T SH3, [id number], MG, BMP #### [address] MCV (RBC) [Entitic vol] 77.1 fL Low 83.5-101 [facility] Comment on above: Performed By: #### T SH3, [id number], MG, BMP #### [address] Mean Corpuscular HGB Conc 33.2 g/dL Normal 32.5-35.6 [facility] Comment on above: Performed By: #### T SH3, [id number], MG, BMP #### [address] Monocytes (Bld) [#/Vol] 1.2 10*3/uL High 0.0-0.8 [facility] Comment on above: Performed By: #### T SH3, [id number], MG, BMP #### [address] Monocytes/100 WBC (Bld) 25.38 % High 0.00-20.00 [facility] Comment on above: Result Comment: For adults in ED, MDW > 20.0 may be associated with a higher risk of sepsis during the first 12 hrs of hospital admission Performed By: #### T SH3, [id number], MG, BMP #### [address] Monocytes/100 WBC (Bld) 7.7 % Normal . [facility] Comment on above: Performed By: #### T SH3, [id number], MG, BMP #### [place] [address] [place] Neutrophils (Bld) [#/Vol] 13.4 10*3/uL High 1.8-7.7 [facility] Comment on above: Performed By: #### T SH3, [id number], MG, BMP #### [place] [address] [place] Neutrophils/100 WBC (Bld) 88.2 % Normal . [facility] Comment on above: Performed By: #### T SH3, [id number], MG, BMP #### [place] [address] [place] NRBC% 0.0 /100{WBC} Normal 0-0.5 [facility] Comment on above: Performed By: #### T SH3, [id number], MG, BMP #### [address] Platelet mean volume (Bld) [Entitic vol] 7.4 fL Normal 6.6-10.1 [facility] Comment on above: Performed By: #### T SH3, [id number], MG, BMP #### [address] Platelets (Bld) [#/Vol] 177 10*3/uL Normal 150-450 [facility] Comment on above: Performed By: #### T SH3, [id number], MG, BMP #### [address] RBC (Bld) [#/Vol] 6.07 10*6/uL High 3.90-5.60 [facility] Comment on above: Performed By: #### T SH3, [id number], MG, BMP #### [address] WBC (Bld) [#/Vol] 15.1 10*3/uL High 4.1-10.5 [facility] Comment on above: Performed By: #### T SH3, [id number], MG, BMP #### [address] Comprehensive Metabolic Pane paresh 01-17-2024 Albumin [Mass/Vol] 4.7 g/dL Normal 3.5-5.7 [facility] Comment on above: Performed By: #### T SH3, [id number], MG, BMP #### [address] Anion gap [Moles/Vol] 13.6 mmol/L Normal 6.0-15.[address] [facility] Comment on above: Performed By: #### T SH3, [id number], MG, BMP #### [address] Calcium [Mass/Vol] 9.9 mg/dL Normal 8.6-10.3 [facility] Comment on above: Performed By: #### T SH3, [id number], MG, BMP #### [address] Chloride [Moles/Vol] 106 mmol/L Normal 98-107 [facility] Comment on above: Performed By: #### T SH3, [id number], MG, BMP #### [address] CO2 [Moles/Vol] 21.4 mmol/L Normal 21.0-31.0 [facility] Comment on above: Performed By: #### T SH3, [id number], MG, BMP #### [address] Creatinine [Mass/Vol] 1.29 mg/dL Normal 0.70-1.30 [facility] Comment on above: Performed By: #### T SH3, [id number], MG, BMP #### [address] Creatinine Clr Calc Pharmacy 70.30 Normal [facility] Comment on above: Result Comment: PERF ORMED BY: [place] [address] PATHOLOGIST CELLULAR [employer]OWER CLIMBER RANDI SANTOS M.D. Performed By: #### T SH3, [id number], MG, BMP #### [address] GFR/1.73 sq M.predicted MDRD (S/P/Bld) [Vol rate/Area] mL/min/{1.73_m2} Normal [facility] Comment on above: Performed By: #### T SH3, [id number], MG, BMP #### [place] [address] [place] Glucose [Mass/Vol] 124 mg/dL High 70-100 [facility] Comment on above: Result Comment: [place] om Glucose Reference Range is dependent on time and content of last meal. Glucose of more than 200 mg/dL in a nonstressed, ambulatory subject supports the diagnosis of Diabetes Mellitus. ADA recommended reference range Performed By: #### T SH3, [id number], MG, BMP #### [facility] [address] [place] [address] Potassium [Moles/Vol] 4.0 mmol/L Normal 3.5-5.1 [facility] Comment on above: Performed By: #### T SH3, [id number], MG, BMP #### [address] Sodium [Moles/Vol] 137 mmol/L Normal 136-145 [facility] Comment on above: Performed By: #### T SH3, [id number], MG, BMP #### [address] Urea nitrogen [Mass/Vol] 21 mg/dL Normal 7-25 [facility] [facility] Comment on above: Performed By: #### T SH3, [id number], MG, BMP #### [address] Dipstick and Microscopicon 0 01-17-2024 Appearance (U) Cloudy Critically abnormal Clear [facility] Comment on above: Order Comment: Name Collection Type:: Voided Performed By: #### T SH3, [id number], MG, BMP #### [address] Bacteria,Urine 4+ High None Seen [facility] Comment on above: Order Comment: Name Collection Type:: Voided Performed By: #### T SH3, [id number], MG, BMP #### [address] Bilirubin,Urine Negative Normal Negative [facility] Comment on above: Order Comment: Name Collection Type:: Voided Performed By: #### T SH3, [id number], MG, BMP #### [facility] [address] [place] [address] Glucose Ql (U) Normal Normal Normal [facility] Comment on above: Order Comment: Name Collection Type:: Voided Performed By: #### T SH3, [id number], MG, BMP #### [address] Hyaline Casts,Urine 0-8 Normal 0-8 [facility] Comment on above: Order Comment: Name Collection Type:: Voided Result Comment: PERF ORMED BY: [place] [address] PATHOLOGIST CELLULAR TOWER CLIMBER RANDI SANTOS M.D. Performed By: #### T SH3, [id number], MG, BMP #### [address] Ketones Ql (U) Trace High Negative [facility] Comment on above: Order Comment: Name Collection Type:: Voided Performed By: #### T SH3, [id number], MG, BMP #### [address] Leukocyte esterase Test strip Ql (U) 3+ High Negative [facility] Comment on above: Order Comment: Name Collection Type:: Voided Performed By: #### T SH3, [id number], MG, BMP #### [place] [address] [place] Nitrite,Urine Positive High Negative [facility] Comment on above: Order Comment: Name Collection Type:: Voided Performed By: #### T SH3, [id number], MG, BMP #### [address] Occult Blood,Urine 3+ High Negative [facility] Comment on above: Order Comment: Name Collection Type:: Voided Result Comment: PERF ORMED BY: [place] [address] PATHOLOGIST CELLULAR TOWER CLIMBER RANDI SANTOS M.D. Performed By: #### T SH3, [id number], MG, BMP #### [facility] [address] [place] [address] [place] RBC,Urine Innumerable High 0-4 [facility] Comment on above: Order Comment: Name Collection Type:: Voided Performed By: #### T SH3, [id number], MG, BMP #### [place] [address] Specificy [place],Urine 1.024 Normal 1.001-1.030 [facility] Comment on above: Order Comment: Name Collection Type:: Voided Performed By: #### T SH3, [id number], MG, BMP #### [address] Squamous Epithelial Cell,Urine None Seen Normal 0-2 [facility] Comment on above: Order Comment: Name Collection Type:: Voided Performed By: #### T SH3, [id number], MG, BMP #### [address] Urobilinogen,Urine Normal Normal Normal [facility] Comment on above: Order Comment: Name Collection Type:: Voided Performed By: #### T SH3, [id number], MG, BMP #### [address] WBC,Urine 50-100 High 0-4 [facility] Comment on above: Order Comment: Name Collection Type:: Voided Performed By: #### T SH3, [id number], MG, BMP #### [address] ECG 12 lead ECGon 01-17-2024 ECG 12 lead ECG [facility] Main [place] [address] [place] [address] Electrocardiograph Report Signed Patient: Larry Mcfarlane MR#: [id number] : 1960 Acct:[id number] Age/Sex: 63 / M ADM Date: 01/18/24 Loc: Room: [address] [place] [address] Type: ADM IN Attending Dr: Maikel Palacio [...] have occurred Confirmed by NÉSTOR DAI MD ([id number]) on 01/18/2024 5:30:13 AM Referred By: Electronically Signed By:NÉSTOR DAI MD Transcribed By: MUS Signed By Néstor Dai Jr, MD 0530 Normal [facility] Ketones Auto test strip (U) [Mass/Vol]Ordered By: Néstor Dai on 01-17-2024 Ketones (U) [Mass/Vol] Trace Negative [facility] - UrinalysisOrder ed By: Néstor Dai on 01-17-2024 Hyaline casts LM Ql (Urine sed) 0-8 [LPF] 0-[address] [facility] Lactic Acidon 01-17-2024 Lactate [Moles/Vol] 1.6 mmol/L Normal 0.5-2.2 [facility] Comment on above: Result Comment: PERF ORMED BY: [place] [address] PATHOLOGIST CELLULAR TOWER CLIMBER RANDI SANTOS M.D. Performed By: #### T SH3, [id number], MG, BMP #### [address] Monocyte distribution width [Entitic volume] in Blood by AutomatedOrdered By: Néstor Dai on 01-17-2024 Monocyte distribution width Auto (Bld) [Entitic vol] 25.38 % 0.00-20.[address] [facility] Comment on above: For adults in ED, W > 20.0 may be associated with a higher risk of sepsis during the first 12 hrs of hospital admission Nitrite Test strip Ql (U)Ord ered By: Néstor Dai on 01-17-2024 Nitrite Ql (U) Positive Negative [facility] No Panel InformationOrdered By: Néstor Dai on 01-17-2024 Escherichia coli Escherichia coli [facility] Operative Reporton Operative Report [id number]# 1.00TIFF Normal [facility] Protein [Mass/volume] in Ser um or PlasmaOrdered By: Néstor Dai on 01-17-2024 Protein [Mass/Vol] 7.2 g/dL Normal 6.4-8.9 [facility] Comment on above: Performed By: #### T SH3, [id number], MG, BMP #### [facility] [address] Serum globulin measurement b y calculation (mass/volume)Ordered By: Néstor Dai on 01-17-2024 Globulin (S) [Mass/Vol] 2.5 g/dL Normal F [facility] Comment on above: Performed By: #### T SH3, [id number], MG, BMP #### [facility] [address] Serum or plasma albumin/glob ulin mass ratioOrdered By: Néstor Dai on 01-17-2024 Albumin/Globulin [Mass ratio] 1.9 {ratio} Normal [facility] Comment on above: Performed By: #### T SH3, [id number], MG, BMP #### [facility] [address] [place] [address] Specific gravity Auto test s trip (U) [Rel density]Ordered By: Néstor Dai on 01-17-2024 Specific gravity (U) [Rel density] 1.024 1.001-1.[address] [facility] Squamous epithelial cells de tection in urine sediment by light microscopyOrdered By: Néstor Dai on 01-17-2024 Epithelial cells.squamous LM Ql (Urine sed) None seen [HPF] 0-[address] [facility] Urine Cultureon 01-17-2024 Bacteria identified Cx Nom (U) ORGANISM: Escherichia coli (O:ESCCOL) [place] Count >100,000 Aerobic DILIP Charge (NMIC56) ---- [...] RESISTANT TO ALL B-LACTAM DRUGS. PERFORMED BY: [place] [address] PATHOLOGIST CELLULAR TOWER CLIMBER RANDI SANTOS M.D. Normal [facility] Comment on above: Performed By: #### T SH3, [id number], MG, BMP #### [address] Urine bacteria detection by automated methodOrdered By: Néstor Dai on 01-17-2024 Bacteria Auto Ql (U) 4+ [HPF] None Seen [facility] Urine clarity by refractomet ry automatedOrdered By: Néstor Dai on 01-17-2024 Clarity Refractometry automated (U) Cloudy Clear [facility] Urine culture routineOrdered By: Néstor Dai on 01-17-2024 Bacteria identified Cx Nom (U) Escherichia coli [facility] Urine glucose measurement by automated test strip (mass/volume)Ordered By: Néstor Dai on 01-17-2024 Glucose Auto test strip (U) [Mass/Vol] Normal mg/dL Normal [facility] Urine hemoglobin detection b y automated test stripOrdered By: Néstor Dai on 01-17-2024 Hemoglobin Auto test strip Ql (U) 3+ Negative [facility] Urine leukocyte esterase det ection by automated test stripOrdered By: Néstor Dai on 01-17-2024 Leukocyte esterase Auto test strip Ql (U) 3+ Negative [facility] Urine pH measurement by auto mated test stripOrdered By: Néstor Dai on 01-17-2024 pH (U) 5.0 [pH] Normal 5.0-9.[address] [facility] Comment on above: Order Comment: Name Collection Type:: Voided Performed By: #### T SH3, [id number], MG, BMP #### [facility] [address] Urine protein measurement by automated test strip (mass/volume)Ordered By: Néstor Dai on 01-17-2024 Protein (U) [Mass/Vol] 30 mg/dL High Negative [facility] Comment on above: Order Comment: Name Collection Type:: Voided Performed By: #### T SH3, [id number], MG, BMP #### [facility] [address] Urobilinogen Auto test strip (U) [Mass/Vol]Ordered By: Néstor Dai on 01-17-2024 Urobilinogen (U) [Mass/Vol] Normal mg/dL Normal [facility] Paresh 01-16-2024 L Specimen: [id number] Received: 01/16/24 Status: BHAKTI Dumont Num: [id number] Spec Type: Surgical Subm Dr: Yousuf Zuñiga [...] Age/ Patient Sex Location Account Attending Physician BladelanedannLarry patel Kailee 63/M [place] [id number] Yousuf Zuñiga MD SPEC NUM: [id number] RECD: 01/16/24 STATUS: BHAKTI DUMONT NUM: [id number] BAKARI: 01/16/24- SUBM DR: Yousuf Zuñiga MD ENTERED: 01/16/24 [facility] DR: Derrick Mederos [facility] SPEC TYPE: Surgical DEPT: S ORDERED: HE/24, Gross/Micro L4/12, PIN Cocktail/4, IHC Multipl/4 ORDERED: HE/24, Gross/Micro L4/12, PIN Cocktail/4, USS/20, IHC Multipl/4 Supplemental Report Addendum 1 Entered: 02/13/246 Supplemental for findings of Confirm MDX for prostate cancer: Patient result: DNA Methylation positive -Likelihood of prostate cancer on repeat biopsy: 29% -Likelihood of detecting Castle score <= 6 cancer 19% -Likelihood of detecting Josefa score >= 7 cancer 10% -------- Specimen: [id number] Received: 01/16/24 Status: BHAKTI Dumont Num: [id number] Spec Type: Surgical Subm Dr: Yousuf Zuñiga [...] Cocktail/4, IHC Multipl/4 -------- Patient: Larry Mcfarlane [id number] (Continued) -------- Specimen: [id number] Received: 01/16/24 (Continued) Supplemental Report (Continued) Signed (signature on file) Sumaya Roque MD 01/21/24 1840 -------- Specimen: [id number] Received: 01/16/24 Status: BHAKTI Dumont Num: [id number] Spec Type: Surgical Subm Dr: Yousuf Zuñiga [...] Biopsy (RT APEX LATERAL) Procedures: /, Gross/Micro L4/12, PIN Cocktail/4, IHC Multipl/4 -------- Patient: DenysLarry Dugan [id number] (Continued) -------- Specimen: [id number] Received: 01/16/24-1234 (Continued) Supplemental Report (Continued) Addendum Signed (signature [...] findings (more content not included)... Normal [facility] MR prostate wo/w conon 10-15 MR prostate wo/w con [facility] Main [place] [address] [place] [address] MRI Report Signed Patient: Larry Mcfarlane MR#: [id number] : 1960 Acct:[id number] Age/Sex: 63 / M ADM Date: 10/14/23 Loc: MR Room: Type: [facility] Attending Dr: Yousuf Zuñiga MD Copies to: [...] Guaman Jr., D.O.10/15/2023 2:06 PM Dictation Location: [place] [address] Transcribed By: [facility] 10/15/23 1406 Dictated By: Mateo Guaman Jr, DO 10/15/23 1401 Signed By: 10/15/23 1406 Normal [facility] ISTAT XRay CREon 10-14-2023 Creatinine [Mass/Vol] 1.3 mg/dL Normal 0.6-1.3 [facility] Comment on above: Result Comment: ER/E SD physician is notified/shown all ISTAT results. Critical values may be confirmed by laboratory testing if deemed necessary by ER attending doctor. Performed By: #### T SH3, [id number], MG, BMP #### [address] ISTAT GFR > 60.0 Normal [facility] Comment on above: Result Comment: PERF ORMED BY: [place] [address] PATHOLOGIST CELLULAR TOWER CLIMBER RANDI SANTOS M.D. Performed By: #### T SH3, [id number], MG, BMP #### [address] PSA Diagnostic (Total Free) on 07-16-2023 Prostate Spec Ag, Free 1.240 ng/mL Normal T he [facility] Comment on above: Order Comment: Reaso n for Exam Elevated PSA Performed By: #### T SH3, [id number], MG, BMP #### [address] PSA Total (Not a Screen) 7.330 ng/mL High 0.000-4.000 [facility] Comment on above: Order Comment: Reaso n for Exam Elevated PSA Performed By: #### T SH3, [id number], MG, BMP #### [address] PSA,FREE% 16.9 % Normal [facility] Comment on above: Order Comment: [...] 10% 20% >25 5% 9% PERFORMED BY: [place] [id number] PATHOLOGIST CELLULAR TOWER CLIMBER RANDI SANTOS M.D. Performed By: #### T SH3, [id number], MG, BMP #### [facility] [address] Prostate Specific Ag Free [M ass/volume] in Serum or PlasmaOrdered By: Bernardo Torrez on 07-16-2023 Free PSA [Mass/Vol] 1.240 ng/mL [facility] Prostate specific Ag [Mass/v olume] in Serum or PlasmaOrdered By: Bernardo Torrez on 07-16-2023 Prostate specific Ag [Mass/Vol] 7.330 ng/mL 0.000-4.[address] [facility] Serum or plasma free prostat e specific antigen (PSA)/total PSA ratioOrdered By: Bernardo Torrez on 07-16-2023 Free PSA/Total PSA [Mass fraction] 16.9 % [facility] Comment on above: Based on the work [...] 07-16-2023 Urate [Mass/Vol] 9.6 mg/dL High 4.4-7.6 [facility] Comment on above: Order Comment: Reaso n for Exam Gout Result Comment: PERF ORMED BY: [place] [address] PATHOLOGIST CELLULAR TOWER CLIMBER RANDI SANTOS M.D. Performed By: #### T SH3, [id number], MG, BMP #### [address] Alanine aminotransferase [En zymatic activity/volume] in Serum or PlasmaOrdered By: Jose Carlos Torrez on 07-15-2023 ALT [Catalytic activity/Vol] 12 U/L Normal 7-[address] [facility] Comment on above: Performed By: #### T SH3, [id number], MG, BMP #### [address] Albumin [Mass/volume] in Ser um or Plasma by Bromocresol green (BCG) dye binding methoOrdered By: Jose Carlos Torrez on 07-15-2023 Albumin BCG dye [Mass/Vol] 4.5 g/dL 3.5-5.[address] [facility] Alkaline phosphatase [Enzyma tic activity/volume] in Serum or PlasmaOrdered By: Jose Carlos Torrez on 07-15-2023 ALP [Catalytic activity/Vol] 62 U/L Normal 34-[address] [facility] Comment on above: Performed By: #### T SH3, [id number], MG, BMP #### [address] Aspartate aminotransferase [ Enzymatic activity/volume] in Serum or PlasmaOrdered By: Jose Carlos Torrez on 07-15-2023 AST [Catalytic activity/Vol] 14 U/L Normal 13-[address] [facility] Comment on above: Performed By: #### T SH3, [id number], MG, BMP #### [address] Automated basophil %Ordered By: Jose Carlos Torrez on 07-15-2023 Basophils/100 WBC (Bld) 0.8 % Normal . [facility] Comment on above: Performed By: #### T SH3, [id number], MG, BMP #### [place] [address] [place] Automated basophil countOrde red By: Jose Carlos Torrez on 07-15-2023 Basophils (Bld) [#/Vol] 0.1 10*3/uL Normal 0.0-0.[address] [facility] Comment on above: Result Comment: PERF ORMED BY: [place] [address] PATHOLOGIST CELLULAR TOWER CLIMBER RANDI SANTOS M.D. Performed By: #### T SH3, [id number], MG, BMP #### [facility] [address] [place] [address] Automated blood monocyte cou ntOrdered By: Jose Carlos Torrez on 07-15-2023 Monocytes (Bld) [#/Vol] 0.4 10*3/uL Normal 0.0-0.[address] [facility] Comment on above: Performed By: #### T SH3, [id number], MG, BMP #### [address] Automated eosinophil %Ordere d By: Jose Carlos Torrez on 07-15-2023 Eosinophils/100 WBC (Bld) 2.4 % Normal . [facility] Comment on above: Performed By: #### T SH3, [id number], MG, BMP #### [facility] [address] [place] [address] Automated eosinophil countOr dered By: Jose Carlos Torrez on 07-15-2023 Eosinophils (Bld) [#/Vol] 0.2 10*3/uL Normal 0.0-0.[address] [facility] Comment on above: Performed By: #### T SH3, [id number], MG, BMP #### [facility] [address] [place] [address] Automated monocyte %Ordered By: Jose Carlos Torrez on 07-15-2023 Monocytes/100 WBC (Bld) 5.8 % Normal . [facility] Comment on above: Performed By: #### T SH3, [id number], MG, BMP #### [facility] [address] [place] [address] Automated neutrophil %Ordere d By: Jose Carlos Torrez on 07-15-2023 Neutrophils/100 WBC (Bld) 70.9 % Normal . [facility] Comment on above: Performed By: #### T SH3, [id number], MG, BMP #### [facility] [address] [place] [address] Bilirubin.total [Mass/volume ] in Serum or PlasmaOrdered By: Jose Carlos Torrez on 07-15-2023 Bilirubin [Mass/Vol] 0.9 mg/dL Normal 0.3-1.0 [facility] Comment on above: Performed By: #### T SH3, [id number], MG, BMP #### [facility] [address] [place] [address] Calcium [Mass/volume] in Ser um or PlasmaOrdered By: Jose Carlos Torrez on 07-15-2023 Calcium [Mass/Vol] 9.8 mg/dL Normal 8.6-10.3 [facility] Comment on above: Performed By: #### T SH3, [id number], MG, BMP #### [address] Carbon dioxide, total [Moles /volume] in Serum or PlasmaOrdered By: Jose Carlos Torrez on 07-15-2023 CO2 [Moles/Vol] 30.3 mmol/L Normal 21.0-31.0 [facility] Comment on above: Performed By: #### T SH3, [id number], MG, BMP #### [facility] [address] [place] [address] [place] Chloride [Moles/volume] in S katelyn or PlasmaOrdered By: Jose Carlos Torrez on 07-15-2023 Chloride [Moles/Vol] 104 mmol/L Normal 98-107 [facility] Comment on above: Performed By: #### T SH3, [id number], MG, BMP #### [address] Cholesterol [Mass/volume] in Serum or PlasmaOrdered By: Jose Carlos Torrez on 07-15-2023 Cholesterol [Mass/Vol] 147 mg/dL Normal 140-200 [facility] Comment on above: Chol less than 200 m g/dl low riskChol 201-239 mg/dl borderline riskChol 240 mg/dl and greater high risk Result Comment: Chol less than 200 mg/dl low risk Chol 201-239 mg/dl borderline risk Chol 240 mg/dl and greater high risk Performed By: #### T SH3, [id number], MG, BMP #### [address] Cholesterol in LDL Calc [Mas s/Vol]Ordered By: Jose Carlos Torrez on 07-15-2023 Cholesterol in LDL [Mass/Vol] 82 mg/dL 0-[address] [facility] Comment on above: LDL ATP III CLASSIFI CATIONLDL less than 100 mg/dL OptimalLDL 100-129 mg/dL Near or above optimalLDL 130-159 mg/dL Borderline highLDL 160-189 mg/dL HighLDL greater than 189 mg/dL Very high Cholesterol in VLDL Calc [Ma ss/Vol]Ordered By: Jose Carlos Torrez on 07-15-2023 Cholesterol in VLDL [Mass/Vol] 28 mg/dL [facility] Creatinine [Mass/volume] in Serum or PlasmaOrdered By: Jose Carlos Torrez on 07-15-2023 Creatinine [Mass/Vol] 1.11 mg/dL Normal 0.70-1.30 [facility] Comment on above: Performed By: #### T SH3, [id number], MG, BMP #### [address] Employee Comp Metabolic Pane paresh 07-15-2023 Albumin [Mass/Vol] 4.5 g/dL Normal 3.5-5.7 [facility] Comment on above: Performed By: #### T SH3, [id number], MG, BMP #### [facility] [address] GFR/1.73 sq M.predicted MDRD (S/P/Bld) [Vol rate/Area] mL/min/{1.73_m2} Normal [facility] Comment on above: Performed By: #### T SH3, [id number], MG, BMP #### [facility] [address] Employee Complete Blood Coun ton 07-15-2023 Mean Corpuscular HGB Conc 32.8 g/dL Normal 32.5-35.6 [facility] Comment on above: Performed By: #### T SH3, [id number], MG, BMP #### [facility] [address] NRBC% 0.1 /100{WBC} Normal 0-0.5 [facility] Comment on above: Performed By: #### T SH3, [id number], MG, BMP #### [facility] [address] Employee Lipid Profileon LDL Cholesterol,Calculated 82 mg/dL Normal 0-100 [facility] Comment on above: Result Comment: LDL ATP III CLASSIFICATION LDL less than 100 mg/dL Optimal LDL 100-129 mg/dL Near or above optimal LDL 130-159 mg/dL Borderline high LDL 160-189 mg/dL High LDL greater than 189 mg/dL Very high Performed By: #### T SH3, [id number], MG, BMP #### [address] Triglyceride w/Reflex 141 mg/dL Normal 0-149 [facility] Comment on above: Result Comment: TRIG ATP III CLASSIFICATION TRIG less than 150 mg/dL Normal TRIG 150-199 mg/dL Borderline high TRIG 200-500 mg/dL High TRIG greater than 500 mg/dL Very high Standard traceable to the Center for Disease Conrtrol and Prevention (CDC) test method. Performed By: #### T SH3, [id number], MG, BMP #### [facility] [address] VLDL CHOLESTEROL 28 mg/dL Normal [facility] Comment on above: Performed By: #### T SH3, [id number], MG, BMP #### [facility] [address] [place] [id number] [facility] Employee PSA Totalon 023 PSA Total ([facility] Orders) 7.390 ng/mL High 0.000-4.000 [facility] Comment on above: Result Comment: PERF ORMED BY: [place] [address] PATHOLOGIST CELLULAR TOWER CLIMBER RANDI SANTOS M.D. Performed By: #### T SH3, [id number], MG, BMP #### [address] Employee Thyroid Stim Hormon miguel 07-15-2023 Employee Thyroid Stim Hormone 0.92 u[iU]/mL Normal 0.45-5.33 [facility] Comment on above: Result Comment: PERF ORMED BY: [place] [address] PATHOLOGIST CELLULAR TOWER CLIMBER RANDI SANTOS M.D. Performed By: #### T SH3, [id number], MG, BMP #### [address] Erythrocyte distribution wid th [Ratio] by Automated countOrdered By: Jose Carlos Torrez on 07-15-2023 Erythrocyte distribution width (RBC) [Ratio] 14.4 % Normal 12.0-14.[address] [facility] Comment on above: Performed By: #### T SH3, [id number], MG, BMP #### [address] Erythrocytes [#/volume] in B lood by Automated countOrdered By: Jose Carlos Torrez on 07-15-2023 RBC (Bld) [#/Vol] 5.87 10*6/uL High 3.90-5.60 [facility] Comment on above: Performed By: #### T SH3, [id number], MG, BMP #### [address] Glucose [Mass/volume] in Ser um or PlasmaOrdered By: Jose Carlos Torrez on 07-15-2023 Glucose [Mass/Vol] 87 mg/dL Normal 70-100 [facility] Comment on above: Performed By: #### T SH3, [id number], MG, BMP #### [address] Hematocrit [Volume Fraction] of Blood by Automated countOrdered By: Jose Carlos Torrez on 07-15-2023 Hematocrit (Bld) [Volume fraction] 45.8 % Normal 38.8-50.[address] [facility] Comment on above: Performed By: #### T SH3, [id number], MG, BMP #### [address] Hemoglobin [Mass/volume] in BloodOrdered By: Jose Carlos Torrez on 07-15-2023 Hemoglobin (Bld) [Mass/Vol] 15.0 g/dL Normal 13.0-17.[address] [facility] Comment on above: Performed By: #### T SH3, [id number], MG, BMP #### [address] Leukocytes [#/volume] correc carmina for nucleated erythrocytes in Blood by Automated counOrdered By: Jose Carlos Torrez on 07-15-2023 WBC corrected for nucl RBC Auto (Bld) [#/Vol] 7.6 10*3/uL 4.1-10.[address] [facility] Leukocytes [#/volume] in Blo od by Automated countOrdered By: Jose Carlos Torrez on 07-15-2023 WBC (Bld) [#/Vol] 7.6 10*3/uL Normal 4.1-10.5 [facility] Comment on above: Performed By: #### T SH3, [id number], MG, BMP #### [facility] [address] [place] [address] [place] Lymphocytes [#/volume] in Bl ood by Automated countOrdered By: Jose Carlos Torrez on 07-15-2023 Lymphocytes (Bld) [#/Vol] 1.5 10*3/uL Normal 1.00-4.[address] [facility] Comment on above: Performed By: #### T SH3, [id number], MG, BMP #### [place] [address] [place] Lymphocytes/100 leukocytes i n Blood by Automated countOrdered By: Jose Carlos Torrez on 07-15-2023 Lymphocytes/100 WBC (Bld) 20.1 % Normal . [facility] Comment on above: Performed By: #### T SH3, [id number], MG, BMP #### [facility] [address] [place] [address] MCH [Entitic mass] by Automa carmina countOrdered By: Jose Carlos Torrez on 07-15-2023 MCH (RBC) [Entitic mass] 25.6 pg Low 27.5-35.[address] [facility] Comment on above: Performed By: #### T SH3, [id number], MG, BMP #### [facility] [address] MCHC Auto (RBC) [Mass/Vol]Or dered By: Jose Carlos Torrez on 07-15-2023 MCHC (RBC) [Mass/Vol] 32.8 g/dL 32.5-35.6 [facility] MCV [Entitic volume] by Auto mated countOrdered By: Jose Carlos Torrez on 07-15-2023 MCV (RBC) [Entitic vol] 78.0 fL Low 83.5-101 [facility] Comment on above: Performed By: #### T SH3, [id number], MG, BMP #### [facility] [address] [place] [address] Neutrophils [#/volume] in Bl ood by Automated countOrdered By: Jose Carlos Torrez on 07-15-2023 Neutrophils (Bld) [#/Vol] 5.4 10*3/uL Normal 1.8-7.[address] [facility] Comment on above: Performed By: #### T SH3, [id number], MG, BMP #### [facility] [address] [place] [address] Nicotine Metabolite, Qualon 07-15-2023 Nicotine Metabolite Negative Normal Cutoff=25 [facility] Comment on above: Result Comment: Perf ormed at: BN - [facility] [address] [id number] Certified Medical Biller: Dyan Camacho MD, Phone: [phone] PERFORMED BY: [place] [address] PATHOLOGIST CELLULAR TOWER CLIMBER RANDI SANTOS M.D. Performed By: #### T SH3, [id number], MG, BMP #### [address] No Panel InformationOrdered By: Jose Carlos Torrez on 07-15-2023 Estimated GFR (CKD-EPI) > 60.0 mL/Min [facility] Creatinine Clearance (Chem N/A [facility] Nucleated erythrocytes [Pres ence] in Blood by Automated countOrdered By: Jose Carlos Torrez on 07-15-2023 Nucleated RBC Auto Ql (Bld) 0.1 /100{WBC} 0-0.[address] [facility] Platelet mean volume [Entiti c volume] in Blood by Automated countOrdered By: Jose Carlos Torrez on 07-15-2023 Platelet mean volume (Bld) [Entitic vol] 7.3 fL Normal 6.6-10.[address] [facility] Comment on above: Performed By: #### T SH3, [id number], MG, BMP #### [address] Platelets [#/volume] in Bloo d by Automated countOrdered By: Jose Carlos Torrez on 07-15-2023 Platelets (Bld) [#/Vol] 256 10*3/uL Normal 150-[address] [facility] Comment on above: Performed By: #### T SH3, [id number], MG, BMP #### [address] Potassium [Moles/volume] in Serum or PlasmaOrdered By: Jose Carlos Torrez on 07-15-2023 Potassium [Moles/Vol] 4.4 mmol/L Normal 3.5-5.1 [facility] Comment on above: Performed By: #### T SH3, [id number], MG, BMP #### [address] Prostate specific Ag [Mass/v olume] in Serum or PlasmaOrdered By: Jose Carlos Torrez on 07-15-2023 Prostate specific Ag [Mass/Vol] 7.390 ng/mL 0.000-4.[address] [facility] Protein [Mass/volume] in Ser um or PlasmaOrdered By: Jose Carlos Torrez on 07-15-2023 Protein [Mass/Vol] 7.0 g/dL Normal 6.4-8.9 [facility] Comment on above: Performed By: #### T SH3, [id number], MG, BMP #### [facility] [address] Serum globulin measurement b y calculation (mass/volume)Ordered By: Jose Carlos Torrez on 07-15-2023 Globulin (S) [Mass/Vol] 2.5 g/dL Normal [facility] Comment on above: Performed By: #### T SH3, [id number], MG, BMP #### [facility] [address] [place] [address] Serum or plasma albumin/glob ulin mass ratioOrdered By: Jose Carlos Torrez on 07-15-2023 Albumin/Globulin [Mass ratio] 1.8 {ratio} Normal [facility] Comment on above: Performed By: #### T SH3, [id number], MG, BMP #### [facility] [address] [place] [address] Serum or plasma anion gap de terminationOrdered By: Jose Carlos Torrez on 07-15-2023 Anion gap [Moles/Vol] 9.1 mmol/L Normal 6.0-15.0 [facility] Comment on above: Performed By: #### T SH3, [id number], MG, BMP #### [facility] [address] [place] [address] Serum or plasma high density lipoprotein (HDL) cholesterol measurementOrdered By: Jose Carlos Torrez on 07-15-2023 Cholesterol in HDL [Mass/Vol] 37 mg/dL Normal 23-[address] [facility] Comment on above: HDL CHOL ATP-III CLA SSIFICATION Cardiovascular RiskHDL > or equal to 60 mg/dL LOWHDL < 40 mg/dL HIGH Result Comment: HDL CHOL ATP-III CLASSIFICATION Cardiovascular Risk HDL > or equal to 60 mg/dL LOW HDL < 40 mg/dL HIGH Performed By: #### T SH3, [id number], MG, BMP #### [facility] [address] Serum or plasma total choles terol/high density lipoprotein (HDL) cholesterol mass ratOrdered By: Jose Carlos Torrez on 07-15-2023 Cholesterol.total/Vita sterol in HDL [Mass ratio] 4.0 {ratio} Normal <5.[address] [facility] Comment on above: Performed By: #### T SH3, [id number], MG, BMP #### [facility] [address] [place] [address] Sodium [Moles/volume] in Ser um or PlasmaOrdered By: Jose Carlos Torrez on 07-15-2023 Sodium [Moles/Vol] 139 mmol/L Normal 136-145 [facility] Comment on above: Performed By: #### T SH3, [id number], MG, BMP #### [address] Thyrotropin [Units/volume] i n Serum or PlasmaOrdered By: Jose Carlos Torrez on 07-15-2023 TSH Qn 0.92 m[IU]/L 0.45-5.[address] [facility] Triglyceride [Mass/volume] i n Serum or PlasmaOrdered By: Jose Carlos Torrez on 07-15-2023 Triglyceride [Mass/Vol] 141 mg/dL 0-149 [facility] Comment on above: TRIG ATP III CLASSIF ICATIONTRIG less than 150 mg/dL NormalTRIG 150-199 mg/dL Borderline highTRIG 200-500 mg/dL High TRIG greater than 500 mg/dL Very highStandard traceable to the Center for Disease Conrtrol and Prevention (CDC) test method. Urea nitrogen [Mass/volume] in Serum or PlasmaOrdered By: Jose Carlos Torrez on 07-15-2023 Urea nitrogen [Mass/Vol] 16 mg/dL Normal 7-[address] [facility] Comment on above: Performed By: #### T SH3, [id number], MG, BMP #### [address] COVID + FLU [facility] 07-08-2023 SARS-CoV-2 (COVID-19) RNA VIJAY+probe Ql (Unsp spec) Negative Moya Okruga [facility] [employer] Other COVID + FLU Quick Testing Negative Moya Okruga [facility] [employer] Other Urine 10 SGon 09-06-2021 Albumin DL <= 20 mg/L (U) [Mass/Vol] Negative [employer] Other pH (U) 6.5 [pH] [employer] Other Urine 10 SG Negative [employer] Other Urine 10 SG 1.030 [employer] Other Urine 10 SG 0.2 [employer] Other Vital Signs Date Time Vital Sign Value Performing Clinician Facility 08-12-2024 07:41-0500 Blood Pressure Location [facility] 08-12-2024 07:41-0500 Diastolic blood pressure 97 mm[Hg] YousufSNOBSWAP [facility] 08-12-2024 07:41-0500 Heart rate 68 /min [employer] [facility] 08-12-2024 07:41-0500 Respiratory rate 19 /min [employer] [facility] 08-12-2024 07:41-0500 Systolic blood pressure 159 mm[Hg] YousufSNOBSWAP [facility] 01-28-2024 08:24-0400 Blood Pressure Location [employer] [facility] 01-28-2024 08:24-0400 Body temperature 98.42 [degF] [employer] [facility] 01-28-2024 08:24-0400 Diastolic blood pressure 87 mm[Hg] Yousuf COOK [facility] 01-28-2024 08:24-0400 Heart rate 75 /min Yousuf COOK [facility] 01-28-2024 08:24-0400 Respiratory rate 16 /min Yousuf COOK [facility] 01-28-2024 08:24-0400 Systolic blood pressure 133 mm[Hg] Yousuf COOK [facility] 01-22-2024 11:44-0400 Body temperature 97.8 [degF] DO Bernardo Kuns Work Phone: [facility] 01-22-2024 11:44-0400 Diastolic blood pressure 83 mm[Hg] DO Bernardo Kuns Work Phone: [facility] 01-22-2024 11:44-0400 Heart rate 85 /min DO Bernardo Kuns Work Phone: [facility] 01-22-2024 11:44-0400 Respiratory rate 18 /min DO Bernardo Kuns Work Phone: [facility] 01-22-2024 11:44-0400 SaO2% (BldA) [Mass fraction] 97 % DO Bernardo Kuns Work Phone: [facility] 01-22-2024 11:44-0400 Systolic blood pressure 120 mm[Hg] DO Bernardo Kuns Work Phone: [facility] 01-22-2024 05:11-0400 Body weight 101 kg DO Bernardo Kuns Work Phone: [facility] 01-20-2024 11:15-0400 Body height 177.8 cm DO Bernardo Kuns Work Phone: [facility] 01-20-2024 08:31-0400 Inhaled oxygen flow rate 2 L/min DO Bernardo Kuns Work Phone: [facility] 01-18-2024 05:53-0400 Body temperature 101.1 [degF] DO Bernardo Kuns Work Phone: [facility] 01-18-2024 05:53-0400 Diastolic blood pressure 72 mm[Hg] DO Bernardo Kuns Work Phone: [facility] 01-18-2024 05:53-0400 Heart rate 89 /min DO Bernardo Kuns Work Phone: [facility] 01-18-2024 05:53-0400 Respiratory rate 16 /min DO Bernardo Kuns Work Phone: [facility] 01-18-2024 05:53-0400 SaO2% (BldA) [Mass fraction] 95 % DO Bernardo Kuns Work Phone: [facility] 01-18-2024 05:53-0400 Systolic blood pressure 143 mm[Hg] DO Bernardo Kuns Work Phone: [facility] 01-17-2024 20:54-0400 Body height 177.8 cm DO Bernardo Kuns Work Phone: [facility] 01-17-2024 20:54-0400 Body weight 99.79 kg DO Bernardo Kuns Work Phone: [facility] 10-01-2023 08:57-0500 Blood Pressure Location Yousuf ZUÑIGA [facility] 10-01-2023 08:57-0500 Diastolic blood pressure 84 mm[Hg] Yousuf ZUÑIGA [facility] 10-01-2023 08:57-0500 Heart rate 82 /min Yousuf ZUÑIGA [facility] 10-01-2023 08:57-0500 Systolic blood pressure 132 mm[Hg] Yousuf ZUÑIGA [facility] 07-29-2023 08:30-0500 Body height 177.8 cm Bernardo Kuns Other [employer] Other 07-29-2023 08:30-0500 Body mass index (BMI) [Ratio] 31.99 kg/m2 Bernardo Kuns Other [employer] Other 07-29-2023 08:30-0500 Body weight 101.15 kg Bernardo Kuns Other [employer] Other 07-29-2023 08:30-0500 Diastolic blood pressure 80 mm[Hg] Bernardo Kuns Other [employer] Other 07-29-2023 08:30-0500 Respiratory rate 18 /min Bernardo Kuns Other [employer] Other 07-29-2023 08:30-0500 SaO2% (BldA) [Mass fraction] 98 % Bernardo Kuns Other [employer] Other 07-29-2023 08:30-0500 Systolic blood pressure 134 mm[Hg] Bernardo Kuns Other [employer] Other 07-08-2023 10:30-0400 Body height 177.8 cm Bernardo Kuns Other [employer] Other 07-08-2023 10:30-0400 Body mass index (BMI) [Ratio] 31.56 kg/m2 Bernardo Kuns Other [employer] Other 07-08-2023 10:30-0400 Body weight 99.79 kg Bernardo Kuns Other [employer] Other 07-08-2023 10:30-0400 Diastolic blood pressure 90 mm[Hg] Bernardo Kuns Other [employer] Other 07-08-2023 10:30-0400 Respiratory rate 16 /min Bernardo Kuns Other [employer] Other 07-08-2023 10:30-0400 SaO2% (BldA) [Mass fraction] 96 % Bernardo Kuns Other [employer] Other 07-08-2023 10:30-0400 Systolic blood pressure 142 mm[Hg] Bernardo Kuns Other [facility] [employer] Other 06-23-2023 16:13-0400 Body height 179.07 cm DO Bernardo Kuns Work Phone: [facility] 06-23-2023 16:13-0400 Body temperature 98.3 [degF] DO Bernardo Kuns Work Phone: [facility] 06-23-2023 16:13-0400 Body weight 104.5 kg DO Bernardo Kuns Work Phone: [facility] 06-23-2023 16:13-0400 Diastolic blood pressure 96 mm[Hg] DO Bernardo Kuns Work Phone: [facility] 06-23-2023 16:13-0400 Heart rate 97 /min DO Bernardo Kuns Work Phone: [facility] 06-23-2023 16:13-0400 Respiratory rate 18 /min DO Bernardo Kuns Work Phone: [facility] 06-23-2023 16:13-0400 SaO2% (BldA) [Mass fraction] 97 % DO Bernardo Kuns Work Phone: [facility] 06-23-2023 16:13-0400 Systolic blood pressure 143 mm[Hg] DO Bernardo Kuns Work Phone: [facility] 10-16-2021 10:45-0500 Body height 177.8 cm Bernardo Kuns Other [employer] Other 10-16-2021 10:45-0500 Body mass index (BMI) [Ratio] 27.98 kg/m2 Bernardo Kuns Other [employer] Other 10-16-2021 10:45-0500 Body weight 88.45 kg Ebrnardo Kuns Other [employer] Other 10-16-2021 10:45-0500 Diastolic blood pressure 70 mm[Hg] Bernardo Kuns Other [employer] Other 10-16-2021 10:45-0500 Respiratory rate 16 /min Bernardo Kuns Other [employer] Other 10-16-2021 10:45-0500 SaO2% (BldA) [Mass fraction] 99 % Bernardo Kuns Other [employer] Other 10-16-2021 10:45-0500 Systolic blood pressure 110 mm[Hg] Bernardo Kuns Other [employer] Other 09-06-2021 13:30-0500 Body height 177.8 cm Bernardo Kuns Other [employer] Other 09-06-2021 13:30-0500 Body mass index (BMI) [Ratio] 27.69 kg/m2 Bernardo Kuns Other [employer] Other 09-06-2021 13:30-0500 Body weight 87.54 kg Bernardo Kuns Other [employer] Other 09-06-2021 13:30-0500 Diastolic blood pressure 82 mm[Hg] Bernardo Kuns Other [employer] Other 09-06-2021 13:30-0500 Respiratory rate 16 /min Bernardo Kuns Other [employer] Other 09-06-2021 13:30-0500 SaO2% (BldA) [Mass fraction] 97 % Bernardo Kuns Other [employer] Other 09-06-2021 13:30-0500 Systolic blood pressure 130 mm[Hg] Bernardo Kuns Other [employer] Other 08-07-2021 11:15-0500 Body height 177.8 cm Bernardo Kuns Other [employer] Other 08-07-2021 11:15-0500 Body mass index (BMI) [Ratio] 27.52 kg/m2 Bernardo Kuns Other [employer] Other 08-07-2021 11:15-0500 Body weight 87 kg Bernardo Kuns Other [employer] Other 08-07-2021 11:15-0500 Diastolic blood pressure 78 mm[Hg] Bernardo Kuns Other [employer] Other 08-07-2021 11:15-0500 Respiratory rate 16 /min Bernardo Torrez Other [employer] Other 08-07-2021 11:15-0500 SaO2% (BldA) [Mass fraction] 91 % Bernardooziel Lucios Other [employer] Other 08-07-2021 11:15-0500 Systolic blood pressure 124 mm[Hg] Bernardo Lucios Other [employer] Other Encounters Encounter Date Encounter Type Care Provider Facility Start: 06-02-2025 ambulatory Yousuf ZUÑIGA Facility :[facility] Start: 11-25-2024 End: 11-25-2024 ambulatory Yousuf ZUÑIGA Facility:[facility] Start: 08-12-2024 End: 08-12-2024 ambulatory Yousuf ZUÑIGA Facility:[facility] Start: 08-12-2024 End: 08-12-2024 Patient encounter procedure [facility] Start: 04-29-2024 End: 04-29-2024 ambulatory Yousuf ZUÑIGA Facility:[facility] Start: 04-29-2024 End: 04-29-2024 Patient encounter procedure Yousuf ZUÑIGA [facility] Start: 04-28-2024 End: 04-28-2024 ambulatory Yousuf ZUÑIGA Facility:[facility] Start: 04-28-2024 End: 04-28-2024 Patient encounter procedure Yousuf ZUÑIGA [facility] Vikash Start: 01-28-2024 End: 01-28-2024 ambulatory Michelle Huan Facility:[facility] Start: 01-28-2024 End: 01-28-2024 ambulatory Yousuf ZUÑIGA Facility:[facility] Start: 01-28-2024 End: 01-28-2024 Patient encounter procedure Yousuf ZUÑIGA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 [facility] [address] [place] [address] Hospitalist Progress Note Signed Patient: Larry Mcfarlane R#: [id number] : 1960 Acct:[id number] Age/Sex: 63 / M Adm Date: 4 Loc: Room: [address] [place] [address] Type: ADM IN Attending Dr: Bhupinder Mcrae MD Copies to: ~ Date of Service: 01/19/2024 Subjective Subjective Narrative: Patient is feeling overall better today, although he still had an episode of chills during the rodeo clown. Heart is regular Lungs are clear Abdomen [...] Syringe IV-PUSH 01/17/25 05:59 Not Given QSHIFT [facility] A&P - Hospitalist Assessment/Plan (1) Sepsis: (2) GERD (gastroesophageal reflux disease): Plan \ Documented By: Bhupinder Mcrae MD 01/19/24 1222 Signed By: <Electronically signed by Bhupinder Mcrae MD> 01/19/24 1224 [facility] Work Phone: Progress note Author Maikel Palacio [facility] January 20, 2024 6:27am Note Date/Time January 19, 2024 7:54pm [facility] [address] [place], [place] [address] Event Note Signed Patient: Larry Mcfarlane#: [id number] : 1960 Acct:[id number] Age/Sex: 63 / M Adm Date: 4 Loc: 4N Room: [address] [place] [address] Type: ADM IN Attending Dr: Bhupinder Mcrae MD Copies to: MD Bernardo Boyle,DO Dana Dumont MD, RES~ Status Event Note Event Note [...] By: <Electronically signed by Maikel Palacio DO> 01/20/24 0627 <Electronically signed by MD CORBIN Dinh> 01/19/24 0244 [facility] Work Phone: Progress note Author Karlos Mauricio [facility] January 20, 2024 10:58am Note Date/Time January 20, 2024 10:58a m [facility] [address] [place] [address] Hospitalist Progress Note Signed Patient: Larry Mcfarlane R#: [id number] : 1960 Acct:[id number] Age/Sex: 63 / M Adm Date: 4 Loc: 4N Room: [address] [place] [address] Type: ADM IN Attending Dr: Karlos Mauricio [...] daily Documented By: Karlos Mauricio MD 01/20/24 105 Signed By: <Electronically signed by Karlos Mauricio MD> 01/20/24 1056 [facility] Work Phone: Progress note Author Karlos Mauricio [facility] January 21, 2024 11:44am Note Date/Time January 21, 2024 11:03a m [facility] [address] [place] [address] Hospitalist Progress Note Signed Patient: Larry Mcfarlane Lopez#: [id number] : 1960 Acct:[id number] Age/Sex: 63 / M Adm Date: 4 Loc: 4N Room: [address] [place] [address] Type: ADM IN Attending Dr: Karlos Mauricio [...] signed by Karlos Mauricio MD> 01/21/24 1144 [facility] Work Phone: Progress note Author Michelle Pressley [facility] January 22, 2024 12:47pm Note Date/Time January 22, 2024 12:25p m [facility] [address] [place] [address] Cardiology Progress Note Signed Patient: Larry Mcfarlane R#: [id number] : 1960 Acct:[id number] Age/Sex: 63 / M Adm Date: 4 Loc: Room: [address] [place] [address] Type: ADM IN Attending Dr: Karlos Mauricio [...] shows runs of RVR this am up dr765k. He denies palpitations, chest pain, light headedness [...] arrange for 2 week follow up with [facility] cardiology. Documented By: Michelle Pressley MD 01/22/24 1223 Signed By: <Electronically signed by Michelle Pressley MD> 01/22/24 1247 [facility] Work Phone: Chief Complaint and Reason for [...] ostate cancer in father (Z80.42) Referral Organization [facility] [place] Referring Provider First Name Bernardo Referring Provider Last Name Gopal Referring Provider Specialty Family Prac nahum Referred Organization [facility] Referred Address [address],[place], [place] Referred Provider Specialty Urology Referral Priority Routine General Notes Sofia Nichols 023 02:50:13 PM >Received today and waiting for office notes to be locked before sending referral Summary Purpose Additional Source Comments REASON FOR VISIT (unrecogniz ed section and content) clearance to return to workw ellness/review labs/w[facility] goutAugmentin RxPSApillars Care Teams (unrecognized sec tion and content) Team Status: Active Member Role Status Peyton Torrez DO Primary Care Provider Active Team Status: Inactive Member Role Status Peyton Torrez DO Primary Care Provider Active Veronica Resendiz APRN Emergency Provider Active Team Status: Inactive Member Role Status Peyton Torrez DO Primary Care Provider Active Jose Carlos Torrez DO Attending Provider Active Team Status: Inactive Member Role Status Peyton Torrez DO Primary Care Provider, Attending Provi atul Active Team Status: Inactive Member Role Status Peyton Torrez DO Attending Provider Active Start: July 29, 2023 [...] 2024 Team Status: Inactive Member Role Status Dates Bernardo Torrez DO [...] Augustine Dias MD Other Provider Active Start: Melissa keenan 2023 End: January 22, 2024 Kyle [...] Karlos Mauricio MD Other Provider Active Start: Melissa keenan 2023 Harini Johnson RN Other Provider Active Star t: January 21, 2024 Augustine Dias MD Other Provider Active Start: Melissa keenan 2023 Kyle Rodriguez MD Other Provider Active Start: January 21, 2024 Michelle Pressley MD Attending Provider, Other Provider Active Start: January 21, 2024 Goals (unrecognized section and content) Goals may be documented in a n alternate section (unrecognized sect ion and content) No Status Records FoundNo Status Records Found INFORMATION SOURCE (unrecogn ized section and content) DATE CREATED AUTHOR 03/10/2024 [facility] DATE CREATED AUTHOR 'S ORGANIZ ATION 11/26/2024 [facility] FOR RECORDS PERTAINING TO PATIENTS WHO ARE [...] BE BASED ON THE PRIMARY CLINICAL RECORDS. [facility]. provides no warranty or guarantee of the accuracy or completeness of information in this document.
--- OUTSIDE RECORDS SUMMARY | 2025-05-31 09:08 | XMS_ITS | Patient Health Record ---
Author Organization [facility] Address [address] [place] [address] Care Team Providers Care Shipfitters Supervisor Name Role Phone Dr. Mateo Lopez Primary Care Provider [phone] Reason For Referral No Information Plan Of Treatment No Information Insurance Providers Payer Name Payer Address Payer Phone Subscriber Number Group Number Insured Name Patient Relationship to Insured Coverage Start Date Coverage End Date [employer] [place] [employer] [address] [place] [phone] [id number] MONIE DORAN Self - patient is the insured 1
--- OUTSIDE RECORDS SUMMARY | 2025-05-31 09:08 | XMS_ITS | Clinical Summary ---
Author Organization [facility] Address [address] [place] [id number] Care Team Providers Care Automotive Center Manager Name Role Phone Unavailable Primary Care Provider Unavailabl e Allergies No known active allergies Medications allopurinol 100 mg tablet Take 1 tablet by mouth once daily. 0 12/11/2012 Active Active Problems Problem Noted Date Diagnosed Date Senile cataract, unspecified 12/10/2012 Social History Tobacco Use Types Packs/Day Years Used Date Smoking Tobacco: Never Smokeless Tobacco: Never Alcohol Use Standard Drinks/Week Comments No 0 (1 standard drink = 0.6 oz pur e alcohol) Sex and Gender Information Value Date Recorded Sex Assigned at Not on file Legal Sex Male 10:00 AM EST Gender Identity Not on file Sexual Orientation Not on file Last Filed Vital Signs Vital Sign Reading Time Taken Comments Blood Pressure 109/67 12/12/2012 12:25 PM EDT Pulse 79 12/12/2012 12:25 PM EDT Temperature - - Respiratory Rate 16 12/12/2012 12:25 PM EDT Oxygen Saturation 96% 12/12/2012 12:25 PM EDT Inhaled Oxygen Concentration - - Weight 94.3 kg (208 lb) 12/12/2012 11:28 AM EDT Height 179.1 cm (5' 10.5 ) 12/11/2012 7:04 AM ED T Body Mass Index 29.42 12/11/2012 7:04 AM EDT Plan of Treatment Health Maintenance Due Date Last Done Comments Anxiety Screening 1979 Depression Screening 1979 HIV Screening 1979 Hepatitis C Screening 1979 DTaP,Tdap,Td Vaccine (1 - Tdap) [address] Colonography 2006 Cologuard (FIT-DNA) 2006 Colonoscopy 2006 Colorectal Cancer Screening 2006 Diabetes Screening 2006 Fecal Occult Blood 2006 Prostate Cancer Screening Discussion 2006 Sigmoidoscopy 2006 Pneumococcal Vaccine: 50+ (1 of 1 - PCV) 2011 Shingrix Vaccine (1 of 2) 2011 Influenza Vaccine (#1) 2025 RSV Vaccine (1 - 1-dose 75+ series) 2036 Medical Devices Implanted Type Area Catering Sales Manager Device Identifier Shelf Expiration Date Model / Serial / Lot Lens Iol +18 Chaz 13mm 6mm - [id number] Implanted:Qt y: 1 on 12/12/2012 at [facility] Intraocular Lens Left: Eye - Chamber Posterior [facility] 09/15/2017 [id number] 18.0 / [id number] /
[2025-06-01 08:08] LABS: PSA, Free 2.09 ng/mL
== END 2025-05-31 09:02 | disposition home or self-care (01) ==
LOC: LAB 09:04
PROVIDERS: PCP Family Medicine; Visit Provider Urology
DX: R97.20 Elevated prostate specific antigen [PSA] (principal)
CPT/HCPCS: 84153; 84154